=== PATIENT | male | born 1960 | race Caucasian/White ===

== ENCOUNTER 2019-05-05 14:10 | Emergency (ER) | payer MEDICAID ==
[~2019-05-05] VITALS: Ht 182.9 cm; Wt 77.3 kg
[2019-05-05] MEDS ORDERED: AMLO25TA PO (14:18)
[2019-05-05] MEDS ORDERED: ONDANSETRON 4 MG ORAL DISINTEGRATING TAB (Q0162 PER 1MG) PO ONE (15:30)
[2019-05-05 15:43] LABS: BASO % 0.3 % (0.0-1.0); EOS % 0.3 % (0.0-3.0); HEMATOCRIT 44.2 % (42.0-52.0); HEMOGLOBIN 14.8 g/dl (13.5-17.5); LYMPH # 1.8 10^3/uL (1.5-5.0); LYMPH % 25.3 % (24.0-44.0); MEAN CORPUSCULAR HEMOGLOBIN 33.3 pg (27.0-33.0); MEAN CORPUSCULAR HGB CONC 33.5 g/dl (32.0-36.5); MEAN CORPUSCULAR VOLUME 99.5 fl (80.0-96.0); MONO # 0.8 10^3/uL (0.0-0.8); MONO % 11.6 % (0.0-5.0); NEUTROPHILS # 4.5 10^3/uL (1.5-8.5); NEUTROPHILS % 62.2 % (36.0-66.0); PLATELET COUNT, AUTOMATED 264 10^3/uL (150-450); RED BLOOD COUNT 4.44 10^6/uL (4.30-6.10); WHITE BLOOD COUNT 7.2 10^3/uL (4.0-10.0)
--- NOTE | 2019-05-05 16:03 | REP ---
Clinical: Pain. Technique: AP, lateral, swimmers views of the cervical spine. Findings: Alignment is maintained. Mild/early moderate multilevel degenerative changes include early osteophytosis, minimal endplate sclerosis and subtle disc space narrowing. Findings most pronounced at C3-4 where there is suggestions for 2 mm of retrolisthesis. No acute fracture / compression injury or subluxation. Impression: Mild/moderate multilevel degenerative spondylosis. If the patient remains symptomatic consider MRI for further investigation. Electronically Signed by Kun Sawyer MD 05/05/2019 03:54 P
[2019-05-05 16:14] LABS: ALBUMIN 3.9 GM/DL (3.2-5.2); ALT/SGPT 31 U/L (12-78); BILIRUBIN,DIRECT 0.2 MG/DL (0.0-0.2); BILIRUBIN,TOTAL 0.8 MG/DL (0.2-1.0); BLOOD UREA NITROGEN 6 MG/DL (7-18); CALCIUM LEVEL 8.9 MG/DL (8.5-10.1); CARBON DIOXIDE LEVEL 30 MEQ/L (21-32); CHLORIDE LEVEL 100 MEQ/L (98-107); CREATININE FOR GFR 1.04 MG/DL (0.70-1.30); GLOMERULAR FILTRATION RATE > 60.0 (>56); GLUCOSE, FASTING 137 MG/DL (70-100); LIPASE 90 U/L (73-393); POTASSIUM SERUM 4.2 MEQ/L (3.5-5.1); SODIUM LEVEL 137 MEQ/L (136-145); TOTAL PROTEIN 7.5 GM/DL (6.4-8.2)
[2019-05-05 16:46] VITALS: BP 138/87
[2019-05-05] MEDS ORDERED: LISI10TA4 PO (17:29)
[2019-05-05] MEDS ORDERED: ONDA4TAB6 PO (17:29)
== END 2019-05-05 17:46 | disposition home or self-care (01) ==
LOC: M ED 14:10
DX: M47.812 Spondylosis without myelopathy or radiculopathy, cervical region (principal); I10 Essential (primary) hypertension; R11.2 Nausea with vomiting, unspecified; L56.3 Solar urticaria; Z76.0 Encounter for issue of repeat prescription; Z86.79 Personal history of other diseases of the circulatory system; F17.210 Nicotine dependence, cigarettes, uncomplicated
CPT/HCPCS: 36415; 72040; 80048; 80076; 83690; 85025; 99284; Q0162

== ENCOUNTER → 2019-05-29 | Outpatient (CLI) | payer MEDICAID ==
[~2019-05-29] MED LIST: AMLO25TA PO; LISI10TA4 PO; ONDA4TAB6 PO
== END ==
LOC: M RAD 13:03
PROVIDERS: ATTEND Physician Assistant
DX: M50.30 Other cervical disc degeneration, unspecified cervical region (principal); M43.12 Spondylolisthesis, cervical region

== ENCOUNTER → 2019-06-26 | Outpatient (CLI) | payer OTHER ==
--- NOTE | 2019-06-26 10:01 | REPVR ---
PROCEDURE INFORMATION: Exam: MR Cervical Spine Without Contrast Exam date and time: 06/26/2019 8:52 AM Age: 58 years old Clinical indication: Patient HX: PT states severe neck pain and stiffness TECHNIQUE: Imaging protocol: Multiplanar magnetic resonance images of the cervical spine without contrast. COMPARISON: CR SPINE, CERV-3 NO COLLAR 05/05/2019 3:38 PM FINDINGS: Vertebrae: Unremarkable. Spinal cord: Normal signal. No cord compression. C2-C3: There is grade 1 anterior spondylolisthesis at this level. There is disc desiccation. There is a moderate disc/osteophyte complex that flattens the ventral thecal sac. There is a small central disc protrusion. There is moderate bilateral uncovertebral joint arthropathy. There is moderate bilateral neural foraminal narrowing, left worse than right. C3-C4: There is disc desiccation. There is a moderate disc/osteophyte complex that flattens the ventral thecal sac. There is a small central disc protrusion. There is bilateral uncovertebral joint arthropathy, worse on the right. There is moderate right-sided neuroforaminal narrowing. There is mild spinal canal stenosis. C4-C5: No significant disc disease. No significant spinal stenosis. C5-C6: No significant disc disease. No significant spinal stenosis. C6-C7: No significant disc disease. No significant spinal stenosis. C7-T1: No significant disc disease. No significant spinal stenosis. Vertebral arteries: Expected flow voids in the vertebral arteries. Soft tissues: Unremarkable. IMPRESSION: Moderate degenerative changes at C2/3 and C3/4. Please see details above. Electronically signed by: Adan Nathan On 06/26/2019 10:01:09 AM
== END ==
LOC: M RAD 06:06
PROVIDERS: ATTEND Physician Assistant
DX: M50.31 Other cervical disc degeneration, high cervical region (principal); M50.320 Other cervical disc degeneration, mid-cervical region, unspecified level; M43.12 Spondylolisthesis, cervical region; M25.78 Osteophyte, vertebrae; M50.21 Other cervical disc displacement, high cervical region; M48.02 Spinal stenosis, cervical region

== ENCOUNTER → 2019-08-02 | Outpatient (REF) | payer MEDICAID, OTHER | LOC: M SFHCPLAZ 11:42 | PROVIDERS: ATTEND Family Medicine | DX: R21 Rash and other nonspecific skin eruption (principal) ==

== ENCOUNTER → 2019-08-24 | Outpatient (CLI) | payer OTHER ==
[2019-08-24 13:16] LABS: BASO % 0.4 % (0.0-1.0); EOS # 0.1 10^3/uL (0.0-0.5); EOS % 0.9 % (0.0-3.0); HEMOGLOBIN 14.6 g/dl (13.5-17.5); LYMPH # 1.9 10^3/uL (1.5-5.0); LYMPH % 20.4 % (24.0-44.0); MEAN CORPUSCULAR HEMOGLOBIN 33.1 pg (27.0-33.0); MEAN CORPUSCULAR HGB CONC 33.2 g/dl (32.0-36.5); MEAN CORPUSCULAR VOLUME 99.8 fl (80.0-96.0); MONO # 0.9 10^3/uL (0.0-0.8); MONO % 9.9 % (0.0-5.0); NEUTROPHILS # 6.5 10^3/uL (1.5-8.5); PLATELET COUNT, AUTOMATED 358 10^3/uL (150-450); RED BLOOD COUNT 4.41 10^6/uL (4.30-6.10); WHITE BLOOD COUNT 9.5 10^3/uL (4.0-10.0)
[2019-08-24 13:39] LABS: ALT/SGPT 14 U/L (12-78); BILIRUBIN,TOTAL 0.4 MG/DL (0.2-1.0); BLOOD UREA NITROGEN 9 MG/DL (7-18); C REACTIVE PROTEIN QUANTITATIV 0.83 MG/DL (0.00-0.30); CALCIUM LEVEL 8.8 MG/DL (8.5-10.1); CARBON DIOXIDE LEVEL 32 MEQ/L (21-32); CHLORIDE LEVEL 104 MEQ/L (98-107); CHOLESTEROL LEVEL 169 MG/DL (<200); CHOLESTEROL RISK RATIO 4.225 (<5); CREATININE FOR GFR 0.99 MG/DL (0.70-1.30); FREE T4 1.06 NG/DL (0.76-1.46); GLOMERULAR FILTRATION RATE > 60.0 (>56); GLUCOSE, FASTING 95 MG/DL (70-100); HDL CHOLESTEROL 40 MG/DL (>40); LDL CHOLESTEROL 99 MG/DL (<100); NON-HDL-C 129 MG/DL; POTASSIUM SERUM 4.2 MEQ/L (3.5-5.1); SODIUM LEVEL 137 MEQ/L (136-145); TOTAL PROTEIN 7.6 GM/DL (6.4-8.2); TRIGLYCERIDES LEVEL 149 MG/DL (<150)
[2019-08-24 13:50] LABS: HEMOGLOBIN A1c 5.4 %
[2019-08-24 14:04] LABS: ERYTHROCYTE SEDIMENTATION RATE 24 mm/hr (0-20)
[2019-08-25 12:03] LABS: HEPATITIS B SURFACE ANTIGEN NEGATIVE (NEGATIVE)
[2019-08-25 12:30] LABS: HEPATITIS B CORE ANTIBODY IGM NEGATIVE (NEGATIVE); HEPATITIS C VIRUS ABY INDEX 0.1 INDEX (<0.8)
[2019-08-25 12:31] LABS: HIV 1&2 SCREEN CENTAUR NEGATIVE (NEGATIVE)
[2019-08-25 12:32] LABS: HEPATITIS A ANTIBODY IGM NEGATIVE (NEGATIVE)
[2019-08-26 00:07] LABS: ANTINUCLEAR ANTIBODIES DIRECT Negative (Negative)
== END ==
LOC: M PLALAB 10:56
PROVIDERS: ATTEND Student in an Organized Health Care Education/Training Program
DX: R21 Rash and other nonspecific skin eruption (principal)

== ENCOUNTER 2019-10-12 11:57 | Observation (INO) | payer OTHER ==
[~2019-10-12] VITALS: Ht 182.9 cm; Wt 81.0 kg
[2019-10-12] MEDS ORDERED: GABA-843 PO (12:07)
[2019-10-12] MEDS ORDERED: TIZA4CAP PO (12:07)
[2019-10-12 12:56] LABS: BASO % 0.3 % (0.0-1.0); EOS % 0.2 % (0.0-3.0); HEMOGLOBIN 14.3 g/dl (13.5-17.5); LYMPH # 1.4 10^3/uL (1.5-5.0); LYMPH % 16.2 % (24.0-44.0); MEAN CORPUSCULAR HEMOGLOBIN 34.6 pg (27.0-33.0); MEAN CORPUSCULAR HGB CONC 35.8 g/dl (32.0-36.5); MEAN CORPUSCULAR VOLUME 96.9 fl (80.0-96.0); MONO # 1.4 10^3/uL (0.0-0.8); MONO % 15.9 % (0.0-5.0); NEUTROPHILS # 5.9 10^3/uL (1.5-8.5); NEUTROPHILS % 66.7 % (36.0-66.0); PLATELET COUNT, AUTOMATED 169 10^3/uL (150-450); RED BLOOD COUNT 4.13 10^6/uL (4.30-6.10); WHITE BLOOD COUNT 8.8 10^3/uL (4.0-10.0)
[2019-10-12 13:08] LABS: INR 1.07; PROTHROMBIN TIME 13.6 SECONDS (11.8-14.0)
[2019-10-12 13:09] LABS: PARTIAL THROMBOPLASTIN TIME 31.3 SECONDS (25.0-38.4)
[2019-10-12 13:29] LABS: ALBUMIN 3.7 GM/DL (3.2-5.2); ALT/SGPT 57 U/L (12-78); BILIRUBIN,DIRECT 0.5 MG/DL (0.0-0.2); BILIRUBIN,TOTAL 1.3 MG/DL (0.2-1.0); BLOOD UREA NITROGEN 14 MG/DL (7-18); CARBON DIOXIDE LEVEL 30 MEQ/L (21-32); CHLORIDE LEVEL 93 MEQ/L (98-107); CK-MB VALUE MASS 1.9 NG/ML (<3.6); CPK CREATINE PHOSPHOKINASE 208 U/L (39-308); CREATININE FOR GFR 1.47 MG/DL (0.70-1.30); GLOMERULAR FILTRATION RATE 52.6 (>56); GLUCOSE, FASTING 79 MG/DL (70-100); LIPASE 91 U/L (73-393); MAGNESIUM LEVEL 2.3 MG/DL (1.8-2.4); MB/CK RELATIVE INDEX 0.91 (< OR =4); SODIUM LEVEL 130 MEQ/L (136-145); TROPONIN I < 0.02 NG/ML (< 0.10)
[2019-10-12] MEDS ORDERED: NS 1,000 ML IV ONE (14:15)
[2019-10-12 14:18] LABS: ETHYL ALCOHOL (ETHANOL) < 0.003 % (0.000-0.010)
--- NOTE | 2019-10-12 14:52 | REP ---
REASON: Atraumatic dizziness. PRIORS: None. TECHNIQUE: 4.5 mm contiguous transaxial sections were obtained from the skull base to the cerebral convexities with thin cuts through the posterior fossa without the administration of intravenous contrast. FINDINGS: The ventricles and sulci are consistent with the patient's age. There are no extra-axial fluid collections. There is no mass effect. The deep cerebral white matter is consistent with the patient's age. The orbital and petrous structures , cerebellopontine angles, and posterior fossa are unremarkable. The sella turcica, cavernous, and paracavernous structures are essentially unremarkable. The visualized portions of the paranasal sinuses and mastoid air cells are clear. Images of the skull base show no gross abnormality. IMPRESSION: Essentially unremarkable CT examination of the brain. Electronically Signed by Jose Miguel Wolf DO 10/13/2019 08:33 A
--- NOTE | 2019-10-12 15:08 | REP ---
Portable chest x-ray: Single view. History: Syncope. No comparison study. Findings: The lungs are symmetrically aerated and free of infiltrate. Pleural angles are sharp. Heart size is normal. Pulmonary vasculature is not increased. No significant bony abnormality. Impression: No acute disease. Electronically Signed by Ryan Shaver MD 10/12/2019 03:00 P
[2019-10-12] MEDS ORDERED: GABA600T4 PO (15:38)
[2019-10-12] MEDS ORDERED: LISI10TA4 PO (15:38)
[2019-10-12] MEDS ORDERED: SYST1SOL OU (15:38)
[2019-10-12] MEDS ORDERED: DIPH25CA32 PO (15:38)
[2019-10-12] MEDS ORDERED: TIZA4TAB4 PO (15:38)
[2019-10-12] MEDS ORDERED: POLYVINYL ALCOHOL OPHTH SOLN 15 ML(LIQUITEARS) OU PRN (16:45)
[2019-10-12] MEDS ORDERED: diphenhydrAMINE 25MG CAP PO PRN (16:45)
--- NOTE | 2019-10-12 16:52 | HPEPDOC ---
[facility] Medical History & Physical Date of Admission Oct 12, 2019 Date of Service: Oct 12, 2019 Attending Physician: WILL BYRD MD History and Physical CHIEF COMPLAINT: Dizziness, leg weakness HISTORY OF PRESENT ILLNESS: 58-year-old male with past medical history of hypertension and alcohol abuse, presents from home with dizziness with ambulation. Patient drinks at least 12 beers per day if not more, has minimal water intake and caloric intake from other sources. Patient reports leg weakness/cramping and dizziness with ambulation causing him to bump into things and fall. She denies any loss of consciousness. Patient has no other associated symptoms, denies any shortness of breath, chest pain, nausea, vomiting, abdominal pain or diarrhea. Patient denies any history of hospitalization due to alcohol withdrawal or withdrawal seizures. 10 point review of system is negative so for above PAST MEDICAL HISTORY: 1. Hypertension. 2. Alcohol abuse. PAST SURGICAL HISTORY: 1. None. SOCIAL HISTORY: Current smoker, smokes 1-1/2 packs per day. Drinks excessive alcohol, at least 12 beers per day Occasional marijuana use FAMILY HISTORY: Positive for hypertension in both parents ALLERGIES: Please see below. HOME MEDICATIONS: Please see below. PHYSICAL EXAMINATION: VITAL SIGNS: Please see below. GENERAL: No distress HEENT: Normocephalic, atraumatic, dry mucous membranes NECK: Supple CARDIOVASCULAR EXAMINATION: S1, S2, no murmurs RESPIRATORY EXAMINATION: Poor air movement, scattered rhonchi, no wheezing ABDOMINAL EXAMINATION: Soft, nontender, nondistended, positive bowel sounds EXTREMITIES: Range of motion intact SKIN: No rash NEUROLOGICAL EXAMINATION: Alert and oriented 3, no focal deficits PSYCHIATRIC EXAMINATION: Calm and cooperative LABORATORY DATA: See below. IMAGING: Chest x-ray without acute pathology, CT head negative for acute pathology MICROBIOLOGY: Please see below. ASSESSMENT: 58-year-old male with past medical history of hypertension, alcohol abuse is admitted for dizziness and acute kidney injury. PLAN: 1. Dizziness/leg weakness/cramping. Likely due to alcohol abuse leading to dehydration causing dizziness and electrolyte abnormalities leading to muscle cramping/weakness, will check magnesium and phosphorus levels, IV hydration, telemetry monitoring. 2. Acute kidney injury. Likely due to dehydration from excessive or call intake and poor water intake, status post 1 L normal saline bolus in the ED, continue IV hydration. 3. Alcohol abuse. Denies previous history of liver disease, alcohol levels within normal limits in the ED, CIWA protocol as patient is high risk for withdrawal, spent a significant amount of time discussing risks of alcohol abuse. Patient is agreeable to quitting in the near future. 4. Hypertension. Hold lisinopril due to acute kidney injury, we'll monitor blood pressure and treat accordingly. DVT prophylaxis: Lovenox GI prophylaxis: Not needed Vital Signs Vital Signs Date Time Temp Pulse Resp B/P (MAP) Pulse Ox O2 Delivery O2 Flow Rate FiO2 10/12/19 12:59 80 104/68 (80) 111/73 (86) 95/51 (66) 10/12/19 12:09 99.0 18 98 Room Air Laboratory Data Labs 24H Laboratory Tests 2 10/12/19 12:40: Immature Granulocyte % (Auto) 0.7, Neutrophils (%) (Auto) 66.7H, Lymphocytes (%) (Auto) 16.2L, Monocytes (%) (Auto) 15.9H, Eosinophils (%) (Auto) 0.2, Basophils (%) (Auto) 0.3, Neutrophils # (Auto) 5.9, Lymphocytes # (Auto) 1.4L, Monocytes # (Auto) 1.4H, Eosinophils # (Auto) 0.0, Basophils # (Auto) 0.0, Nucleated Red Blood Cells % (auto) 0.0, Prothrombin Time 13.6, Prothromb Time International Ratio 1.07, Activated Partial Thromboplast Time 31.3, Anion Gap 7L, Glomerular Filtration Rate 52.6L, Calcium Level 9.0, Magnesium Level 2.3, Total Bilirubin 1.3H, Direct Bilirubin 0.5H, Aspartate Amino Transf (AST/SGOT) 60H, Alanine Aminotransferase (ALT/SGPT) 57, Alkaline Phosphatase 61, Total Creatine Kinase 208, Creatine Kinase MB 1.9, Creatine Kinase MB Relative Index 0.91, Troponin I < 0.02, Total Protein 7.0, Albumin 3.7, Albumin/Globulin Ratio 1.12, Lipase 91, Thyroid Stimulating Hormone (TSH) 2.200, Ethyl Alcohol Level < 0.003 CBC/BMP Laboratory Tests 10/12/19 12:40 Home Medications Scheduled Gabapentin (Gabapentin) 600 Mg Tablet, 600 MG PO TID Lisinopril (Lisinopril) 10 Mg Tablet, 10 MG PO DAILY Tizanidine HCl (Tizanidine HCl) 4 Mg Tablet, 4 MG PO TID Scheduled PRN Diphenhydramine HCl (Diphenhydramine HCl) 25 Mg Capsule, 25 MG PO Q6H PRN for RUNNY NOSE Propylene Glycol/Peg 400 (Systane 0.3-0.4% Eye Drops) 15 Ml Drops, 1 DROP OU QID PRN for DRY EYES Allergies Coded Allergies: No Known Allergies (Unverified , 05/05/19) A-FIB/CHADSVASC A-FIB History Current/History of A-Fib/PAF?: No WILL BYRD MD Oct 12, 2019 16:52
[2019-10-12] MEDS: NS 1,000 ML IV SCH (17:17)
[2019-10-12] MEDS: GABAPENTIN 300 MG CAP PO SCH (19:36)
[2019-10-12] MEDS: tiZANidine 4 MG TAB PO SCH (19:37)
[2019-10-12 20:00] VITALS: BP_SYST 108; BP_DIAS 72; BP_DIAS 73
[2019-10-12] MEDS: THIAMINE 100 MG TAB PO SCH (20:54)
[2019-10-12] MEDS: BENZONATATE 100 MG CAP PO PRN (21:58)
[2019-10-13] VITALS (7 sets, daily range): BP systolic 120–139; BP diastolic 69–100
[2019-10-13] MEDS: NS 1,000 ML IV SCH ×2 (03:00→12:04)
[2019-10-13] MEDS: CEPACOL LOZENGE PO PRN ×2 (04:13→20:37)
[2019-10-13] MEDS: ACETAMINOPHEN TAB 650MG DOSE (2X325MG) PO PRN (04:47)
[2019-10-13 06:44] LABS: HEMATOCRIT 36.9 % (42.0-52.0); HEMOGLOBIN 12.7 g/dl (13.5-17.5); MEAN CORPUSCULAR HGB CONC 34.4 g/dl (32.0-36.5); MEAN CORPUSCULAR VOLUME 98.9 fl (80.0-96.0); PLATELET COUNT, AUTOMATED 162 10^3/uL (150-450); RED BLOOD COUNT 3.73 10^6/uL (4.30-6.10)
[2019-10-13 07:23] LABS: ALBUMIN 3.2 GM/DL (3.2-5.2); ALT/SGPT 49 U/L (12-78); BILIRUBIN,TOTAL 1.1 MG/DL (0.2-1.0); BLOOD UREA NITROGEN 11 MG/DL (7-18); CALCIUM LEVEL 8.2 MG/DL (8.5-10.1); CARBON DIOXIDE LEVEL 27 MEQ/L (21-32); CHLORIDE LEVEL 103 MEQ/L (98-107); CREATININE FOR GFR 0.96 MG/DL (0.70-1.30); GLOMERULAR FILTRATION RATE > 60.0 (>56); GLUCOSE, FASTING 84 MG/DL (70-100); PHOSPHORUS LEVEL 3.8 MG/DL (2.5-4.9); POTASSIUM SERUM 4.2 MEQ/L (3.5-5.1); SODIUM LEVEL 136 MEQ/L (136-145); TOTAL PROTEIN 6.1 GM/DL (6.4-8.2)
[2019-10-13] MEDS: MULTIVITAMINS/MINERALS THERAP 1 TAB PO SCH (08:36)
[2019-10-13] MEDS: GABAPENTIN 300 MG CAP PO SCH ×3 (08:36→20:37)
[2019-10-13] MEDS: tiZANidine 4 MG TAB PO SCH ×3 (08:36→20:37)
[2019-10-13] MEDS: THIAMINE 100 MG TAB PO SCH ×2 (08:36→20:37)
[2019-10-13] MEDS: FOLIC ACID 1 MG TAB PO SCH (08:36)
[2019-10-13] MEDS: LIDOCAINE 5% (LIDODERM) PATCH TD SCH (08:37)
[2019-10-13] MEDS: LORazepam 2 MG TAB PO PRN ×2 (08:37→20:38)
[2019-10-13] MEDS: ENOXAPARIN 40 MG/0.4 ML SYRINGE (J1650) SC SCH (08:37)
--- NOTE | 2019-10-13 12:26 | ECGEPIP ---
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
--- NOTE | 2019-10-13 12:42 | IPNPDOC ---
Date Seen The patient was seen on 10/13/19. Progress Note SUBJECTIVE: 58-year-old male with past medical history of hypertension and alcohol abuse was admitted for acute kidney injury, dehydration and dizziness. Patient feels much better today after IV hydration, no acute events overnight, no other complaints at this time. He continues to have issues with balance and ambulation due to weakness in his legs. 10 point review of system is negative so for above PHYSICAL EXAMINATION: VITAL SIGNS: Please see below. GENERAL: No distress HEENT: Normocephalic, atraumatic, moist mucous membranes NECK: Supple CARDIOVASCULAR EXAMINATION: S1, S2, no murmurs RESPIRATORY EXAMINATION: Poor air movement, no wheezing ABDOMINAL EXAMINATION: Soft, nontender, nondistended, positive bowel sounds EXTREMITIES: Range of motion intact SKIN: Dry skin NEUROLOGICAL EXAMINATION: Alert and oriented 3, no focal deficits PSYCHIATRIC EXAMINATION: Calm and cooperative LABORATORY DATA: See below. MICROBIOLOGY: Please see below. ASSESSMENT: 58-year-old male with past medical history of hypertension, alcohol abuse is admitted for dizziness and acute kidney injury. PLAN: 1. Dizziness/leg weakness/cramping. Likely due to alcohol abuse, dehydration, decreased oral intake, significant improvement in clinical symptoms with hydration, continue normal saline 100 ml p er hour. 2. Acute kidney injury. Resolved with IV fluids, will monitor. 3. Alcohol abuse. Continue CIWA protocol as patient is high risk for withdrawal. 4. Hypertension. Restart home lisinopril DVT prophylaxis: Lovenox GI prophylaxis: Not needed VS, I&O, 24H, Fishbone Vital Signs/I&O Vital Signs Date Time Temp Pulse Resp B/P (MAP) Pulse Ox O2 Delivery O2 Flow Rate FiO2 10/13/19 08:43 84 138/94 10/13/19 06:00 97.9 20 97 10/12/19 20:00 Room Air I&O- Last 24 Hours up to 6 AM 10/13/19 06:00 Intake Total 3200 ml Output Total 775 ml Balance 2425 ml Laboratory Data 24H LABS Laboratory Tests 2 10/12/19 12:40: Immature Granulocyte % (Auto) 0.7, Neutrophils (%) (Auto) 66.7H, Lymphocytes (%) (Auto) 16.2L, Monocytes (%) (Auto) 15.9H, Eosinophils (%) (Auto) 0.2, Basophils (%) (Auto) 0.3, Neutrophils # (Auto) 5.9, Lymphocytes # (Auto) 1.4L, Monocytes # (Auto) 1.4H, Eosinophils # (Auto) 0.0, Basophils # (Auto) 0.0, Nucleated Red Blood Cells % (auto) 0.0, Prothrombin Time 13.6, Prothromb Time International Ratio 1.07, Activated Partial Thromboplast Time 31.3, Anion Gap 7L, Glomerular Filtration Rate 52.6L, Calcium Level 9.0, Magnesium Level 2.3, Total Bilirubin 1.3H, Direct Bilirubin 0.5H, Aspartate Amino Transf (AST/SGOT) 60H, Alanine Aminotransferase (ALT/SGPT) 57, Alkaline Phosphatase 61, Total Creatine Kinase 208, Creatine Kinase MB 1.9, Creatine Kinase MB Relative Index 0.91, Troponin I < 0.02, Total Protein 7.0, Albumin 3.7, Albumin/Globulin Ratio 1.12, Lipase 91, Thyroid Stimulating Hormone (TSH) 2.200, Ethyl Alcohol Level < 0.003 10/13/19 06:22: Nucleated Red Blood Cells % (auto) 0.0, Anion Gap 6L, Glomerular Filtration Rate > 60.0, Calcium Level 8.2L, Magnesium Level 2.0, Total Bilirubin 1.1H, Aspartate Amino Transf (AST/SGOT) 50H, Alanine Aminotransferase (ALT/SGPT) 49, Alkaline Phosphatase 60, Total Protein 6.1L, Albumin 3.2, Albumin/Globulin Ratio 1.10, Phosphorus Level 3.8 CBC/BMP Laboratory Tests 10/12/19 12:40 10/13/19 06:22 WILL BYRD MD Oct 13, 2019 12:42
[2019-10-13] MEDS ORDERED: lisinopriL 10 MG TAB PO ONE (12:45)
[2019-10-13] MEDS: BENZONATATE 100 MG CAP PO PRN (20:37)
[2019-10-13] MEDS ORDERED: **NOTE PATIENT COMMENT** MISC XX SCH (21:00)
[2019-10-14] VITALS: BP 142/95
[2019-10-14] MEDS: NS 1,000 ML IV SCH ×2 (00:57→08:45)
[2019-10-14 05:55] LABS: HEMOGLOBIN 11.9 g/dl (13.5-17.5); MEAN CORPUSCULAR HEMOGLOBIN 34.2 pg (27.0-33.0); MEAN CORPUSCULAR VOLUME 100.6 fl (80.0-96.0); PLATELET COUNT, AUTOMATED 170 10^3/uL (150-450); RED BLOOD COUNT 3.48 10^6/uL (4.30-6.10); WHITE BLOOD COUNT 6.7 10^3/uL (4.0-10.0)
[2019-10-14 06:00] VITALS: BP 148/92
[2019-10-14 06:18] LABS: BLOOD UREA NITROGEN 8 MG/DL (7-18); CALCIUM LEVEL 7.9 MG/DL (8.5-10.1); CARBON DIOXIDE LEVEL 29 MEQ/L (21-32); CHLORIDE LEVEL 107 MEQ/L (98-107); CREATININE FOR GFR 0.94 MG/DL (0.70-1.30); GLOMERULAR FILTRATION RATE > 60.0 (>56); GLUCOSE, FASTING 86 MG/DL (70-100); MAGNESIUM LEVEL 1.9 MG/DL (1.8-2.4); PHOSPHORUS LEVEL 4.2 MG/DL (2.5-4.9); POTASSIUM SERUM 3.9 MEQ/L (3.5-5.1); SODIUM LEVEL 139 MEQ/L (136-145)
[2019-10-14] MEDS: ACETAMINOPHEN TAB 650MG DOSE (2X325MG) PO PRN (06:49)
[2019-10-14] MEDS: GABAPENTIN 300 MG CAP PO SCH (08:44)
[2019-10-14 08:47] VITALS: BP 162/109
[2019-10-14] MEDS: FOLIC ACID 1 MG TAB PO SCH (08:47)
[2019-10-14] MEDS: ENOXAPARIN 40 MG/0.4 ML SYRINGE (J1650) SC SCH (08:48)
[2019-10-14] MEDS: MULTIVITAMINS/MINERALS THERAP 1 TAB PO SCH (08:48)
[2019-10-14] MEDS: tiZANidine 4 MG TAB PO SCH (08:48)
[2019-10-14] MEDS: THIAMINE 100 MG TAB PO SCH (08:48)
[2019-10-14] MEDS: LIDOCAINE 5% (LIDODERM) PATCH TD SCH (08:49)
[2019-10-14] MEDS ORDERED: FLUBLOK(EGG FREE)(QUAD)INFLUENZA VACC 0.5ML SYRINGE (90682)18YRS&OLDER IM ONE (09:00)
[2019-10-14] MEDS ORDERED: lisinopriL 10 MG TAB PO SCH (09:00)
[2019-10-14 09:12] VITALS: BP 162/109
--- NOTE | 2019-10-14 16:33 | DS.PDOC ---
Discharge Summary General Date of Admission Oct 12, 2019 at 16:37 Date of Discharge 10/14/19 Attending Physician: WILL BYRD MD Discharge Summary PROCEDURES PERFORMED DURING STAY: None. ADMITTING DIAGNOSES: 1. Acute kidney injury, dehydration, alcohol abuse. DISCHARGE DIAGNOSES: 1. Acute kidney injury, dehydration, alcohol abuse. COMPLICATIONS/CHIEF COMPLAINT: Alcohol Abuse, Htn, Syncope. HISTORY OF PRESENT ILLNESS: 58-year-old male with past medical history of hypertension, alcohol abuse, was admitted for acute kidney injury and dehydration. Patient drinks excessive amount of alcohol every day with poor intake of water and food. Subsequently, patient is chronically intravascularly volume depleted and hyponatremic. Patient was treated with IV hydration with resolution of acute kidney injury and normalization of hyponatremia. Patient was strongly advised to quit alcohol and he is agreeable. Patient is without complaints today, ambulating well and cleared by physical therapy, hemodynamically stable for discharge and outpatient follow-up at this time. HOSPITAL COURSE: As above. DISCHARGE MEDICATIONS: Please see below. ALLERGIES: Please see below. PHYSICAL EXAMINATION: VITAL SIGNS: Please see below. GENERAL: No distress HEENT: Normocephalic, atraumatic, moist mucous membranes NECK: Supple CARDIOVASCULAR EXAMINATION: S1, S2, no murmurs RESPIRATORY EXAMINATION: Clear to auscultation, no wheezing ABDOMINAL EXAMINATION: Soft, nontender, nondistended, positive bowel sounds EXTREMITIES: Range of motion intact SKIN: No rash NEUROLOGICAL EXAMINATION: Alert and oriented 3, no focal deficits PSYCHIATRIC EXAMINATION: Calm and cooperative LABORATORY DATA: Please see below. PROGNOSIS: Fair ACTIVITY: As tolerated. DIET: Cardiac DISCHARGE PLAN: Follow with PCP in 1-2 weeks DISPOSITION: 01 Home, Self-Care. DISCHARGE INSTRUCTIONS: 1. As above. DISCHARGE CONDITION: Stable. TIME SPENT ON DISCHARGE: Greater than 25 minutes. Vital Signs/I&Os Vital Signs Date Time Temp Pulse Resp B/P (MAP) Pulse Ox O2 Delivery O2 Flow Rate FiO2 10/14/19 09:12 78 162/109 10/14/19 06:00 98.8 20 98 Room Air I&O- Last 24 Hours up to 6 AM 10/14/19 06:00 Intake Total 4390 ml Balance 4390 ml Laboratory Data Labs 24H Laboratory Tests 2 10/14/19 05:45: Nucleated Red Blood Cells % (auto) 0.0, Anion Gap 3L, Glomerular Filtration Rate > 60.0, Calcium Level 7.9L, Phosphorus Level 4.2, Magnesium Level 1.9 CBC/BMP Laboratory Tests 10/14/19 05:45 Discharge Medications Scheduled Gabapentin (Gabapentin) 600 Mg Tablet, 600 MG PO TID, (Reported) Lisinopril (Lisinopril) 10 Mg Tablet, 10 MG PO DAILY, (Reported) Tizanidine HCl (Tizanidine HCl) 4 Mg Tablet, 4 MG PO TID, (Reported) Scheduled PRN Diphenhydramine HCl (Diphenhydramine HCl) 25 Mg Capsule, 25 MG PO Q6H PRN for RUNNY NOSE, (Reported) Propylene Glycol/Peg 400 (Systane 0.3-0.4% Eye Drops) 15 Ml Drops, 1 DROP OU QID PRN for DRY EYES, (Reported) Allergies Coded Allergies: No Known Allergies (Unverified , 05/05/19) WILL BYRD MD Oct 14, 2019 16:33
== END 2019-10-14 11:47 | disposition home or self-care (01) ==
LOC: M ED 11:57 → EDBD 11:57 → M ED INP 16:37 → M MSPAV 20:00
PROVIDERS: ADMIT Internal Medicine; ATTEND Internal Medicine
DX: N17.9 Acute kidney failure, unspecified (principal); E86.0 Dehydration; F10.10 Alcohol abuse, uncomplicated; E87.1 Hypo-osmolality and hyponatremia; R55 Syncope and collapse; R42 Dizziness and giddiness; R26.89 Other abnormalities of gait and mobility; R53.1 Weakness; I10 Essential (primary) hypertension; F17.210 Nicotine dependence, cigarettes, uncomplicated; Z79.899 Other long term (current) drug therapy; Z23 Encounter for immunization
CPT/HCPCS: 36415; 70450; 71045; 80048; 80053; 80076; 82550; 82553; 83690; 83735; 84100; 84443; 85025; 85027; 85610; 85730; 90471; 90682; 93005; 96360; 96361; 96372; 97116; 97161; 97530; 99285; G0480; J1650

== ENCOUNTER → 2019-11-02 | Outpatient (REF) | payer MEDICAID, OTHER ==
[~2019-11-02] MED LIST changes: +DIPH25CA32 PO; +GABA-843 PO; +GABA600T4 PO; +SYST1SOL OU; +TIZA4CAP PO; +TIZA4TAB4 PO
[2019-11-02 18:08] LABS: BASO % 0.2 % (0.0-1.0); EOS % 0.1 % (0.0-3.0); HEMATOCRIT 38.7 % (42.0-52.0); LYMPH # 1.3 10^3/uL (1.5-5.0); LYMPH % 10.9 % (24.0-44.0); MEAN CORPUSCULAR HEMOGLOBIN 33.9 pg (27.0-33.0); MEAN CORPUSCULAR HGB CONC 33.6 g/dl (32.0-36.5); MEAN CORPUSCULAR VOLUME 100.8 fl (80.0-96.0); MONO # 2.3 10^3/uL (0.0-0.8); MONO % 18.8 % (0.0-5.0); NEUTROPHILS # 8.5 10^3/uL (1.5-8.5); NEUTROPHILS % 69.4 % (36.0-66.0); PLATELET COUNT, AUTOMATED 327 10^3/uL (150-450); RED BLOOD COUNT 3.84 10^6/uL (4.30-6.10); WHITE BLOOD COUNT 12.2 10^3/uL (4.0-10.0)
[2019-11-02 18:13] LABS: ALT/SGPT 24 U/L (12-78); BILIRUBIN,TOTAL 0.8 MG/DL (0.2-1.0); BLOOD UREA NITROGEN 8 MG/DL (7-18); CALCIUM LEVEL 8.6 MG/DL (8.5-10.1); CARBON DIOXIDE LEVEL 27 MEQ/L (21-32); CHLORIDE LEVEL 97 MEQ/L (98-107); CREATININE FOR GFR 0.87 MG/DL (0.70-1.30); GLOMERULAR FILTRATION RATE > 60.0 (>56); GLUCOSE, FASTING 104 MG/DL (70-100); POTASSIUM SERUM 4.1 MEQ/L (3.5-5.1); SODIUM LEVEL 132 MEQ/L (136-145); TOTAL PROTEIN 6.9 GM/DL (6.4-8.2)
== END ==
LOC: M SFHCPLAZ 14:35
DX: R52 Pain, unspecified (principal)

== ENCOUNTER → 2019-11-02 | Outpatient (CLI) | payer MEDICAID, OTHER ==
--- NOTE | 2019-11-02 16:26 | REPPI ---
CHEST, TWO VIEWS: PA and lateral views of the chest are performed and compared to a prior single view chest 10/12/2019. There is dense infiltrate in the right middle lobe. The left lung is clear. The heart is normal in size. Mediastinal silhouette is unremarkable. IMPRESSION: Dense right middle lobe infiltrate. Recommend followup to resolution. Electronically Signed by Ankit Metzger MD 11/02/2019 07:05 P
== END ==
LOC: M PLAIMG 14:51
DX: R05 Cough (principal); R91.8 Other nonspecific abnormal finding of lung field

== ENCOUNTER 2020-01-02 13:26 | Inpatient (IN) | payer OTHER ==
[~2020-01-02] VITALS: Ht 182.9 cm; Wt 81.4 kg
[2020-01-02] MEDS ORDERED: GABA600T4 PO (13:35)
--- NOTE | 2020-01-02 14:24 | REP ---
Clinical: Cough. Technique: PA and lateral. Comparison: 11/02/2019. Findings: Right middle lobe consolidation is again identified and unchanged. Underlying pathology cannot be excluded. Remainder of lung carrera are clear. No effusion. No pneumothorax. Skeletal structures are intact. Cardiac silhouette is grossly normal. Impression: Right middle lobe consolidation unchanged. Underlying pathology cannot be excluded. Consider contrast enhanced chest CT for further investigation. Electronically Signed by Kun Sawyer MD 01/02/2020 02:16 P
[2020-01-02] MEDS ORDERED: ISOVUE-370 76% 100ML VIAL As Ordered ONE (14:30)
[2020-01-02 14:37] LABS: BASO # 0.1 10^3/uL (0.0-0.2); BASO % 0.6 % (0.0-1.0); EOS % 0.2 % (0.0-3.0); HEMOGLOBIN 12.6 g/dl (13.5-17.5); LYMPH # 1.8 10^3/uL (1.5-5.0); LYMPH % 17.3 % (24.0-44.0); MEAN CORPUSCULAR HGB CONC 32.3 g/dl (32.0-36.5); MEAN CORPUSCULAR VOLUME 102.1 fl (80.0-96.0); MONO # 1.7 10^3/uL (0.0-0.8); MONO % 15.9 % (0.0-5.0); NEUTROPHILS # 6.9 10^3/uL (1.5-8.5); NEUTROPHILS % 65.6 % (36.0-66.0); PLATELET COUNT, AUTOMATED 424 10^3/uL (150-450); RED BLOOD COUNT 3.82 10^6/uL (4.30-6.10); WHITE BLOOD COUNT 10.5 10^3/uL (4.0-10.0)
[2020-01-02 14:59] LABS: ALBUMIN 3.1 GM/DL (3.2-5.2); ALT/SGPT 22 U/L (12-78); BILIRUBIN,DIRECT 0.2 MG/DL (0.0-0.2); BILIRUBIN,TOTAL 0.8 MG/DL (0.2-1.0); ETHYL ALCOHOL (ETHANOL) < 0.003 % (0.000-0.010); TOTAL PROTEIN 7.4 GM/DL (6.4-8.2)
--- NOTE | 2020-01-02 15:02 | REP ---
Clinical: Right middle lobe mass versus consolidation. Technique: Axial contrast enhanced images from the thoracic inlet to the upper abdomen with coronal and sagittal re-formations using 75 ml Isovue 370 intravenous contrast material. Comparison: None. Findings: There appears to be a 5 cm irregular heterogeneous mass lesion in the right middle lobe with surrounding atelectasis. Clinical correlation is recommended and differential diagnosis may include abnormal appearance to pneumonia, phlegmon/forming pulmonary abscess. Mediastinal and hilar lymph nodes are of relatively normal size. Calcified mediastinal and primarily left hilar lymph nodes are also identified suggesting previous granulomatous disease. Remainder of lung carrera are well-aerated and clear. Thoracic aorta, pulmonary vasculature, and heart/pericardium appear relatively normal. Musculoskeletal structures are intact. Impression: 1. Heterogeneous mass-like area within the right middle lobe with surrounding atelectasis. Its appearance is highly suspicious for malignancy and correlation is required. 2. Minimal scattered chronic changes related to prior granulomas disease including partially calcified mediastinal / left hilar lymph nodes. Electronically Signed by Kun Sawyer MD 01/02/2020 02:54 P
[2020-01-02] MEDS: ALBUTEROL SULFATE 2.5 MG/0.5 ML INH NEB SOLN NEB SCH ×2 (16:00→23:27)
[2020-01-02] MEDS ORDERED: SILD50TA PO (16:32)
--- NOTE | 2020-01-02 18:35 | HPEPDOC ---
[facility] Medical History & Physical Date of Admission Jan 02, 2020 Date of Service: Jan 02, 2020 History and Physical CHIEF COMPLAINT: SOB and productive cough HISTORY OF PRESENT ILLNESS: Mr Luong presents to the [facility] ER complaining of exacerbation of his normal baseline SOB and productive cough. He states that he was diagnosed with pneumonia around 2019 and that he has had persistent productive cough and SOB since that time with that past few days being worse than usual. He states that he was treated with Penicillin for this pneumonia but did not experience relief after using it. He states that this cough is constant throughout the day with worsening when laying supine. He reports the cough being productive of greenish sputum and denies seeing blood in it. He reports feel nauseous, dry heaving and vomiting following some coughing spells with emphasis on the large amount of sputum he is producing. He states that cough drops help with his desire to cough and that smoking cigarettes and laying supine exacerbate his cough. He also is complaining of body aches and a recent prolonged period of daily diarrhea. He states the body aches began with the last week and that he experienced a 2-3 week period of daily diarrhea over the last month. He admits to not eating during much of this period and that he has only begun eating and drinking comfortably within the past week. He admits to some night sweating, fevers and chills. He denies rhinorrhea, sinus pressure or pain, pharyngitis, chest pains. PAST MEDICAL HISTORY: 1. Cervical spondylosis 2. Nausea and vomiting 3. Syncope 4. HTN 5. Pneumonia PAST SURGICAL HISTORY: 1. Right Knee Arthroscopic surgery 2. Right elbow fracture repair 3. Brain aneurysm with coil 2015 4. 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 1.5 ppd currently ETOH: Hx of alcohol use disorder. States his drinking can be sporadic but that he "abuses" it and can drink 15+ beers a day. Last drink was 4 days ago Illicit drug use: Occasional marijuana use IV drug use: Denies FAMILY HISTORY: Father: . Hx of HTN Mother: Currently living. Parkinsons and HTN Siblings: 2 living brothers, 1 brother - unknown cause of . 1 sister - MVA Hereditary Diseases: none admitted or known ALLERGIES: Please see below. REVIEW OF SYSTEMS: CONSTITUTIONAL: Positive for poor appetite, myalgias, fevers/chills, sweating. Negative for significant weight loss or fatigue. HEENT: Negative for pharyngitis, sinus pressure or pain, vision or hearing changes. CARDIOVASCULAR: Negative for chest pain, palpitations, skipping heart beats RESPIRATORY: Positive for SOB, productive cough. Negative for hemoptysis. GASTROINTESTINAL: Positive for mild upset stomach following recent diarrheal illness. Negative for abdominal pain, tenderness. GENITOURINARY: Negative for dysuria, polyuria, change in urine color. MUSCULOSKELETAL: Negative for recent onset or sudden onset weakness, spasticity. NEUROLOGICAL: Positive for peripheral neuropathy in legs and sometimes his hands. Positive for poor balance. Negative for sudden losses in function or sensation HOME MEDICATIONS: Please see below. PHYSICAL EXAMINATION: VITAL SIGNS: Temperature 98.2F, pulse 90, respiratory rate 20, blood pressure 125/83, pulse oximetry 99% on room air. GENERAL APPEARANCE: Mildly unkempt appearance. Laying in bed coughing in mild distress. HEENT: Eyes appear somewhat sullen and conjunctiva appear dull with slight yellowish tint. No lymphadenopathy or visible skin lesions. EOMI. CARDIOVASCULAR: RRR. +S1 and S2. No murmurs, rubs, or gallops LUNGS: Decreased breath sounds noted in R middle/lower lobe with mild rales no sancho. Remainder of lung exam in unremarkable but quiet. Frequent cough with green sputum production noted. ABDOMEN: Nontender and soft. No organomegaly noted and normal bowel sounds heard in all quadrants. MUSCULOSKELETAL: Muscle strength 5/5 in UE and LE B/L. Pt appears thin but with good tone. EXTREMITIES: No peripheral edema noted. Ichythosis of legs and feet B/L. NEUROLOGICAL: CN II-XII grossly intact. No spasticity noted. EOMI. PSYCHIATRIC: Pt appears to have appropriate affect and be in good spirits. LABORATORY DATA: See below. IMAGING: Chest CT 01/02/2020: Heterogeneous mass-like area within the right middle lobe with surrounding atelectasis. Its appearance is highly suspicious for malignancy and correlation is required. Minimal scattered chronic changes related to prior granulomas disease including partially calcified mediastinal / left hilar lymph nodes. CXR 01/02/2020: Right middle lobe consolidation unchanged. Underlying pathology cannot be excluded. MICROBIOLOGY: Please see below. ASSESSMENT and PLAN: This is a 59 year old male with a pmhx significant for alcohol use disorder, tobacco use disorder, cervical spondylysis and pneumonia who presents to the [facility] ER with a 3-4 day exacerbation of his baseline productive cough and SOB who was found to have a right middle lobe lung mass with surrounding consolidation and atelectasis. #R middle lobe lung mass with questionable post-obstructive pneumonia: -Arrange for either CT guided percutaneous bx or bronchoscopic biopsy of the mass -Start Piperacillin/tazobactam IV -Patient is saturating well on RA so general admission is appropriate at this time #Leukocytosis: -Mild, likely related to his pulmonary process -Antibiotic therapy should resolve -Blood cultures pending -Serial CBC with Diff. #Macrocytic anemia: -MCV 102.1 -possibly due to Vit B12 deficiency 2/2 chronic hx of alcohol abuse, would also potentially explain peripheral neuropathy -measure serum B12 levels and replace if needed -Serial CBC with Diff. #Alcohol use disorder: -Pt has long history of sporadic heavy drinking -Last drink was 4 days ago and blood Etoh is <0.003 -Monitor for signs of withdrawal - nothing noted at moment -Was hospitalized at [facility] in October 2019 for [place] 2/2 dehydration while binge drinking #Tobacco use disorder: -60 year smoking hx with 1.5 ppd -May need to supplement nicotine with patch when patient enters nicotine withdrawals #Cervical Spondylosis: -Continue home gabapentin 600 mg PO TID and tizanidine 4 mg PO TID #HTN: -Continue home Lisinopril 10 mg PO QD -BP appears well controlled Vital Signs Vital Signs Date Time Temp Pulse Resp B/P (MAP) Pulse Ox O2 Delivery O2 Flow Rate FiO2 01/02/20 17:26 87 18 98 Room Air 01/02/20 17:15 135/92 (106) 01/02/20 13:26 98.8 Laboratory Data Labs 24H Laboratory Tests 2 01/02/20 14:02: POC Glucose (Misc Panel) 94, POC Sodium (Misc Panel) 135L, POC Potassium (Misc Panel) 4.4, POC Chloride (Misc Panel) 98, POC Total CO2 (Misc Panel) 26.0, POC Blood Urea Nitrogen (Misc Panel 5L, POC Ionized Calcium (Misc Panel) 4.2L, POC Creatinine (Misc Panel) 0.9, POC Hematocrit (Misc Panel) 40.0 01/02/20 14:03: POC Lactate (Misc Panel) 0.60 01/02/20 14:09: Immature Granulocyte % (Auto) 0.4, Neutrophils (%) (Auto) 65.6, Lymphocytes (%) (Auto) 17.3L, Monocytes (%) (Auto) 15.9H, Eosinophils (%) (Auto) 0.2, Basophils (%) (Auto) 0.6, Neutrophils # (Auto) 6.9, Lymphocytes # (Auto) 1.8, Monocytes # (Auto) 1.7H, Eosinophils # (Auto) 0.0, Basophils # (Auto) 0.1, Nucleated Red Blood Cells % (auto) 0.0, Total Bilirubin 0.8, Direct Bilirubin 0.2, Aspartate Amino Transf (AST/SGOT) 18, Alanine Aminotransferase (ALT/SGPT) 22, Alkaline Phosphatase 75, Total Protein 7.4, Albumin 3.1L, Albumin/Globulin Ratio 0.7, Ethyl Alcohol Level < 0.003 01/02/20 14:10: POC Prothrombin Time (Misc) 11.9L, POC INR (Misc) 1.0 CBC/BMP Laboratory Tests 01/02/20 14:09 Microbiology Microbiology 01/02/20 Blood Culture, Received Pending 01/02/20 Blood Culture, Received Pending Home Medications Scheduled Gabapentin (Gabapentin) 600 Mg Tablet, 600 MG PO TID Levofloxacin (Levaquin) 750 Mg Tablet, 750 MG PO DAILY Lisinopril (Lisinopril) 10 Mg Tablet, 10 MG PO DAILY Nicotine (Nicotine Patch) 21 Mg Patch.td24, 1 PATCH TOP DAILY for smoking cessation Tizanidine HCl (Tizanidine HCl) 4 Mg Tablet, 4 MG PO TID Scheduled PRN Sildenafil Citrate (Viagra) 50 Mg Tablet, 50 MG PO ASDIRECTED PRN for ERECTILE DYSFUNCTION 1 hour before sexual activity Allergies Coded Allergies: No Known Allergies (Unverified , 05/05/19) A-FIB/CHADSVASC A-FIB History Current/History of A-Fib/PAF?: No Current PO Anticoag Therapy: No GME ATTESTATION GME ATTESTATION My faculty preceptor for this patient encounter was physically present during the encounter and was fully available. All aspects of the patient interview, examination, medical decision making process, and medical care plan development were reviewed and approved by the faculty preceptor. The faculty preceptor is aware and concurs with the plan as stated in the body of this note and will attest to such by his/her cosignature. ATTENDING NOTE I have independently interviewed and examined the patient. I have discussed and reviewed the patient with the medical student/ resident and i agree with the documentation above. The patient came with complaints of intractable cough which is hampering his sleep. He has been having a chronic cough for the past 6 months was in the hospital in october when he was treated for pneumonia but his cough did not get better. Last several days it has really worsened to the point that he cannot lay flat in bed. The cough is dry and difficult to bring up any phlegm. Also complains of wheezing and intermittent SOB on exertion. He also reported that he had watery diarrhea for 2 weeks with abdominal cramps which had resolved last week and he is having formed stools. He did not seek any medical attention then. CT chest showed a heterogenous mass in the right middle lobe with surrounding atelectasis suspicious for malignancy and scattered chronic changes related to prior granulomas disease including partially calcified mediastinal / left hilar lymph nodes. He also complains of chronic pain and numbness of his legs for years. He does abuse alcohol and his last drink was 4 days ago. Physical exam was positive for scattered ronchi bilaterally mostly heard anteriorly. Vitals were stable, no signs of alcohol withdrawal. HEENT: normocephalic nontraumatic, moist mucous membranes anicteric eyes. Neck : no lymphadenopathy, no goiter, no JVD. CVS: S1 S2 regular, no rub murmur or gallop. Abdomen: Soft , normal bowel sounds, mild tenderness in the epigastrium and right illiac fossa. Ex: No edema, warm. A/P: lung mass right middle lobe possibly malignant with possibly post obstruction atelectasis/pneumonia. Will give Zosyn. will schedule for CT guided biopsy. watch for alcohol withdrawal, thiamine and folate. Continue rest of the home meds for hypertension and neuropathy. CARMEN CHOU OMS-3 Jan 02, 2020 18:35 SHEBA VILA MD Jan 02, 2020 21:04
[2020-01-02] MEDS ORDERED: PIPERACILLIN/TAZOBACTAM SOD 3.375 GM in D5W MINI-BAG PLUS 50 ML IV ONE (19:15)
[2020-01-02 19:55] VITALS: BP 153/88
[2020-01-02] MEDS: DEXTROMETHORPHAN 60MG/10ML SUSP 90ML BTL(DELSYM) PO SCH (20:58)
[2020-01-02] MEDS: GABAPENTIN 300 MG CAP PO SCH (20:58)
[2020-01-02] MEDS: tiZANidine 4 MG TAB PO SCH (20:58)
[2020-01-02] MEDS: PANTOPRAZOLE 40MG TAB (PROTONIX) PO SCH (20:59)
[2020-01-03] MEDS: PIPERACILLIN/TAZOBACTAM SOD 3.375 GM in D5W MINI-BAG PLUS 50 ML IV SCH ×4 (01:29→20:02)
[2020-01-03 06:00] VITALS: BP 145/85
[2020-01-03 06:13] LABS: BASO % 0.4 % (0.0-1.0); EOS % 0.4 % (0.0-3.0); HEMATOCRIT 39.2 % (42.0-52.0); HEMOGLOBIN 12.5 g/dl (13.5-17.5); LYMPH # 1.7 10^3/uL (1.5-5.0); MEAN CORPUSCULAR HEMOGLOBIN 32.6 pg (27.0-33.0); MEAN CORPUSCULAR HGB CONC 31.9 g/dl (32.0-36.5); MEAN CORPUSCULAR VOLUME 102.3 fl (80.0-96.0); MONO # 1.6 10^3/uL (0.0-0.8); MONO % 15.5 % (0.0-5.0); NEUTROPHILS # 6.8 10^3/uL (1.5-8.5); NEUTROPHILS % 66.3 % (36.0-66.0); PLATELET COUNT, AUTOMATED 434 10^3/uL (150-450); RED BLOOD COUNT 3.83 10^6/uL (4.30-6.10); WHITE BLOOD COUNT 10.2 10^3/uL (4.0-10.0)
[2020-01-03 06:40] LABS: BLOOD UREA NITROGEN 6 MG/DL (7-18); CALCIUM LEVEL 8.8 MG/DL (8.5-10.1); CARBON DIOXIDE LEVEL 29 MEQ/L (21-32); CHLORIDE LEVEL 101 MEQ/L (98-107); CREATININE FOR GFR 0.92 MG/DL (0.70-1.30); GLOMERULAR FILTRATION RATE > 60.0 (>56); GLUCOSE, FASTING 104 MG/DL (70-100); POTASSIUM SERUM 4.5 MEQ/L (3.5-5.1); SODIUM LEVEL 135 MEQ/L (136-145)
[2020-01-03] MEDS: ALBUTEROL SULFATE 2.5 MG/0.5 ML INH NEB SOLN NEB SCH ×3 (07:22→23:32)
[2020-01-03] MEDS: tiZANidine 4 MG TAB PO SCH ×3 (08:27→20:00)
[2020-01-03] MEDS: FOLIC ACID 1 MG TAB PO SCH (08:27)
[2020-01-03] MEDS: THIAMINE 100 MG TAB PO SCH (08:27)
[2020-01-03] MEDS: GABAPENTIN 300 MG CAP PO SCH ×3 (08:27→20:00)
[2020-01-03] MEDS: lisinopriL 10 MG TAB PO SCH (08:29)
[2020-01-03] MEDS: DEXTROMETHORPHAN 60MG/10ML SUSP 90ML BTL(DELSYM) PO SCH ×2 (08:30→21:48)
--- NOTE | 2020-01-03 11:21 | IPN ---
DATE: 01/03/2020 Conner is a patient of the residency clinic. Sees Dr. Flores. He is admitted with suspected pneumonia and lung mass. He is awaiting his CT guided biopsy today. He feels less short of breath than yesterday. Sputum production persists. Denies hemoptysis. No fever or chills. PHYSICAL EXAMINATION: 138/80, pulse is 92, respiratory rate 16, 98% on room air. General: Mildly chronically ill appearing. HEENT: Unremarkable. Lungs: Clear. No rhonchi. Heart: Regular rate and rhythm. Abdomen: Soft, nontender. No peripheral edema. Neurologic exam: Nonfocal. LABORATORY: White 10.2, hemoglobin 12.5, platelets 434. Sodium 135, potassium 4.5, BUN 6, creatinine 0.9, glucose 104. Sputum culture is pending. CT scan showed heterogeneous mass like area, right middle lobe, surrounding atelectasis highly suspicious for malignancy. IMPRESSION: 1. Postobstructive pulmonary infection suspicious for malignancy. Plan to continue his Zosyn. He is on cough suppressant. CT guided biopsy is pending. 2. Hypertension. Continue current regimen. 3. Tobacco abuse, smoking cessation to be continued.
[2020-01-03 14:00] VITALS: BP 134/68
[2020-01-03] MEDS: PANTOPRAZOLE 40MG TAB (PROTONIX) PO SCH (20:00)
[2020-01-03 22:00] VITALS: BP 124/74
[2020-01-04] MEDS: PIPERACILLIN/TAZOBACTAM SOD 3.375 GM in D5W MINI-BAG PLUS 50 ML IV SCH ×4 (02:30→20:04)
[2020-01-04 06:00] VITALS: BP 117/73
[2020-01-04 06:10] LABS: BASO % 0.3 % (0.0-1.0); EOS % 0.4 % (0.0-3.0); HEMATOCRIT 36.5 % (42.0-52.0); HEMOGLOBIN 11.8 g/dl (13.5-17.5); LYMPH # 1.8 10^3/uL (1.5-5.0); LYMPH % 17.5 % (24.0-44.0); MEAN CORPUSCULAR HEMOGLOBIN 32.9 pg (27.0-33.0); MEAN CORPUSCULAR HGB CONC 32.3 g/dl (32.0-36.5); MEAN CORPUSCULAR VOLUME 101.7 fl (80.0-96.0); MONO # 1.7 10^3/uL (0.0-0.8); MONO % 16.4 % (0.0-5.0); NEUTROPHILS # 6.7 10^3/uL (1.5-8.5); NEUTROPHILS % 64.9 % (36.0-66.0); PLATELET COUNT, AUTOMATED 443 10^3/uL (150-450); RED BLOOD COUNT 3.59 10^6/uL (4.30-6.10); WHITE BLOOD COUNT 10.3 10^3/uL (4.0-10.0)
[2020-01-04 06:23] LABS: BLOOD UREA NITROGEN 7 MG/DL (7-18); CALCIUM LEVEL 8.1 MG/DL (8.5-10.1); CARBON DIOXIDE LEVEL 27 MEQ/L (21-32); CHLORIDE LEVEL 103 MEQ/L (98-107); GLOMERULAR FILTRATION RATE > 60.0 (>56); GLUCOSE, FASTING 102 MG/DL (70-100); SODIUM LEVEL 135 MEQ/L (136-145)
[2020-01-04] MEDS: ALBUTEROL SULFATE 2.5 MG/0.5 ML INH NEB SOLN NEB SCH ×2 (07:17→14:41)
[2020-01-04] MEDS: lisinopriL 10 MG TAB PO SCH (08:37)
[2020-01-04] MEDS: FOLIC ACID 1 MG TAB PO SCH (08:37)
[2020-01-04] MEDS: THIAMINE 100 MG TAB PO SCH (08:37)
[2020-01-04] MEDS: GABAPENTIN 300 MG CAP PO SCH ×3 (08:37→20:04)
[2020-01-04] MEDS: tiZANidine 4 MG TAB PO SCH ×3 (08:37→20:04)
[2020-01-04 09:00] VITALS: BP 122/64
[2020-01-04] MEDS: DEXTROMETHORPHAN 60MG/10ML SUSP 90ML BTL(DELSYM) PO SCH ×2 (11:52→21:36)
[2020-01-04 14:00] VITALS: BP 108/69
--- NOTE | 2020-01-04 17:35 | IPNPDOC ---
Subjective Date Seen The patient was seen on 01/04/20. Subjective Chief Complaint/HPI The patient does continue to have coughing. He did spike a fever last night, but he reports that he is feeling quite well today. He reports that he started having liquidy diarrhea last night/his morning, but he has of this has been intermittent for the past few months. Otherwise, the remainder of his review systems is negative. Objective Physical Examination General Exam: Positive: Alert, No Acute Distress Neck Exam: Positive: Supple; Negative: JVD, thyromegaly Chest Exam: Positive: Rales (very minimal throughout); Negative: Rhonchi, Wheezing Heart Exam: Positive: Rate Normal, Regular Rhythm, Normal S1, Normal S2; Negative: Murmurs, Rubs Abdomen Exam: Positive: Normal bowel sounds, Soft; Negative: Tenderness, Hepatospenomegaly Psych Exam: Positive: Mental status NL, Mood NL, Oriented x 3 Assessment /Plan Problems (1) Mass of right lung Status: Acute (2) Obstructive pneumonia Status: Acute (3) Diarrhea Status: Acute (4) HTN (hypertension) Status: Chronic Problem Text: Continues to be within acceptable limits (5) Tobacco abuse Status: Chronic Problem Text: Nicotine patch (6) Hypertension Status: Chronic (7) Alcohol abuse Problem Text: Continue with thiamine and folate supplementation Plan/VTE VTE Prophylaxis Ordered?: Yes Plan The patient was originally scheduled to have a CT biopsy of his lung mass performed yesterday, however he refused at that time hearing the complications. Yesterday evening he spoke with one of his friends who has been fighting lung cancer for some time, and they persuaded him to get the biopsy done, therefore he was amenable to having it done today. The problem is that he was not kept NPO overnight, therefore he will not be able to have performed today. Furthermore, apparently the interventional radiology CT-guided biopsy suite will be closed starting tomorrow through the January, therefore the soonest time he will be able to get his biopsy will be on Wednesday. Currently on Zosyn empirically for what is suspected to be postobstructive pneumonia. His white count continues to be minimally elevated. He did spike a fever last night. Additionally, he also had a few episodes of liquidy diarrhea last night. He states that this has been off and on for weeks, perhaps even since October. This does happen to be after the first time that he had antibiotics for his recurrent pneumonia. Given his elevated white count, fever, and liquidy stools, we'll send a sample for GI panel. VS, I&O, 24H, [place] Vital Signs/I&O Vital Signs Date Time Temp Pulse Resp B/P (MAP) Pulse Ox O2 Delivery O2 Flow Rate FiO2 01/04/20 14:00 99.1 85 20 108/69 (82) 96 Room Air I&O- Last 24 Hours up to 6 AM 01/04/20 06:00 Intake Total 2380 ml Output Total 200 ml Balance 2180 ml Laboratory Data 24H LABS Laboratory Tests 2 01/04/20 05:50: Immature Granulocyte % (Auto) 0.5, Neutrophils (%) (Auto) 64.9, Lymphocytes (%) (Auto) 17.5L, Monocytes (%) (Auto) 16.4H, Eosinophils (%) (Auto) 0.4, Basophils (%) (Auto) 0.3, Neutrophils # (Auto) 6.7, Lymphocytes # (Auto) 1.8, Monocytes # (Auto) 1.7H, Eosinophils # (Auto) 0.0, Basophils # (Auto) 0.0, Nucleated Red Blood Cells % (auto) 0.0, Anion Gap 5L, Glomerular Filtration Rate > 60.0, Calcium Level 8.1L CBC/BMP Laboratory Tests 01/04/20 05:50 Microbiology Microbiology 01/04/20 Gastrointestinal Tract Panel (PCR), Received Pending 01/03/20 Gram Stain - Final, Resulted 01/03/20 Sputum Culture, Resulted Pending 01/02/20 Blood Culture - Preliminary, Resulted No Growth after 48 hours. All Specime... 01/02/20 Blood Culture - Preliminary, Resulted No Growth after 48 hours. All Specime... DEAN WHITTAKER DO Jan 04, 2020 17:35
[2020-01-04] MEDS: PANTOPRAZOLE 40MG TAB (PROTONIX) PO SCH (20:04)
[2020-01-04 22:00] VITALS: BP 104/68
[2020-01-05] MEDS: ALBUTEROL SULFATE 2.5 MG/0.5 ML INH NEB SOLN NEB SCH ×2 (00:11→07:24)
[2020-01-05] MEDS: PIPERACILLIN/TAZOBACTAM SOD 3.375 GM in D5W MINI-BAG PLUS 50 ML IV SCH ×2 (02:21→07:47)
[2020-01-05 06:00] VITALS: BP 110/70
[2020-01-05 06:50] LABS: BASO % 0.3 % (0.0-1.0); EOS # 0.1 10^3/uL (0.0-0.5); EOS % 0.7 % (0.0-3.0); HEMATOCRIT 37.2 % (42.0-52.0); HEMOGLOBIN 11.9 g/dl (13.5-17.5); LYMPH # 1.7 10^3/uL (1.5-5.0); LYMPH % 18.2 % (24.0-44.0); MONO # 1.4 10^3/uL (0.0-0.8); MONO % 14.6 % (0.0-5.0); NEUTROPHILS # 6.2 10^3/uL (1.5-8.5); NEUTROPHILS % 65.7 % (36.0-66.0); PLATELET COUNT, AUTOMATED 499 10^3/uL (150-450); RED BLOOD COUNT 3.61 10^6/uL (4.30-6.10); WHITE BLOOD COUNT 9.4 10^3/uL (4.0-10.0)
[2020-01-05 07:02] LABS: BLOOD UREA NITROGEN 9 MG/DL (7-18); CALCIUM LEVEL 8.7 MG/DL (8.5-10.1); CARBON DIOXIDE LEVEL 28 MEQ/L (21-32); CHLORIDE LEVEL 104 MEQ/L (98-107); CREATININE FOR GFR 1.02 MG/DL (0.70-1.30); GLOMERULAR FILTRATION RATE > 60.0 (>56); GLUCOSE, FASTING 98 MG/DL (70-100); POTASSIUM SERUM 4.1 MEQ/L (3.5-5.1); SODIUM LEVEL 139 MEQ/L (136-145)
[2020-01-05] MEDS: THIAMINE 100 MG TAB PO SCH (07:48)
[2020-01-05] MEDS: GABAPENTIN 300 MG CAP PO SCH (07:48)
[2020-01-05] MEDS: FOLIC ACID 1 MG TAB PO SCH (07:49)
[2020-01-05 07:50] VITALS: BP 131/85
[2020-01-05] MEDS: tiZANidine 4 MG TAB PO SCH (07:50)
[2020-01-05] MEDS: lisinopriL 10 MG TAB PO SCH (07:50)
[2020-01-05] MEDS ORDERED: LEVA750T7 PO (10:27)
[2020-01-05] MEDS ORDERED: NICO21DI37 TOP (10:27)
--- NOTE | 2020-01-05 17:55 | DS.PDOC ---
Discharge Summary General Date of Admission Jan 02, 2020 at 17:08 Date of Discharge 01/05/2020 Discharge Summary PRIMARY CARE PHYSICIAN: Dr. Perez Flores DO ATTENDING AT TIME OF DISCHARGE: Dr. Dean Whittaker DO DISCHARGE DIAGNOS(E)S: Right middle lobe lung mass suspicious for malignancy Post-obstructive pneumonia and atelectasis Leukocytosis Macrocytic anemia Alcoholism Tobacco use disorder Cervical spondylosis Hypertension Multiple episodes of diarrhea HPI & HOSPITAL COURSE: The patient has been suffering from chronic cough since approximately June 2019. He was treated for pneumonia in October. He had another 3-4 day exacerbation of cough and shortness of breath, and decided to present to the emergency department. Chest CT 01/02/2020: Heterogeneous masslike area within the right middle lobe with surrounding atelectasis. Its appearance is highly suspicious for malignancy and correlation is required. Minimal scattered chronic changes related to prior granulomatous disease including partially calcified mediastinal/left hilar lymph nodes. He was treated empirically for postobstructive pneumonia with Zosyn. He was arranged for him to have a CT-guided biopsy of the mass, however after hearing the risks of the procedure, the patient adamantly refused. However, after discussing the matter with his friend who has been battling lung cancer for a while, he decided that he would like to have the CT-guided biopsy performed again. Regrettably he had not been nothing by mouth after midnight, therefore the procedure could not be performed on that day, and then the following day the interventional radiology suite was going to be closed for the January 05 weekend. He was kept one additional day because he developed liquidy diarrhea, and had 7 bowel movements. A GI panel was performed and found to be negative, and the following day his diarrhea was also significantly improved. Apparently he has had intermittent episodes of liquidy diarrhea over the past few months, therefore this does not seem to be a new finding for him. Nevertheless, even with the results of the CT-guided biopsy, further evaluation and treatment would be done as an outpatient regardless, therefore we will discharge him home today without having performed a biopsy, and he will require very close follow-up with his PCP to get this scheduled, and then pursue further evaluation with oncology. PHYSICAL EXAMINATION ON DISCHARGE: GENERAL: Awake, alert, he is in no acute distress. CARDIOVASCULAR EXAMINATION: Regular rate and rhythm, with no rubs, gallops, or murmur. RESPIRATORY EXAMINATION: Clear to auscultation bilaterally with no wheezes, rales, or rhonchi. ABDOMINAL EXAMINATION: Soft, nontender, nondistended. Bowel sounds present. EXTREMITIES: No clubbing or edema noted. 2+ pulses in the radial bilaterally. DISPOSITION: Home DISCHARGE INSTRUCTIONS: Follow-up with his primary care physician first thing next week. He will need to be scheduled for outpatient CT-guided biopsy. Diet as tolerated. Activity as tolerated. Strongly recommend cessation of smoking If symptoms return, or if you experience worsening of your symptoms, please call your doctor or return to the emergency department. DISCHARGE MEDICATIONS: Continue taking from home: Gabapentin 600 mg 3 times a day Lisinopril 10 mg daily Viagra 50 mg as needed Tizanidine 4 mg by mouth 3 times a day New Medications: Levaquin 750 mg by mouth daily for 5 days Nicotine patch 1 patch topically daily for 28 days ITEMS THAT NEED OUTPATIENT FOLLOWUP: Right middle lobe mass suspicious for malignancy-will require outpatient referral for CT-guided biopsy Postobstructive pneumonia Vital Signs/I&Os Vital Signs Date Time Temp Pulse Resp B/P (MAP) Pulse Ox O2 Delivery O2 Flow Rate FiO2 01/05/20 07:50 131/85 01/05/20 06:00 98.7 91 20 96 Room Air I&O- Last 24 Hours up to 6 AM 01/05/20 06:00 Intake Total 2855 ml Output Total 0 ml Balance 2855 ml Laboratory Data Labs 24H Laboratory Tests 2 01/05/20 06:23: Immature Granulocyte % (Auto) 0.5, Neutrophils (%) (Auto) 65.7, Lymphocytes (%) (Auto) 18.2L, Monocytes (%) (Auto) 14.6H, Eosinophils (%) (Auto) 0.7, Basophils (%) (Auto) 0.3, Neutrophils # (Auto) 6.2, Lymphocytes # (Auto) 1.7, Monocytes # (Auto) 1.4H, Eosinophils # (Auto) 0.1, Basophils # (Auto) 0.0, Nucleated Red Blood Cells % (auto) 0.0, Anion Gap 7L, Glomerular Filtration Rate > 60.0, Calcium Level 8.7 CBC/BMP Laboratory Tests 01/05/20 06:23 Microbiology Microbiology 01/04/20 Gastrointestinal Tract Panel (PCR) - Final, Complete 01/03/20 Gram Stain - Final, Complete 01/03/20 Sputum Culture - Final, Complete 01/02/20 Blood Culture - Preliminary, Resulted No Growth after 72 hours. All specime... 01/02/20 Blood Culture - Preliminary, Resulted No Growth after 72 hours. All specime... Discharge Medications Scheduled Gabapentin (Gabapentin) 600 Mg Tablet, 600 MG PO TID, (Reported) Levofloxacin (Levaquin) 750 Mg Tablet, 750 MG PO DAILY Lisinopril (Lisinopril) 10 Mg Tablet, 10 MG PO DAILY, (Reported) Nicotine (Nicotine Patch) 21 Mg Patch.td24, 1 PATCH TOP DAILY for smoking cessation Tizanidine HCl (Tizanidine HCl) 4 Mg Tablet, 4 MG PO TID, (Reported) Scheduled PRN Sildenafil Citrate (Viagra) 50 Mg Tablet, 50 MG PO ASDIRECTED PRN for ERECTILE DYSFUNCTION, (Reported) 1 hour before sexual activity Allergies Coded Allergies: No Known Allergies (Unverified , 05/05/19) DEAN WHITTAKER DO Jan 05, 2020 17:54
== END 2020-01-05 11:39 | disposition home or self-care (01) | DRG 144 ==
LOC: M ED 13:26 → M ED INP 17:08 → ENRESERV 18:55 → CANRESERV 18:55 → ENRESERV 18:57 → M MSPAV 19:52
PROVIDERS: ADMIT Internal Medicine Nephrology; ATTEND Neuromusculoskeletal Medicine & OMM
DX: R91.8 Other nonspecific abnormal finding of lung field (principal); J18.9 Pneumonia, unspecified organism; I10 Essential (primary) hypertension; D72.829 Elevated white blood cell count, unspecified; F17.200 Nicotine dependence, unspecified, uncomplicated; F10.20 Alcohol dependence, uncomplicated; M43.02 Spondylolysis, cervical region; D53.9 Nutritional anemia, unspecified; J98.11 Atelectasis; Z79.899 Other long term (current) drug therapy

== ENCOUNTER 2020-02-04 10:20 | Inpatient (IN) | payer OTHER ==
[~2020-02-04 10:20] MED LIST changes: +LEVA750T7 PO; +NICO21DI37 TOP; +SILD50TA PO
[2020-02-04] MEDS ORDERED: GABAPENTIN 300 MG CAP As Ordered ONE (19:59)
[2020-02-04] MEDS ORDERED: tiZANidine 4 MG TAB As Ordered ONE (19:59)
[2020-02-04] MEDS ORDERED: GABAPENTIN 300 MG CAP ONE (19:59)
[2020-02-04] MEDS ORDERED: DOCUSATE SODIUM 100 MG CAP As Ordered ONE (19:59)
[2020-02-04] MEDS ORDERED: tiZANidine 4 MG TAB ONE (19:59)
[2020-02-04] MEDS ORDERED: ZOSYN 4.5GM VIAL (J2543) ONE (19:59)
[2020-02-04] MEDS ORDERED: ZOSYN 4.5GM VIAL (J2543) As Ordered ONE (19:59)
[2020-02-04] MEDS ORDERED: NORCO, ANEXSIA 5/325MG TABLET (HYDROcodone/ACETAMINOPHEN) ONE (19:59)
[2020-02-04] MEDS ORDERED: DOCUSATE SODIUM 100 MG CAP ONE (19:59)
[2020-02-04] MEDS ORDERED: NORCO, ANEXSIA 5/325MG TABLET (HYDROcodone/ACETAMINOPHEN) As Ordered ONE (20:00)
[2020-02-05] MEDS ORDERED: NORCO, ANEXSIA 5/325MG TABLET (HYDROcodone/ACETAMINOPHEN) As Ordered ONE ×5 (01:26→20:36)
[2020-02-05] MEDS ORDERED: ZOSYN 4.5GM VIAL (J2543) As Ordered ONE ×4 (01:26→19:38)
[2020-02-05] MEDS ORDERED: ZOSYN 4.5GM VIAL (J2543) ONE ×4 (01:26→19:38)
[2020-02-05] MEDS ORDERED: IBUPROFEN 600MG TAB ONE ×4 (01:26→23:43)
[2020-02-05] MEDS ORDERED: NORCO, ANEXSIA 5/325MG TABLET (HYDROcodone/ACETAMINOPHEN) ONE ×5 (01:26→20:36)
[2020-02-05] MEDS ORDERED: IBUPROFEN 600MG TAB As Ordered ONE ×4 (01:27→23:43)
[2020-02-05] MEDS ORDERED: ENOXAPARIN 40MG/0.4ML SYRINGE (J1650 PER 10MG) ONE (08:39)
[2020-02-05] MEDS ORDERED: PANTOPRAZOLE 40MG VIAL (C9113 PER 1) ONE (08:39)
[2020-02-05] MEDS ORDERED: NICOTINE 21MG/24HR 1 EA TRANSDERMAL ONE (08:39)
[2020-02-05] MEDS ORDERED: GABAPENTIN 300 MG CAP ONE ×3 (08:39→17:35)
[2020-02-05] MEDS ORDERED: tiZANidine 4 MG TAB ONE ×3 (08:39→17:35)
[2020-02-05] MEDS ORDERED: GABAPENTIN 300 MG CAP As Ordered ONE ×3 (08:40→19:35)
[2020-02-05] MEDS ORDERED: ENOXAPARIN 40MG/0.4ML SYRINGE (J1650 PER 10MG) As Ordered ONE (08:40)
[2020-02-05] MEDS ORDERED: NICOTINE 21MG/24HR 1 EA TRANSDERMAL As Ordered ONE (08:40)
[2020-02-05] MEDS ORDERED: tiZANidine 4 MG TAB As Ordered ONE ×3 (08:41→19:36)
[2020-02-05] MEDS ORDERED: PANTOPRAZOLE 40MG VIAL (C9113 PER 1) As Ordered ONE (08:41)
[2020-02-05] MEDS ORDERED: COMBIVENT RESPIMAT 100-20MCG INHALER 4GM ONE (09:00)
[2020-02-05] MEDS ORDERED: IPRATROPIUM 0.5MG/ALBUTEROL 2.5MG INH SOL UD 3ML (DUONEB) ONE (09:00)
[2020-02-05] MEDS ORDERED: ISOVUE-370 76% 100ML VIAL As Ordered ONE (15:04)
[2020-02-05] MEDS ORDERED: DOCUSATE SODIUM 100 MG CAP ONE (17:35)
[2020-02-05] MEDS ORDERED: DOCUSATE SODIUM 100 MG CAP As Ordered ONE (19:35)
[2020-02-05] MEDS ORDERED: ACETAMINOPHEN 500 MG TAB ONE (20:36)
[2020-02-05] MEDS ORDERED: ACETAMINOPHEN 500 MG TAB As Ordered ONE (20:36)
[2020-02-06] MEDS ORDERED: NORCO, ANEXSIA 5/325MG TABLET (HYDROcodone/ACETAMINOPHEN) As Ordered ONE ×2 (00:40→09:02)
[2020-02-06] MEDS ORDERED: methylPREDNISolone 125MG 2ML VIAL As Ordered ONE (01:05)
[2020-02-06] MEDS ORDERED: methylPREDNISolone 125MG 2ML VIAL ONE (01:05)
[2020-02-06] MEDS ORDERED: ZOSYN 4.5GM VIAL (J2543) As Ordered ONE ×2 (03:01→08:15)
[2020-02-06] MEDS ORDERED: ZOSYN 4.5GM VIAL (J2543) ONE ×4 (03:01→21:14)
[2020-02-06] MEDS ORDERED: ENOXAPARIN 40MG/0.4ML SYRINGE (J1650 PER 10MG) ONE (08:15)
[2020-02-06] MEDS ORDERED: DOCUSATE SODIUM 100 MG CAP ONE (08:15)
[2020-02-06] MEDS ORDERED: DOCUSATE SODIUM 100 MG CAP As Ordered ONE (08:15)
[2020-02-06] MEDS ORDERED: tiZANidine 4 MG TAB ONE ×3 (08:15→21:08)
[2020-02-06] MEDS ORDERED: PANTOPRAZOLE 40MG VIAL (C9113 PER 1) ONE (08:15)
[2020-02-06] MEDS ORDERED: GABAPENTIN 300 MG CAP ONE ×4 (08:15→21:29)
[2020-02-06] MEDS ORDERED: IBUPROFEN 600MG TAB ONE ×3 (08:15→23:38)
[2020-02-06] MEDS ORDERED: GABAPENTIN 300 MG CAP As Ordered ONE ×2 (08:15→15:40)
[2020-02-06] MEDS ORDERED: NICOTINE 21MG/24HR 1 EA TRANSDERMAL As Ordered ONE (08:16)
[2020-02-06] MEDS ORDERED: IBUPROFEN 600MG TAB As Ordered ONE ×2 (08:16→15:41)
[2020-02-06] MEDS ORDERED: ENOXAPARIN 40MG/0.4ML SYRINGE (J1650 PER 10MG) As Ordered ONE (08:16)
[2020-02-06] MEDS ORDERED: tiZANidine 4 MG TAB As Ordered ONE ×2 (08:16→15:40)
[2020-02-06] MEDS ORDERED: PANTOPRAZOLE 40MG VIAL (C9113 PER 1) As Ordered ONE (08:17)
[2020-02-06] MEDS ORDERED: IPRATROPIUM 0.5MG/ALBUTEROL 2.5MG INH SOL UD 3ML (DUONEB) ONE (09:00)
[2020-02-06] MEDS ORDERED: NORCO, ANEXSIA 5/325MG TABLET (HYDROcodone/ACETAMINOPHEN) ONE ×4 (09:02→21:08)
[2020-02-07] MEDS ORDERED: ZOSYN 4.5GM VIAL (J2543) ONE ×4 (01:37→20:43)
[2020-02-07] MEDS ORDERED: NORCO, ANEXSIA 5/325MG TABLET (HYDROcodone/ACETAMINOPHEN) ONE ×4 (01:41→20:43)
[2020-02-07] MEDS ORDERED: DOCUSATE SODIUM 100 MG CAP ONE ×2 (08:20→20:43)
[2020-02-07] MEDS ORDERED: ENOXAPARIN 40MG/0.4ML SYRINGE (J1650 PER 10MG) As Ordered ONE (08:20)
[2020-02-07] MEDS ORDERED: DOCUSATE SODIUM 100 MG CAP As Ordered ONE ×2 (08:20→20:44)
[2020-02-07] MEDS ORDERED: ENOXAPARIN 40MG/0.4ML SYRINGE (J1650 PER 10MG) ONE (08:20)
[2020-02-07] MEDS ORDERED: ZOSYN 4.5GM VIAL (J2543) As Ordered ONE ×3 (08:26→20:43)
[2020-02-07] MEDS ORDERED: GABAPENTIN 300 MG CAP As Ordered ONE ×3 (08:26→20:44)
[2020-02-07] MEDS ORDERED: GABAPENTIN 300 MG CAP ONE ×3 (08:26→20:43)
[2020-02-07] MEDS ORDERED: NICOTINE 21MG/24HR 1 EA TRANSDERMAL ONE (08:26)
[2020-02-07] MEDS ORDERED: NICOTINE 21MG/24HR 1 EA TRANSDERMAL As Ordered ONE (08:26)
[2020-02-07] MEDS ORDERED: tiZANidine 4 MG TAB ONE ×3 (08:27→20:43)
[2020-02-07] MEDS ORDERED: IBUPROFEN 600MG TAB ONE ×2 (08:27→15:54)
[2020-02-07] MEDS ORDERED: IBUPROFEN 600MG TAB As Ordered ONE ×2 (08:27→15:55)
[2020-02-07] MEDS ORDERED: tiZANidine 4 MG TAB As Ordered ONE ×3 (08:27→20:44)
[2020-02-07] MEDS ORDERED: PANTOPRAZOLE 40MG VIAL (C9113 PER 1) As Ordered ONE (08:27)
[2020-02-07] MEDS ORDERED: PANTOPRAZOLE 40MG VIAL (C9113 PER 1) ONE (08:27)
[2020-02-07] MEDS ORDERED: NORCO, ANEXSIA 5/325MG TABLET (HYDROcodone/ACETAMINOPHEN) As Ordered ONE ×3 (08:28→20:45)
[2020-02-07] MEDS ORDERED: DICLOFENAC EPOLAMINE 1.3 % PATCH ONE ×2 (09:00→23:00)
[2020-02-07] MEDS ORDERED: IPRATROPIUM 0.5MG/ALBUTEROL 2.5MG INH SOL UD 3ML (DUONEB) ONE (09:00)
[2020-02-07] MEDS ORDERED: POTASSIUM CHLORIDE 10 MEQ SR TABLET As Ordered ONE (10:40)
[2020-02-07] MEDS ORDERED: POTASSIUM CHLORIDE 10 MEQ SR TABLET ONE (22:40)
[2020-02-08] MEDS ORDERED: IBUPROFEN 600MG TAB ONE ×3 (01:16→17:33)
[2020-02-08] MEDS ORDERED: ZOSYN 4.5GM VIAL (J2543) ONE ×3 (01:17→14:09)
[2020-02-08] MEDS ORDERED: NORCO, ANEXSIA 5/325MG TABLET (HYDROcodone/ACETAMINOPHEN) ONE ×4 (05:45→20:22)
[2020-02-08] MEDS ORDERED: GABAPENTIN 300 MG CAP ONE ×3 (08:12→20:20)
[2020-02-08] MEDS ORDERED: PANTOPRAZOLE 40MG VIAL (C9113 PER 1) ONE (08:12)
[2020-02-08] MEDS ORDERED: NICOTINE 21MG/24HR 1 EA TRANSDERMAL ONE (08:12)
[2020-02-08] MEDS ORDERED: ENOXAPARIN 40MG/0.4ML SYRINGE (J1650 PER 10MG) ONE (08:12)
[2020-02-08] MEDS ORDERED: tiZANidine 4 MG TAB ONE ×3 (08:12→20:20)
[2020-02-08] MEDS ORDERED: DOCUSATE SODIUM 100 MG CAP ONE (08:12)
[2020-02-08] MEDS ORDERED: IPRATROPIUM 0.5MG/ALBUTEROL 2.5MG INH SOL UD 3ML (DUONEB) ONE (09:00)
[2020-02-08] MEDS ORDERED: MAGNESIUM SULFATE 1GM/100ML D5W BAG (10MG/ML) ONE (11:16)
[2020-02-08] MEDS ORDERED: MORPHINE 2 MG/ML 1ML VIAL (J2270) ONE ×2 (12:37→18:20)
[2020-02-08] MEDS ORDERED: ZOSYN 4.5GM VIAL (J2543) As Ordered ONE (14:09)
[2020-02-08] MEDS ORDERED: NORCO, ANEXSIA 5/325MG TABLET (HYDROcodone/ACETAMINOPHEN) As Ordered ONE ×2 (14:10→20:23)
[2020-02-08] MEDS ORDERED: tiZANidine 4 MG TAB As Ordered ONE ×2 (17:33→20:20)
[2020-02-08] MEDS ORDERED: IBUPROFEN 600MG TAB As Ordered ONE (17:33)
[2020-02-08] MEDS ORDERED: GABAPENTIN 300 MG CAP As Ordered ONE ×2 (17:33→20:20)
[2020-02-08] MEDS ORDERED: MORPHINE 2 MG/ML 1ML VIAL (J2270) As Ordered ONE (18:20)
[2020-02-08] MEDS ORDERED: ZOSYN 2.25GM VIAL (J2543) As Ordered ONE (20:22)
[2020-02-08] MEDS ORDERED: ZOSYN 2.25GM VIAL (J2543) ONE (20:22)
[2020-02-09] MEDS ORDERED: IBUPROFEN 600MG TAB ONE ×2 (00:20→16:30)
[2020-02-09] MEDS ORDERED: IBUPROFEN 600MG TAB As Ordered ONE ×2 (00:20→16:30)
[2020-02-09] MEDS ORDERED: NORCO, ANEXSIA 5/325MG TABLET (HYDROcodone/ACETAMINOPHEN) ONE ×4 (00:29→22:17)
[2020-02-09] MEDS ORDERED: NORCO, ANEXSIA 5/325MG TABLET (HYDROcodone/ACETAMINOPHEN) As Ordered ONE ×4 (00:29→22:17)
[2020-02-09] MEDS ORDERED: ZOSYN 4.5GM VIAL (J2543) As Ordered ONE ×4 (01:57→20:39)
[2020-02-09] MEDS ORDERED: ZOSYN 4.5GM VIAL (J2543) ONE ×4 (01:57→20:38)
[2020-02-09] MEDS ORDERED: MORPHINE 2 MG/ML 1ML VIAL (J2270) As Ordered ONE (04:38)
[2020-02-09] MEDS ORDERED: MORPHINE 2 MG/ML 1ML VIAL (J2270) ONE (04:38)
[2020-02-09] MEDS ORDERED: NICOTINE 21MG/24HR 1 EA TRANSDERMAL As Ordered ONE ×2 (07:51→07:54)
[2020-02-09] MEDS ORDERED: PANTOPRAZOLE 40MG VIAL (C9113 PER 1) ONE (07:51)
[2020-02-09] MEDS ORDERED: tiZANidine 4 MG TAB As Ordered ONE ×4 (07:51→20:38)
[2020-02-09] MEDS ORDERED: NICOTINE 21MG/24HR 1 EA TRANSDERMAL ONE ×2 (07:51→07:54)
[2020-02-09] MEDS ORDERED: GABAPENTIN 300 MG CAP As Ordered ONE ×3 (07:51→20:38)
[2020-02-09] MEDS ORDERED: tiZANidine 4 MG TAB ONE ×4 (07:51→20:38)
[2020-02-09] MEDS ORDERED: GABAPENTIN 300 MG CAP ONE ×2 (07:51→20:38)
[2020-02-09] MEDS ORDERED: PANTOPRAZOLE 40MG VIAL (C9113 PER 1) As Ordered ONE (07:52)
[2020-02-09] MEDS ORDERED: DICLOFENAC EPOLAMINE 1.3 % PATCH ONE (08:00)
[2020-02-09] MEDS ORDERED: IPRATROPIUM 0.5MG/ALBUTEROL 2.5MG INH SOL UD 3ML (DUONEB) ONE (09:00)
[2020-02-09] MEDS ORDERED: LIDOCAINE 2% 100MG/5ML SDV (FOR ANES.) ONE (11:46)
[2020-02-09] MEDS ORDERED: MIDAZOLAM INJ 2MG/2ML VIAL (J2250 PER 1MG) ONE (11:46)
[2020-02-09] MEDS ORDERED: SUGAMMADEX SODIUM 500 MG/5 ML VIAL (BRIDION) ONE (11:46)
[2020-02-09] MEDS ORDERED: ONDANSETRON 4MG/2ML VIAL ONE (11:46)
[2020-02-09] MEDS ORDERED: dexameTHASONE 4 MG/ML 1ML VIAL (J1100 PER 1MG) ONE (11:46)
[2020-02-09] MEDS ORDERED: propofoL 200 MG/20 ML VIAL ONE (11:46)
[2020-02-09] MEDS ORDERED: fentaNYL 100 MCG/2 ML INJECTION (J3010) ONE (11:46)
[2020-02-09] MEDS ORDERED: ROCURONIUM BROMIDE 50 MG/5 ML VIAL ONE (11:46)
[2020-02-09] MEDS ORDERED: CETACAINE SPRAY 5GM ONE (13:01)
[2020-02-09] MEDS ORDERED: oxyCODONE 5MG TAB ONE (14:57)
[2020-02-10] MEDS ORDERED: IBUPROFEN 600MG TAB ONE ×2 (00:34→08:31)
[2020-02-10] MEDS ORDERED: IBUPROFEN 600MG TAB As Ordered ONE ×2 (00:34→08:32)
[2020-02-10] MEDS ORDERED: ZOSYN 4.5GM VIAL (J2543) As Ordered ONE ×3 (01:31→14:48)
[2020-02-10] MEDS ORDERED: ZOSYN 4.5GM VIAL (J2543) ONE ×3 (01:31→14:48)
[2020-02-10] MEDS ORDERED: PANTOPRAZOLE 40MG VIAL (C9113 PER 1) ONE (08:31)
[2020-02-10] MEDS ORDERED: ANEXSIA, NORCO 7.5MG/325MG TABLET(HYDROCODONE/APAP) ONE ×2 (08:31→13:05)
[2020-02-10] MEDS ORDERED: ENOXAPARIN 40MG/0.4ML SYRINGE (J1650 PER 10MG) As Ordered ONE (08:31)
[2020-02-10] MEDS ORDERED: ENOXAPARIN 40MG/0.4ML SYRINGE (J1650 PER 10MG) ONE (08:31)
[2020-02-10] MEDS ORDERED: GABAPENTIN 300 MG CAP As Ordered ONE ×2 (08:31→16:52)
[2020-02-10] MEDS ORDERED: GABAPENTIN 300 MG CAP ONE ×2 (08:31→16:52)
[2020-02-10] MEDS ORDERED: tiZANidine 4 MG TAB ONE ×2 (08:31→16:52)
[2020-02-10] MEDS ORDERED: tiZANidine 4 MG TAB As Ordered ONE ×2 (08:31→16:52)
[2020-02-10] MEDS ORDERED: PANTOPRAZOLE 40MG VIAL (C9113 PER 1) As Ordered ONE (08:32)
[2020-02-10] MEDS ORDERED: ANEXSIA, NORCO 7.5MG/325MG TABLET(HYDROCODONE/APAP) As Ordered ONE ×2 (08:32→13:05)
[2020-02-10] MEDS ORDERED: IPRATROPIUM 0.5MG/ALBUTEROL 2.5MG INH SOL UD 3ML (DUONEB) ONE (09:00)
[2020-02-10] MEDS ORDERED: ISOVUE-370 76% 100ML VIAL As Ordered ONE (09:21)
[2020-02-10] MEDS ORDERED: flumazeniL 0.5 MG/5 ML VIAL ONE (10:49)
[2020-02-10] MEDS ORDERED: flumazeniL 0.5 MG/5 ML VIAL As Ordered ONE (10:49)
[2020-02-10] MEDS ORDERED: MIDAZOLAM INJ 2MG/2ML VIAL (J2250 PER 1MG) ONE ×3 (10:49)
[2020-02-10] MEDS ORDERED: LIDOCAINE 1% MDV 20ML VIAL ONE (10:49)
[2020-02-10] MEDS ORDERED: LIDOCAINE 1% MDV 20ML VIAL As Ordered ONE (10:50)
[2020-02-10] MEDS ORDERED: MIDAZOLAM INJ 2MG/2ML VIAL (J2250 PER 1MG) As Ordered ONE (10:50)
[2020-02-10] MEDS ORDERED: ALTEPLASE 2MG/2ML VIAL As Ordered ONE (11:36)
[2020-02-10] MEDS ORDERED: ALTEPLASE 2MG/2ML VIAL ONE (11:36)
[2020-02-10] MEDS ORDERED: KETOROLAC 30 MG/ML 1ML VIAL ONE ×2 (13:05→17:55)
[2020-02-10] MEDS ORDERED: KETOROLAC 30 MG/ML 1ML VIAL As Ordered ONE ×2 (13:05→17:55)
[2020-02-10] MEDS ORDERED: NICOTINE 21MG/24HR 1 EA TRANSDERMAL As Ordered ONE (14:49)
[2020-02-10] MEDS ORDERED: PERCOCET 5MG/325MG TAB ONE (14:49)
[2020-02-10] MEDS ORDERED: NICOTINE 21MG/24HR 1 EA TRANSDERMAL ONE (14:49)
[2020-02-10] MEDS ORDERED: PERCOCET 5MG/325MG TAB As Ordered ONE (14:59)
[2020-02-10] MEDS ORDERED: MORPHINE 2 MG/ML 1ML VIAL (J2270) As Ordered ONE ×2 (15:47→17:21)
[2020-02-10] MEDS ORDERED: MORPHINE 2 MG/ML 1ML VIAL (J2270) ONE ×2 (15:47→17:21)
[2020-02-10] MEDS ORDERED: NORCO, ANEXSIA 5/325MG TABLET (HYDROcodone/ACETAMINOPHEN) ONE (17:22)
[2020-02-10] MEDS ORDERED: NORCO, ANEXSIA 5/325MG TABLET (HYDROcodone/ACETAMINOPHEN) As Ordered ONE (17:22)
[2020-02-11] MEDS ORDERED: NORCO, ANEXSIA 5/325MG TABLET (HYDROcodone/ACETAMINOPHEN) ONE ×4 (07:07→19:01)
[2020-02-11] MEDS ORDERED: PANTOPRAZOLE 40MG VIAL (C9113 PER 1) ONE (08:20)
[2020-02-11] MEDS ORDERED: NICOTINE 21MG/24HR 1 EA TRANSDERMAL ONE (08:20)
[2020-02-11] MEDS ORDERED: GABAPENTIN 300 MG CAP ONE ×2 (08:20→16:27)
[2020-02-11] MEDS ORDERED: ENOXAPARIN 40MG/0.4ML SYRINGE (J1650 PER 10MG) ONE (08:20)
[2020-02-11] MEDS ORDERED: tiZANidine 4 MG TAB ONE ×2 (08:20→16:27)
[2020-02-11] MEDS ORDERED: ZOSYN 4.5GM VIAL (J2543) ONE (08:20)
[2020-02-11] MEDS ORDERED: IPRATROPIUM 0.5MG/ALBUTEROL 2.5MG INH SOL UD 3ML (DUONEB) ONE (09:00)
[2020-02-11] MEDS ORDERED: PERCOCET 5MG/325MG TAB ONE ×2 (09:49→12:49)
[2020-02-11] MEDS ORDERED: ALTEPLASE 2MG/2ML VIAL ONE (10:59)
[2020-02-11] MEDS ORDERED: KETOROLAC 30 MG/ML 1ML VIAL ONE ×2 (11:29→17:25)
[2020-02-11] MEDS ORDERED: VANCOMYCIN 1000MG/20ML VIAL ONE (12:34)
[2020-02-11] MEDS ORDERED: PRIMAXIN ONE (14:00)
[2020-02-11] MEDS ORDERED: MORPHINE 2 MG/ML 1ML VIAL (J2270) ONE (15:16)
[2020-02-12] MEDS ORDERED: DOCUSATE SODIUM 100 MG CAP ONE ×2 (08:37→20:51)
[2020-02-12] MEDS ORDERED: GABAPENTIN 300 MG CAP ONE ×3 (08:37→20:51)
[2020-02-12] MEDS ORDERED: tiZANidine 4 MG TAB ONE ×3 (08:37→20:51)
[2020-02-12] MEDS ORDERED: ENOXAPARIN 40MG/0.4ML SYRINGE (J1650 PER 10MG) ONE (08:37)
[2020-02-12] MEDS ORDERED: NICOTINE 21MG/24HR 1 EA TRANSDERMAL ONE (08:37)
[2020-02-12] MEDS ORDERED: PRIMAXIN ONE ×4 (08:37→21:07)
[2020-02-12] MEDS ORDERED: NICOTINE 21MG/24HR 1 EA TRANSDERMAL As Ordered ONE (08:37)
[2020-02-12] MEDS ORDERED: ENOXAPARIN 40MG/0.4ML SYRINGE (J1650 PER 10MG) As Ordered ONE (08:38)
[2020-02-12] MEDS ORDERED: PRIMAXIN As Ordered ONE ×3 (08:38→21:07)
[2020-02-12] MEDS ORDERED: tiZANidine 4 MG TAB As Ordered ONE ×3 (08:38→20:51)
[2020-02-12] MEDS ORDERED: DOCUSATE SODIUM 100 MG CAP As Ordered ONE ×2 (08:38→20:51)
[2020-02-12] MEDS ORDERED: GABAPENTIN 300 MG CAP As Ordered ONE ×3 (08:38→20:51)
[2020-02-12] MEDS ORDERED: VIAL MATE ADAPTER XX ONE (08:42)
[2020-02-12] MEDS ORDERED: MAGIC MOUTHWASH SUSPENSION BTL ONE (09:00)
[2020-02-12] MEDS ORDERED: IPRATROPIUM 0.5MG/ALBUTEROL 2.5MG INH SOL UD 3ML (DUONEB) ONE (09:00)
[2020-02-12] MEDS ORDERED: CHLORHEXIDINE GLUCONATE 0.12 % 15ML UDC (PERIDEX ORAL RINSE) ONE (09:00)
[2020-02-12] MEDS ORDERED: NORCO, ANEXSIA 5/325MG TABLET (HYDROcodone/ACETAMINOPHEN) As Ordered ONE ×3 (10:21→20:58)
[2020-02-12] MEDS ORDERED: NORCO, ANEXSIA 5/325MG TABLET (HYDROcodone/ACETAMINOPHEN) ONE ×3 (10:21→20:58)
[2020-02-12] MEDS ORDERED: ALTEPLASE 2MG/2ML VIAL As Ordered ONE (10:28)
[2020-02-12] MEDS ORDERED: ALTEPLASE 2MG/2ML VIAL ONE (10:28)
[2020-02-12] MEDS ORDERED: KETOROLAC 30 MG/ML 1ML VIAL ONE (13:42)
[2020-02-12] MEDS ORDERED: KETOROLAC 30 MG/ML 1ML VIAL As Ordered ONE (13:42)
[2020-02-12] MEDS ORDERED: MORPHINE 2 MG/ML 1ML VIAL (J2270) ONE (13:54)
[2020-02-12] MEDS ORDERED: MORPHINE 2 MG/ML 1ML VIAL (J2270) As Ordered ONE (13:54)
[2020-02-13] MEDS ORDERED: PRIMAXIN ONE ×2 (03:05→20:35)
[2020-02-13] MEDS ORDERED: KETOROLAC 30 MG/ML 1ML VIAL ONE ×4 (06:34→17:08)
[2020-02-13] MEDS ORDERED: PERCOCET 5MG/325MG TAB As Ordered ONE (07:59)
[2020-02-13] MEDS ORDERED: PERCOCET 5MG/325MG TAB ONE (07:59)
[2020-02-13] MEDS ORDERED: CHLORHEXIDINE GLUCONATE 0.12 % 15ML UDC (PERIDEX ORAL RINSE) ONE (08:00)
[2020-02-13] MEDS ORDERED: IPRATROPIUM 0.5MG/ALBUTEROL 2.5MG INH SOL UD 3ML (DUONEB) ONE (09:00)
[2020-02-13] MEDS ORDERED: PANTOPRAZOLE 40MG TAB (PROTONIX) ONE (09:05)
[2020-02-13] MEDS ORDERED: NICOTINE 21MG/24HR 1 EA TRANSDERMAL ONE (09:05)
[2020-02-13] MEDS ORDERED: tiZANidine 4 MG TAB ONE ×3 (09:05→20:39)
[2020-02-13] MEDS ORDERED: NICOTINE 21MG/24HR 1 EA TRANSDERMAL As Ordered ONE (09:05)
[2020-02-13] MEDS ORDERED: VANCOMYCIN 1000MG/20ML VIAL ONE ×3 (09:05→17:08)
[2020-02-13] MEDS ORDERED: GABAPENTIN 300 MG CAP ONE ×3 (09:05→20:39)
[2020-02-13] MEDS ORDERED: VANCOMYCIN 1000MG/20ML VIAL As Ordered ONE ×2 (09:05→17:09)
[2020-02-13] MEDS ORDERED: PANTOPRAZOLE 40MG TAB (PROTONIX) As Ordered ONE (09:05)
[2020-02-13] MEDS ORDERED: GABAPENTIN 300 MG CAP As Ordered ONE ×3 (09:05→20:39)
[2020-02-13] MEDS ORDERED: tiZANidine 4 MG TAB As Ordered ONE ×3 (09:05→20:39)
[2020-02-13] MEDS ORDERED: KETOROLAC 30 MG/ML 1ML VIAL As Ordered ONE ×2 (11:17→17:08)
[2020-02-13] MEDS ORDERED: MORPHINE 2 MG/ML 1ML VIAL (J2270) As Ordered ONE ×2 (11:17→17:10)
[2020-02-13] MEDS ORDERED: MORPHINE 2 MG/ML 1ML VIAL (J2270) ONE ×2 (11:17→17:08)
[2020-02-13] MEDS ORDERED: NORCO, ANEXSIA 5/325MG TABLET (HYDROcodone/ACETAMINOPHEN) As Ordered ONE ×2 (14:17→20:39)
[2020-02-13] MEDS ORDERED: NORCO, ANEXSIA 5/325MG TABLET (HYDROcodone/ACETAMINOPHEN) ONE ×3 (14:17→20:39)
[2020-02-13] MEDS ORDERED: DOCUSATE SODIUM 100 MG CAP As Ordered ONE ×2 (17:23→20:39)
[2020-02-13] MEDS ORDERED: DOCUSATE SODIUM 100 MG CAP ONE ×2 (17:23→20:39)
[2020-02-13] MEDS ORDERED: PRIMAXIN As Ordered ONE (20:35)
[2020-02-14] MEDS ORDERED: KETOROLAC 30 MG/ML 1ML VIAL As Ordered ONE ×2 (00:19→04:30)
[2020-02-14] MEDS ORDERED: VANCOMYCIN 1000MG/20ML VIAL As Ordered ONE (00:19)
[2020-02-14] MEDS ORDERED: PRIMAXIN As Ordered ONE (01:54)
[2020-02-14] MEDS ORDERED: PRIMAXIN ONE (01:54)
[2020-02-14] MEDS ORDERED: NORCO, ANEXSIA 5/325MG TABLET (HYDROcodone/ACETAMINOPHEN) ONE ×6 (04:30→23:33)
[2020-02-14] MEDS ORDERED: KETOROLAC 30 MG/ML 1ML VIAL ONE ×2 (04:30→12:19)
[2020-02-14] MEDS ORDERED: NORCO, ANEXSIA 5/325MG TABLET (HYDROcodone/ACETAMINOPHEN) As Ordered ONE ×5 (04:30→23:33)
[2020-02-14] MEDS ORDERED: PANTOPRAZOLE 40MG TAB (PROTONIX) As Ordered ONE (09:00)
[2020-02-14] MEDS ORDERED: IPRATROPIUM 0.5MG/ALBUTEROL 2.5MG INH SOL UD 3ML (DUONEB) ONE (09:00)
[2020-02-14] MEDS ORDERED: PANTOPRAZOLE 40MG TAB (PROTONIX) ONE (09:00)
[2020-02-14] MEDS ORDERED: tiZANidine 4 MG TAB ONE ×3 (09:00→20:55)
[2020-02-14] MEDS ORDERED: NICOTINE 21MG/24HR 1 EA TRANSDERMAL As Ordered ONE (09:00)
[2020-02-14] MEDS ORDERED: DOCUSATE SODIUM 100 MG CAP ONE ×2 (09:00→20:55)
[2020-02-14] MEDS ORDERED: GABAPENTIN 300 MG CAP As Ordered ONE ×3 (09:00→20:55)
[2020-02-14] MEDS ORDERED: GABAPENTIN 300 MG CAP ONE ×3 (09:00→20:55)
[2020-02-14] MEDS ORDERED: tiZANidine 4 MG TAB As Ordered ONE ×3 (09:00→20:55)
[2020-02-14] MEDS ORDERED: NICOTINE 21MG/24HR 1 EA TRANSDERMAL ONE (09:00)
[2020-02-14] MEDS ORDERED: DOCUSATE SODIUM 100 MG CAP As Ordered ONE ×2 (09:03→20:55)
[2020-02-14] MEDS ORDERED: AUGMENTIN 875 MG TAB ONE (10:00)
[2020-02-14] MEDS ORDERED: NYSTATIN 100,000 UNITS/GM TOPICAL PWD 15 GM ONE (10:00)
[2020-02-14] MEDS ORDERED: VANCOMYCIN 1000MG/20ML VIAL ONE (12:19)
[2020-02-14] MEDS ORDERED: CYCLOBENZAPRINE 10MG TABLET As Ordered ONE (18:30)
[2020-02-14] MEDS ORDERED: CYCLOBENZAPRINE 10MG TABLET ONE (18:30)
[2020-02-15] MEDS ORDERED: NORCO, ANEXSIA 5/325MG TABLET (HYDROcodone/ACETAMINOPHEN) As Ordered ONE ×4 (03:34→17:11)
[2020-02-15] MEDS ORDERED: NORCO, ANEXSIA 5/325MG TABLET (HYDROcodone/ACETAMINOPHEN) ONE ×4 (03:34→17:11)
[2020-02-15] MEDS ORDERED: DOCUSATE SODIUM 100 MG CAP ONE ×2 (08:05→20:50)
[2020-02-15] MEDS ORDERED: DOCUSATE SODIUM 100 MG CAP As Ordered ONE ×2 (08:05→20:50)
[2020-02-15] MEDS ORDERED: tiZANidine 4 MG TAB ONE ×3 (08:05→20:50)
[2020-02-15] MEDS ORDERED: ENOXAPARIN 40MG/0.4ML SYRINGE (J1650 PER 10MG) ONE (08:05)
[2020-02-15] MEDS ORDERED: GABAPENTIN 300 MG CAP ONE ×3 (08:05→20:50)
[2020-02-15] MEDS ORDERED: ENOXAPARIN 40MG/0.4ML SYRINGE (J1650 PER 10MG) As Ordered ONE (08:05)
[2020-02-15] MEDS ORDERED: tiZANidine 4 MG TAB As Ordered ONE ×3 (08:05→20:51)
[2020-02-15] MEDS ORDERED: GABAPENTIN 300 MG CAP As Ordered ONE ×3 (08:05→20:51)
[2020-02-15] MEDS ORDERED: NICOTINE 21MG/24HR 1 EA TRANSDERMAL ONE (08:17)
[2020-02-15] MEDS ORDERED: NICOTINE 21MG/24HR 1 EA TRANSDERMAL As Ordered ONE (08:17)
[2020-02-15] MEDS ORDERED: IPRATROPIUM 0.5MG/ALBUTEROL 2.5MG INH SOL UD 3ML (DUONEB) ONE (09:00)
[2020-02-15] MEDS ORDERED: DICLOFENAC EPOLAMINE 1.3 % PATCH ONE ×2 (09:00)
[2020-02-15] MEDS ORDERED: PANTOPRAZOLE 40MG TAB (PROTONIX) As Ordered ONE (12:40)
[2020-02-15] MEDS ORDERED: PANTOPRAZOLE 40MG TAB (PROTONIX) ONE (12:40)
[2020-02-15] MEDS ORDERED: CHLORHEXIDINE GLUCONATE 0.12 % 15ML UDC (PERIDEX ORAL RINSE) As Ordered ONE (20:56)
[2020-02-15] MEDS ORDERED: CHLORHEXIDINE GLUCONATE 0.12 % 15ML UDC (PERIDEX ORAL RINSE) ONE ×2 (20:56)
[2020-02-16] MEDS ORDERED: NORCO, ANEXSIA 5/325MG TABLET (HYDROcodone/ACETAMINOPHEN) ONE ×3 (01:54→11:14)
[2020-02-16] MEDS ORDERED: NORCO, ANEXSIA 5/325MG TABLET (HYDROcodone/ACETAMINOPHEN) As Ordered ONE ×2 (01:54→06:39)
[2020-02-16] MEDS ORDERED: NICOTINE 21MG/24HR 1 EA TRANSDERMAL As Ordered ONE (08:14)
[2020-02-16] MEDS ORDERED: tiZANidine 4 MG TAB ONE (08:14)
[2020-02-16] MEDS ORDERED: GABAPENTIN 300 MG CAP As Ordered ONE (08:14)
[2020-02-16] MEDS ORDERED: tiZANidine 4 MG TAB As Ordered ONE (08:14)
[2020-02-16] MEDS ORDERED: ENOXAPARIN 40MG/0.4ML SYRINGE (J1650 PER 10MG) ONE (08:14)
[2020-02-16] MEDS ORDERED: PANTOPRAZOLE 20 MG TAB ONE (08:14)
[2020-02-16] MEDS ORDERED: ENOXAPARIN 40MG/0.4ML SYRINGE (J1650 PER 10MG) As Ordered ONE (08:14)
[2020-02-16] MEDS ORDERED: NICOTINE 21MG/24HR 1 EA TRANSDERMAL ONE (08:14)
[2020-02-16] MEDS ORDERED: GABAPENTIN 300 MG CAP ONE (08:14)
[2020-02-16] MEDS ORDERED: PANTOPRAZOLE 20 MG TAB As Ordered ONE (08:14)
[2020-03-04 00:48] LABS: BASO # 0.1 10^3/uL (0.0-0.2); BASO % 0.2 % (0.0-1.0); HEMATOCRIT 35.1 % (42.0-52.0); HEMOGLOBIN 11.4 g/dl (13.5-17.5); LYMPH # 1.9 10^3/uL (1.5-5.0); LYMPH % 9.2 % (24.0-44.0); MEAN CORPUSCULAR HEMOGLOBIN 31.2 pg (27.0-33.0); MEAN CORPUSCULAR HGB CONC 32.5 g/dl (32.0-36.5); MEAN CORPUSCULAR VOLUME 96.2 fl (80.0-96.0); MONO # 2.8 10^3/uL (0.0-0.8); MONO % 13.4 % (0.0-5.0); NEUTROPHILS # 15.9 10^3/uL (1.5-8.5); NEUTROPHILS % 76.6 % (36.0-66.0); PLATELET COUNT, AUTOMATED 579 10^3/uL (150-450); RED BLOOD COUNT 3.65 10^6/uL (4.30-6.10); WHITE BLOOD COUNT 20.8 10^3/uL (4.0-10.0)
[2020-03-10 19:39] LABS: CALCIUM LEVEL 8.1 MG/DL (8.5-10.1); CREATININE FOR GFR 1.46 MG/DL (0.70-1.30); GLOMERULAR FILTRATION RATE 52.8 (>56); POTASSIUM SERUM 4.4 MEQ/L (3.5-5.1)
[2020-03-10 19:47] LABS: ABG BASE EXCESS -1.4 (-2.0-2.0); ABG HCO3 21.1 MEQ/L (22.0-26.0); ABG O2 SATURATION 95.7 % (95.0-99.0); ABG PARTIAL PRESSURE CO2 28.9 mmHg (35.0-45.0); ABG STANDARD HCO3 23.3 MEQ/L (22.0-26.0); ABG pH (ARTERIAL) 7.482 UNITS (7.350-7.450)
--- NOTE | 2020-03-13 10:10 | CR ---
DATE: 02/07/2020 REASON FOR CONSULTATION: Abnormal CT scan. HISTORY OF PRESENT ILLNESS: Mr. Luong is a very pleasant 59-year-old gentleman who has had issues with cough and probable recurrent pneumonias since 06/23/2019. He said he would feel somewhat lousy, have a productive cough, and then be treated with antibiotics and feel back to his normal self. At that time, he was still smoking a significant amount. He was seen as an inpatient in late December early January and was found to have a right middle lobe mass. He was scheduled for outpatient CT-guided needle biopsy, but due to computer issues this was cancelled. He presented to the ER several days ago with increasing chest pain and an elevated white count. He was found now to have complete collapse of his middle lobe with what looks like abscess formation distally. I am asked now to comment further. He said he has cut down considerably on his tobacco use prior to his admission. Obviously, he has not smoked since he has been here and is doing reasonably well with cravings with a nicotine patch. He has a history of previous heavy alcohol use, but has been abstinent for at least several weeks he says. He has never been previously hospitalized for a respiratory complaint up until late December of this year. No overt hemoptysis. He still states somewhat discolored and somewhat greenish-brownish sputum. Still with significant pleuritic pain. He did have significant decrease in his appetite, but says this is improving. ALLERGIES: Listed as none. HOME MEDICATIONS: - tizanidine - gabapentin - lisinopril - recently finished a course of Levaquin. SOCIAL HISTORY: Lives here with his significant other. Tobacco and alcohol as outlined above. 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 FAMILY HISTORY: Non-contributory from a pulmonary standpoint. REVIEW OF SYSTEMS: As per the HPI. Otherwise, constitutional is significant for some fevers. HEENT: Unremarkable for double or blurry vision. Pulmonary: As per HPI. Cardiac: Unremarkable for angina or orthopnea. Gastrointestinal: Significant for decreased appetite. Genitourinary: Unremarkable for dysuria, frequency, or urgency. Neurological: Unremarkable for seizure or stroke. Endocrine: Unremarkable for diabetes or thyroid disease. Hematologic: Unremarkable for bruising or bleeding. Allergic: Unremarkable. Psychiatric: Unremarkable. Musculoskeletal: Unremarkable for any other new arthralgias or myalgias other than his pleuritic pain. PHYSICAL EXAMINATION: GENERAL: This is a pleasant, well-nourished, and well-developed gentleman; currently in no distress. VITAL SIGNS: He has been afebrile. Blood pressure in the 120s to 140s. Heart rate 60 to 80 with a sinus mechanism. HEENT: Otherwise normocephalic, atraumatic. Pupils react. Neck is supple. Trachea is in the midline. Mucous membranes are moist. Sclerae clear. CHEST: Shows dullness to percussion in the right mid lung zone, especially anteriorly. Left chest is clear. There is a pleural-based rub in the anterior axillary line on the right at about the 8th rib. No convincing wheezes. CARDIAC: Regular with no murmur or gallop. Peripheral pulses palpable with no edema. ABDOMEN: Soft and nontender with active bowel sounds. No convincing organomegaly or masses. EXTREMITIES: Without cyanosis or clubbing. NEUROLOGIC: He is awake, alert, and appropriate. PSYCHIATRIC: Normal mood and affect. IMAGING: His prior x-rays and CT scans are unable to be viewed, but his current CT scan shows considerable collapse of the right middle lobe with bulging of the fissure. There are some areas distally that appear like early abscess formation as there is some complex density within this. Left chest is clear. There does appear to be some adenopathy. LABORATORY DATA: Most recent laboratory sodium 138, K 3.2, chloride 106, CO2 of 28, BUN 10, creatinine 0.94. Repeat chemistries are pending. White blood cell count yesterday 23.7, hemoglobin 11.1, platelet count 541,000 and repeats are pending. IMPRESSION: Abnormal CT scan with right middle lobe atelectasis and postobstructive changes. Longstanding and continued tobacco use. Previous history of alcohol use. History of hypertension. RECOMMENDATIONS: The above was reviewed at length with the patient. At this point, I believe the most prudent approach would be fiberoptic bronchoscopy. It is my suspicion we will find endobronchial disease. This will be done either in OPP or OR under conscious sedation. Risks and benefits were discussed with the patient, he is in full agreement, and consent will be obtained. We will get coags prior. At this point, I am in agreement with his current medications here in the hospital. Pain control is marginal at this point. We will proceed as outlined above. Further recommendations will be made in the progress record as new information becomes available. MTDD
--- NOTE | 2020-03-13 11:26 | ROOR ---
Patient Name: Conner Luong Procedure Date: 02/09/2020 12:45 PM Date of : 1960 Admit Type: Outpatient Age: 59 Note Status: Wellness Consultant Override Attending MD: Camelia Manjarrez MD Procedure: Bronchoscopy Indications: Atelectasis of the right middle lobe Providers: Camelia Manjarrez MD (Doctor) Referring MD: 1. No Referring Physician 1. No Referring Physician, Admin. (Referring MD) Requesting Physician: Medicines: General Anesthesia, Cetacaine topical Complications: No immediate complications. Estimated blood loss: Minimal Procedure: Pre-Anesthesia Assessment: - Prior to the procedure, a History and Physical was performed, and patient medications and allergies were reviewed. The patient's tolerance of previous anesthesia was also reviewed. The risks and benefits of the procedure and the sedation options and risks were discussed with the patient. All questions were answered, and informed consent was obtained. Prior Anticoagulants: The patient has taken heparin, last dose was 1 day prior to procedure. ASA Grade Assessment: III - A patient with severe systemic disease. After reviewing the risks and benefits, the patient was deemed in satisfactory condition to undergo the procedure. The Bronchoscope was introduced through the mouth, via the endotracheal tube (the patient was intubated for the procedure) and advanced to the tracheobronchial tree of both lungs. The procedure was accomplished without difficulty. The patient tolerated the procedure well. Findings: The trachea is of normal caliber. The veronica is sharp. The entire tracheobronchial tree was examined to at least the first subsegmental level. Bronchial mucosa and anatomy are normal; there are no endobronchial lesions and no secretions on left bronchial tree. On the right there were thick white/yellow purulent secretions from right middle lobe with pooling into the right lower lobe segmental bronchi. The right middle lobe mucosa was edematous and friable, no endobronchial lesions seen. The right lower lobe medial basal segment showed some narrowing from extrinsic compression and edematous mucosa. The right lower lobe superior segment was also narrowed with mucosal edema and friable mucosa. An endobronchial ultrasound endoscope was utilized in order to assist with fine needle aspiration in the subcarinal area and in the right hilum. Transbronchial needle aspirations of a lymph nodes were performed in the subcarinal area and in the right hilum using an Olympus EBUS-TBNA 21 gauge needle and sent for routine cytology. The procedure was guided by ultrasound. Transbronchial needle aspiration technique was selected because the sampling site was not visible endoscopically. There was noted with ultrasound necrotic appearing lung in right middle and lower lobe. Bronchoalveolar lavage was performed in the RML lateral segment (B4) and in the RML medial segment (B5) of the lung and sent for cell count, bacterial culture, viral smears & culture, and fungal & AFB analysis and cytology. The return was cloudy and mucopurulent. Brushings of a lesion were obtained in the medial segment of the right middle lobe with a cytology brush and sent for routine cytology. Endobronchial biopsies of a mucosal abnormality were performed in the lateral segment of the right middle lobe using a forceps and sent for histopathology examination. Impression: - Atelectasis of the right middle lobe - Endobronchial ultrasound was performed. - A transbronchial needle aspiration was performed. - Bronchoalveolar lavage was performed. - Brushings were obtained. - An endobronchial biopsy was performed. Recommendation: - Await test results. Camelia Manjarrez MD 02/28/2020 10:21:24 AM Number of Addenda: 0 Note Initiated On: 02/09/2020 12:45 PM
[2020-03-27 10:53] LABS: MEAN CORPUSCULAR HGB CONC 33.3 g/dl (32.0-36.5); WHITE BLOOD COUNT 7.6 10^3/uL (4.0-10.0)
[2020-03-27 10:54] LABS: PLATELET COUNT, AUTOMATED 304 10^3/uL (150-450)
[2020-03-27 19:53] LABS: HEMATOCRIT 32.2 % (42.0-52.0); HEMOGLOBIN 10.6 g/dl (13.5-17.5); MEAN CORPUSCULAR HEMOGLOBIN 31.5 pg (27.0-33.0); MEAN CORPUSCULAR VOLUME 95.5 fl (80.0-96.0); RED BLOOD COUNT 3.37 10^6/uL (4.30-6.10); WHITE BLOOD COUNT 11.7 10^3/uL (4.0-10.0)
[2020-03-27 19:54] LABS: MEAN CORPUSCULAR HGB CONC 32.9 g/dl (32.0-36.5); PLATELET COUNT, AUTOMATED 538 10^3/uL (150-450)
[2020-03-29 11:41] LABS: INR 0.98; PROTHROMBIN TIME 13.2 SECONDS (12.5-14.3)
--- NOTE | 2020-03-29 11:43 | REP ---
CHEST X-RAY: 2-VIEWS COMPARISON: 02/10/20 FINDINGS: 2-views of the chest are performed. Right chest tube remains in place inferiorly. There is a hydropneumothorax on the right inferiorly with mild adjacent parenchymal opacity. The amount of fluid appears mildly increased. The mild parenchymal opacity in the left lung base is unchanged as is the remainder of the examination. MTDD
[2020-03-29 14:59] LABS: HEMATOCRIT 35.3 % (42.0-52.0); HEMOGLOBIN 11.5 g/dl (13.5-17.5); MEAN CORPUSCULAR HEMOGLOBIN 31.2 pg (27.0-33.0); MEAN CORPUSCULAR HGB CONC 32.6 g/dl (32.0-36.5); MEAN CORPUSCULAR VOLUME 95.7 fl (80.0-96.0); PLATELET COUNT, AUTOMATED 611 10^3/uL (150-450); RED BLOOD COUNT 3.69 10^6/uL (4.30-6.10); WHITE BLOOD COUNT 17.5 10^3/uL (4.0-10.0)
[2020-03-29 18:21] LABS: BASO % 0.2 % (0.0-1.0); EOS # 0.1 10^3/uL (0.0-0.5); EOS % 0.7 % (0.0-3.0); HEMATOCRIT 33.1 % (42.0-52.0); LYMPH # 1.2 10^3/uL (1.5-5.0); LYMPH % 7.9 % (24.0-44.0); MEAN CORPUSCULAR HEMOGLOBIN 31.7 pg (27.0-33.0); MEAN CORPUSCULAR HGB CONC 33.2 g/dl (32.0-36.5); MEAN CORPUSCULAR VOLUME 95.4 fl (80.0-96.0); MONO # 1.3 10^3/uL (0.0-0.8); MONO % 8.7 % (0.0-5.0); NEUTROPHILS # 12.2 10^3/uL (1.5-8.5); NEUTROPHILS % 81.6 % (36.0-66.0); PLATELET COUNT, AUTOMATED 519 10^3/uL (150-450); RED BLOOD COUNT 3.47 10^6/uL (4.30-6.10); WHITE BLOOD COUNT 14.9 10^3/uL (4.0-10.0)
[2020-04-03 11:24] LABS: BASO % 0.2 % (0.0-1.0); EOS # 0.2 10^3/uL (0.0-0.5); EOS % 1.4 % (0.0-3.0); HEMATOCRIT 30.5 % (42.0-52.0); HEMOGLOBIN 9.8 g/dl (13.5-17.5); LYMPH # 1.3 10^3/uL (1.5-5.0); LYMPH % 7.5 % (24.0-44.0); MEAN CORPUSCULAR HEMOGLOBIN 30.9 pg (27.0-33.0); MEAN CORPUSCULAR HGB CONC 32.1 g/dl (32.0-36.5); MEAN CORPUSCULAR VOLUME 96.2 fl (80.0-96.0); MONO # 0.8 10^3/uL (0.0-0.8); MONO % 4.3 % (0.0-5.0); NEUTROPHILS # 14.9 10^3/uL (1.5-8.5); NEUTROPHILS % 85.5 % (36.0-66.0); PLATELET COUNT, AUTOMATED 459 10^3/uL (150-450); RED BLOOD COUNT 3.17 10^6/uL (4.30-6.10); WHITE BLOOD COUNT 17.5 10^3/uL (4.0-10.0)
[2020-04-04 10:33] LABS: BASO % 0.2 % (0.0-1.0); EOS # 0.2 10^3/uL (0.0-0.5); EOS % 1.3 % (0.0-3.0); HEMATOCRIT 28.3 % (42.0-52.0); HEMOGLOBIN 9.3 g/dl (13.5-17.5); LYMPH # 1.6 10^3/uL (1.5-5.0); LYMPH % 11.8 % (24.0-44.0); MEAN CORPUSCULAR HEMOGLOBIN 31.4 pg (27.0-33.0); MEAN CORPUSCULAR HGB CONC 32.9 g/dl (32.0-36.5); MEAN CORPUSCULAR VOLUME 95.6 fl (80.0-96.0); MONO # 0.9 10^3/uL (0.0-0.8); MONO % 6.6 % (0.0-5.0); NEUTROPHILS # 10.5 10^3/uL (1.5-8.5); NEUTROPHILS % 78.5 % (36.0-66.0); PLATELET COUNT, AUTOMATED 486 10^3/uL (150-450); RED BLOOD COUNT 2.96 10^6/uL (4.30-6.10); WHITE BLOOD COUNT 13.4 10^3/uL (4.0-10.0)
[2020-04-06 08:34] LABS: HEMATOCRIT 30.7 % (42.0-52.0); HEMOGLOBIN 10.2 g/dl (13.5-17.5); MEAN CORPUSCULAR HEMOGLOBIN 32.1 pg (27.0-33.0); MEAN CORPUSCULAR HGB CONC 33.2 g/dl (32.0-36.5); MEAN CORPUSCULAR VOLUME 96.5 fl (80.0-96.0); PLATELET COUNT, AUTOMATED 550 10^3/uL (150-450); RED BLOOD COUNT 3.18 10^6/uL (4.30-6.10); WHITE BLOOD COUNT 23.8 10^3/uL (4.0-10.0)
[2020-04-06 10:19] LABS: INR 1.13; PARTIAL THROMBOPLASTIN TIME 35.8 SECONDS (24.2-38.5); PROTHROMBIN TIME 14.8 SECONDS (12.5-14.3)
[2020-04-06 11:06] LABS: HEMATOCRIT 32.9 % (42.0-52.0); HEMOGLOBIN 10.9 g/dl (13.5-17.5); MEAN CORPUSCULAR HEMOGLOBIN 31.8 pg (27.0-33.0); MEAN CORPUSCULAR HGB CONC 33.1 g/dl (32.0-36.5); MEAN CORPUSCULAR VOLUME 95.9 fl (80.0-96.0); PLATELET COUNT, AUTOMATED 497 10^3/uL (150-450); RED BLOOD COUNT 3.43 10^6/uL (4.30-6.10); WHITE BLOOD COUNT 16.4 10^3/uL (4.0-10.0)
[2020-04-07 01:01] LABS: HEMATOCRIT 27.9 % (42.0-52.0); HEMOGLOBIN 9.1 g/dl (13.5-17.5); MEAN CORPUSCULAR HEMOGLOBIN 30.7 pg (27.0-33.0); MEAN CORPUSCULAR HGB CONC 32.6 g/dl (32.0-36.5); MEAN CORPUSCULAR VOLUME 94.3 fl (80.0-96.0); PLATELET COUNT, AUTOMATED 501 10^3/uL (150-450); RED BLOOD COUNT 2.96 10^6/uL (4.30-6.10); WHITE BLOOD COUNT 11.5 10^3/uL (4.0-10.0)
[2020-04-07 16:42] LABS: HEMATOCRIT 28.1 % (42.0-52.0); HEMOGLOBIN 9.4 g/dl (13.5-17.5); MEAN CORPUSCULAR HEMOGLOBIN 31.4 pg (27.0-33.0); MEAN CORPUSCULAR HGB CONC 33.5 g/dl (32.0-36.5); PLATELET COUNT, AUTOMATED 542 10^3/uL (150-450); RED BLOOD COUNT 2.99 10^6/uL (4.30-6.10); WHITE BLOOD COUNT 12.4 10^3/uL (4.0-10.0)
--- NOTE | 2020-04-11 13:34 | RO ---
DATE OF OPERATION: 02/10/2020 PREPROCEDURE DIAGNOSIS: Pleural effusion. POSTPROCEDURE DIAGNOSIS: Pleural effusion. SURGEON: Yong Olsen MD PROCEDURE: Insertion of a right lateral chest tube. DESCRIPTION OF PROCEDURE: Under satisfactory monitored sedation achieved with 4 mg of Versed, the patient was prepped and draped in the usual sterile fashion. Incision was made over the sixth intercostal space and a tunnel was created in the chest without difficulty. A #24 chest tube was placed. Only a scant amount of fluid drained. I suspect there is a fibrinous organizing material and/or amadou pus within the pleural cavity that is not draining. Chest tube was secured successfully with #2 Tyvek suture. Patient tolerated the procedure well. A chest x-ray is pending. [facility]
--- NOTE | 2020-04-11 13:34 | RO ---
DATE OF OPERATION: 02/10/2020 PREPROCEDURE DIAGNOSIS: Loculated pleural effusion. POSTPROCEDURE DIAGNOSIS: Loculated pleural effusion. SURGEON: Yong Olsen M.D. PROCEDURE: Tissue plasminogen activator (tPA) pleurolysis. DESCRIPTION OF PROCEDURE: The previously placed chest tube was disconnected and clamped. Six mg of tPA and 60 mL of normal saline were then instilled into the right chest. An air bolus was placed to clear the chest tube, and the chest tube again was clamped. The chest tube will be unclamped in four hours. The patient tolerated the procedure well. JAYASHREE
--- NOTE | 2020-04-13 07:57 | IPN ---
DATE: 02/08/2020 SUBJECTIVE: I again attended Mr. Dawson here in the progressive care unit. Hospital computer system is still inoperative. He has had increased pleuritic pain over the night despite oral medications. He intermittently is able to find a comfortable spot. He is coughing up much more in the way of purulent material today. No hemoptysis. OBJECTIVE: VITAL SIGNS: No recorded fever overnight. Other vitals are in the bedside record and have been reviewed. HEENT: Otherwise normocephalic, atraumatic. Pupils react. Neck is supple. Trachea is in the midline. CHEST: Again shows egophony in the right mid lung zone with a pleural-based rub most notably in the mid-axillary line on the right. Left chest is clear. CARDIAC: Regular with no gallop. Peripheral pulses palpable with no edema. ABDOMEN: Soft and nontender with active bowel sounds. No convincing organomegaly or masses. EXTREMITIES: Without cyanosis or clubbing. NEUROLOGIC: He is awake, alert, and appropriate. PSYCHIATRIC: Normal mood and affect. LABORATORY DATA: Available laboratories have been reviewed. IMAGING: CT scan from several days ago was reviewed and I reviewed the entire case with Dr. Manjarrez. IMPRESSION: * Right middle lobe collapse with pulmonary abscess versus post-obstructive process. * Longstanding previous tobacco history. RECOMMENDATIONS: At this point, he is scheduled for fiberoptic bronchoscopy tomorrow with potential use of endobronchial ultrasound if needed. Informed consent was obtained today and signed by the patient. This will be performed by Dr. Manjarrez. We will augment his pain control as he clearly is quite uncomfortable today. We will repeat a chest x-ray to rule out any other new process. He is to continue on his current level of antimicrobials. At this point, we will proceed as outlined above. Further recommendations will be made in the progress record as new information becomes available. JAYASHREE
[2020-04-13 19:10] LABS: BASO % 0.2 % (0.0-1.0); EOS # 0.1 10^3/uL (0.0-0.5); EOS % 1.1 % (0.0-3.0); HEMATOCRIT 29.4 % (42.0-52.0); HEMOGLOBIN 9.4 g/dl (13.5-17.5); LYMPH # 1.8 10^3/uL (1.5-5.0); MEAN CORPUSCULAR HEMOGLOBIN 30.7 pg (27.0-33.0); MEAN CORPUSCULAR VOLUME 96.1 fl (80.0-96.0); MONO # 1.2 10^3/uL (0.0-0.8); MONO % 9.6 % (0.0-5.0); NEUTROPHILS # 8.8 10^3/uL (1.5-8.5); NEUTROPHILS % 72.3 % (36.0-66.0); PLATELET COUNT, AUTOMATED 670 10^3/uL (150-450); RED BLOOD COUNT 3.06 10^6/uL (4.30-6.10); WHITE BLOOD COUNT 12.1 10^3/uL (4.0-10.0)
[2020-04-14 14:04] LABS: HEMOGLOBIN 11.1 g/dl (13.5-17.5); MEAN CORPUSCULAR HEMOGLOBIN 31.9 pg (27.0-33.0); MEAN CORPUSCULAR HGB CONC 32.6 g/dl (32.0-36.5); MEAN CORPUSCULAR VOLUME 97.7 fl (80.0-96.0); PLATELET COUNT, AUTOMATED 541 10^3/uL (150-450); RED BLOOD COUNT 3.48 10^6/uL (4.30-6.10); WHITE BLOOD COUNT 23.8 10^3/uL (4.0-10.0)
--- NOTE | 2020-04-15 07:35 | REP ---
PORTABLE CHEST HISTORY: Chest tube placement. TECHNIQUE: Single frontal portable view of the chest was performed and compared to a prior study of 02/09/2020. FINDINGS: There is placement of a right chest tube inferiorly. There again appears to be a moderate amount of right pleural fluid with mild adjacent parenchymal opacity. There appears to be mild left basilar parenchymal opacity. The remainder of the study is unchanged. MTDD
[2020-04-29 10:22] LABS: BLOOD UREA NITROGEN 10 MG/DL (7-18); CALCIUM LEVEL 7.6 MG/DL (8.5-10.1); CARBON DIOXIDE LEVEL 30 MEQ/L (21-32); CHLORIDE LEVEL 106 MEQ/L (98-107); GLOMERULAR FILTRATION RATE > 60.0 (>56); GLUCOSE, FASTING 87 MG/DL (70-100); MAGNESIUM LEVEL 1.9 MG/DL (1.8-2.4); PHOSPHORUS LEVEL 4.1 MG/DL (2.5-4.9); POTASSIUM SERUM 3.8 MEQ/L (3.5-5.1); SODIUM LEVEL 141 MEQ/L (136-145)
--- NOTE | 2020-04-29 12:45 | REP ---
CHEST X-RAY: 2-VIEWS COMPARISON: Exam from the same day. The current study was performed at 5:34 PM. FINDINGS: 2-views of the chest are performed. A right chest tube is again noted inferiorly. There is a small right basilar pneumothorax. There appears to be a small amount of right pleural effusion. There is adjacent parenchymal opacity in the right lung base. There is mild left basilar parenchymal opacity. The remainder of the study is unchanged. MTDD
[2020-04-29 16:42] LABS: BLOOD UREA NITROGEN 7 MG/DL (7-18); CARBON DIOXIDE LEVEL 27 MEQ/L (21-32); CHLORIDE LEVEL 108 MEQ/L (98-107); CREATININE FOR GFR 0.87 MG/DL (0.70-1.30); GLOMERULAR FILTRATION RATE > 60.0 (>56); GLUCOSE, FASTING 79 MG/DL (70-100); MAGNESIUM LEVEL 1.6 MG/DL (1.8-2.4); PHOSPHORUS LEVEL 4.4 MG/DL (2.5-4.9); POTASSIUM SERUM 4.1 MEQ/L (3.5-5.1); SODIUM LEVEL 141 MEQ/L (136-145)
[2020-04-30 10:19] LABS: ALBUMIN 2.1 GM/DL (3.2-5.2); ALT/SGPT 9 U/L (12-78); BILIRUBIN,TOTAL 0.2 MG/DL (0.2-1.0); BLOOD UREA NITROGEN 15 MG/DL (7-18); CALCIUM LEVEL 7.8 MG/DL (8.5-10.1); CARBON DIOXIDE LEVEL 25 MEQ/L (21-32); CHLORIDE LEVEL 103 MEQ/L (98-107); CREATININE FOR GFR 1.28 MG/DL (0.70-1.30); GLOMERULAR FILTRATION RATE > 60.0 (>56); GLUCOSE, FASTING 98 MG/DL (70-100); POTASSIUM SERUM 3.5 MEQ/L (3.5-5.1); SODIUM LEVEL 135 MEQ/L (136-145); TOTAL PROTEIN 5.8 GM/DL (6.4-8.2)
[2020-04-30 11:48] LABS: BLOOD UREA NITROGEN 9 MG/DL (7-18); CALCIUM LEVEL 8.2 MG/DL (8.5-10.1); CARBON DIOXIDE LEVEL 26 MEQ/L (21-32); CHLORIDE LEVEL 104 MEQ/L (98-107); CREATININE FOR GFR 1.04 MG/DL (0.70-1.30); GLOMERULAR FILTRATION RATE > 60.0 (>56); GLUCOSE, FASTING 143 MG/DL (70-100); POTASSIUM SERUM 3.9 MEQ/L (3.5-5.1); SODIUM LEVEL 135 MEQ/L (136-145)
[2020-05-01 20:52] LABS: BLOOD UREA NITROGEN 10 MG/DL (7-18); CALCIUM LEVEL 8.1 MG/DL (8.5-10.1); CARBON DIOXIDE LEVEL 28 MEQ/L (21-32); CHLORIDE LEVEL 106 MEQ/L (98-107); CREATININE FOR GFR 0.94 MG/DL (0.70-1.30); GLOMERULAR FILTRATION RATE > 60.0 (>56); GLUCOSE, FASTING 112 MG/DL (70-100); MAGNESIUM LEVEL 1.8 MG/DL (1.8-2.4); PHOSPHORUS LEVEL 3.9 MG/DL (2.5-4.9); POTASSIUM SERUM 3.2 MEQ/L (3.5-5.1); SODIUM LEVEL 138 MEQ/L (136-145)
[2020-05-06 22:37] LABS: BLOOD UREA NITROGEN 10 MG/DL (7-18); CALCIUM LEVEL 8.2 MG/DL (8.5-10.1); CARBON DIOXIDE LEVEL 29 mmol/L (20-29); CHLORIDE LEVEL 105 MEQ/L (98-107); CREATININE FOR GFR 0.76 MG/DL (0.70-1.30); GLOMERULAR FILTRATION RATE > 60.0 (>56); GLUCOSE, FASTING 110 MG/DL (70-100); LDH LACTATE DEHYDROGENASE 126 U/L (87-241); SODIUM LEVEL 140 MEQ/L (136-145); TOTAL PROTEIN 6.1 GM/DL (6.4-8.2)
[2020-05-06 23:12] LABS: BLOOD UREA NITROGEN 7 MG/DL (7-18); CALCIUM LEVEL 7.7 MG/DL (8.5-10.1); CARBON DIOXIDE LEVEL 28 MEQ/L (21-32); CHLORIDE LEVEL 105 MEQ/L (98-107); CREATININE FOR GFR 0.81 MG/DL (0.70-1.30); GLOMERULAR FILTRATION RATE > 60.0 (>56); GLUCOSE, FASTING 108 MG/DL (70-100); SODIUM LEVEL 139 MEQ/L (136-145)
[2020-05-07 02:52] LABS: AMYLASE, BODY FLUID 12 U/L (NOT ESTABLISHED); CHOLESTEROL, BODY FLUID < 50 MG/DL (NOT ESTABLISHED); LDH, BODY FLUID 947 U/L (NOT ESTABLISHED); SOURCE, BODY FLUID AMYLASE PLEURAL; SOURCE, BODY FLUID CHOL PLEURAL; SOURCE, BODY FLUID GLUCOSE PLEURAL; SOURCE, BODY FLUID LDH PLEURAL; SOURCE, BODY FLUID TOT PROTEIN PLEURAL; SOURCE, BODY FLUID TRIG PLEURAL; TRIGLYCERIDE, BODY FLUID 46 MG/DL (NOT ESTABLISHED)
[2020-05-07 04:12] LABS: BLOOD UREA NITROGEN 13 MG/DL (7-18); CALCIUM LEVEL 7.8 MG/DL (8.5-10.1); CARBON DIOXIDE LEVEL 29 MEQ/L (21-32); CHLORIDE LEVEL 104 MEQ/L (98-107); CREATININE FOR GFR 0.79 MG/DL (0.70-1.30); GLOMERULAR FILTRATION RATE > 60.0 (>56); GLUCOSE, FASTING 154 MG/DL (70-100); SODIUM LEVEL 138 MEQ/L (136-145)
[2020-05-08 04:02] LABS: BLOOD UREA NITROGEN 10 MG/DL (7-18); CALCIUM LEVEL 7.8 MG/DL (8.5-10.1); CARBON DIOXIDE LEVEL 33 MEQ/L (21-32); CHLORIDE LEVEL 102 MEQ/L (98-107); CREATININE FOR GFR 0.76 MG/DL (0.70-1.30); GLOMERULAR FILTRATION RATE > 60.0 (>56); GLUCOSE, FASTING 81 MG/DL (70-100); MAGNESIUM LEVEL 1.9 MG/DL (1.8-2.4); PHOSPHORUS LEVEL 4.7 MG/DL (2.5-4.9); POTASSIUM SERUM 4.1 MEQ/L (3.5-5.1); SODIUM LEVEL 138 MEQ/L (136-145)
--- NOTE | 2020-05-08 13:40 | REP ---
PORTABLE CHEST X-RAY: COMPARISON: 02/08/20 HISTORY: Post procedure, rule out pneumothorax. FINDINGS: A single view of the chest is performed. There is no pneumothorax. Moderate to large right pleural effusion is unchanged. The visualized lungs are unchanged. The heart and mediastinum are unchanged. MTDD
[2020-05-08 15:32] LABS: BLOOD UREA NITROGEN 11 MG/DL (7-18); CHLORIDE LEVEL 104 MEQ/L (98-107); CREATININE FOR GFR 0.78 MG/DL (0.70-1.30); GLOMERULAR FILTRATION RATE > 60.0 (>56); GLUCOSE, FASTING 87 MG/DL (70-100); POTASSIUM SERUM 4.1 MEQ/L (3.5-5.1); SODIUM LEVEL 140 MEQ/L (136-145)
[2020-05-08 15:33] LABS: CALCIUM LEVEL 7.8 MG/DL (8.5-10.1); CARBON DIOXIDE LEVEL 29 mmol/L (20-29); MAGNESIUM LEVEL 1.9 MG/DL (1.8-2.4)
[2020-05-10 07:01] LABS: BLOOD UREA NITROGEN 8 MG/DL (7-18); CALCIUM LEVEL 8.2 MG/DL (8.5-10.1); CARBON DIOXIDE LEVEL 31 MEQ/L (21-32); CHLORIDE LEVEL 102 MEQ/L (98-107); CREATININE FOR GFR 0.76 MG/DL (0.70-1.30); GLOMERULAR FILTRATION RATE > 60.0 (>56); GLUCOSE, FASTING 89 MG/DL (70-100); PHOSPHORUS LEVEL 4.6 MG/DL (2.5-4.9); POTASSIUM SERUM 4.4 MEQ/L (3.5-5.1); SODIUM LEVEL 135 MEQ/L (136-145)
[2020-05-12 06:11] LABS: BLOOD UREA NITROGEN 8 MG/DL (7-18); CALCIUM LEVEL 8.1 MG/DL (8.5-10.1); CARBON DIOXIDE LEVEL 31 MEQ/L (21-32); CHLORIDE LEVEL 102 MEQ/L (98-107); CREATININE FOR GFR 0.86 MG/DL (0.70-1.30); GLOMERULAR FILTRATION RATE > 60.0 (>56); GLUCOSE, FASTING 103 MG/DL (70-100); MAGNESIUM LEVEL 2.2 MG/DL (1.8-2.4); PHOSPHORUS LEVEL 4.9 MG/DL (2.5-4.9); POTASSIUM SERUM 4.5 MEQ/L (3.5-5.1); SODIUM LEVEL 139 MEQ/L (136-145)
== END 2020-02-16 00:10 | disposition home or self-care (01) | DRG 137 ==
LOC: M ED 10:20 → M PCU 14:49
PROVIDERS: ADMIT Family Medicine; ATTEND Family Medicine
PROC: 0BBK8ZX Excision of Right Lung, Via Natural or Artificial Opening Endoscopic, Diagnostic (ICD-10-PCS; principal; 2020-02-09)
DX: J86.9 Pyothorax without fistula (principal); J18.9 Pneumonia, unspecified organism; I10 Essential (primary) hypertension; Z79.899 Other long term (current) drug therapy; F17.210 Nicotine dependence, cigarettes, uncomplicated; R19.7 Diarrhea, unspecified; J44.9 Chronic obstructive pulmonary disease, unspecified; F10.10 Alcohol abuse, uncomplicated; M47.892 Other spondylosis, cervical region

== ENCOUNTER → 2020-03-12 | Outpatient (CLI) | payer OTHER ==
--- NOTE | 2020-04-02 14:11 | REP ---
CHEST X-RAY CLINICAL: Follow-up abnormal lung field findings. COMPARISON: 02/16/2020. FINDINGS: The linear atelectasis at the left base has resolved and the left hemithorax is relatively well-aerated and clear. The right hemithorax demonstrates linear fibroatelectatic changes in the mid lung zone, as well as elevation to the right hemidiaphragm with blunting of the costophrenic angle. These may reflect chronic changes, although residual pleural fluid cannot be excluded. There is no evidence for pneumothorax. Visualized mediastinum and cardiac silhouette are normal. IMPRESSION: * Improved aeration to the left hemithorax. * Continued pleural parenchymal changes involving the right mid to lower lung zone; improved from prior examination, although findings may represent acute versus chronic findings. Correlation with physical examination and reevaluation/follow-up may be warranted. JAYASHREE
== END ==
LOC: M RAD 13:35
PROVIDERS: ATTEND Internal Medicine Pulmonary Disease
DX: R91.8 Other nonspecific abnormal finding of lung field (principal)

== ENCOUNTER → 2020-04-15 | Outpatient (CLI) | payer OTHER ==
--- NOTE | 2020-04-18 11:03 | REP ---
NONCONTRAST CHEST CT CLINICAL: Follow-up pneumonia and prior pneumothorax. COMPARISON: 02/13/2020. FINDINGS: Current examination demonstrates chronic appearing pleural parenchymal changes primarily noted along the lateral and basilar portion of the right hemithorax including linear fibroatelectatic changes extending from the hilum towards the lateral chest wall with pleural thickening and small ovoid residual pocket of pleural gas, which appears chronic (Images 51-91). These findings are considerably improved when compared to prior examination and the previously noted hydropneumothorax and acute areas of consolidation have essentially resolved. The current findings appear likely chronic sequela from prior process. Chronic small calcified mediastinal and hilar lymph nodes are also identified and remain stable, as well as very minimal biapical scarring and small apical bullous changes (right greater than left). No obvious acute area of consolidation, skin nodule, or mass lesion appreciated. No acute effusion or pneumothorax. The tracheobronchial tree is relatively patent and without bronchiectasis. Further evaluation of the mediastinum demonstrates atherosclerotic changes to the coronary arteries without evidence for cardiomegaly or pericardial effusion. The thoracic aorta is normal in caliber without aneurysm. Surrounding osseous structures are intact and without acute process. IMPRESSION: Pleural parenchymal changes involving the right mid to lower hemithorax as described above likely represents chronic sequela from prior process and has considerably improved. There is no obvious new acute pleural parenchymal process appreciated. [facility]
== END ==
LOC: M RAD 09:20
PROVIDERS: ATTEND Internal Medicine Pulmonary Disease
DX: J18.9 Pneumonia, unspecified organism (principal)

== ENCOUNTER → 2020-07-06 | Outpatient (CLI) | payer OTHER | LOC: M LABSMTC 11:20 | PROVIDERS: ATTEND Anesthesiology | DX: Z01.812 Encounter for preprocedural laboratory examination (principal); Z20.828 Contact with and (suspected) exposure to other viral communicable diseases ==

== ENCOUNTER 2020-07-10 10:37 | Day surgery (SDC) | payer OTHER ==
[~2020-07-10] VITALS: Ht 182.9 cm; Wt 85.2 kg
[~2020-07-10 10:37] MED LIST changes: +LIDOCAINE 2% 100MG/5ML SDV (FOR ANES.) As Ordered ONE; +NS 1,000 ML IV ONE; +propofoL 200 MG/20 ML VIAL As Ordered ONE
[2020-07-10] MEDS ORDERED: INCR1INH INH (11:20)
[2020-07-10] MEDS ORDERED: ALBUTEROL SULFATE 2.5 MG/0.5 ML INH NEB SOLN As Ordered ONE (11:29)
[2020-07-10] MEDS ORDERED: ALBUTEROL SULFATE 2.5 MG/0.5 ML INH NEB SOLN INH STA (11:34)
--- NOTE | 2020-07-10 12:03 | ROOR ---
Patient Name: Conner Luong Procedure Date: 07/10/2020 11:44 AM Date of : 1960 Age: 59 Room: [facility] Gender: Male Note Status: Finalized Procedure: Colonoscopy Indications: Screening for colorectal malignant neoplasm Providers: DO Monik Pfeiffer MD[facility] Requesting Provider: Medicines: Propofol per Anesthesia Complications: No immediate complications. Procedure: Pre-Anesthesia Assessment: - Prior to the procedure, a History and Physical was performed, and patient medications and allergies were reviewed. The patient is competent. The risks and benefits of the procedure and the sedation options and risks were discussed with the patient. All questions were answered and informed consent was obtained. Patient identification and proposed procedure were verified by the physician, the nurse, the front end mechanic and the land survey technician in the endoscopy suite. Mental Status Examination: alert and oriented. Airway Examination: normal oropharyngeal airway and neck mobility. Respiratory Examination: clear to auscultation. CV Examination: normal. Prophylactic Antibiotics: The patient does not require prophylactic antibiotics. Prior Anticoagulants: The patient has taken no previous anticoagulant or antiplatelet agents. ASA Grade Assessment: II - A patient with mild systemic disease. After reviewing the risks and benefits, the patient was deemed in satisfactory condition to undergo the procedure. The anesthesia plan was to use monitored anesthesia care (MAC). Immediately prior to administration of medications, the patient was re-assessed for adequacy to receive sedatives. The heart rate, respiratory rate, oxygen saturations, blood pressure, adequacy of pulmonary ventilation, and response to care were monitored throughout the procedure. The physical status of the patient was re-assessed after the procedure. The Colonoscope was introduced through the anus and advanced to the cecum, identified by appendiceal orifice and ileocecal valve. The colonoscopy was performed without difficulty. The patient tolerated the procedure well. Findings: Non-bleeding internal hemorrhoids were found during retroflexion. The hemorrhoids were Grade II (internal hemorrhoids that prolapse but reduce spontaneously). Multiple small and large-mouthed diverticula were found in the sigmoid colon. Impression: - Non-bleeding internal hemorrhoids. - Diverticulosis in the sigmoid colon. - No specimens collected. Recommendation: - Patient has a contact number available for emergencies. The signs and symptoms of potential delayed complications were discussed with the patient. Return to normal activities tomorrow. Written discharge instructions were provided to the patient. - Repeat colonoscopy in 5-10 years for screening purposes. - Return to my office PRN. Procedure Code(s): --- Professional --- G0121, Colorectal cancer screening; colonoscopy on individual not meeting criteria for high risk Diagnosis Code(s): --- Professional --- Z12.11, Encounter for screening for malignant neoplasm of colon K64.1, Second degree hemorrhoids K57.30, Diverticulosis of large intestine without perforation or abscess without bleeding CPT copyright 2019 [employer]. All rights reserved. The codes documented in this report are preliminary and upon agent broker review may be revised to meet current compliance requirements. Ankit Benz DO 07/10/2020 12:03:13 PM Electronically signed by Ankit Benz DO Number of Addenda: 0 Note Initiated On: 07/10/2020 11:44 AM Estimated Blood Loss: Estimated blood loss: none.
[2020-07-10 12:30] VITALS: BP 152/100
== END 2020-07-10 12:34 | disposition home or self-care (01) ==
LOC: M OPP 10:37
PROVIDERS: ATTEND Surgery
DX: Z12.11 Encounter for screening for malignant neoplasm of colon (principal); Z80.0 Family history of malignant neoplasm of digestive organs; K64.1 Second degree hemorrhoids; K57.30 Diverticulosis of large intestine without perforation or abscess without bleeding; J44.9 Chronic obstructive pulmonary disease, unspecified; F17.210 Nicotine dependence, cigarettes, uncomplicated; Z79.899 Other long term (current) drug therapy

== ENCOUNTER 2020-09-11 14:57 | Inpatient (IN) | payer OTHER ==
[~2020-09-11] VITALS: Ht 182.9 cm; Wt 78.0 kg
[~2020-09-11 14:57] MED LIST changes: +GABA-282 PO; -GABA-843 PO; +INCR1INH INH; -LIDOCAINE 2% 100MG/5ML SDV (FOR ANES.) As Ordered ONE; +LISI10TA22 PO; -LISI10TA4 PO; -NS 1,000 ML IV ONE; -propofoL 200 MG/20 ML VIAL As Ordered ONE
[2020-09-11] MEDS ORDERED: MULTIVITAMIN -ADULT INJECTION 10 ML, THIAMINE INJection 100 MG, FOLIC ACID 1 MG in NS 1... IV ONE (15:45)
[2020-09-11 16:22] LABS: HEMATOCRIT 45.1 % (42.0-52.0); HEMOGLOBIN 15.7 g/dl (13.5-17.5); MEAN CORPUSCULAR HEMOGLOBIN 34.4 pg (27.0-33.0); MEAN CORPUSCULAR HGB CONC 34.8 g/dl (32.0-36.5); MEAN CORPUSCULAR VOLUME 98.7 fl (80.0-96.0); PLATELET COUNT, AUTOMATED 176 10^3/uL (150-450); RED BLOOD COUNT 4.57 10^6/uL (4.30-6.10); WHITE BLOOD COUNT 4.2 10^3/uL (4.0-10.0)
[2020-09-11 16:56] LABS: RSV AMPLIFICATION NEGATIVE (NEGATIVE)
[2020-09-11 17:08] LABS: ACETAMINOPHEN LEVEL < 2.0 UG/ML (10.0-30.0); ALBUMIN 3.4 GM/DL (3.2-5.2); ALT/SGPT 89 U/L (12-78); BILIRUBIN,DIRECT < 0.1 MG/DL (0.0-0.2); BILIRUBIN,TOTAL 0.5 MG/DL (0.2-1.0); BLOOD UREA NITROGEN 5 MG/DL (7-18); CALCIUM LEVEL 7.5 MG/DL (8.5-10.1); CARBON DIOXIDE LEVEL 24 MEQ/L (21-32); CHLORIDE LEVEL 103 MEQ/L (98-107); CPK CREATINE PHOSPHOKINASE 231 U/L (39-308); CREATININE FOR GFR 0.73 MG/DL (0.70-1.30); GLOMERULAR FILTRATION RATE > 60.0 (>56); GLUCOSE, FASTING 76 MG/DL (70-100); MAGNESIUM LEVEL 1.9 MG/DL (1.8-2.4); POTASSIUM SERUM 4.3 MEQ/L (3.5-5.1); SALICYLATE LEVEL 7.7 MG/DL (5.0-30.0); SODIUM LEVEL 138 MEQ/L (136-145); TOTAL PROTEIN 6.9 GM/DL (6.4-8.2)
[2020-09-11 18:11] LABS: AMPHETAMINES LEVEL URINE NEGATIVE (NEGATIVE); BARBITURATES URINE NEGATIVE (NEGATIVE); BENZODIAZEPINES URINE NEGATIVE (NEGATIVE); CANNABINOIDS URINE POSITIVE (NEGATIVE); COCAINE METABOLITE URINE NEGATIVE (NEGATIVE); METHADONE URINE NEGATIVE (NEGATIVE); OPIATES URINE NEGATIVE (NEGATIVE); PHENCYCLIDINE URINE NEGATIVE (NEGATIVE)
[2020-09-11] MEDS ORDERED: tiZANidine 4 MG TAB PO ONE (19:45)
[2020-09-11] MEDS ORDERED: GABAPENTIN 300 MG CAP PO ONE (19:45)
[2020-09-11] MEDS: NS 1,000 ML IV SCH (19:48)
[2020-09-12] VITALS (9 sets, daily range): BP systolic 150–167; BP diastolic 80–115
[2020-09-12] MEDS ORDERED: ACETAMINOPHEN TAB 650MG DOSE (2X325MG) PO ONE (01:35)
[2020-09-12] MEDS ORDERED: OXAZEPAM 15 MG CAP PO ONE (01:50)
--- NOTE | 2020-09-12 03:29 | ECGEPIP ---
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
[2020-09-12] MEDS ORDERED: LORazepam 2 MG/ML VIAL IV STA (03:40)
[2020-09-12] MEDS: NS 1,000 ML IV SCH ×3 (04:59→19:14)
[2020-09-12] MEDS ORDERED: THIAMINE 100 MG TAB PO SCH ×2 (05:19→09:00)
--- NOTE | 2020-09-12 05:28 | HPEPDOC ---
[facility] Medical History & Physical Date of Admission Sep 12, 2020 Date of Service: Sep 12, 2020 History and Physical CHIEF COMPLAINT: Alcohol withdrawal HISTORY OF PRESENT ILLNESS: 59-year-old male who was initially brought into the emergency department due to alcohol intoxication alcohol level 0.4 he was observed in the emergency department for about 14 hours unfortunately once he started to wake up he started feeling all, withdrawal symptoms including tremors and anxiety fast heart rate, sweating. Patient was awake and was able to answer my questions appropriately he did seem anxious and did have upper extremity tremors was trying to eat breakfast. Tells me he feels symptoms of alcohol Withdrawal which she is accustomed to. Patient tells me his last drink was one day ago and he usually drinks approximately 15 beers daily. Tells me he's never been admitted to the ICU or intubated due to severe alcohol withdrawals tells me he doesn't get hallucinations. Denies shortness of breath or chest pain. In the emergency department he was given 1 mg of IV Ativan and Serax and feels his withdrawal symptoms have slightly improved. PAST MEDICAL/SURGICAL HISTORY: Hypertension reports not being on any medications Right knee surgery Right elbow surgery SOCIAL HISTORY: Endorses daily alcohol use 15 beers per day last drink was yesterday Endorses tobacco use 1-1/2 pack per day Denies illicit drug use other than occasional cannabis use Lives at home with his girlfriend FAMILY HISTORY: Reviewed and none contributory to this admission ALLERGIES: Please see below. REVIEW OF SYSTEMS: 10 point review of systems complete all negative otherwise stated in HPI HOME MEDICATIONS: Please see below. PHYSICAL EXAMINATION: Constitutional: Awake, in no apparent distress ENT: Sclera are clear. Mucosa is moist. Respiratory: Lungs CTA bilaterally. No respiratory distress. Cardiovascular: RRR S1 and S2 are normal, no murmur Gastrointestinal: Abdomen is soft, non distended, non tender, BS present. Musculoskeletal: No lower extremity edema. Neurologic: Mild tremors in both upper extremities no other obvious focal deficits Mental Status: A&O x3, anxious affect Skin: Skin is dry LABORATORY DATA: See below. IMAGING: See chart MICROBIOLOGY: Please see below. ASSESSMENT/PLAN 59-year-old male admitted for alcohol withdrawal for observation and medical management # Alcohol withdrawal - Admit to medical bed for observation - Last drink yesterday. Denies history of intubation due to alcohol withdrawal. - Folic acid 1 mg daily, Thiamine 100 mg daily, Multivitamins 1 tab daily - Ativan PO PRN for withdrawal symptoms / CIWA>8 - Librium scheduled - Fall, withdrawal, seizure precautions - PFS consult # Hypertension: Doesn't take any medications at home. Blood pressure elevated likely in the context of a college all. Monitor blood pressure and add medications as needed. # DVT prophylaxis: Lovenox A Vickse[facility] Hospitalist Vital Signs Vital Signs Date Time Temp Pulse Resp B/P (MAP) Pulse Ox O2 Delivery O2 Flow Rate FiO2 09/12/20 04:30 86 19 153/96 (115) Room Air 09/12/20 04:15 97.9 09/11/20 20:15 93 Laboratory Data Labs 24H Laboratory Tests 2 09/11/20 15:47: Coronavirus (COVID-19)(PCR) NEGATIVE, Influenza Type A (RT-PCR) NEGATIVE, Influenza Type B (RT-PCR) NEGATIVE, Respiratory Syncytial Virus (PCR) NEGATIVE 09/11/20 15:48: Nucleated Red Blood Cells % (auto) 0.0, Anion Gap 11, Glomerular Filtration Rate > 60.0, Calcium Level 7.5L, Magnesium Level 1.9, Total Bilirubin 0.5, Direct Bilirubin < 0.1, Aspartate Amino Transf (AST/SGOT) 154H, Alanine Aminotransferase (ALT/SGPT) 89H, Alkaline Phosphatase 97, Total Creatine Kinase 231, Total Protein 6.9, Albumin 3.4, Albumin/Globulin Ratio 1.0, Thyroid Stimulating Hormone (TSH) 1.370, Salicylates Level 7.7, Acetaminophen Level < 2.0L, Ethyl Alcohol Level 0.410H 09/11/20 17:41: Urine Opiates Screen NEGATIVE, Urine Methadone Screen NEGATIVE, Urine Barbiturates Screen NEGATIVE, Urine Phencyclidine Screen NEGATIVE, Urine Amphetamines Screen NEGATIVE, Urine Benzodiazepines Screen NEGATIVE, Urine Cocaine Metabolite Screen NEGATIVE, Urine Cannabinoids Screen POSITIVEH CBC/BMP Laboratory Tests 09/11/20 15:48 Home Medications Scheduled Gabapentin (Gabapentin) 600 Mg Tablet, 600 MG PO TID Tizanidine HCl (Tizanidine HCl) 4 Mg Tablet, 4 MG PO TID Umeclidinium Mathews (Incruse Ellipta) 62.5 Mcg Blst.w.dev, 1 PUFF INH DAILY Scheduled PRN Sildenafil Citrate (Viagra) 50 Mg Tablet, 50 MG PO ASDIRECTED PRN for ERECTILE DYSFUNCTION 1 hour before sexual activity Allergies Coded Allergies: No Known Allergies (Unverified , 07/01/20) A-FIB/CHADSVASC A-FIB History Current/History of A-Fib/PAF?: No LAYLA REAGAN MD Sep 12, 2020 05:28
[2020-09-12] MEDS ORDERED: SYST1SOL OU (05:30)
[2020-09-12] MEDS ORDERED: INCR1INH INH (05:30)
[2020-09-12] MEDS ORDERED: SILD100T PO (05:30)
[2020-09-12] MEDS ORDERED: PROAAER10 INH (05:30)
[2020-09-12] MEDS ORDERED: GABA600T4 PO (05:30)
[2020-09-12] MEDS: chlordiazePOXIDE 25 MG CAP PO SCH ×2 (06:08→06:36)
[2020-09-12] MEDS: LORazepam 2 MG TAB PO PRN ×5 (06:08→21:21)
[2020-09-12 06:58] LABS: HEMATOCRIT 41.3 % (42.0-52.0); HEMOGLOBIN 14.2 g/dl (13.5-17.5); MEAN CORPUSCULAR HEMOGLOBIN 34.4 pg (27.0-33.0); MEAN CORPUSCULAR HGB CONC 34.4 g/dl (32.0-36.5); PLATELET COUNT, AUTOMATED 142 10^3/uL (150-450); RED BLOOD COUNT 4.13 10^6/uL (4.30-6.10); WHITE BLOOD COUNT 3.6 10^3/uL (4.0-10.0)
[2020-09-12 07:21] LABS: ALBUMIN 3.2 GM/DL (3.2-5.2); ALT/SGPT 77 U/L (12-78); BILIRUBIN,TOTAL 0.8 MG/DL (0.2-1.0); BLOOD UREA NITROGEN 4 MG/DL (7-18); CALCIUM LEVEL 7.5 MG/DL (8.5-10.1); CARBON DIOXIDE LEVEL 28 MEQ/L (21-32); CHLORIDE LEVEL 105 MEQ/L (98-107); CREATININE FOR GFR 0.77 MG/DL (0.70-1.30); GLOMERULAR FILTRATION RATE > 60.0 (>56); GLUCOSE, FASTING 131 MG/DL (70-100); POTASSIUM SERUM 3.8 MEQ/L (3.5-5.1); SODIUM LEVEL 139 MEQ/L (136-145); TOTAL PROTEIN 6.5 GM/DL (6.4-8.2)
[2020-09-12] MEDS: MULTIVITAMINS/MINERALS THERAP 1 TAB PO SCH (09:17)
[2020-09-12] MEDS: ENOXAPARIN 40MG/0.4ML SYRINGE (J1650 PER 10MG) SC SCH (09:17)
[2020-09-12] MEDS: FOLIC ACID 1 MG TAB PO SCH (09:17)
--- NOTE | 2020-09-12 09:49 | IPNPDOC ---
Subjective Date Seen The patient was seen on 09/12/20. Subjective Chief Complaint/HPI Subjective: Patient was seen at bedside, mildly agitated, oriented to person, place. Patient states that he has had some paroxysmal sweats, mild nausea but no vomiting, moderate headache and mild tactile disturbances currently. Denies any visual artery hallucinations. He has active tremors in bilateral extremities. When he is asked to sit up. He is whole body tremors. Denies any chest pain, shortness of breath, abdominal discomfort, diarrhea, or lower extremity edema. . Currently, he is a score of 10 on the CIWA-Ar. Patient was transferred to PCU given his elevated BP and tachycardia that continued to progress. Withdrawal medications were adjusted. Objective: PHYSICAL EXAM: VS: Please see below PHYSICAL EXAMINATION: Constitutional: Awake, alert, mild agitation, oriented to person and place ENT: Sclera are clear. Oral mucosa is dry, cracked lips Respiratory: Wheezing throughout, Cardiovascular: RRR, S1 and S2 are normal, no murmur/ gallops/rubs Gastrointestinal: Abdomen is soft, non distended, non tender, BS present. Musculoskeletal: No lower extremity edema. Neurologic: body tremors when sits up and bilateral UE tremors Mental Status: A&O to person and place; anxious affect Skin: Skin is dry and flaking and scaly appearance on his back LABORATORY DATA: See below. IMAGING: See chart MICROBIOLOGY: Please see below. ASSESSMENT/PLAN 59-year-old male admitted for active alcohol withdrawal. Currently experiencing tactile sensations, moderate headaches, mild nausea and some paroxysmal sweating. Currently denies any stool or auditory hallucinations. Is admitted under the hospitalist service for medical management of alcohol withdrawal was [facility] protocol in place. # Alcohol withdrawal - Active withdrawal- tactile sensations, paroxysmal sweats, moderate body tremors when sits up, mild nausea; denies hallucinations - CIWA-Ar of 10 this morning- will change CIWA to q4h - Last drink yesterday - Folic acid 1 mg daily - Given 1 banana bag - Will c/w NS @100cc/h for L liter and transition to D51/2 NS @ 100cc/h - patient is severely dehydrated on exam - c/w Thiamine 100 mg daily - c/w Multivitamins 1 tab daily - Will DC Librium, and start Serax 30 mg every 8 hours with Ativan PRN - Fall, aspiration, seizure precautions - PFS consult #Hypertension - Current BP 157/106 - This may be likely due to active alcohol withdrawal; uncertain of baseline blood pressure -We'll continue to monitor blood pressure closely and add on antihypertensive medications if BP continues to be high DVT prophylaxis: Lovenox GI prophylaxis: None indicated Diet: Nothing by mouth except for meds Fluids: Given one banana bag; currently on normal saline at 100 mL/h for 1 L Fall precautions Aspiration precautions CODE STATUS: full Assessment /Plan Plan/VTE VTE Prophylaxis Ordered?: Yes VS, I&O, 24H, Fishbone Vital Signs/I&O Vital Signs Date Time Temp Pulse Resp B/P (MAP) Pulse Ox O2 Delivery O2 Flow Rate FiO2 09/12/20 09:00 118 151/106 09/12/20 08:49 98.8 18 96 Room Air I&O- Last 24 Hours up to 6 AM 09/12/20 06:00 Intake Total 2731.2 ml Output Total 500 ml Balance 2231.2 ml Laboratory Data 24H LABS Laboratory Tests 2 09/11/20 15:47: Coronavirus (COVID-19)(PCR) NEGATIVE, Influenza Type A (RT-PCR) NEGATIVE, Influenza Type B (RT-PCR) NEGATIVE, Respiratory Syncytial Virus (PCR) NEGATIVE 09/11/20 15:48: Nucleated Red Blood Cells % (auto) 0.0, Anion Gap 11, Glomerular Filtration Rate > 60.0, Calcium Level 7.5L, Magnesium Level 1.9, Total Bilirubin 0.5, Direct Bilirubin < 0.1, Aspartate Amino Transf (AST/SGOT) 154H, Alanine Aminotransferase (ALT/SGPT) 89H, Alkaline Phosphatase 97, Total Creatine Kinase 231, Total Protein 6.9, Albumin 3.4, Albumin/Globulin Ratio 1.0, Thyroid S timulating Hormone (TSH) 1.370, Salicylates Level 7.7, Acetaminophen Level < 2.0L, Ethyl Alcohol Level 0.410H 09/11/20 17:41: Urine Opiates Screen NEGATIVE, Urine Methadone Screen NEGATIVE, Urine Barbiturates Screen NEGATIVE, Urine Phencyclidine Screen NEGATIVE, Urine Amphetamines Screen NEGATIVE, Urine Benzodiazepines Screen NEGATIVE, Urine Cocaine Metabolite Screen NEGATIVE, Urine Cannabinoids Screen POSITIVEH 09/12/20 06:39: Nucleated Red Blood Cells % (auto) 0.0, Anion Gap 6L, Glomerular Filtration Rate > 60.0, Calcium Level 7.5L, Total Bilirubin 0.8#, Aspartate Amino Transf (AST/SGOT) 123H, Alanine Aminotransferase (ALT/SGPT) 77, Alkaline Phosphatase 92, Total Protein 6.5, Albumin 3.2, Albumin/Globulin Ratio 1.0 CBC/BMP Laboratory Tests 09/11/20 15:48 09/12/20 06:39 Linda Thomas DO Sep 12, 2020 09:13 ELOINA BURKETT MD Sep 12, 2020 11:43
[2020-09-12] MEDS: OXAZEPAM 15 MG CAP PO SCH ×2 (10:14→18:25)
[2020-09-13] VITALS (12 sets, daily range): BP systolic 137–195; BP diastolic 82–112
[2020-09-13] MEDS ORDERED: diphenhydrAMINE 50MG/ML VIAL (J1200) IM PRN
[2020-09-13] MEDS ORDERED: EPINEPHrine INJ 1 MG/ML 1ML AMP IM PRN
[2020-09-13] MEDS: ACETAMINOPHEN TAB 650MG DOSE (2X325MG) PO PRN (01:00)
[2020-09-13] MEDS: LORazepam 2 MG TAB PO PRN ×3 (01:00→16:25)
[2020-09-13] MEDS: OXAZEPAM 15 MG CAP PO SCH (01:01)
[2020-09-13] MEDS: NS 1,000 ML IV SCH (05:30)
--- NOTE | 2020-09-13 05:39 | REPVR ---
PROCEDURE INFORMATION: Exam: CT Head Without Contrast Exam date and time: 09/13/2020 4:46 AM Age: 59 years old Clinical indication: Injury or trauma; Fall; Concussion/head injury; Consciousness not specified; Additional info: Fall from bed TECHNIQUE: Imaging protocol: Computed tomography of the head without contrast. Radiation optimization: All CT scans at this facility use at least one of these dose optimization techniques: automated exposure control; mA and/or kV adjustment per patient size (includes targeted exams where dose is matched to clinical indication); or iterative reconstruction. COMPARISON: CT Head without contrast 10/12/2019 12:43 PM FINDINGS: Brain: There is mild hypoattenuation in the bilateral basal ganglia, left more than right, unchanged since the prior exam likely old ischemic changes. Cerebral ventricles: There is age-related cerebral atrophy with secondary ventricular dilatation. Bones/joints: Unremarkable. No acute fracture. Paranasal sinuses: Visualized sinuses are unremarkable. No fluid levels. Mastoid air cells: Visualized mastoid air cells are well aerated. Soft tissues: Unremarkable. IMPRESSION: No CT evidence of acute intracranial hemorrhage, mass effect or midline shift. Electronically signed by: Michael Vallecillo On 09/13/2020 05:40:04 AM
[2020-09-13 06:06] LABS: BASO % 0.7 % (0.0-1.0); EOS % 0.5 % (0.0-3.0); HEMATOCRIT 43.5 % (42.0-52.0); HEMOGLOBIN 15.2 g/dl (13.5-17.5); LYMPH % 22.5 % (24.0-44.0); MEAN CORPUSCULAR HEMOGLOBIN 34.4 pg (27.0-33.0); MEAN CORPUSCULAR HGB CONC 34.9 g/dl (32.0-36.5); MEAN CORPUSCULAR VOLUME 98.4 fl (80.0-96.0); MONO # 0.7 10^3/uL (0.0-0.8); MONO % 16.3 % (2.0-8.0); NEUTROPHILS # 2.6 10^3/uL (1.5-8.5); NEUTROPHILS % 59.8 % (36.0-66.0); PLATELET COUNT, AUTOMATED 152 10^3/uL (150-450); RED BLOOD COUNT 4.42 10^6/uL (4.30-6.10); WHITE BLOOD COUNT 4.4 10^3/uL (4.0-10.0)
[2020-09-13 06:33] LABS: ALBUMIN 3.5 GM/DL (3.2-5.2); ALT/SGPT 73 U/L (12-78); BILIRUBIN,TOTAL 1.6 MG/DL (0.2-1.0); BLOOD UREA NITROGEN 2 MG/DL (7-18); CALCIUM LEVEL 8.7 MG/DL (8.5-10.1); CARBON DIOXIDE LEVEL 25 MEQ/L (21-32); CHLORIDE LEVEL 102 MEQ/L (98-107); CREATININE FOR GFR 0.68 MG/DL (0.70-1.30); GLOMERULAR FILTRATION RATE > 60.0 (>56); GLUCOSE, FASTING 79 MG/DL (70-100); POTASSIUM SERUM 3.4 MEQ/L (3.5-5.1); SODIUM LEVEL 136 MEQ/L (136-145)
[2020-09-13] MEDS ORDERED: POTASSIUM CHLORIDE 10 MEQ SR TABLET PO ONE (08:00)
--- NOTE | 2020-09-13 09:45 | IPNPDOC ---
Subjective Date Seen The patient was seen on 09/13/20. Subjective Chief Complaint/HPI Subjective: Patient was seen at bedside. Patient states that he has had some paroxysmal sweats overnight, nausea but no vomiting, moderate headache and states that he still feels tactile disturbances (e.g. bug crawling on skin) currently. He also states that he feels tired this morning. Denies any visual artery hallucinations. He has active tremors in bilateral extremities. Body tremors are not present today on exam. Denies any chest pain, shortness of breath, abdominal discomfort, diarrhea, or lower extremity edema. Currently, he still has a CIWA score of 10. Objective: PHYSICAL EXAM: VS: Please see below PHYSICAL EXAMINATION: Constitutional: Awake, alert, mild agitation, oriented to person and place ENT: Sclera are clear. Oral mucosa is dry, cracked lips Respiratory: Wheezing throughout, Cardiovascular: RRR, S1 and S2 are normal, no murmur/ gallops/rubs Gastrointestinal: Abdomen is soft, non distended, non tender, BS present. Musculoskeletal: No lower extremity edema. Neurologic: body tremors when sits up and bilateral UE tremors Mental Status: A&Ox3; anxious affect Skin: Skin is dry and flaking and scaly appearance on his back LABORATORY DATA: See below. IMAGING: See chart MICROBIOLOGY: Please see below. ASSESSMENT/PLAN 59-year-old male admitted for active alcohol withdrawal. Currently experiencing tactile sensations, moderate headaches, mild nausea and some paroxysmal sweating. Currently denies any stool or auditory hallucinations. Is admitted under the hospitalist service for medical management of alcohol withdrawal was [facility] protocol in place. # Alcohol withdrawal - Active withdrawal- tactile sensations, paroxysmal sweats, body tremors when sits up, mild nausea; denies hallucinations - CIWA-Ar of 10 this morning- c/w CIWA q4h - Folic acid 1 mg daily - Given 1 banana bag - Will d/c fluids - c/w Thiamine 100 mg daily - c/w Multivitamins 1 tab daily - will decrease Serax to 15 mg every 8 hours with Ativan PRN - Fall, aspiration, seizure precautions - PFS consult #Hypertension - likely 2/2 to withdrawal Current BP 149/94 - This may be likely due to active alcohol withdrawal; uncertain of baseline blood pressure - We'll continue to monitor blood pressure closely and add on antihypertensive medications if BP continues to be high #Fall - Fall precautions were already in place - CT head negative - c/w PT until cleared DVT prophylaxis: Lovenox GI prophylaxis: None indicated Diet: Nothing by mouth except for meds Fluids: none Fall and aspiration precaution CODE STATUS: full Assessment /Plan Plan/VTE VTE Prophylaxis Ordered?: Yes VS, I&O, 24H, Fishbone Vital Signs/I&O Vital Signs Date Time Temp Pulse Resp B/P (MAP) Pulse Ox O2 Delivery O2 Flow Rate FiO2 09/13/20 07:21 97.6 74 18 149/94 (112) 94 Room Air I&O- Last 24 Hours up to 6 AM 09/13/20 06:00 Intake Total 530 ml Output Total 2025 ml Balance -1495 ml Laboratory Data 24H LABS Laboratory Tests 2 09/13/20 05:18: Immature Granulocyte % (Auto) 0.2, Neutrophils (%) (Auto) 59.8, Lymphocytes (%) (Auto) 22.5L, Monocytes (%) (Auto) 16.3H, Eosinophils (%) (Auto) 0.5, Basophils (%) (Auto) 0.7, Neutrophils # (Auto) 2.6, Lymphocytes # (Auto) 1.0L, Monocytes # (Auto) 0.7, Eosinophils # (Auto) 0.0, Basophils # (Auto) 0.0, Nucleated Red Blood Cells % (auto) 0.0, Anion Gap 9, Glomerular Filtration Rate > 60.0, Calcium Level 8.7#, Total Bilirubin 1.6#H, Aspartate Amino Transf (AST/SGOT) 91H, Alanine Aminotransferase (ALT/SGPT) 73, Alkaline Phosphatase 103, Total Protein 7.0, Albumin 3.5, Albumin/Globulin Ratio 1.0 CBC/BMP Laboratory Tests 09/13/20 05:18 GME ATTESTATION GME ATTESTATION My faculty preceptor for this patient encounter was physically present during the encounter and was fully available. All aspects of the patient interview, examination, medical decision making process, and medical care plan development were reviewed and approved by the faculty preceptor. The faculty preceptor is aware and concurs with the plan as stated in the body of this note and will a ttest to such by his/her cosignature. ATTENDING NOTE I, Edmond Burkett, have independently examined this patient and performed my own physical exam, as well as reviewed the documentation and edited where necessary. I have discussed in detail with the resident / student the findings and plan of treatment as documented by the resident / student and edited their note. I agree with their findings and treatment plan and have edited their documentation. I will continue to follow the patient during this hospital stay. Linda Thomas DO Sep 13, 2020 09:45 EDMOND BURKETT MD Sep 13, 2020 13:28
[2020-09-13] MEDS ORDERED: COVID-19 VAC,AD26(JANSSEN)/PF 0.5ML SYRINGE (EUA) IM ONE (11:00)
[2020-09-13] MEDS: THIAMINE 100 MG TAB PO SCH (11:35)
[2020-09-13] MEDS: MULTIVITAMINS/MINERALS THERAP 1 TAB PO SCH (11:35)
[2020-09-13] MEDS: ENOXAPARIN 40MG/0.4ML SYRINGE (J1650 PER 10MG) SC SCH (11:35)
[2020-09-13] MEDS: FOLIC ACID 1 MG TAB PO SCH (11:36)
[2020-09-13] MEDS ORDERED: OXAZEPAM 15 MG CAP PO ONE (12:00)
[2020-09-13] MEDS: tiZANidine 4 MG TAB PO SCH (20:26)
[2020-09-13] MEDS ORDERED: GABAPENTIN 100 MG CAP PO SCH (21:00)
[2020-09-13] MEDS ORDERED: OXAZEPAM 15 MG CAP PO SCH ×2 (21:00→22:00)
[2020-09-14] VITALS: BP_SYST 127; BP_SYST 149; BP_DIAS 79; BP_DIAS 92
[2020-09-14 04:00] VITALS: BP 125/79
[2020-09-14 05:41] LABS: BASO % 0.6 % (0.0-1.0); EOS % 0.9 % (0.0-3.0); HEMATOCRIT 44.4 % (42.0-52.0); HEMOGLOBIN 15.2 g/dl (13.5-17.5); LYMPH # 0.8 10^3/uL (1.5-5.0); LYMPH % 16.9 % (24.0-44.0); MEAN CORPUSCULAR HGB CONC 34.2 g/dl (32.0-36.5); MEAN CORPUSCULAR VOLUME 99.3 fl (80.0-96.0); MONO # 0.9 10^3/uL (0.0-0.8); MONO % 18.2 % (2.0-8.0); NEUTROPHILS # 2.9 10^3/uL (1.5-8.5); PLATELET COUNT, AUTOMATED 143 10^3/uL (150-450); RED BLOOD COUNT 4.47 10^6/uL (4.30-6.10); WHITE BLOOD COUNT 4.7 10^3/uL (4.0-10.0)
[2020-09-14 06:17] LABS: ALBUMIN 3.3 GM/DL (3.2-5.2); ALT/SGPT 60 U/L (12-78); BILIRUBIN,TOTAL 1.3 MG/DL (0.2-1.0); BLOOD UREA NITROGEN 3 MG/DL (7-18); CALCIUM LEVEL 8.5 MG/DL (8.5-10.1); CARBON DIOXIDE LEVEL 24 MEQ/L (21-32); CHLORIDE LEVEL 104 MEQ/L (98-107); CREATININE FOR GFR 0.74 MG/DL (0.70-1.30); GLOMERULAR FILTRATION RATE > 60.0 (>56); GLUCOSE, FASTING 105 MG/DL (70-100); POTASSIUM SERUM 3.6 MEQ/L (3.5-5.1); SODIUM LEVEL 135 MEQ/L (136-145); TOTAL PROTEIN 7.2 GM/DL (6.4-8.2)
[2020-09-14 08:00] VITALS: BP 136/99
[2020-09-14] MEDS ORDERED: NICOTINE 21MG/24HR 1 EA TRANSDERMAL TD SCH (09:00)
[2020-09-14] MEDS: chlordiazePOXIDE 25 MG CAP PO SCH ×3 (09:27→20:40)
[2020-09-14] MEDS: ENOXAPARIN 40MG/0.4ML SYRINGE (J1650 PER 10MG) SC SCH (09:27)
[2020-09-14] MEDS: tiZANidine 4 MG TAB PO SCH ×3 (09:29→20:40)
[2020-09-14] MEDS: THIAMINE 100 MG TAB PO SCH (09:29)
[2020-09-14] MEDS: MULTIVITAMINS/MINERALS THERAP 1 TAB PO SCH (09:29)
[2020-09-14] MEDS: GABAPENTIN 300 MG CAP PO SCH ×3 (09:29→20:40)
[2020-09-14] MEDS: NICOTINE 7 MG/24 HR TRANSDERMAL TD SCH ×2 (09:29→09:30)
[2020-09-14] MEDS: FOLIC ACID 1 MG TAB PO SCH (09:30)
[2020-09-14 12:00] VITALS: BP 137/97
--- NOTE | 2020-09-14 12:24 | IPNPDOC ---
Subjective Date Seen The patient was seen on 09/14/20. Subjective Chief Complaint/HPI Subjective: Patient was seen at bedside. slightly agitated and demanding his gabapentin. Still reports tactile disturbances which are the most bothersome to him, less paroxysmal night sweats. Still states he's tremulous quite a bit, however on exam, he's much improved from previous days. Denies CP, abdominal pain, n/v/d. CIWA of 8 this morning. Objective: PHYSICAL EXAM: VS: Please see below PHYSICAL EXAMINATION: Constitutional: Awake, alert, mild agitation, oriented to person and place ENT: Sclera are clear. moist mucous membrane Respiratory: Wheezing throughout, Cardiovascular: RRR, S1 and S2 are normal, no murmur/ gallops/rubs Gastrointestinal: Abdomen is soft, non distended, non tender, BS present. Musculoskeletal: No lower extremity edema. Neurologic: body tremors when sits up and bilateral UE tremors Mental Status: A&Ox3; anxious affect Skin: Skin is dry and flaking and scaly appearance on his back LABORATORY DATA: See below. IMAGING: See chart MICROBIOLOGY: Please see below. ASSESSMENT/PLAN 59-year-old male admitted for active alcohol withdrawal. Currently experiencing tactile sensations, moderate headaches, mild nausea and some paroxysmal sweating. Currently denies any stool or auditory hallucinations. Is admitted under the hospitalist service for medical management of alcohol withdrawal was CIWA protocol in place. # Alcohol withdrawal - Active withdrawal- tactile sensations, paroxysmal sweats, body tremors when sits up, mild nausea; denies hallucinations - CIWA-Ar of 8 this morning- c/w CIWA q4h - Folic acid 1 mg daily - Given 1 banana bag - Will d/c fluids - c/w Thiamine 100 mg daily - c/w Multivitamins 1 tab daily - D/cd serax. will order librium 50mg q8h with Ativan PRN - Fall, aspiration, seizure precautions - PFS consult #s/p Hypertension - likely 2/2 to withdrawal Current BP 149/94 - This may be likely due to active alcohol withdrawal; uncertain of baseline blood pressure - We'll continue to monitor blood pressure closely and add on antihypertensive medications if BP continues to be high #Fall - Fall precautions were already in place - CT head negative - Has worked with PT and cleared DVT prophylaxis: Lovenox GI prophylaxis: None indicated Diet: Nothing by mouth except for meds Fluids: none Fall and aspiration precaution CODE STATUS: full Assessment /Plan Plan/VTE VTE Prophylaxis Ordered?: Yes VS, I&O, 24H, Fishbone Vital Signs/I&O Vital Signs Date Time Temp Pulse Resp B/P (MAP) Pulse Ox O2 Delivery O2 Flow Rate FiO2 09/14/20 08:00 105 136/99 09/14/20 04:00 97.4 18 97 Room Air I&O- Last 24 Hours up to 6 AM 09/14/20 06:00 Intake Total 1800 ml Output Total 600 ml Balance 1200 ml Laboratory Data 24H LABS Laboratory Tests 2 09/14/20 05:19: Immature Granulocyte % (Auto) 0.4, Neutrophils (%) (Auto) 63.0, Lymphocytes (%) (Auto) 16.9L, Monocytes (%) (Auto) 18.2H, Eosinophils (%) (Auto) 0.9, Basophils (%) (Auto) 0.6, Neutrophils # (Auto) 2.9, Lymphocytes # (Auto) 0.8L, Monocytes # (Auto) 0.9H, Eosinophils # (Auto) 0.0, Basophils # (Auto) 0.0, Nucleated Red Blood Cells % (auto) 0.0, Anion Gap 7L, Glomerular Filtration Rate > 60.0, Calcium Level 8.5, Total Bilirubin 1.3H, Aspartate Amino Transf (AST/SGOT) 60H, Alanine Aminotransferase (ALT/SGPT) 60, Alkaline Phosphatase 106, Total Protein 7.2, Albumin 3.3, Albumin/Globulin Ratio 0.8 CBC/BMP Laboratory Tests 09/14/20 05:19 GME ATTESTATION GME ATTESTATION My faculty preceptor for this patient encounter was physically present during the encounter and was fully available. All aspects of the patient interview, examination, medical decision making process, and medical care plan development were reviewed and approved by the faculty preceptor. The faculty preceptor is aware and concurs with the plan as stated in the body of this note and will atte st to such by his/her cosignature. ATTENDING NOTE I, Edmond Burkett, have independently examined this patient and performed my own physical exam, as well as reviewed the documentation and edited where necessary. I have discussed in detail with the resident / student the findings and plan of treatment as documented by the resident / student and edited their note. I agree with their findings and treatment plan and have edited their documentation. I will continue to follow the patient during this hospital stay. Linda Thomas DO Sep 14, 2020 12:24 EDMOND BURKETT MD Sep 14, 2020 15:51
[2020-09-14] MEDS: LORazepam 2 MG TAB PO PRN (13:52)
[2020-09-14 16:00] VITALS: BP 146/99
[2020-09-14 20:00] VITALS: BP 111/68
[2020-09-15] VITALS: BP 119/83
[2020-09-15] MEDS: chlordiazePOXIDE 25 MG CAP PO SCH ×2 (01:46→08:50)
[2020-09-15] MEDS: ACETAMINOPHEN TAB 650MG DOSE (2X325MG) PO PRN (01:47)
[2020-09-15 04:00] VITALS: BP 120/70
[2020-09-15 06:10] LABS: BASO % 1.1 % (0.0-1.0); EOS # 0.1 10^3/uL (0.0-0.5); EOS % 1.9 % (0.0-3.0); HEMATOCRIT 42.7 % (42.0-52.0); HEMOGLOBIN 14.3 g/dl (13.5-17.5); LYMPH # 1.1 10^3/uL (1.5-5.0); LYMPH % 29.2 % (24.0-44.0); MEAN CORPUSCULAR HEMOGLOBIN 33.8 pg (27.0-33.0); MEAN CORPUSCULAR HGB CONC 33.5 g/dl (32.0-36.5); MEAN CORPUSCULAR VOLUME 100.9 fl (80.0-96.0); MONO % 27.6 % (2.0-8.0); NEUTROPHILS # 1.5 10^3/uL (1.5-8.5); NEUTROPHILS % 39.9 % (36.0-66.0); PLATELET COUNT, AUTOMATED 150 10^3/uL (150-450); RED BLOOD COUNT 4.23 10^6/uL (4.30-6.10); WHITE BLOOD COUNT 3.7 10^3/uL (4.0-10.0)
[2020-09-15 06:41] LABS: ALBUMIN 3.2 GM/DL (3.2-5.2); ALT/SGPT 55 U/L (12-78); BILIRUBIN,TOTAL 0.8 MG/DL (0.2-1.0); BLOOD UREA NITROGEN 7 MG/DL (7-18); CALCIUM LEVEL 8.8 MG/DL (8.5-10.1); CARBON DIOXIDE LEVEL 26 MEQ/L (21-32); CHLORIDE LEVEL 103 MEQ/L (98-107); CREATININE FOR GFR 0.83 MG/DL (0.70-1.30); GLOMERULAR FILTRATION RATE > 60.0 (>56); GLUCOSE, FASTING 91 MG/DL (70-100); SODIUM LEVEL 135 MEQ/L (136-145); TOTAL PROTEIN 6.8 GM/DL (6.4-8.2)
[2020-09-15] MEDS ORDERED: THIA100TA PO (08:41)
[2020-09-15] MEDS ORDERED: NICO7PA TD (08:41)
[2020-09-15] MEDS ORDERED: CHLO25CA PO (08:41)
[2020-09-15] MEDS ORDERED: FOLI1TAB11 PO (08:41)
[2020-09-15] MEDS: ENOXAPARIN 40MG/0.4ML SYRINGE (J1650 PER 10MG) SC SCH (08:49)
[2020-09-15] MEDS: NICOTINE 7 MG/24 HR TRANSDERMAL TD SCH (08:50)
[2020-09-15] MEDS: tiZANidine 4 MG TAB PO SCH (08:50)
[2020-09-15] MEDS: THIAMINE 100 MG TAB PO SCH (08:51)
[2020-09-15] MEDS: FOLIC ACID 1 MG TAB PO SCH (08:51)
[2020-09-15] MEDS: MULTIVITAMINS/MINERALS THERAP 1 TAB PO SCH (08:51)
[2020-09-15] MEDS: GABAPENTIN 300 MG CAP PO SCH (08:51)
[2020-09-15] MEDS ORDERED: POTASSIUM CHLORIDE 10 MEQ SR TABLET PO SCH (09:00)
--- NOTE | 2020-09-15 11:30 | DS.PDOC ---
Discharge Summary General Date of Admission Sep 13, 2020 at 10:37 Date of Discharge 09/15/2020 Discharge Summary PROCEDURES PERFORMED DURING STAY: [None]. ADMITTING DIAGNOSE / DISCHARGE DIAGNOSES: s/p Alcohol withdrawal HTN s/p Fall DVT prophylaxis COMPLICATIONS/CHIEF COMPLAINT: Alcohol Withdrawal. HISTORY OF PRESENT ILLNESS: Patient is a 59-year-old male with a PMHx of HTN (not on medications) and alcohol abuse history who presented to the emergency room intoxicated. Patient remained in the emergency room for 14 hours, however, he began to exhibit signs of alcohol withdrawal and was admitted to the hospital service for further evaluation and treatment. Patient was seen and examined at the bedside this morning. Reports that his tremors have resolved completely. Denies any nausea or vomiting. Reports that his appetite has returned. Denies any abdominal pain. Reports that his diarrhea has resolved. Denies any urinary discomfort. HOSPITAL COURSE: s/p Alcohol withdrawal - Patient reports that his symptoms of alcohol withdrawal have resolved completely. Denies any tremors. Denies any nausea. Denies hallucinations. - Hemodynamically stable and afebrile - c/w thiamine, folate and multivitamins - s/p Serax; c/w Librium - will continue on discharge is a tapering dose - Advised outpatient follow-up with primary care provider, and substance abuse clinic within the next 7 days - Patient has been advised to abstain from any alcohol use HTN - BP well controlled - Was elevated initially likely secondary to alcohol withdrawal - Currently not on medications s/p Fall - Imaging reviewed and negative - Cleared PT for DC home - c/w Home PT on discharge DVT prophylaxis - c/w Lovenox DISCHARGE MEDICATIONS: Please see below. ALLERGIES: Please see below. PHYSICAL EXAMINATION ON DISCHARGE: Vitals (See below) General: Sitting up in bed, appears comfortable, no acute distress, AAOx3 HEENT: NC, AT CVS: +S1S2 Lungs: Fair air entry b/l, -w/r/r Abdomen: Soft, ND, NT Extremities: - Edema, - Calf tenderness LABORATORY DATA: Please see below. IMAGING: CT head 09/13: No CT evidence of acute intracranial hemorrhage, mass effect or midline shift. ACTIVITY: [As tolerated]. DISCHARGE PLAN: Follow-up with primary care provider, and substance abuse clinic within the next 7 days Remain compliant with treatment plan and medications Return to the ER if you experience any problems DISPOSITION: Home, Self-Care. DISCHARGE CONDITION: [Stable]. TIME SPENT ON DISCHARGE: 35 minutes. Vital Signs/I&Os Vital Signs Date Time Temp Pulse Resp B/P (MAP) Pulse Ox O2 Delivery O2 Flow Rate FiO2 09/15/20 04:00 96.9 76 17 120/70 (87) 97 Room Air I&O- Last 24 Hours up to 6 AM 09/15/20 06:00 Intake Total 990 ml Output Total 1125 ml Balance -135 ml Laboratory Data Labs 24H Laboratory Tests 2 09/15/20 05:26: Immature Granulocyte % (Auto) 0.3, Neutrophils (%) (Auto) 39.9, Lymphocytes (%) (Auto) 29.2, Monocytes (%) (Auto) 27.6H, Eosinophils (%) (Auto) 1.9, Basophils (%) (Auto) 1.1H, Neutrophils # (Auto) 1.5, Lymphocytes # (Auto) 1.1L, Monocytes # (Auto) 1.0H, Eosinophils # (Auto) 0.1, Basophils # (Auto) 0.0, Nucleated Red Blood Cells % (auto) 0.0, Anion Gap 6L, Glomerular Filtration Rate > 60.0, Calcium Level 8.8, Total Bilirubin 0.8, Aspartate Amino Transf (AST/SGOT) 54H, Alanine Aminotransferase (ALT/SGPT) 55, Alkaline Phosphatase 96, Total Protein 6.8, Albumin 3.2, Albumin/Globulin Ratio 0.9 CBC/BMP Laboratory Tests 09/15/20 05:26 Discharge Medications Scheduled Folic Acid (Folic Acid) 1 Mg Tablet, 1 MG PO DAILY Gabapentin (Gabapentin) 600 Mg Tablet, 600 MG PO TID, (Reported) Nicotine (Nicotine Patch) 7 Mg Patch.td24, 1 PATCH TD DAILY Thiamine Hcl (Vitamin B-1) 100 Mg Tablet, 100 MG PO DAILY Tizanidine HCl (Tizanidine HCl) 4 Mg Tablet, 4 MG PO TID, (Reported) Umeclidinium [place] (Incruse Ellipta) 62.5 Mcg Blst.w.dev, 1 PUFF INH DAILY, (Reported) Scheduled PRN Albuterol Sulfate (Proair Hfa) 8.5 Gm Hfa.aer.ad, 2 PUFF INH Q6H PRN for SHORTNESS OF BREATH, (Reported) Chlordiazepoxide (Chlordiazepoxide HCl) 25 Mg Capsule, 2 CAP PO ASDIRECTED PRN for anxiety 2 tab Q8H x 1 day, 1 tab Q8H x 1 day, 1 tab Q12H x 1 day, 1 tab QHS x 1 day, then stop Propylene Glycol/Peg 400 (Systane 0.3-0.4% Eye Drops) 15 Ml Drops, 1 DROP OU QID PRN for DRY EYES, (Reported) Sildenafil Citrate (Sildenafil Citrate) 100 Mg Tablet, 100 MG PO DAILY PRN for ERECTILE DYSFUNCTION, (Reported) Allergies Coded Allergies: No Known Allergies (Unverified , 07/01/20) ELOINA BURKETT MD Sep 15, 2020 11:30
[2020-09-16] MEDS ORDERED: LOSA50TA88 PO (18:21)
== END 2020-09-15 11:19 | disposition home health service (06) | DRG 775 ==
LOC: EDBD 14:57 → M ED 14:57 → M ED INP 14:58 → ENRESERV 09-12 07:20 → M PCU 09-12 09:08 → OBSVTOIN 09-13 10:37
PROVIDERS: ADMIT Family Medicine; ATTEND Internal Medicine
DX: F10.239 Alcohol dependence with withdrawal, unspecified (principal); I10 Essential (primary) hypertension; F17.200 Nicotine dependence, unspecified, uncomplicated; Z79.899 Other long term (current) drug therapy; R00.0 Tachycardia, unspecified; R25.1 Tremor, unspecified

== ENCOUNTER 2020-09-16 16:02 | Emergency (ER) | payer OTHER ==
[~2020-09-16] VITALS: Ht 182.9 cm; Wt 75.5 kg
[~2020-09-16 16:02] MED LIST changes: +CHLO25CA PO; +FOLI1TAB11 PO; +NICO7PA TD; +PROAAER10 INH; +SILD100T PO; +THIA100TA PO
[2020-09-16 16:54] LABS: BASO % 0.8 % (0.0-1.0); EOS # 0.1 10^3/uL (0.0-0.5); EOS % 2.4 % (0.0-3.0); HEMATOCRIT 43.4 % (42.0-52.0); HEMOGLOBIN 14.7 g/dl (13.5-17.5); LYMPH # 1.7 10^3/uL (1.5-5.0); LYMPH % 34.7 % (24.0-44.0); MEAN CORPUSCULAR HGB CONC 33.9 g/dl (32.0-36.5); MEAN CORPUSCULAR VOLUME 103.3 fl (80.0-96.0); MONO # 1.1 10^3/uL (0.0-0.8); MONO % 22.2 % (2.0-8.0); NEUTROPHILS % 39.5 % (36.0-66.0); PLATELET COUNT, AUTOMATED 144 10^3/uL (150-450)
--- NOTE | 2020-09-16 17:04 | REP ---
INDICATION: SOB. COMPARISON: PA and lateral chest dated 03/12/[address] dated 04/15/2020. TECHNIQUE: Portable AP chest with patient sitting. FINDINGS: The lung carrera are clear. The previous infiltrates have resolved. There are no pleural effusions. Cardiac size is normal. The mavis, mediastinum, and skeletal structures are unremarkable. IMPRESSION: Essentially negative portable chest. <Electronically signed by Ankit Gong > 09/16/20 [id number]
[2020-09-16 17:35] LABS: BLOOD UREA NITROGEN 6 MG/DL (7-18); CARBON DIOXIDE LEVEL 26 MEQ/L (21-32); CHLORIDE LEVEL 104 MEQ/L (98-107); CREATININE FOR GFR 0.72 MG/DL (0.70-1.30); ETHYL ALCOHOL (ETHANOL) < 0.003 % (0.000-0.010); GLOMERULAR FILTRATION RATE > 60.0 (>56); GLUCOSE, FASTING 84 MG/DL (70-100); POTASSIUM SERUM 4.5 MEQ/L (3.5-5.1); SODIUM LEVEL 136 MEQ/L (136-145)
[2020-09-16] MEDS ORDERED: hydrALAZINE 20MG/ML 1ML VIAL (J0360 PER 20MG) IV ONE (18:00)
[2020-09-16] MEDS ORDERED: LOSA50TA88 PO (18:21)
[2020-09-16 19:53] VITALS: BP 142/88
== END 2020-09-16 20:17 | disposition home or self-care (01) ==
LOC: M ED 16:02 → EDBD 16:02 → M ED 20:17
DX: R26.9 Unspecified abnormalities of gait and mobility (principal); T50.905A Adverse effect of unspecified drugs, medicaments and biological substances, initial encounter; S09.90XA Unspecified injury of head, initial encounter; W19.XXXA Unspecified fall, initial encounter; Y92.9 Unspecified place or not applicable; Y93.9 Activity, unspecified; Y99.9 Unspecified external cause status; I10 Essential (primary) hypertension; F10.20 Alcohol dependence, uncomplicated; F12.10 Cannabis abuse, uncomplicated; F17.200 Nicotine dependence, unspecified, uncomplicated; Z79.899 Other long term (current) drug therapy

== ENCOUNTER 2020-09-20 12:32 | Emergency (ER) | payer OTHER ==
[~2020-09-20] VITALS: Ht 182.9 cm; Wt 75.5 kg
[~2020-09-20 12:32] MED LIST changes: +LOSA50TA88 PO
[2020-09-20 14:13] LABS: BASO % 0.9 % (0.0-1.0); EOS # 0.1 10^3/uL (0.0-0.5); EOS % 2.6 % (0.0-3.0); HEMATOCRIT 41.5 % (42.0-52.0); HEMOGLOBIN 13.7 g/dl (13.5-17.5); LYMPH # 1.5 10^3/uL (1.5-5.0); LYMPH % 35.8 % (24.0-44.0); MEAN CORPUSCULAR HEMOGLOBIN 34.4 pg (27.0-33.0); MEAN CORPUSCULAR VOLUME 104.3 fl (80.0-96.0); MONO # 0.9 10^3/uL (0.0-0.8); MONO % 20.3 % (2.0-8.0); NEUTROPHILS # 1.7 10^3/uL (1.5-8.5); NEUTROPHILS % 40.2 % (36.0-66.0); PLATELET COUNT, AUTOMATED 260 10^3/uL (150-450); RED BLOOD COUNT 3.98 10^6/uL (4.30-6.10); WHITE BLOOD COUNT 4.2 10^3/uL (4.0-10.0)
--- NOTE | 2020-09-20 14:19 | REP ---
INDICATION: CHEST PAIN. COMPARISON: Comparison chest x-ray September 16, 2020. TECHNIQUE: Portable upright AP chest radiograph. FINDINGS: There is discoid atelectasis in the right base and to a lesser extent in the left perihilar and left base region. Pleural angles are sharp. Heart is mildly enlarged unchanged. Monitoring electrodes are seen. Pulmonary vasculature is not increased. No acute bony abnormality is seen. No infiltrate seen. IMPRESSION: Bibasilar platelike atelectasis. Mild cardiomegaly. Otherwise no acute disease.. <Electronically signed by Mathew Shaver > 09/20/20 [id number]
[2020-09-20] MEDS ORDERED: LABETALOL 100MG/20ML VIAL IV STA (14:43)
[2020-09-20] MEDS ORDERED: NS 1,000 ML IV SCH (14:45)
[2020-09-20] MEDS ORDERED: OXAZEPAM 10 MG CAP PO ONE (14:45)
[2020-09-20 15:21] LABS: ALBUMIN 2.5 GM/DL (3.2-5.2); ALT/SGPT 32 U/L (12-78); BILIRUBIN,DIRECT < 0.1 MG/DL (0.0-0.2); BILIRUBIN,TOTAL 0.1 MG/DL (0.2-1.0); BLOOD UREA NITROGEN 5 MG/DL (7-18); CALCIUM LEVEL 6.4 MG/DL (8.5-10.1); CARBON DIOXIDE LEVEL 26 MEQ/L (21-32); CHLORIDE LEVEL 117 MEQ/L (98-107); CK-MB VALUE MASS 1.1 NG/ML (<3.6); CPK CREATINE PHOSPHOKINASE 50 U/L (39-308); CREATININE FOR GFR 0.53 MG/DL (0.70-1.30); ETHYL ALCOHOL (ETHANOL) < 0.003 % (0.000-0.010); FREE T4 0.66 NG/DL (0.76-1.46); GLOMERULAR FILTRATION RATE > 60.0 (>56); GLUCOSE, FASTING 63 MG/DL (70-100); LIPASE 118 U/L (73-393); SODIUM LEVEL 147 MEQ/L (136-145); THYROID STIMULATING HORMONE 0.981 uIU/ML (0.358-3.740); TOTAL PROTEIN 4.8 GM/DL (6.4-8.2); TROPONIN I < 0.02 NG/ML (< 0.10)
[2020-09-20] MEDS ORDERED: POTASSIUM CHLORIDE 10 MEQ SR TABLET PO ONE (15:25)
[2020-09-20] MEDS: LABETALOL 100MG/20ML VIAL IV STA ×2 (16:56→16:58)
[2020-09-20 16:58] VITALS: BP 143/99
[2020-09-20] MEDS ORDERED: LISI20TA33 PO (17:27)
[2020-09-20 17:42] VITALS: BP 175/109
--- NOTE | 2020-09-22 08:04 | ECGEPIP ---
[facility] - ED Test Date: 2020-09-20 Pat Name: SARTHAK MIGUEL Department: Room: - Gender: Male [employer] Work[employer]: BETHANY : 1960 Requested By: NADER Meyer Order Number: [id number] Reading MD: Lindsay Jones Measurements Intervals [place] Rate: 72 P: 75 [place]: 178 QRS: 15 QRSD: 84 T: 18 QT: 404 QTc: 442 Interpretive Statements Normal sinus rhythm decreased rate 09/11/20 Electronically Signed on 09-22-2020 8:03:52 EDT by Lindsay Jones
== END 2020-09-20 17:54 | disposition home or self-care (01) ==
LOC: M ED 12:32
DX: I10 Essential (primary) hypertension (principal); F10.239 Alcohol dependence with withdrawal, unspecified; F12.10 Cannabis abuse, uncomplicated; I51.7 Cardiomegaly; J98.11 Atelectasis; Z79.899 Other long term (current) drug therapy

== ENCOUNTER → 2020-09-30 | Outpatient (REF) | payer OTHER ==
[~2020-09-30] MED LIST changes: +LISI20TA33 PO
[2020-09-30 12:46] LABS: BLOOD UREA NITROGEN 7 MG/DL (7-18); CARBON DIOXIDE LEVEL 29 MEQ/L (21-32); CHLORIDE LEVEL 104 MEQ/L (98-107); CREATININE FOR GFR 0.89 MG/DL (0.70-1.30); GLOMERULAR FILTRATION RATE > 60.0 (>56); GLUCOSE, FASTING 67 MG/DL (70-100); POTASSIUM SERUM 4.5 MEQ/L (3.5-5.1); SODIUM LEVEL 138 MEQ/L (136-145)
== END ==
LOC: M SFHCPLAZ 10:10
PROVIDERS: ATTEND Family Medicine
DX: I10 Essential (primary) hypertension (principal)

== ENCOUNTER 2020-10-01 16:35 | Outpatient (RCR) | payer MEDICAID | END 2020-10-02 | LOC: M OUTALCOH 16:35 | PROVIDERS: ATTEND Psychiatry & Neurology Psychiatry | DX: F10.20 Alcohol dependence, uncomplicated (principal); F12.10 Cannabis abuse, uncomplicated; F17.200 Nicotine dependence, unspecified, uncomplicated ==

== ENCOUNTER → 2020-10-01 | Outpatient (CLI) | payer MEDICAID | LOC: M OUTALCOH 07:51 | PROVIDERS: ATTEND Psychiatry & Neurology Psychiatry | DX: F10.20 Alcohol dependence, uncomplicated (principal) ==

== ENCOUNTER 2020-10-31 09:00 | Outpatient (RCR) | payer MEDICAID | END 2020-11-01 | LOC: M OUTALCOH 09:00 | PROVIDERS: ATTEND Psychiatry & Neurology Psychiatry | DX: F10.20 Alcohol dependence, uncomplicated (principal); F12.10 Cannabis abuse, uncomplicated; F17.200 Nicotine dependence, unspecified, uncomplicated ==

== ENCOUNTER 2020-11-28 09:00 | Outpatient (RCR) | payer MEDICAID | END 2020-12-02 | LOC: M OUTALCOH 09:00 | PROVIDERS: ATTEND Psychiatry & Neurology Psychiatry | DX: F10.20 Alcohol dependence, uncomplicated (principal); F12.10 Cannabis abuse, uncomplicated; F17.200 Nicotine dependence, unspecified, uncomplicated ==

== ENCOUNTER 2021-03-03 13:33 | Inpatient (IN) | payer OTHER ==
[~2021-03-03] VITALS: Ht 182.9 cm; Wt 78.7 kg
[2021-03-03] MEDS ORDERED: MULTIVITAMIN -ADULT INJECTION 10 ML, THIAMINE INJection 100 MG, FOLIC ACID 1 MG in NS 1... IV ONE (14:20)
[2021-03-03 14:50] LABS: HEMATOCRIT 40.6 % (42.0-52.0); HEMOGLOBIN 14.5 g/dl (13.5-17.5); MEAN CORPUSCULAR HEMOGLOBIN 34.2 pg (27.0-33.0); MEAN CORPUSCULAR HGB CONC 35.7 g/dl (32.0-36.5); MEAN CORPUSCULAR VOLUME 95.8 fl (80.0-96.0); PLATELET COUNT, AUTOMATED 142 10^3/uL (150-450); RED BLOOD COUNT 4.24 10^6/uL (4.30-6.10); WHITE BLOOD COUNT 3.9 10^3/uL (4.0-10.0)
[2021-03-03 15:29] LABS: AMPHETAMINES LEVEL URINE NEGATIVE (NEGATIVE); BARBITURATES URINE NEGATIVE (NEGATIVE); BENZODIAZEPINES URINE NEGATIVE (NEGATIVE); CANNABINOIDS URINE NEGATIVE (NEGATIVE); COCAINE METABOLITE URINE NEGATIVE (NEGATIVE); METHADONE URINE NEGATIVE (NEGATIVE); OPIATES URINE NEGATIVE (NEGATIVE); PHENCYCLIDINE URINE NEGATIVE (NEGATIVE)
[2021-03-03 15:35] LABS: ACETAMINOPHEN LEVEL < 2.0 UG/ML (10.0-30.0); ALBUMIN 3.3 GM/DL (3.2-5.2); ALT/SGPT 94 U/L (12-78); BILIRUBIN,DIRECT < 0.1 MG/DL (0.0-0.2); BILIRUBIN,TOTAL 0.5 MG/DL (0.2-1.0); BLOOD UREA NITROGEN 3 MG/DL (7-18); CARBON DIOXIDE LEVEL 25 MEQ/L (21-32); CHLORIDE LEVEL 95 MEQ/L (98-107); CREATININE FOR GFR 0.59 MG/DL (0.70-1.30); ETHYL ALCOHOL (ETHANOL) 0.417 % (0.000-0.010); GLOMERULAR FILTRATION RATE > 60.0 (>56); GLUCOSE, FASTING 81 MG/DL (70-100); POTASSIUM SERUM 4.9 MEQ/L (3.5-5.1); SALICYLATE LEVEL 6.8 MG/DL (5.0-30.0); SODIUM LEVEL 129 MEQ/L (136-145); TOTAL PROTEIN 7.3 GM/DL (6.4-8.2)
[2021-03-03] MEDS ORDERED: LORazepam 2 MG TAB PO PRN (16:00)
[2021-03-04] VITALS (15 sets, daily range): BP systolic 109–183; BP diastolic 76–115
[2021-03-04] MEDS ORDERED: LORazepam 2 MG/ML VIAL IV STA (03:28)
[2021-03-04] MEDS ORDERED: LORazepam 2 MG TAB PO PRN (04:10)
[2021-03-04] MEDS ORDERED: MOM 30ML SUSPENSION UDC PO PRN (04:10)
--- NOTE | 2021-03-04 04:23 | HPEPDOC ---
[facility] Medical History & Physical Date of Admission Mar 04, 2021 Date of Service: Mar 04, 2021 History and Physical CHIEF COMPLAINT: Alcohol withdrawal HISTORY OF PRESENT ILLNESS: 59-year-old male who was initially brought into the emergency department due to alcohol intoxication alcohol level 0.42 he was observed in the emergency department and ED attempted to get him a detox bed unfortunately once he started to wake he started having withdrawal symptoms including tremors and anxiety fast heart rate, sweating. She was awake and appropriately answered all my questions. Tells me his last drink was yesterday usually drinks about 15 beers a day. He tells me was sober for about 3 months and was doing very well but in November of this year his mother and he started drinking again and he's been drinking since. He tells me he wants to try to quit drinking again. Tells me he's never been admitted to the ICU or intubated due to severe alcohol withdrawals denies hallucinations. Denies shortness of breath or chest pain. In the emergency department he was given IV Ativan and feels his withdrawal symptoms have slightly improved. Patient will be admitted to the hospitalist service for management of alcohol withdrawal. PAST MEDICAL/SURGICAL HISTORY: Hypertension ETOH abuse Right knee surgery Right elbow surgery SOCIAL HISTORY: Endorses daily alcohol use 15 beers per day last drink was yesterday Endorses tobacco use 1-1/2 pack per day Denies illicit drug use other than occasional cannabis use Lives at home with his girlfriend FAMILY HISTORY: Reviewed and none contributory to this admission ALLERGIES: Please see below. REVIEW OF SYSTEMS: 10 point review of systems complete all negative otherwise stated in HPI HOME MEDICATIONS: Please see below. PHYSICAL EXAMINATION: Constitutional: Awake, appears mildly anxious ENT: Sclera are clear. Mucosa is moist. Respiratory: Lungs CTA bilaterally. No respiratory distress. Cardiovascular: RRR S1 and S2 are normal, no murmur Gastrointestinal: Abdomen is soft, non distended, non tender, BS present. Musculoskeletal: No lower extremity edema. Neurologic: Mild tremors in both upper extremities no other obvious focal deficits Mental Status: A&O x3, anxious affect Skin: Skin is dry LABORATORY DATA: See below. IMAGING: See chart MICROBIOLOGY: Please see below. ASSESSMENT/PLAN 59-year-old male admitted for alcohol withdrawal for observation and medical management # Alcohol withdrawal - Admit to PCU on tele - Last drink yesterday. Denies history of intubation due to alcohol withdrawal. - Folic acid 1 mg daily, Thiamine 100 mg daily, Multivitamins 1 tab daily - Ativan PO PRN for withdrawal per [facility] protocol - Oxazepam scheduled long acting benzo which will need to up/down titrated based on patient response - Fall, withdrawal, seizure precautions - PFS consult # Hypertension: Blood pressure elevated likely in the context of ETOH withdrawal. Monitor blood pressure and add medications as needed. # Resume chronic medications as appropriate once reconciled by pharmacy # DVT prophylaxis: [facility] Hickmanf Hospitalist Vital Signs Vital Signs Date Time Temp Pulse Resp B/P (MAP) Pulse Ox O2 Delivery O2 Flow Rate FiO2 03/04/21 01:05 104 189/100 03/04/21 00:59 97.1 18 97 Nasal Cannula 1.0 Laboratory Data Labs 24H Laboratory Tests 2 03/03/21 13:54: Nucleated Red Blood Cells % (auto) 0.0, Anion Gap 9, Glomerular Filtration Rate > 60.0, Calcium Level 8.0L, Total Bilirubin 0.5, Direct Bilirubin < 0.1, Aspa rtate Amino Transf (AST/SGOT) 152H, Alanine Aminotransferase (ALT/SGPT) 94H, Alkaline Phosphatase 128H, Total Protein 7.3, Albumin 3.3, Albumin/Globulin Ratio 0.8, Thyroid Stimulating Hormone (TSH) 1.280, Salicylates Level 6.8, Acetaminophen Level < 2.0L, Ethyl Alcohol Level 0.417H 03/03/21 14:18: Urine Opiates Screen NEGATIVE, Urine Methadone Screen NEGATIVE, Urine Barbiturat es Screen NEGATIVE, Urine Phencyclidine Screen NEGATIVE, Urine Amphetamines Screen NEGATIVE, Urine Benzodiazepines Screen NEGATIVE, Urine Cocaine Metabolite Screen NEGATIVE, Urine Cannabinoids Screen NEGATIVE CBC/BMP Laboratory Tests 03/03/21 13:54 Home Medications Scheduled Folic Acid (Folic Acid) 1 Mg Tablet, 1 MG PO DAILY Gabapentin (Gabapentin) 600 Mg Tablet, 600 MG PO TID Lisinopril (Lisinopril) 20 Mg Tablet, 1 TAB PO DAILY Losartan Potassium (Losartan Potassium) 50 Mg Tablet, 1 TAB PO DAILY Nicotine (Nicotine Patch) 7 Mg Patch.td24, 1 PATCH TD DAILY Thiamine Hcl (Vitamin B-1) 100 Mg Tablet, 100 MG PO DAILY Tizanidine HCl (Tizanidine HCl) 4 Mg Tablet, 4 MG PO TID Umeclidinium [place] (Incruse Ellipta) 62.5 Mcg Blst.w.dev, 1 PUFF INH DAILY Scheduled PRN Albuterol Sulfate (Proair Hfa) 8.5 Gm Hfa.aer.ad, 2 PUFF INH Q6H PRN for SHORTNESS OF BREATH Chlordiazepoxide (Chlordiazepoxide HCl) 25 Mg Capsule, 2 CAP PO ASDIRECTED PRN for anxiety 2 tab Q8H x 1 day, 1 tab Q8H x 1 day, 1 tab Q12H x 1 day, 1 tab QHS x 1 day, then stop Propylene Glycol/Peg 400 (Systane 0.3-0.4% Eye Drops) 15 Ml Drops, 1 DROP OU QID PRN for DRY EYES Sildenafil Citrate (Sildenafil Citrate) 100 Mg Tablet, 100 MG PO DAILY PRN for ERECTILE DYSFUNCTION Allergies Coded Allergies: No Known Allergies (Unverified , 07/01/20) LAYLA REAGAN MD Mar 04, 2021 04:23
[2021-03-04 05:22] LABS: RSV AMPLIFICATION NEGATIVE (NEGATIVE)
[2021-03-04] MEDS ORDERED: LISI10TA22 PO (05:34)
[2021-03-04] MEDS ORDERED: AIRD1INH3 INH (05:34)
[2021-03-04] MEDS ORDERED: HOME MED LIST COMPLETE! XX SCH (05:35)
[2021-03-04] MEDS ORDERED: amLODIPine 5 MG TAB PO STA (06:24)
[2021-03-04] MEDS: OXAZEPAM 15 MG CAP PO SCH ×3 (06:35→22:07)
[2021-03-04 07:07] LABS: HEMOGLOBIN 14.4 g/dl (13.5-17.5); MEAN CORPUSCULAR HEMOGLOBIN 34.4 pg (27.0-33.0); MEAN CORPUSCULAR HGB CONC 35.1 g/dl (32.0-36.5); MEAN CORPUSCULAR VOLUME 97.9 fl (80.0-96.0); PLATELET COUNT, AUTOMATED 156 10^3/uL (150-450); RED BLOOD COUNT 4.19 10^6/uL (4.30-6.10); WHITE BLOOD COUNT 6.7 10^3/uL (4.0-10.0)
[2021-03-04 07:50] LABS: ALBUMIN 3.3 GM/DL (3.2-5.2); ALT/SGPT 86 U/L (12-78); BILIRUBIN,TOTAL 0.9 MG/DL (0.2-1.0); BLOOD UREA NITROGEN 5 MG/DL (7-18); CALCIUM LEVEL 8.2 MG/DL (8.5-10.1); CARBON DIOXIDE LEVEL 24 MEQ/L (21-32); CHLORIDE LEVEL 100 MEQ/L (98-107); CREATININE FOR GFR 0.64 MG/DL (0.70-1.30); GLOMERULAR FILTRATION RATE > 60.0 (>56); GLUCOSE, FASTING 67 MG/DL (70-100); MAGNESIUM LEVEL 2.3 MG/DL (1.8-2.4); POTASSIUM SERUM 4.3 MEQ/L (3.5-5.1); SODIUM LEVEL 135 MEQ/L (136-145)
[2021-03-04] MEDS ORDERED: ALBUTEROL 90 MCG/ACT 8GM HFA INHALER INH PRN (08:40)
[2021-03-04] MEDS ORDERED: POLYVINYL ALCOHOL OPHTH SOLN 15 ML(LIQUITEARS) OU PRN (08:40)
[2021-03-04] MEDS: ENOXAPARIN 40MG/0.4ML SYRINGE (J1650 PER 10MG) SC SCH (08:59)
[2021-03-04] MEDS: THIAMINE 100 MG TAB PO SCH ×2 (09:00→20:09)
[2021-03-04] MEDS: DOCUSATE SODIUM 100MG CAPSULE PO SCH ×2 (09:00→20:09)
[2021-03-04] MEDS: MULTIVITAMINS/MINERALS THERAP 1 TAB PO SCH (09:00)
[2021-03-04] MEDS ORDERED: diazePAM 10MG/2ML SYRINGE (J3360 PER 5MG) IV ONE (09:00)
[2021-03-04] MEDS: FOLIC ACID 1 MG TAB PO SCH (09:00)
[2021-03-04] MEDS: GABAPENTIN 300 MG CAP PO SCH ×3 (09:01→20:09)
--- NOTE | 2021-03-04 10:35 | IPNPDOC ---
Date Seen The patient was seen on 03/04/21. Progress Note SUBJECTIVE: Patient was seen and examined at bedside this morning. He is somnolent lying in bed but appears comfortable. He is noted to have a pulse of 121 and regular rhythm along with a respiratory rate of 24. He is also hypertensive this morning with systolic pressure 183/115. He appears to be quite tremulous but is alert and oriented. He denies having visual or auditory hallucinations. Apparently he has a low-grade temperature of 99.7 this morning. OBJECTIVE PHYSICAL EXAMINATION: VITAL SIGNS: please see below General: Tremulous and anxious, somnolent. HEENT: PERRLA, EOMI, sclerae clear Neck: supple, normal ROM, no JVD Respiratory: lungs CTAB, no wheeze, no rales, no crackles CVS: RRR, normal S1, S2, no murmurs Abdo: soft, no masses, no hepatosplenomegaly, BS+, no rebound tenderness Extremities: no edema, pulses 2+ MSK: no joint deformities, normal ROM Neuro: no focal neuro deficits, moving all 4 extremities, CN2-12 intact. Strength 5/5 in all 4 extremities. No nystagmus. Tremulous. Psych: calm, cooperative, AAO x 3 LABORATORY DATA, IMAGING STUDIES, MICROBIOLOGY: Please see below. DVT prophylaxis ordered?: Lovenox SC. Assessment: 59-year-old male admitted for alcohol withdrawal for observation and medical management. # Alcohol withdrawal - Admit to PCU on tele - Last drink day prior to admission.. Denies history of intubation due to alcohol withdrawal, but reports prior seizures. Denies visual or auditory hallucination. - Folic acid 1 mg daily, Thiamine 100 mg daily, Multivitamins 1 tab daily - adjusted ativan 2mg to IV PRN q4h for withdrawal per CIWA protocol - c/w Serax 15 mg PO q8h. - given 5 mg IV valium for acute withdrawal, as determined by sinus tachycardia, HTN and tremulousness - Fall, withdrawal, seizure precautions - PFS consult #Sinus tachycardia: likely 2/2 acute etoh withdrawal. Gave 5 mg IV valium. # Hypertension: Blood pressure elevated likely in the context of ETOH withdrawal. # Resume chronic medications as appropriate once reconciled by pharmacy # DVT prophylaxis: Lovenox VS, I&O, 24H, Fishbone Vital Signs/I&O Vital Signs Date Time Temp Pulse Resp B/P (MAP) Pulse Ox O2 Delivery O2 Flow Rate FiO2 03/04/21 09:00 150/101 03/04/21 08:29 112 21 95 Room Air 03/04/21 07:06 99.7 03/04/21 05:36 1.0 I&O- Last 24 Hours up to 6 AM 03/04/21 05:59 Intake Total 1011.2 ml Balance 1011.2 ml Laboratory Data 24H LABS Laboratory Tests 2 03/03/21 13:54: Nucleated Red Blood Cells % (auto) 0.0, Anion Gap 9, Glomerular Filtration Rate > 60.0, Calcium Level 8.0L, Total Bilirubin 0.5, Direct Bilirubin < 0.1, Aspartate Amino Transf (AST/SGOT) 152H, Alanine Aminotransferase (ALT/SGPT) 94H, Alkaline Phosphatase 128H, Total Protein 7.3, Albumin 3.3, Albumin/Globulin Ratio 0.8, Thyroid Stimulating Hormone (TSH) 1.280, Salicylates Level 6.8, Acetaminophen Level < 2.0L, Ethyl Alcohol Level 0.417H 03/03/21 14:18: Urine Opiates Screen NEGATIVE, Urine Methadone Screen NEGATIVE, Urine Barbiturates Screen NEGATIVE, Urine Phencyclidine Screen NEGATIVE, Urine Amphetamines Screen NEGATIVE, Urine Benzodiazepines Screen NEGATIVE, Urine C ocaine Metabolite Screen NEGATIVE, Urine Cannabinoids Screen NEGATIVE 03/04/21 04:39: Coronavirus (COVID-19)(PCR) NEGATIVE, Influenza Type A (RT-PCR) NEGATIVE, Influenza Type B (RT-PCR) NEGATIVE, Respiratory Syncytial Virus (PCR) NEGATIVE 03/04/21 06:52: Nucleated Red Blood Cells % (auto) 0.0, Anion Gap 11, Glomerular Filtration Rate > 60.0, Calcium Level 8.2L, Total Bilirubin 0.9#, Aspartate Amino Transf (AST/SGOT) 128H, Alanine Aminotransferase (ALT/SGPT) 86H, Alkaline Phosphatase 134H, Total Protein 7.0, Albumin 3.3, Albumin/Globulin Ratio 0.9, Magnesium Level 2.3 CBC/BMP Laboratory Tests 03/03/21 13:54 03/04/21 06:52 FRACISCO TURNER MD Mar 04, 2021 10:35
[2021-03-04] MEDS ORDERED: SLF 3 ML SYR IV PRN (10:40)
[2021-03-04] MEDS: TIOTROPIUM INHALER/CAPSULE (SPIRIVA) INH SCH (10:54)
[2021-03-04] MEDS: ADVAIR HFA 230/21MCG INHALER INH SCH ×2 (10:55→19:58)
[2021-03-04] MEDS ORDERED: ISOVUE-370 76% 100ML VIAL As Ordered ONE (12:14)
[2021-03-04] MEDS ORDERED: LORazepam 2 MG/ML VIAL As Ordered ONE (12:21)
[2021-03-04] MEDS: LORazepam 2 MG/ML VIAL IV PRN (12:29)
--- NOTE | 2021-03-04 14:24 | REP ---
INDICATION: transaminitis. COMPARISON: CT today. TECHNIQUE: Real-time sonographic evaluation of right upper quadrant performed. FINDINGS: The gallbladder demonstrates no evidence of intraluminal sludge or calculi, wall thickening or pericholecystic fluid. There is no intrahepatic or extrahepatic biliary dilatation, common bile duct measures 5 mm in maximum diameter. Liver demonstrates diffuse increased echotexture compatible with diffuse fatty infiltration. No gross mass is seen. The visualized pancreas is grossly unremarkable, not well seen due to overlying bowel gas. The right kidney demonstrates no hydronephrosis, with a normal size of 11.5 cm in length. No free fluid is seen. IMPRESSION: Diffuse fatty infiltration of the liver. <Electronically signed by Ankit Metzger > 03/04/21 [id number]
[2021-03-04] MEDS: SLF 3 ML SYR IV SCH ×2 (14:32→22:08)
[2021-03-05] VITALS: BP 124/82
[2021-03-05 04:13] VITALS: BP 123/89
[2021-03-05] MEDS: ACETAMINOPHEN TAB 650MG DOSE (2X325MG) PO PRN ×2 (05:07→22:02)
[2021-03-05] MEDS: OXAZEPAM 15 MG CAP PO SCH (05:07)
[2021-03-05] MEDS: SLF 3 ML SYR IV SCH ×3 (05:08→20:19)
[2021-03-05 05:34] LABS: BASO % 0.6 % (0.0-1.0); EOS % 0.6 % (0.0-3.0); HEMATOCRIT 42.6 % (42.0-52.0); HEMOGLOBIN 14.7 g/dl (13.5-17.5); LYMPH # 1.2 10^3/uL (1.5-5.0); LYMPH % 23.8 % (24.0-44.0); MEAN CORPUSCULAR HEMOGLOBIN 34.2 pg (27.0-33.0); MEAN CORPUSCULAR HGB CONC 34.5 g/dl (32.0-36.5); MEAN CORPUSCULAR VOLUME 99.1 fl (80.0-96.0); MONO # 0.7 10^3/uL (0.0-0.8); MONO % 13.4 % (2.0-8.0); NEUTROPHILS # 3.1 10^3/uL (1.5-8.5); NEUTROPHILS % 61.2 % (36.0-66.0); PLATELET COUNT, AUTOMATED 166 10^3/uL (150-450)
--- NOTE | 2021-03-05 06:08 | REP ---
INDICATION: hypoxia. COMPARISON: Comparison CT study April 15, 2020. TECHNIQUE: Contrast dose: 75 ML of Isovue [address] technique: Helical scanning is acquired and overlapping 1.5 mm and contiguous 3 mm axial images are reformatted. In addition, maximum intensity projection and multiplanar re-formation images are generated in sagittal and coronal imaging projections. FINDINGS: There is good opacification in the pulmonary arterial tree. There is no evidence of vessel cut off or filling defect to suggest pulmonary embolus. Homogeneous opacity is seen in the thoracic aorta. There is no evidence of aneurysm or dissection. There are some inspissated endobronchial secretions and in the central bronchi of the left lower lobe and right lower lobe mild in degree. No pleural or pericardial effusion is seen. There is a zone of linear fibrosis in the right middle lobe which is less prominent than on the April 15, 2020 study. Mild linear fibrosis in the right lower lobe as well. This is unchanged. No acute infiltrate is appreciated. Lung window settings demonstrate no mass or significant pulmonary nodule. In the upper abdomen, there is moderate to severe diffuse fatty infiltration of the liver. There are scattered granulomatous calcifications in the liver and spleen. Neither liver or spleen appear enlarged. Normal adrenal glands are observed bilaterally. IMPRESSION: No CT evidence of pulmonary embolus. There are some retained endobronchial secretions in central lower lobe bronchi question bronchitis. There is linear fibrosis right middle lobe and right lower lobe. There is moderate to marked diffuse fatty infiltration of the liver. Granulomatous calcifications are seen. No acute infiltrate. <Electronically signed by Mathew Shaver > 03/04/21 [id number]
[2021-03-05 06:17] LABS: ALBUMIN 3.2 GM/DL (3.2-5.2); ALT/SGPT 69 U/L (12-78); BILIRUBIN,TOTAL 1.3 MG/DL (0.2-1.0); BLOOD UREA NITROGEN 8 MG/DL (7-18); CALCIUM LEVEL 8.9 MG/DL (8.5-10.1); CARBON DIOXIDE LEVEL 29 MEQ/L (21-32); CHLORIDE LEVEL 101 MEQ/L (98-107); CREATININE FOR GFR 0.96 MG/DL (0.70-1.30); GLOMERULAR FILTRATION RATE > 60.0 (>56); GLUCOSE, FASTING 137 MG/DL (70-100); MAGNESIUM LEVEL 2.4 MG/DL (1.8-2.4); POTASSIUM SERUM 3.6 MEQ/L (3.5-5.1); SODIUM LEVEL 136 MEQ/L (136-145); TOTAL PROTEIN 7.2 GM/DL (6.4-8.2)
[2021-03-05 08:00] VITALS: BP 135/91
[2021-03-05] MEDS: ADVAIR HFA 230/21MCG INHALER INH SCH ×2 (08:23→19:53)
[2021-03-05] MEDS: TIOTROPIUM INHALER/CAPSULE (SPIRIVA) INH SCH (08:23)
[2021-03-05] MEDS: ENOXAPARIN 40MG/0.4ML SYRINGE (J1650 PER 10MG) SC SCH (10:16)
[2021-03-05] MEDS: MULTIVITAMINS/MINERALS THERAP 1 TAB PO SCH (10:16)
[2021-03-05] MEDS: FOLIC ACID 1 MG TAB PO SCH (10:17)
[2021-03-05] MEDS: GABAPENTIN 300 MG CAP PO SCH ×3 (10:17→20:19)
[2021-03-05] MEDS: THIAMINE 100 MG TAB PO SCH ×2 (10:17→20:19)
[2021-03-05] MEDS: DOCUSATE SODIUM 100MG CAPSULE PO SCH ×2 (10:17→20:19)
[2021-03-05] MEDS: OXAZEPAM 10 MG CAP PO SCH ×3 (12:34→23:29)
[2021-03-05 12:45] VITALS: BP 142/91
--- NOTE | 2021-03-05 13:23 | IPNPDOC ---
Date Seen The patient was seen on 03/05/21. Progress Note SUBJECTIVE: Patient was seen and examined at bedside this morning. He is somnolent lying in bed but appears comfortable. He is noted to have a pulse of 121 and regular rhythm along with a respiratory rate of 24. He is also hypertensive this morning with systolic pressure 183/115. He appears to be quite tremulous but is alert and oriented. He denies having visual or auditory hallucinations. Apparently he has a low-grade temperature of 99.7 this morning. OBJECTIVE PHYSICAL EXAMINATION: VITAL SIGNS: please see below General: Tremulous and anxious, somnolent. HEENT: PERRLA, EOMI, sclerae clear Neck: supple, normal ROM, no JVD Respiratory: lungs CTAB, no wheeze, no rales, no crackles CVS: RRR, normal S1, S2, no murmurs Abdo: soft, no masses, no hepatosplenomegaly, BS+, no rebound tenderness Extremities: no edema, pulses 2+ MSK: no joint deformities, normal ROM Neuro: no focal neuro deficits, moving all 4 extremities, CN2-12 intact. Strength 5/5 in all 4 extremities. No nystagmus. Tremulous. Psych: calm, cooperative, AAO x 3 LABORATORY DATA, IMAGING STUDIES, MICROBIOLOGY: Please see below. DVT prophylaxis ordered?: Lovenox SC. Assessment: 59-year-old male admitted for alcohol withdrawal for observation and medical management. # Alcohol withdrawal - Admit to PCU on tele - Last drink day prior to admission.. Denies history of intubation due to alcohol withdrawal, but reports prior seizures. Denies visual or auditory hallucination. - Folic acid 1 mg daily, Thiamine 100 mg daily, Multivitamins 1 tab daily - adjusted ativan 2mg to IV PRN q4h for withdrawal per CIWA protocol - increase serax to 20 mg q8h. - given 5 mg IV valium for acute withdrawal, as determined by sinus tachycardia, HTN and tremulousness - Fall, withdrawal, seizure precautions - PFS consult #Sinus tachycardia: likely 2/2 acute etoh withdrawal. Gave 5 mg IV valium. # Hypertension: Blood pressure elevated likely in the context of ETOH withdrawal. # Resume chronic medications as appropriate once reconciled by pharmacy # DVT prophylaxis: Lovenox VS, I&O, 24H, Fishbone Vital Signs/I&O Vital Signs Date Time Temp Pulse Resp B/P (MAP) Pulse Ox O2 Delivery O2 Flow Rate FiO2 03/05/21 12:45 98.1 99 18 142/91 (108) 94 Room Air 03/04/21 16:00 I&O- Last 24 Hours up to 6 AM 03/05/21 06:00 Intake Total 600 ml Output Total 650 ml Balance -50 ml Laboratory Data 24H LABS Laboratory Tests 2 03/05/21 05:02: Immature Granulocyte % (Auto) 0.4, Neutrophils (%) (Auto) 61.2, Lymphocytes (%) (Auto) 23.8L, Monocytes (%) (Auto) 13.4H, Eosinophils (%) (Auto) 0.6, Basophils (%) (Auto) 0.6, Neutrophils # (Auto) 3.1, Lymphocytes # (Auto) 1.2L, Monocytes # (Auto) 0.7, Eosinophils # (Auto) 0.0, Basophils # (Auto) 0.0, Nucleated Red Blood Cells % (auto) 0.0, Anion Gap 6L, Glomerular Filtration Rate > 60.0, Calcium Level 8.9, Magnesium Level 2.4, Total Bilirubin 1.3H, Aspartate Amino Transf (AST/SGOT) 66H, Alanine Aminotransferase (ALT/SGPT) 69, Alkaline Phosphatase 135H, Total Protein 7.2, Albumin 3.2, Albumin/Globulin Ratio 0.8 CBC/BMP Laboratory Tests 03/05/21 05:02 FRACISCO TURNER MD Mar 05, 2021 13:23
[2021-03-05 16:00] VITALS: BP 123/84
[2021-03-05 20:00] VITALS: BP 112/79
[2021-03-06] VITALS (7 sets, daily range): BP systolic 109–139; BP diastolic 59–94
[2021-03-06 05:31] LABS: BASO % 0.5 % (0.0-1.0); EOS # 0.1 10^3/uL (0.0-0.5); EOS % 2.1 % (0.0-3.0); HEMOGLOBIN 13.9 g/dl (13.5-17.5); LYMPH # 1.4 10^3/uL (1.5-5.0); LYMPH % 35.9 % (24.0-44.0); MEAN CORPUSCULAR HEMOGLOBIN 34.1 pg (27.0-33.0); MEAN CORPUSCULAR HGB CONC 34.8 g/dl (32.0-36.5); MONO # 0.6 10^3/uL (0.0-0.8); MONO % 15.9 % (2.0-8.0); NEUTROPHILS # 1.7 10^3/uL (1.5-8.5); NEUTROPHILS % 45.3 % (36.0-66.0); PLATELET COUNT, AUTOMATED 160 10^3/uL (150-450); RED BLOOD COUNT 4.08 10^6/uL (4.30-6.10); WHITE BLOOD COUNT 3.8 10^3/uL (4.0-10.0)
[2021-03-06] MEDS: SLF 3 ML SYR IV SCH ×3 (05:38→21:19)
[2021-03-06] MEDS: ACETAMINOPHEN TAB 650MG DOSE (2X325MG) PO PRN ×3 (05:38→21:18)
[2021-03-06] MEDS: OXAZEPAM 10 MG CAP PO SCH ×4 (05:38→23:48)
[2021-03-06 06:00] LABS: ALT/SGPT 54 U/L (12-78); BILIRUBIN,TOTAL 1.1 MG/DL (0.2-1.0); BLOOD UREA NITROGEN 6 MG/DL (7-18); CALCIUM LEVEL 8.7 MG/DL (8.5-10.1); CARBON DIOXIDE LEVEL 28 MEQ/L (21-32); CHLORIDE LEVEL 101 MEQ/L (98-107); CREATININE FOR GFR 0.78 MG/DL (0.70-1.30); GLOMERULAR FILTRATION RATE > 60.0 (>56); GLUCOSE, FASTING 105 MG/DL (70-100); POTASSIUM SERUM 3.6 MEQ/L (3.5-5.1); SODIUM LEVEL 136 MEQ/L (136-145); TOTAL PROTEIN 6.7 GM/DL (6.4-8.2)
[2021-03-06] MEDS: TIOTROPIUM INHALER/CAPSULE (SPIRIVA) INH SCH (07:39)
[2021-03-06] MEDS: ADVAIR HFA 230/21MCG INHALER INH SCH ×2 (07:39→20:14)
[2021-03-06] MEDS: FOLIC ACID 1 MG TAB PO SCH (08:44)
[2021-03-06] MEDS: DOCUSATE SODIUM 100MG CAPSULE PO SCH ×2 (08:44→21:18)
[2021-03-06] MEDS: GABAPENTIN 300 MG CAP PO SCH ×3 (08:44→21:18)
[2021-03-06] MEDS: MULTIVITAMINS/MINERALS THERAP 1 TAB PO SCH (08:44)
[2021-03-06] MEDS: THIAMINE 100 MG TAB PO SCH ×2 (08:44→21:18)
[2021-03-06] MEDS: ENOXAPARIN 40MG/0.4ML SYRINGE (J1650 PER 10MG) SC SCH (08:46)
--- NOTE | 2021-03-06 15:14 | IPNPDOC ---
Date Seen The patient was seen on 03/06/21. Progress Note SUBJECTIVE: Patient seen at bedside. Doing well no acute events overnight. States he has unsteady gait and concern for falling. Has been evaluated physical therapy x2 and has been found to have no issues. Patient is slightly anxious but tremulousness has improved. Denies any chest pain palpitations cough fever chills headache nausea vomiting diarrhea. OBJECTIVE PHYSICAL EXAMINATION: VITAL SIGNS: please see below General: Tremulous and anxious, somnolent. HEENT: PERRLA, EOMI, sclerae clear Neck: supple, normal ROM, no JVD Respiratory: lungs CTAB, no wheeze, no rales, no crackles CVS: RRR, normal S1, S2, no murmurs Abdo: soft, no masses, no hepatosplenomegaly, BS+, no rebound tenderness Extremities: no edema, pulses 2+ MSK: no joint deformities, normal ROM Neuro: no focal neuro deficits, moving all 4 extremities, CN2-12 intact. Strength 5/5 in all 4 extremities. No nystagmus. Tremulous. Psych: calm, cooperative, AAO x 3 LABORATORY DATA, IMAGING STUDIES, MICROBIOLOGY: Please see below. DVT prophylaxis ordered?: Lovenox SC. Assessment: 59-year-old male admitted for alcohol withdrawal for observation and medical management. # Alcohol withdrawal - Admit to PCU on tele - Last drink day prior to admission.. Denies history of intubation due to alcohol withdrawal, but reports prior seizures. Denies visual or auditory hallucination. - Folic acid 1 mg daily, Thiamine 100 mg daily, Multivitamins 1 tab daily - adjusted ativan 2mg to IV PRN q4h for withdrawal per CIWA protocol - increase serax to 20 mg q8h. - given 5 mg IV valium for acute withdrawal, as determined by sinus tachycardia, HTN and tremulousness - Fall, withdrawal, seizure precautions - PFS consult -Patient evaluated by physical therapy x2 as patient was complaining of unsteady gait and consider following. He is cleared to return home. #Sinus tachycardia: Resolved. Likely 2/2 acute etoh withdrawal. Gave 5 mg IV valium. # Hypertension: Blood pressure elevated likely in the context of ETOH withdrawa l. # Resume chronic medications as appropriate once reconciled by pharmacy # DVT prophylaxis: Lovenox VS, I&O, 24H, Fishbone Vital Signs/I&O Vital Signs Date Time Temp Pulse Resp B/P (MAP) Pulse Ox O2 Delivery O2 Flow Rate FiO2 03/06/21 12:00 98.0 78 17 119/79 (92) 98 Room Air 03/04/21 16:00 I&O- Last 24 Hours up to 6 AM 03/06/21 06:00 Intake Total 1440 ml Output Total 1075 ml Balance 365 ml Laboratory Data 24H LABS Laboratory Tests 2 03/06/21 05:12: Immature Granulocyte % (Auto) 0.3, Neutrophils (%) (Auto) 45.3, Lymphocytes (%) (Auto) 35.9, Monocytes (%) (Auto) 15.9H, Eosinophils (%) (Auto) 2.1, Basophils (%) (Auto) 0.5, Neutrophils # (Auto) 1.7, Lymphocytes # (Auto) 1.4L, Monocytes # (Auto) 0.6, Eosinophils # (Auto) 0.1, Basophils # (Auto) 0.0, Nucleated Red Blood Cells % (auto) 0.0, Anion Gap 7L, Glomerular Filtration Rate > 60.0, Calcium Level 8.7, Magnesium Level 2.0, Total Bilirubin 1.1H, Aspartate Amino Transf (AST/SGOT) 41H, Alanine Aminotransferase (ALT/SGPT) 54, Alkaline Phosphatase 110, Total Protein 6.7, Albumin 3.0L, Albumin/Globulin Ratio 0.8 CBC/BMP Laboratory Tests 03/06/21 05:12 FRACISCO TURNER MD Mar 06, 2021 15:14
[2021-03-07] VITALS: BP 145/94
[2021-03-07 04:00] VITALS: BP 138/94
[2021-03-07 04:46] LABS: BASO % 0.8 % (0.0-1.0); EOS # 0.1 10^3/uL (0.0-0.5); HEMOGLOBIN 13.3 g/dl (13.5-17.5); LYMPH # 1.3 10^3/uL (1.5-5.0); LYMPH % 31.8 % (24.0-44.0); MEAN CORPUSCULAR HEMOGLOBIN 34.3 pg (27.0-33.0); MEAN CORPUSCULAR HGB CONC 34.1 g/dl (32.0-36.5); MEAN CORPUSCULAR VOLUME 100.5 fl (80.0-96.0); MONO # 0.8 10^3/uL (0.0-0.8); MONO % 18.8 % (2.0-8.0); NEUTROPHILS # 1.8 10^3/uL (1.5-8.5); NEUTROPHILS % 45.8 % (36.0-66.0); PLATELET COUNT, AUTOMATED 175 10^3/uL (150-450); RED BLOOD COUNT 3.88 10^6/uL (4.30-6.10)
[2021-03-07] MEDS: OXAZEPAM 10 MG CAP PO SCH (05:09)
[2021-03-07] MEDS: SLF 3 ML SYR IV SCH ×2 (05:09→14:00)
[2021-03-07 05:10] LABS: ALBUMIN 2.9 GM/DL (3.2-5.2); ALT/SGPT 48 U/L (12-78); BILIRUBIN,TOTAL 0.6 MG/DL (0.2-1.0); BLOOD UREA NITROGEN 6 MG/DL (7-18); CALCIUM LEVEL 8.8 MG/DL (8.5-10.1); CARBON DIOXIDE LEVEL 29 MEQ/L (21-32); CHLORIDE LEVEL 104 MEQ/L (98-107); CREATININE FOR GFR 0.82 MG/DL (0.70-1.30); GLOMERULAR FILTRATION RATE > 60.0 (>56); GLUCOSE, FASTING 86 MG/DL (70-100); MAGNESIUM LEVEL 2.1 MG/DL (1.8-2.4); POTASSIUM SERUM 3.5 MEQ/L (3.5-5.1); SODIUM LEVEL 137 MEQ/L (136-145); TOTAL PROTEIN 6.9 GM/DL (6.4-8.2)
[2021-03-07] MEDS: TIOTROPIUM INHALER/CAPSULE (SPIRIVA) INH SCH (07:07)
[2021-03-07] MEDS: ADVAIR HFA 230/21MCG INHALER INH SCH (07:07)
--- NOTE | 2021-03-07 07:39 | DS.PDOC ---
Discharge Summary General Date of Admission Mar 03, 2021 at 13:34 Date of Discharge 03/07/21 Discharge Summary PROCEDURES PERFORMED DURING STAY: [None]. ADMITTING DIAGNOSES: 1. . DISCHARGE DIAGNOSES: 1. . COMPLICATIONS/CHIEF COMPLAINT: Alcohol Withdraw. HISTORY OF PRESENT ILLNESS: . HOSPITAL COURSE: . DISCHARGE MEDICATIONS: Please see below. ALLERGIES: Please see below. PHYSICAL EXAMINATION ON DISCHARGE: VITAL SIGNS: Please see below. GENERAL: HEENT: NECK: CARDIOVASCULAR EXAMINATION: RESPIRATORY EXAMINATION: ABDOMINAL EXAMINATION: EXTREMITIES: SKIN: NEUROLOGICAL EXAMINATION: PSYCHIATRIC EXAMINATION: LABORATORY DATA: Please see below. IMAGING: PROGNOSIS: ACTIVITY: [As tolerated]. DIET: DISCHARGE PLAN: DISPOSITION: . DISCHARGE INSTRUCTIONS: 1. . ITEMS TO FOLLOWUP ON ON OUTPATIENT: 1. . DISCHARGE CONDITION: [Stable]. TIME SPENT ON DISCHARGE: minutes. Vital Signs/I&Os Vital Signs Date Time Temp Pulse Resp B/P (MAP) Pulse Ox O2 Delivery O2 Flow Rate FiO2 03/07/21 04:00 97.1 73 20 138/94 (109) 96 Room Air 03/04/21 16:00 I&O- Last 24 Hours up to 6 AM 03/07/21 06:00 Intake Total 2520 ml Output Total 1200 ml Balance 1320 ml Laboratory Data Labs 24H Laboratory Tests 2 03/07/21 04:18: Immature Granulocyte % (Auto) 0.8, Neutrophils (%) (Auto) 45.8, Lymphocytes (%) (Auto) 31.8, Monocytes (%) (Auto) 18.8H, Eosinophils (%) (Auto) 2.0, Basophils (%) (Auto) 0.8, Neutrophils # (Auto) 1.8, Lymphocytes # (Auto) 1.3L, Monocytes # (Auto) 0.8, Eosinophils # (Auto) 0.1, Basophils # (Auto) 0.0, Nucleated Red Blood Cells % (auto) 0.0, Anion Gap 4L, Glomerular Filtration Rate > 60.0, Calcium Level 8.8, Magnesium Level 2.1, Total Bilirubin 0.6, Aspartate Amino Transf (AST/SGOT) 42H, Alanine Aminotransferase (ALT/SGPT) 48, Alkaline Phosphatase 98, Total Protein 6.9, Albumin 2.9L, Albumin/Globulin Ratio 0.7 CBC/BMP Laboratory Tests 03/07/21 04:18 Discharge Medications Scheduled Fluticasone Propion/Salmeterol (Airduo Respiclick 232-14 Mcg) 1 Each Aer.pow.ba, 1 PUFF INH BID, (Reported) Gabapentin (Gabapentin) 600 Mg Tablet, 600 MG PO TID, (Reported) Lisinopril (Lisinopril) 10 Mg Tablet, 10 MG PO QHS, (Reported) Tizanidine HCl (Tizanidine HCl) 4 Mg Tablet, 4 MG PO TID, (Reported) Umeclidinium [place] (Incruse Ellipta) 62.5 Mcg Blst.w.dev, 1 PUFF INH DAILY, (Reported) Scheduled PRN Albuterol Sulfate (Proair Hfa) 8.5 Gm Hfa.aer.ad, 2 PUFF INH Q6H PRN for SHORTNESS OF BREATH, (Reported) Propylene Glycol/Peg 400 (Systane 0.3-0.4% Eye Drops) 15 Ml Drops, 1 DROP OU QID PRN for DRY EYES, (Reported) Sildenafil Citrate (Sildenafil Citrate) 100 Mg Tablet, 100 MG PO DAILY PRN for ERECTILE DYSFUNCTION, (Reported) Allergies Coded Allergies: No Known Allergies (Unverified , 07/01/20) FRACISCO TURNER MD Mar 07, 2021 07:39
[2021-03-07 08:04] VITALS: BP 153/92
[2021-03-07] MEDS: DOCUSATE SODIUM 100MG CAPSULE PO SCH (08:44)
[2021-03-07] MEDS: FOLIC ACID 1 MG TAB PO SCH (08:44)
[2021-03-07] MEDS: MULTIVITAMINS/MINERALS THERAP 1 TAB PO SCH (08:44)
[2021-03-07] MEDS: GABAPENTIN 300 MG CAP PO SCH (08:44)
[2021-03-07] MEDS: ENOXAPARIN 40MG/0.4ML SYRINGE (J1650 PER 10MG) SC SCH (08:45)
[2021-03-07] MEDS: ACETAMINOPHEN TAB 650MG DOSE (2X325MG) PO PRN (08:46)
[2021-03-07] MEDS ORDERED: AIRD1INH3 INH (09:25)
[2021-03-07] MEDS ORDERED: INCR1INH INH (09:25)
[2021-03-07] MEDS ORDERED: ACET1TAB55 PO (09:25)
[2021-03-07] MEDS ORDERED: VITMTA PO (09:25)
[2021-03-07] MEDS ORDERED: OXAZ10CA3 PO (09:25)
[2021-03-07] MEDS ORDERED: FOLI1TAB11 PO (09:25)
[2021-03-07] MEDS ORDERED: GABA-282 PO (09:25)
[2021-03-07] MEDS: LORazepam 2 MG/ML VIAL IV PRN (11:33)
--- NOTE | 2021-03-07 13:38 | REP ---
INDICATION: Vomiting. COMPARISON: None. TECHNIQUE: Two AP views abdomen and pelvis. FINDINGS: There are no significantly dilated bowel loops. There is no evidence of bowel obstruction radiographically. No abnormal calcifications are seen. There are degenerative changes of the spine. IMPRESSION: No evidence of bowel obstruction. <Electronically signed by Ankit Metzger > 03/07/21 2485
[2021-03-07] MEDS ORDERED: OXAZEPAM 10 MG CAP PO SCH (14:00)
== END 2021-03-07 15:00 | disposition home health service (06) | DRG 775 ==
LOC: EDBD 13:33 → M ED 13:33 → M ED INP 13:34 → M PCU 03-04 06:00
PROVIDERS: ADMIT Family Medicine; ATTEND Family Medicine
DX: F10.239 Alcohol dependence with withdrawal, unspecified (principal); R74.01 Elevation of levels of liver transaminase levels; I10 Essential (primary) hypertension; Z79.899 Other long term (current) drug therapy; F17.200 Nicotine dependence, unspecified, uncomplicated

== ENCOUNTER 2021-03-11 10:28 | Emergency (ER) | payer OTHER ==
[~2021-03-11] VITALS: Ht 182.9 cm; Wt 185.0 kg
[~2021-03-11 10:28] MED LIST changes: +ACET1TAB55 PO; +AIRD1INH3 INH; +OXAZ10CA3 PO; +VITMTA PO
[2021-03-11] MEDS ORDERED: LIDOCAINE 5% (LIDODERM) PATCH TD ONE (11:20)
[2021-03-11] MEDS ORDERED: KETOROLAC 30 MG/ML 1ML VIAL IM ONE (11:20)
[2021-03-11] MEDS ORDERED: NORCO, ANEXSIA 5/325MG TABLET (HYDROcodone/ACETAMINOPHEN) PO ONE (12:40)
[2021-03-11] MEDS ORDERED: NAPR-837 PO (13:02)
[2021-03-11 13:34] VITALS: BP 121/79
[2021-03-11] MEDS ORDERED: **NOTE PATIENT COMMENT** MISC XX SCH (21:00)
== END 2021-03-11 13:45 | disposition home or self-care (01) ==
LOC: EDBD 10:28 → M ED 10:28
DX: M54.32 Sciatica, left side (principal); F17.200 Nicotine dependence, unspecified, uncomplicated; F12.10 Cannabis abuse, uncomplicated
CPT/HCPCS: 96372; 99284; J1885

== ENCOUNTER → 2021-03-19 | Outpatient (CLI) | payer MEDICAID, OTHER ==
[~2021-03-19] MED LIST changes: +NAPR-837 PO
== END ==
LOC: M LABSMTC 09:20
PROVIDERS: ATTEND Anesthesiology
DX: Z20.828 Contact with and (suspected) exposure to other viral communicable diseases (principal); Z11.59 Encounter for screening for other viral diseases

== ENCOUNTER → 2021-03-19 | Outpatient (REF) | payer MEDICAID, OTHER ==
[2021-03-19 18:29] LABS: APPEARANCE, URINE CLEAR (CLEAR); BACTERIA, URINE AUTO NEGATIVE (NEGATIVE); BILIRUBIN, URINE AUTO NEGATIVE (NEGATIVE); BLOOD, URINE BLOOD NEGATIVE (NEGATIVE); COLOR, URINE YELLOW (YELLOW); GLUCOSE, URINE (UA) AUTO NEGATIVE (NEGATIVE); KETONE, URINE AUTO NEGATIVE (NEGATIVE); LEUKOCYTE ESTERASE, URINE AUTO NEGATIVE (NEGATIVE); MUCUS, URINE SMALL (NEGATIVE); NITRITE, URINE AUTO NEGATIVE (NEGATIVE); PROTEIN, URINE AUTO NEGATIVE (NEGATIVE); RBC, URINE AUTO 0 /HPF (0-3); SQUAMOUS EPITHELIAL CELL UR AU 0 /HPF (0-6); UROBILINOGEN, URINE AUTO 0.2 mg/dL (0.0-2.0); WBC, URINE AUTO 2 /HPF (0-3)
== END ==
LOC: M SFHCPLAZ 17:54
PROVIDERS: ATTEND Student in an Organized Health Care Education/Training Program
DX: M54.5 Low back pain (principal)

== ENCOUNTER → 2021-03-27 | Outpatient (CLI) | payer OTHER ==
--- NOTE | 2021-03-27 08:40 | REP ---
INDICATION: LBP. COMPARISON: CT 03/04/2021. TECHNIQUE: Real-time sonographic evaluation of the kidneys is performed. FINDINGS: Renal cortical echogenicity pattern is normal bilaterally and contours are smooth. There is no evidence of hydronephrosis, cyst, mass, or calculus in either kidney. The right kidney measures 11.7 x 5.2 x 4.8 cm. Left renal dimensions are 11.5 x 5.7 x 5.9 cm. The urinary bladder is unremarkable. Ureteral jets could not visualized in the urinary bladder with Doppler color evaluation. A splenule is seen above the left kidney 1.7 cm in diameter. IMPRESSION: Negative renal ultrasound. <Electronically signed by Ankit Metzger > 03/27/21 0869
== END ==
LOC: M RAD 07:50
PROVIDERS: ATTEND Student in an Organized Health Care Education/Training Program
DX: M54.5 Low back pain (principal)

== ENCOUNTER → 2021-04-11 | Outpatient (CLI) | payer OTHER ==
[2021-04-11 13:50] LABS: BASO % 0.4 % (0.0-1.0); EOS # 0.2 10^3/uL (0.0-0.5); EOS % 2.3 % (0.0-3.0); HEMOGLOBIN 14.9 g/dl (13.5-17.5); LYMPH # 2.4 10^3/uL (1.5-5.0); LYMPH % 31.2 % (24.0-44.0); MEAN CORPUSCULAR HEMOGLOBIN 33.5 pg (27.0-33.0); MEAN CORPUSCULAR HGB CONC 33.1 g/dl (32.0-36.5); MEAN CORPUSCULAR VOLUME 101.1 fl (80.0-96.0); MONO # 1.1 10^3/uL (0.0-0.8); MONO % 13.8 % (2.0-8.0); NEUTROPHILS % 51.7 % (36.0-66.0); PLATELET COUNT, AUTOMATED 394 10^3/uL (150-450); RED BLOOD COUNT 4.45 10^6/uL (4.30-6.10); WHITE BLOOD COUNT 7.8 10^3/uL (4.0-10.0)
[2021-04-11 15:50] LABS: ALBUMIN 3.7 GM/DL (3.2-5.2); ALT/SGPT 19 U/L (12-78); BILIRUBIN,TOTAL 0.3 MG/DL (0.2-1.0); BLOOD UREA NITROGEN 6 MG/DL (7-18); CALCIUM LEVEL 9.5 MG/DL (8.5-10.1); CARBON DIOXIDE LEVEL 31 MEQ/L (21-32); CHLORIDE LEVEL 100 MEQ/L (98-107); CHOLESTEROL LEVEL 199 MG/DL (<200); CHOLESTEROL RISK RATIO 5.685 (<5); CREATININE FOR GFR 0.96 MG/DL (0.70-1.30); GLOMERULAR FILTRATION RATE > 60.0 (>56); GLUCOSE, FASTING 84 MG/DL (70-100); HDL CHOLESTEROL 35 MG/DL (>40); LDL CHOLESTEROL 120 MG/DL (<100); NON-HDL-C 164 MG/DL; NT-PRO BNP 66 PG/ML (<125); POTASSIUM SERUM 4.4 MEQ/L (3.5-5.1); SODIUM LEVEL 135 MEQ/L (136-145); TOTAL PROTEIN 7.5 GM/DL (6.4-8.2); TRIGLYCERIDES LEVEL 221 MG/DL (<150); VITAMIN B12 LEVEL 209 PG/ML
[2021-04-11 15:51] LABS: FOLATE > 24.0 NG/ML
== END ==
LOC: M PLALAB 10:42
PROVIDERS: ATTEND Student in an Organized Health Care Education/Training Program
DX: Z23 Encounter for immunization (principal)

== ENCOUNTER 2021-05-06 14:08 | Emergency (ER) | payer OTHER ==
[~2021-05-06] VITALS: Ht 182.9 cm; Wt 89.4 kg
[2021-05-06 14:09] VITALS: BP 121/86
--- OUTSIDE RECORDS SUMMARY | 2021-05-06 14:16 | CCD ---
Author Author [facility] Organization [facility] Address Unknown Phone Unavailable Care Team Providers Care Food Counter Attendant Name Role Phone Leena Zamzam Unavailable PROBLEMS Type Condition ICD9-CM Code LRG94-OH Code Onset Dates Condition S tatus W/U Status Risk SNOMED Code Notes Problem Depression, unspecified depression type F32.9 Active confirmed 50122929 Problem Cervical spondylosis M47.812 Active confirmed 528761082 Problem Erectile dysfunction, unspecified erectile dysfunction typ e N52.9 Active confirmed 319920576 Problem Sciatica of left side M54.32 Active confirmed 43321736 Problem Hypertension, unspecified type I10 Active confir med 27304845 Problem Other chronic pain G89.29 Active confirmed 8 9225940 Problem Nicotine dependence with current use F17.200 Act karlo confirmed 611677712 Problem 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 Active confi rmed 611948304 Problem Depression with anxiety F41.8 Active confirmed 359138614 Problem Insomnia, unspecified type G47.00 Active confirmed 519192124 Problem Alcohol abuse F10.10 Active confirmed 342200 05 ALLERGIES No Known Allergies ENCOUNTERS from 1960 to 2021-04-29 Encounter Location Date Provider Diagnosis [facility] Resident [address] [phone] [place] [address] Jan, Zamzam Stern Alcohol cessation co unseling Z71.41 IMMUNIZATIONS Vaccine Route Administration Date Status Influenza 18 yrs & older Flublok IM Intramuscular Apr 08, 2021 Administered Influenza 18 yrs & older Flublok IM Intramuscular Apr 02, 2020 Administered SOCIAL HISTORY Tobacco Use: Social History Observation Description Date Details (start date - stop date) Current Smoker Sex Assigned At : Social History Observation Description Sex Assigned At Unknown Education: Question Answer Notes Level of Education: Finished High School Audit Question Answer Notes Total Score: 28 Interpretation: Referral to Specialist for Diagnostic Ev aluation and Treatment Language: Question Answer Notes Languages spoken: Danish Spiritism: Question Answer Notes Spiritism 06 Mormonism Domestic Violence: Question Answer Notes Status: Single Sexual Hx: Question Answer Notes Had sex in the last 12 months (vaginal, oral, or anal)? Yes Have you ever had an STD? No with Women only Use protection? Yes How often? Most of the time Drug and Alcohol Question Answer Notes Total Score: 0 Interpretation: No problems reported Alcohol Screening: Question Answer Notes Did you have a drink containing alcohol in the past year? Ye s Points 11 Interpretation Positive How often did you have six or more drinks on one occas ion in the past year? Daily or almost daily (4 points) How many drinks did you have on a typica l day when you were drinking in the past year? 7 to 9 (3 points) How often did you have a drink containing alcohol in t he past year? Four or more times a week (4 points) Tobacco Use: Question Answer Notes Are you a: current smoker Smoking Cessation Information Given 05/31/2019 How many cigarettes a day do you smoke? 21-30 Are you interested in quitting? Not ready to quit REASON FOR REFERRAL from 1960 to 2021-04-29 Reason Chronic alcohol use, relapse d. Please eval and treat Diagnosis 1 Alcohol cessation counseling (Z71.41) Referral Organization [facility] GME Resident Referring Provider First Name Zamzam Referring Provider Last Name Leena Referring Provider Specialty Family Medicine Referred Provider [facility] Referred Provider Specialty Psychiatry Referral Priority Routine General Notes Theresa Freire 01/30/2021 11 :38:36 AM > faxed VITAL SIGNS Weight 184.6 lbs Jan, Height 72 in Jan, BMI 25.03 kg/m2 Jan, Heart Rate 123 /min Jan, Respiratory Rate 18 /min Jan, Temperature 98.1 degrees Fahrenheit Jan, Oximetry 96 Jan, Blood pressure systolic 112 mm Hg Jan, Blood pressure diastolic 76 mm Hg Jan, MEDICATIONS Medication SIG (Take, Route, Frequency, Duration) Notes Start Da te End Date Status chlordiazePOXIDE HCl 25 MG 1 capsule Orally Day 1: 50m g Q6H, Day 2: 25mg Q6H, Day 3: 25mg BID, Day 4-12: 25mg QHS for 12 days Jan, Not-Taking Gabapentin 600 MG 1 capsule Orally three times daily for 30 days Active Nicoderm CQ 7 MG/24HR 1 patch to skin Transdermal Once a day for 30 day(s) Oct, Not-Taking Gabapentin 800 MG 1 tablet Orally Three times a day for 30 day(s ) Apr, Active Folic Acid 1 MG 1 tablet Orally Once a day for 30 days Active Albuterol Sulfate 108 (90 Base) MCG/ACT 1 puff as need ed Inhalation every 4 hrs for 30 days Active Vitamin B1 100 MG 1 tablet Orally Once a day for 30 days Active Incruse Ellipta 62.5 MCG/INH 1 puff Inhalation Once a day Active Viagra 100 MG TAKE ONE TABLET BY MOUTH FAUSTO DAY NEEDED Orally Once a day for 30 days Active Gabapentin 100 MG 2 capsules Orally Three times a day for 7 day( s) Apr, Active Lasix 20 MG 1 tablet Orally Once a day for 30 day(s) 2020 Active tiZANidine HCl 4 MG 1 tablet as needed Orally Three times a day for 15 days Active Ibuprofen 200 MG 1 tablet with food or milk as needed Ora lly Three times a day Active Acamprosate Calcium 333 MG 2 tablets Orally Three times a day fo r 30 day(s) Apr, Active Lisinopril 10 MG TAKE ONE TABLET BY MOUTH ONCE DAILY Oral for 30 Active diazePAM 5 MG 1 tablet Orally Day 1: 2 tab s every 8hrs; Day 2-5: 1 tab every 8hrs for 5 days Feb, Active PROCEDURES No Information RESULTS No Results REASON FOR VISIT Requests Librium MEDICAL (GENERAL) HISTORY Type Description Date Medical History History of chronic epistaxis, s/p coil Medical History Varicose vein in R leg Medical History Spondylosis of Cervical spine Medical History Umbillcial Hernia s/p repair Surgical History Right knee arthroscopic surgery Surgical History right elbow fracture Surgical History brain aneurysm with coil 2015 Surgical History umbilical hernia repair 2014 Surgical History colonoscopy 07/2020 Goals Section No Information Health Concerns No Information MEDICAL EQUIPMENT No Information MENTAL STATUS No Information FUNCTIONAL STATUS No Information ASSESSMENTS Encounter Date Diagnosis Assessment Notes Treatment Notes Treatm ent Clinical Notes Jan, Alcohol cessation counseling (ICD-10 - Z71.41) Patient reported that he had quit alcohol successfully with Chlordiazepoxide previously prescribed by Dr. Flores. He reported that he had relapsed in November 2020. He would like to quit alcohol again and requested Librium to prevent withdrawal symptoms. Advised the patient to be at least 24 hours clear of alcohol to start Librium. Advised the patient is he still has withdrawal symptoms despite being on Librium, he should go to the ER. Recommended the patient that if he has drowsiness/altered mental status due to con-current use with alcohol; he should go to the ER; patient agrees. Patient agrees to be referred to [facility] due to his alcohol use. Jan, Other Patient request ed Lisinopril refill, reported doing well on the medication without side effects; refill sent. All of the above findings, assessments, and plans were discussed with precepting attending on 01/23/2021 morning PLAN OF TREATMENT Medication Medication Name Sig Start Date Stop Date Vitamin B1 100 MG 1 tablet Orally Once a day for 30 days Acamprosate Calcium 333 MG 2 tablets Orally Three times a da y for 30 day(s) Apr, Gabapentin 800 MG 1 tablet Orally Three times a day for 30 day(s ) Apr, Folic Acid 1 MG 1 tablet Orally Once a day for 30 days Gabapentin 100 MG 2 capsules Orally Three times a day for 7 day( s) Apr, Treatment Notes Assessment Notes Clinical Notes Alcohol cessation counseling Patient rep orted that he had quit alcohol successfully with Chlordiazepoxide previously prescribed by Dr. Flores. He reported that he had relapsed in November 2020. He would like to quit alcohol again and requested Librium to prevent withdrawal symptoms. Advised the patient to be at least 24 hours clear of alcohol to start Librium. Advised the patient is he still has withdrawal symptoms despite being on Librium, he should go to the ER. Recommended the patient that if he has drowsiness/altered mental status due to con-current use with alcohol; he should go to the ER; patient agrees. Patient agrees to be referred to [facility] due to his alcohol use. Referrals Referral Date Details Chronic alcohol use, relapse d. Please evmary and brad, [facility] Next Appt Details Exisiting appointment on 02/03/[address] Keith Reason:Alcohol cessation Provider Name:Erich Keith, 2021-05-14 10: 00:00 AM, [address], , [place], [address], Follow Up:Exisiting appointment on 02/03/[address] KetihAlcohol cessation Insurance Providers Payer Name Payer Address Payer Phone Insured Name Patient Relati onship to Insured Coverage Start Date Coverage End Date [facility] [employer] [facility] [address] [facility] [address] SARTHAK MIGUEL self
--- OUTSIDE RECORDS SUMMARY | 2021-05-06 14:16 | CCD ---
Author Author [facility] Organization [facility] Address Unknown Phone Unavailable Care Team Providers Care Shear Grinder Operator Helper Name Role Phone Erich Keith Unavailable PROBLEMS Type Condition ICD9-CM Code UHR39-SR Code Onset Dates Condition S tatus W/U Status Risk SNOMED Code Notes Problem Depression, unspecified depression type F32.9 Active confirmed 22094129 Problem Cervical spondylosis M47.812 Active confirmed 402555241 Problem Erectile dysfunction, unspecified erectile dysfunction typ e N52.9 Active confirmed 334618896 Problem Sciatica of left side M54.32 Active confirmed 94018328 Problem Hypertension, unspecified type I10 Active confir med 81911244 Problem Other chronic pain G89.29 Active confirmed 8 3233847 Problem Nicotine dependence with current use F17.200 Act karlo confirmed 186247969 Problem 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 Active confi rmed 669270512 Problem Depression with anxiety F41.8 Active confirmed 037930728 Problem Insomnia, unspecified type G47.00 Active confirmed 156034085 Problem Alcohol abuse F10.10 Active confirmed 042846 05 ALLERGIES No Known Allergies ENCOUNTERS from 1960 to 2021-04-29 Encounter Location Date Provider Diagnosis [address] [phone] [place] [address] Apr, Erich Keith IMMUNIZATIONS Vaccine Route Administration Date Status Influenza [...] Treatment Language: Question Answer Notes Languages spoken: Malawian Methodist: Question Answer Notes Methodist 06 Hinduism Domestic Violence: Question Answer Notes Status: Single [...] Not ready to quit REASON FOR REFERRAL No Information VITAL SIGNS No information MEDICATIONS Medication SIG (Take, Route, Frequency, Duration) [...] MG TAKE ONE TABLET BY MOUTH FAUSTO RY DAY NEEDED Orally Once a day for [...] Information RESULTS No Results REASON FOR VISIT MEDICATION MEDICAL (GENERAL) HISTORY Type Description Date Medical [...] No Information FUNCTIONAL STATUS No Information ASSESSMENTS No Information PLAN OF TREATMENT Medication Medication Name Sig [...] a day for 7 day( s) Apr, Next Appt Details Provider Name:Erich Keith, 2021-05-14 10: 00:00 AM, [address] , , [place], [address], Insurance Providers Payer Name Payer Address Payer Phone Insured Name Patient Relati onship to Insured Coverage Start Date Coverage End Date [facility] [address] [place] [phone] SARTHAK MIGUEL self
--- OUTSIDE RECORDS SUMMARY | 2021-05-06 14:16 | CCD | Continuity of Care Document ---
Author Author Conner HENLEY M.D. Organization Unknown Address [address] [place] [address] Phone [phone] Care Team Providers Care Commercial Photographer Name Role Phone AUTM Unavailable Erich Keith DO AUTM [phone] Problems Description No Information Available Social History Type Date Description Comments Sex Unknown ETOH Use Currently consumes alcohol 12 pa ck a day Tobacco Use Reviewed: 04/23/21 Patient is a current smoker, smokes every day 2ppd hx for over 40 years, currently 1 ppd Recreational Drug Use Current Drug User marijuan a occasionally Smoking Status Reviewed: 04/23/21 Patient is a current smoker, smokes every day 2ppd hx for over 40 years, currently 1 ppd Allergies and adverse reactions Description No Known Drug Allergies Medications Active Medications SIG Qnty Indications Ordering Provide r Date Fluticasone Propionate/Salmeterol 232-14mcg/Act Aerosol inhale one puff by mouth twice a day 3units Camelia Marin M.D. 06/14/2020 Incruse Ellipta 62.5mcg/Inh Aeroso l inhale one puff by mouth every day 30units Camelia Jara M.D. 03/20/2020 Albuterol Sulfate HFA 108(90Base) mcg/Act Aerosol Inhale One To Two Puffs By Mouth Every 6 Hours as Needed 8.5unCamelia Cleaning M.D. 03/19/2020 Tizanidine HCL 4mg Tablets Take One Tablet By Mouth Three Times A Day Unknown Gabapentin 800mg Tablets Take One Tablet By Mouth Three Times A Day Unknown Lisinopril 10mg Tablets 1 tab by mouth every day Unknown Sheila Allergy 60mg Tablets 1 by mouth every day Unknown Immunizations Description No Information Available Vital Signs Date Vital Result Comment 04/23/2021 1:42pm BP Systolic 112 mmHg BP Diastolic 74 mmHg Heart Rate 108 /min O2 % BldC Oximetry 96 % Height 72 inches 6'0" Weight 196.00 lb BMI (Body Mass Index) 26.6 kg/m2 [place] Body Weight 178 lb Weight 88.906 kg BSA (Body Surface Area) 2.11 m2 02/06/2021 10:52am BP Systolic 122 mmHg BP Diastolic 70 mmHg Body Temperature 98.5 F Height 72 inches 6'0" Weight 182.00 lb BMI (Body Mass Index) 24.7 kg/m2 [place] Body Weight 178 lb Weight 82.555 kg BSA (Body Surface Area) 2.05 m2 Results Test Acquired Date Facility Test Result H/L Range Note FVL/[place] 04/23/2021 [facility] SEE IMAGE FVC-Pred 5.06 L FVC-Pre 3.22 L FVC-%Pred-Pre 63 L FVC-LLN 4.08 L Fev1-Pred 3.84 L Fev1-Pre 1.87 L Fev1-%Pred-Pre 48 L Fev1-LLN 3.01 L Fev6-Pred 4.84 L Fev6-Pre 3.22 L Fev6-%Pred-Pre 66 L Fev6-LLN 3.89 L Knj9zxj-Gxxp 76 % Mhp6xrr-Bbn 58 % Fcm9yos-%Pred-Pre 76 % Hjd4nsb-DLH 66 % Vlz6nin-Qeqr 96 % Awg0too-Pby 100 % Doh8lzv-%Pred-Pre 104 % FEFMax-Pred 9.64 L/E/sec FEFMax-Pre 3.66 L/E/sec FEFMax-%Pred-Pre 37 L/E/sec FEFMax-LLN 7.21 L/E/sec Hfd9170-Dstp 3.17 L/E/sec Jan8824-Qhu 1.03 L/E/sec Eno8528-%Pred-Pre 32 L/E/sec Qok9118-DWN 1.49 L/E/sec ExpTime-Pre 5.53 sec Hyg8vvb8-[place] 79 % Mdm5bmn0-Hts 58 % Acj7jwj0-%Pred-Pre 73 % Gva7uwn8-UFK 70 % Procedures Date Code Description Status 04/23/2021 98665 Smoking & Tobacco Cessation Coun seling Intensive >10 Minutes Completed 04/23/2021 53565 Tobacco Cessation Counseling Com pleted 02/06/2021 66718 Office/Outpatient Established Mo d MDM 30-39 Min Completed Medical Devices Description No Information Available Encounters Type Date Location Provider Dx Diagnosis Office Visit 04/23/2021 2:00p [facility] Pulmonary/Thoracic K Camelia jean M.D. J44.9 Chronic obstructive pulmonar y disease, unspecified F17.218 Nicotine dependence, cigaret sandra, w oth disorders R91.8 Other nonspecific abnormal f inding of lung field Office Visit 02/06/2021 10:45a [facility] Ankit Benz DO K42.0 Umbilical hernia with obstruction, witho ut gangrene Assessments Date Code Description Provider 04/23/2021 J44.9 Chronic obstructive pulmonary di sease, unspecified Camelia Henley M.D. 04/23/2021 F17.218 Nicotine dependence, cigarettes, with other nicotine-induced disorders Camelia Henley M.D. 04/23/2021 R91.8 Other nonspecific abnormal findi ng of lung field Camelia Henley M.D. 02/06/2021 K42.0 Umbilical hernia with obstructio n, without gangrene Ankit Benz DO 10/28/2020 J44.9 Chronic obstructive pulmonary di sease, unspecified Camelia Henley M.D. 10/28/2020 R91.8 Other nonspecific abnormal findi ng of lung field Camelia Henley M.D. Plan of Treatment Future Appointment(s):* 2021 2:30 pm - Camelia Henley M.D. at [facility] Pulmonary/Thoracic 04/23/2021 - Camelia Henley M.D.* J44.9 Chronic obstructive pulmonary disease, unspecified * F17.218 Nicotine dependence, cigarettes, with other nicotine-induced disorders * R91.8 Other nonspecific abnormal finding of lung field * * New Labs:* Flow Volume Loop/Spirometry, Ordered: 04/23/21 * Follow up:* Follow-up in 5-6 mo with spirometry Functional Status Description No Information Available Mental Status Description No Information Available Referrals Refer to Dr Reason for Referral Status Appt Date Camelia Henley M.D. COPD/ABN FINDING CT Scheduled 11/26 [facility], Pulmonary [address] [place], [place] [id number] [phone]
--- OUTSIDE RECORDS SUMMARY | 2021-05-06 14:16 | CCD | Continuity of Care Document ---
Author Author Conner HENLEY M.D. Organization Unknown Address [address] [place] [address] Phone [phone] Care Team Providers Care Office Analyst Name Role Phone AUTM Unavailable Erich Keith DO AUTM [phone] Problems Description No Information Available Social History [...] lb BMI (Body Mass Index) 26.6 kg/m2 [place] Body Weight 178 lb Weight 88.906 kg BSA (Body Surface Area) 2.11 m2 02/06/2021 10:52am BP Systolic 122 mmHg BP Diastolic 70 mmHg Body Temperature 98.5 F Height 72 inches 6'0" Weight 182.00 lb BMI (Body Mass Index) 24.7 kg/m2 Urich Body Weight 178 lb Weight 82.555 kg BSA (Body Surface Area) 2.05 m2 Results Test Acquired Date Facility Test Result H/L Range Note FVL/[place] 04/23/2021 [facility] PDFReport SEE IMAGE FVC-Pred 5.06 L FVC-Pre 3.22 L FVC-%Pred-Pre 63 L FVC-LLN 4.08 L Fev1-Pred 3.84 L Fev1-Pre 1.87 L Fev1-%Pred-Pre 48 L Fev1-LLN 3.01 L Fev6-Pred 4.84 L Fev6-Pre 3.22 L Fev6-%Pred-Pre 66 L Fev6-LLN 3.89 L Dwa0ixg-Yjth 76 % Rsp6tta-Mgw 58 % Tzm5gjy-%Pred-Pre 76 % Mwx1oaw-YVK 66 % Qka7pbq-Crcn 96 % Wqg0azf-Vdd 100 % Poy8ayb-%Pred-Pre 104 % FEFMax-Pred 9.64 L/E/sec FEFMax-Pre 3.66 L/E/sec FEFMax-%Pred-Pre 37 L/E/sec FEFMax-LLN 7.21 L/E/sec Xrq2966-Ctyh 3.17 L/E/sec Rys4165-Wmf 1.03 L/E/sec Qmu1614-%Pred-Pre 32 L/E/sec Ixp9573-PJY 1.49 L/E/sec ExpTime-Pre 5.53 sec Alm3llo6-Yfqm 79 % Mmd8yhh4-Bkh 58 % Dca9jkz8-%Pred-Pre 73 % Qad9lfw6-MNS 70 % Procedures Date Code Description Status 04/23/2021 71266 Tobacco Cessation Counseling Com pleted 04/23/2021 01174 Office/Outpatient Established Mo d MDM 30-39 Min Completed 04/23/2021 59068 Spirometry Completed 02/06/2021 52971 Office/Outpatient Established Mo d MDM 30-39 Min Completed Medical Devices Description No Information Available Encounters Type Date Location Provider Dx Diagnosis Office Visit 04/23/2021 2:00p [facility] Pulmonary/Thoracic K Camelia jean M.D. J44.9 Chronic obstructive pulmonar y disease, unspecified F17.218 Nicotine dependence, cigaret sandra, w oth disorders R91.8 Other nonspecific abnormal f inding of lung field Office Visit 02/06/2021 10:45a [facility] Ankit Benz DO K42.0 Umbilical [...] obstructio n, without gangrene Ankit Benz DO Plan of Treatment Future Appointment(s):* 2021 2:30 pm - Camelia Henley M.D. at [facility] Pulmonary/Thoracic 04/23/2021 - Camelia Henley M.D.* J44.9 Chronic obstructive pulmonary disease, unspecified * F17.218 Nicotine dependence, cigarettes, with other nicotine-induced disorders * R91.8 Other nonspecific abnormal finding of lung field * * New Labs:* Flow Volume Loop/Spirometry, Ordered: 04/23/21 * Follow up:* Follow up in 5-6 months with spirometry. Functional Status Description No Information Available Mental Status Description No Information Available Referrals Refer to Reason for Referral Status Appt Date Loki, Camelia, M.D. COPD/ABN FINDING CT Closed 11/26 [facility], Pulmonary [address] [place], [place] [address] [phone]
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
--- OUTSIDE RECORDS SUMMARY | 2021-05-06 14:17 | CCD | Continuity of Care Document ---
Author Author Connre HENLEY M.D. Organization Unknown Address [address] [place] [address] Phone [phone] Care Team Providers Care District Fire Chief Name Role Phone AUTM Unavailable Erich Keith DO AUTM [phone] Problems Description No Information Available Social History [...] lb BMI (Body Mass Index) 26.6 kg/m2 [place] Body Weight 178 lb Weight 88.906 kg BSA (Body Surface Area) 2.11 m2 02/06/2021 10:52am BP Systolic 122 mmHg BP Diastolic 70 mmHg Body Temperature 98.5 F Height 72 inches 6'0" Weight 182.00 lb BMI (Body Mass Index) 24.7 kg/m2 [place] Body Weight 178 lb Weight 82.555 kg BSA (Body Surface Area) 2.05 m2 Results Test Acquired Date Facility Test Result H/L Range Note FVL/[place] 04/23/2021 [employer]graphics PDFReport SEE IMAGE FVC-Pred 5.06 L FVC-Pre 3.22 L FVC-%Pred-Pre 63 L FVC-LLN 4.08 L Fev1-Pred 3.84 L Fev1-Pre 1.87 L Fev1-%Pred-Pre 48 L Fev1-LLN 3.01 L Fev6-Pred 4.84 L Fev6-Pre 3.22 L Fev6-%Pred-Pre 66 L Fev6-LLN 3.89 L Fzt2asp-Svvt 76 % Hgi5pdo-Vdg 58 % Jts8ola-%Pred-Pre 76 % Woc8mvl-CRQ 66 % Iyj3chv-Hhuh 96 % Gao8oxt-Kbm 100 % Ecf6jzt-%Pred-Pre 104 % FEFMax-Pred 9.64 L/E/sec FEFMax-Pre 3.66 L/E/sec FEFMax-%Pred-Pre 37 L/E/sec FEFMax-LLN 7.21 L/E/sec Zah1683-Gdgg 3.17 L/E/sec Csu8894-Vur 1.03 L/E/sec Byb7684-%Pred-Pre 32 L/E/sec Hmy6111-ITT 1.49 L/E/sec ExpTime-Pre 5.53 sec Bat4fcq3-Lxly 79 % Uvm3nmo6-Kok 58 % Afo6adh4-%Pred-Pre 73 % Kci1jhp5-IYZ 70 % Procedures Date Code Description Status 04/23/2021 18708 Smoking & Tobacco Cessation Coun seling Intensive >10 Minutes Completed 04/23/2021 19156 Tobacco Cessation Counseling Com pleted 02/06/2021 67004 Office/Outpatient Established Mo d MDM 30-39 Min Completed Medical Devices Description No Information Available Encounters Type Date Location Provider Dx Diagnosis Office Visit 04/23/2021 2:00p [facility] Pulmonary/Thoracic K Camelia jean M.D. J44.9 Chronic obstructive pulmonar y disease, unspecified F17.218 Nicotine dependence, cigaret sandra, w oth disorders R91.8 Other nonspecific abnormal f inding of lung field Office Visit 02/06/2021 10:45a [facility] Ankit Benz DO K42.0 [...] 2:30 pm - Camelia Henley M.D. at [facility] Pulmonary/Thoracic 04/23/2021 - Camelia Henley M.D.* [...] Henley M.D. COPD/ABN FINDING CT Scheduled 11/26 [facility], Pulmonary [address] [place], [place] [address] [phone]
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
--- OUTSIDE RECORDS SUMMARY | 2021-05-06 14:18 | CCD ---
Continuity of Care Document (CCD) Created on: 02/06/2021 Conner Luong External Reference #: [id number] : [id number] Sex: Male Author Author Conner HUSAIN DO Organization Unknown Address [address], [address] [place] [address] Phone [phone] Care Team Providers Care Information Technology Consultant Name Role Phone AUTM Unavailable Erich Keith DO AUTM [phone] Problems Description No Information Available Social History Type Date Description Comments Sex Unknown ETOH Use Currently consumes alcohol 12 pa ck a day Tobacco Use Reviewed: 09/16/20 Patient is a current smoker, smokes every day 2ppd hx for over 40 years, currently less than 1 ppd Recreational Drug Use Current Drug User marijuan a occasionally Smoking Status Reviewed: 09/16/20 Patient is a current smoker, smokes every day 2ppd hx for over 40 years, currently less than 1 ppd Allergies, Adverse Reactions, Alerts Description No Known Drug Allergies Medications Active Medications SIG Qnty Indications Ordering Provide r Date Fluticasone Propionate/Salmeterol 232-14mcg/Act Aerosol Inhale One puff By Mouth Twice A Day 3units Camelia Marin M.D. 06/14/2020 Incruse Ellipta 62.5mcg/Inh Aeroso l inhale one puff by mouth every day 30units Camelia Jara M.D. 03/20/2020 Albuterol Sulfate HFA 108(90Base) mcg/Act Aerosol Inhale One To Two Puffs By Mouth Every 6 Hours as Needed 8.5unit Camelia Laird M.D. 03/19/2020 Tizanidine HCL 4mg Tablets Take One Tablet By Mouth Three Times A Day Unknown Hydrocodone-Acetaminophen 5-325mg Tablets Take One Tablet By Mouth Every Day as Needed Maximum Daily Dose 1 Unknown Gabapentin 600mg Tablets Take One Tablet By Mouth Three Times A Day Unknown Lisinopril 10mg Tablets 1 tab by mouth every day Unknown Immunizations Description No Information Available Vital Signs Date Vital Result Comment 02/06/2021 10:52am BP Systolic 122 mmHg BP Diastolic 70 mmHg Body Temperature 98.5 F Height 72 inches 6'0" Weight 182.00 lb BMI (Body Mass Index) 24.7 kg/m2 [place] Body Weight 178 lb Weight 82.555 kg BSA (Body Surface Area) 2.05 m2 09/16/2020 2:50pm BP Systolic 164 mmHg BP Diastolic 88 mmHg Heart Rate 89 /min O2 % BldC Oximetry 98 % Height 72 inches 6'0" Weight 166.00 lb BMI (Body Mass Index) 22.5 kg/m2 [place] Body Weight 178 lb Weight 75.298 kg BSA (Body Surface Area) 1.97 m2 Results Description No Information Available Procedures Date Code Description Status 09/16/2020 26372 Tobacco Cessation Counseling Com pleted 09/16/2020 93258 Office/Outpatient Established Mo d MDM 30-39 Min Completed Medical Devices Description No Information Available Encounters Type Date Location Provider Dx Diagnosis Office Visit 09/16/2020 3:00p [facility] Camelia jean M.D. J44.9 Chronic obstructive pulmonar y disease, unspecified F17.218 Nicotine dependence, cigaret sandra, w oth disorders R91.8 Other nonspecific abnormal f inding of lung field Assessments Date Code Description Provider 10/28/2020 J44.9 Chronic obstructive pulmonary di sease, unspecified Camelia Manjarrez M.D. 10/28/2020 R91.8 Other nonspecific abnormal findi ng of lung field Camelia Manjarrez M.D. 09/16/2020 J44.9 Chronic obstructive pulmonary di sease, unspecified Camelia Manjarrez M.D. 09/16/2020 F17.218 Nicotine dependence, cigarettes, with other nicotine-induced disorders Camelia Manjarrez M.D. 09/16/2020 R91.8 Other nonspecific abnormal findi ng of lung field Camelia Manjarrez M.D. Plan of Treatment Future Appointment(s):* 03/04/2021 11:30 am - Camelia Manjarrez M.D. at [facility] 09/16/2020 - Camelia Manjarrez M.D.* J44.9 Chronic obstructive pulmonary disease, unspecified * F17.218 Nicotine dependence, cigarettes, with other nicotine-induced disorders * R91.8 Other nonspecific abnormal finding of lung field * * Follow up:* Follow-up in 1 mo with spirometry Functional Status Description No Information Available Mental Status Description No Information Available Referrals Refer to Dr Reason for Referral Status Appt Date Camelia Manjarrez M.D. COPD/ABN FINDING CT Scheduled 11/26 [facility] [address] [place] [id number] [phone]
--- OUTSIDE RECORDS SUMMARY | 2021-05-06 14:18 | CCD ---
Author Author [facility] Organization [facility] Address Unknown Phone Unavailable Care Team Providers Care New Grad Rn Name Role Phone Ortiz Mary PEDIATRICIAN/MEDICAL DOCTOR Unavailable Unavailable Ortiz, Mary PEDIATRICIAN/MEDICAL DOCTOR Unavailable Unavailable Ortiz, Mary PEDIATRICIAN/MEDICAL DOCTOR Unavailable Unavailable Ortiz, Mary PEDIATRICIAN/MEDICAL DOCTOR Unavailable Unavailable Ortiz, Mary PEDIATRICIAN/MEDICAL DOCTOR Unavailable Unavailable Ortiz, Mary PEDIATRICIAN/MEDICAL DOCTOR Unavailable Unavailable Ortiz, Mary PEDIATRICIAN/MEDICAL DOCTOR Unavailable Unavailable Ortiz, Mary PEDIATRICIAN/MEDICAL DOCTOR Unavailable Unavailable Ortiz, Mray PEDIATRICIAN/MEDICAL DOCTOR Unavailable Unavailable Ortiz, Mary PEDIATRICIAN/MEDICAL DOCTOR Unavailable Unavailable Ortiz, Mary PEDIATRICIAN/MEDICAL DOCTOR Unavailable Unavailable Ortiz, Mary PEDIATRICIAN/MEDICAL DOCTOR Unavailable Unavailable Rotiz, Mary PEDIATRICIAN/MEDICAL DOCTOR Unavailable Unavailable Camelia Manjarrez MD Unavailable Unavailable LokiCamelia MD Unavailable Unavailable LokiCamelia MD Unavailable Unavailable LokiCamelia MD Unavailable Unavailable LokiCamelia MD Unavailable Unavailable LokiCamelia MD Unavailable Unavailable LokiCamelia MD Unavailable Unavailable LokiCamelia MD Unavailable Unavailable LokiCamelia MD Unavailable Unavailable LokiCamelia MD Unavailable Unavailable LokiCamelia MD Unavailable Unavailable Loki, Camelia BRAND Unavailable Unavailable LokiCamelia MD Unavailable Unavailable LokiCamelia MD Unavailable Unavailable Loki, Camelia Unavailable Unavailable LokiCamelia MD Unavailable Unavailable Loki, Camelia Unavailable Unavailable Loki, Camelia Unavailable Unavailable Loki, Camelia BRAND Unavailable Unavailable Loki, Camelia BRAND Unavailable Unavailable LokiCamelia MD Unavailable Unavailable Loki, Camelia BRAND Unavailable Unavailable Loki, Camelia BRAND Unavailable Unavailable Loki, Camelia BRAND Unavailable Unavailable Loki, Camelia BRAND Unavailable Unavailable LokiCamelia MD Unavailable Unavailable LokiCamelia MD Unavailable Unavailable LokiCamelia MD Unavailable Unavailable LokiCamelia MD Unavailable Unavailable LokiCamelia MD Unavailable Unavailable BRYDEN, A DEAN DO Unavailable Unavailable BRYDEN, A DEAN DO Unavailable Unavailable BRYDEN, A DEAN DO Unavailable Unavailable BRYDEN, A DEAN DO Unavailable Unavailable BRYDEN, A DEAN DO Unavailable Unavailable BRYDEN, A DEAN DO Unavailable Unavailable BRYDEN, A DEAN DO Unavailable Unavailable BRYDEN, A DEAN DO Unavailable Unavailable BRYDEN, A DEAN DO Unavailable Unavailable BRYDEN, A DEAN DO Unavailable Unavailable BRYDEN, A DEAN DO Unavailable Unavailable BRYDEN, A DEAN DO Unavailable Unavailable BRYDEN, A DEAN DO Unavailable Unavailable BRYDEN, A DEAN DO Unavailable Unavailable BRYDEN, A DEAN DO Unavailable Unavailable BRYDEN, A DEAN DO Unavailable Unavailable BRYDEN, A DEAN DO Unavailable Unavailable BRYDEN, A DEAN DO Unavailable Unavailable BRYDEN, A DEAN DO Unavailable Unavailable BRYDEN, A DEAN DO Unavailable Unavailable BRYDEN, A DEAN DO Unavailable Unavailable BRYDEN, A DEAN DO Unavailable Unavailable BRYDEN, A DEAN DO Unavailable Unavailable BRYDEN, A DEAN DO Unavailable Unavailable BRYDEN, A DEAN DO Unavailable Unavailable BRYDEN, A DEAN DO Unavailable Unavailable BRYDEN, A DEAN DO Unavailable Unavailable BRYDEN, A DEAN DO Unavailable Unavailable BRYDEN, A DEAN DO Unavailable Unavailable Re-disclosure Warning The records that you are about to access may contain information from federally-assisted alcohol or drug abuse programs. If such information is present, then the following federally mandated warning applies: This information has been disclosed to you from records protected by federal confidentiality rules (42 CFR part 2). The federal rules prohibit you from making any further disclosure of this information unless further disclosure is expressly permitted by the written consent of the person to whom it pertains or as otherwise permitted by 42 CFR part 2. A general authorization for the release of medical or other information is NOT sufficient for this purpose. The Federal rules restrict any use of the information to criminally investigate or prosecute any alcohol or drug abuse patient.The records that you are about to access may contain highly sensitive health information, the redisclosure of which is protected by Article 27-F of the [facility] Public Health law. If you continue you may have access to information: Regarding HIV / AIDS; Provided by facilities licensed or operated by the [facility] Office of Mental Health; or Provided by the [facility] Office for People With Developmental Disabilities. If such information is present, then the following [facility] mandated warning applies: This information has been disclosed to you from confidential records which are protected by state law. State law prohibits you from making any further disclosure of this information without the specific written consent of the person to whom it pertains, or as otherwise permitted by law. Any unauthorized further disclosure in violation of state law may result in a fine or group home sentence or both. A general authorization for the release of medical or other information is NOT sufficient authorization for further disc losure. Encounters Encounter Providers Location Date Indications Data Source(s ) Unknown [address] [facility] [address] 04/28/2021 12:00:00 AM EDT eCW1 ([facility]) Unknown [address] [facility] [address] 04/25/2021 12:00:00 AM EDT eCW1 ([facility]) Outpatient Attender: Camelia Shah/Eder/Randal/Eddie bee 04/23/2021 02:00:00 PM EDT [facility] ([facility]) [place] [address] [facility] [address] 04/17/2021 12:00:00 AM EDT eCW1 ([facility]) Unknown [address] [facility] [address] 04/15/2021 12:00:00 AM EDT eCW1 ([facility]) Unknown [address] [facility] [address] 04/15/2021 12:00:00 AM EDT eCW1 ([facility]) Unknown [address] [facility] [address] 04/09/2021 12:00:00 AM EDT eCW1 ([facility]) Unknown [address] [facility] [address] 04/09/2021 12:00:00 AM EDT eCW1 ([facility]) Unknown [address] [facility] [address] 04/08/2021 12:00:00 AM EDT eCW1 ([facility]) Unknown [address] [facility] [address] 04/08/2021 12:00:00 AM EDT eCW1 ([facility]) Unknown [address] [facility] [address] 03/24/2021 12:00:00 AM EDT eCW1 ([facility]) Unknown [address] [facility] [address] 03/20/2021 12:00:00 AM EDT eCW1 ([facility]) Outpatient [address] [facility] [address] 03/19/2021 12:00:00 AM EDT eCW1 ([facility]) Unknown [address] [facility] [address] 03/05/2021 12:00:00 AM EDT eCW1 ([facility]) Unknown [address] [facility] [address] 02/11/2021 12:00:00 AM EDT eCW1 ([facility]) Outpatient Attender: DEAN Stock/Eder/Randal/Eddie bee 02/06/2021 10:45:00 AM EDT [facility] ([facility]) Unknown [address] [facility] [address] 02/03/2021 12:00:00 AM EDT eCW1 ([facility]) Outpatient [address] [facility] [address] 01/23/2021 12:00:00 AM EDT eCW1 ([facility]) Unknown [address] [facility] [address] 01/23/2021 12:00:00 AM EDT eCW1 ([facility]) Unknown [address] [facility] [address] 01/21/2021 12:00:00 AM EDT eCW1 ([facility]) Unknown [address] [facility] [address] 01/17/2021 12:00:00 AM EDT eCW1 ([facility]) Unknown [address] [facility] [address] 12/30/2020 12:00:00 AM EDT eCW1 ([facility]) Unknown [address] [facility] [place] [address] 12/24/2020 12:00:00 AM EDT eCW1 ([facility]) Outpatient [address] [facility] [address] 12/18/2020 12:00:00 AM EDT eCW1 ([facility]) Unknown [address] [facility] [address] 12/16/2020 12:00:00 AM EDT eCW1 ([facility]) Outpatient [address] [facility] [address] 11/26/2020 12:00:00 AM EDT eCW1 ([facility]) Unknown [address] [facility] [address] 10/22/2020 12:00:00 AM EDT eCW1 ([facility]) Outpatient [address] [facility] [address] 10/15/2020 12:00:00 AM EDT [facility] Unknown [address] [facility] [address] 10/14/2020 12:00:00 AM EDT [facility] Unknown [address] [facility] [address] 10/04/2020 12:00:00 AM EDT eCW1 ([facility]) Unknown [address] [facility] [address] 10/04/2020 12:00:00 AM EDT [facility]CW1 [facility]) Outpatient [address] [facility] [address] 09/30/2020 12:00:00 AM EDT [facility]CW1 [facility]) Unknown [address] [facility] [address] 09/27/2020 12:00:00 AM EDT eCW1 ([facility]) Unknown [address] [facility] [address] 09/26/2020 12:00:00 AM EDT eCW1 ([facility]) Unknown [address] [facility] [address] 09/23/2020 12:00:00 AM EDT eCW1 [facility] Unknown [address] [facility] [place] [address] 09/19/2020 12:00:00 AM EDT eCW1 ([facility]) Outpatient Attender: Camelia Shah/Eder/Randal/Eddie bee 09/16/2020 03:00:00 PM EDT [facility] ([facility]) Unknown [address] [facility] [address] 08/30/2020 12:00:00 AM EST eCW1 ([facility]) Unknown [address] [facility] [address] 08/08/2020 12:00:00 AM EST eCW1 ([facility]) Outpatient [address] [facility] Y [address] 07/22/2020 12:00:00 AM EST eCW1 ([facility]) Unknown [address] [facility] Y [address] 07/18/2020 12:00:00 AM EST eCW1 ([facility]) Unknown [address] [facility] Y [address] 07/11/2020 12:00:00 AM EST eCW1 ([facility]) Unknown [address] [facility] Y [address] 06/13/2020 12:00:00 AM EST eCW1 ([facility]) Unknown [address] [facility] Y [address] 06/10/2020 12:00:00 AM EST eCW1 [facility]) Outpatient Attender: Mary bella 06/03/2020 01:35:00 PM EST [facility] ([facility]) Unknown [address] [facility] Y [address] 05/24/2020 12:00:00 AM EST eCW1 ([facility]) Unknown [address] [facility] Y [address] 05/13/2020 12:00:00 AM EST eCW1 ([facility]) Unknown [address] [facility] Y [address] 05/07/2020 12:00:00 AM EST eCW1 ([facility]) Unknown [address] [facility] Y [address] 04/25/2020 12:00:00 AM EDT eCW1 ([facility]) Unknown [address] [facility] [address] 04/03/2020 12:00:00 AM EDT eCW1 ([facility]) Immunizations Vaccine Date Status Description Data Source(s) influenza, recombinant, quadrIvalent,injectable, prese rvative free 04/08/2021 05:47:00 PM EDT completed [facility] influenza, recombinant, quadrIvalent,injectable, prese rvative free 04/08/2021 05:47:00 PM EDT completed eCW1 ([facility]) influenza, recombinant, quadrIvalent,injectable, prese rvative free 04/08/2021 05:47:00 PM EDT completed eCW1 ([facility]) influenza, recombinant, quadrIvalent,injectable, prese rvative free 04/08/2021 05:47:00 PM EDT completed eCW1 ([facility]) influenza, recombinant, quadrIvalent,injectable, prese rvative free 04/08/2021 05:47:00 PM EDT completed eCW1 ([facility]) influenza, recombinant, quadrIvalent,injectable, prese rvative free 04/08/2021 05:47:00 PM EDT completed eCW1 ([facility]) influenza, recombinant, quadrIvalent,injectable, prese rvative free 04/08/2021 05:47:00 PM EDT completed eCW1 ([facility]) influenza, recombinant, quadrIvalent,injectable, prese rvative free 04/08/2021 05:47:00 PM EDT completed eCW1 ([facility]) influenza, recombinant, quadrIvalent,injectable, prese rvative free 04/08/2021 05:47:00 PM EDT completed eCW1 ([facility]) influenza, recombinant, quadrIvalent,injectable, prese rvative free 04/08/2021 05:47:00 PM EDT completed eCW1 ([facility]) COVID-19 VACCINE Oscar 09/13/2020 12:00:00 AM EST completed [employer] Vaccine Series Complete: YESThis Data wa s Submitted to [facility] Via [employer]. influenza, recombinant, quadrIvalent,injectable, prese rvative free 04/02/2020 01:28:00 PM EDT completed eCW1 ([facility]) influenza, recombinant, quadrIvalent,injectable, prese rvative free 04/02/2020 01:28:00 PM EDT completed eCW1 ([facility]) influenza, recombinant, quadrIvalent,injectable, prese rvative free 04/02/2020 01:28:00 PM EDT completed eCW1 ([facility]) influenza, recombinant, quadrIvalent,injectable, prese rvative free 04/02/2020 01:28:00 PM EDT completed eCW1 ([facility]) influenza, recombinant, quadrIvalent,injectable, prese rvative free 04/02/2020 01:28:00 PM EDT completed eCW1 ([facility]) influenza, recombinant, quadrIvalent,injectable, prese rvative free 04/02/2020 01:28:00 PM EDT completed eCW1 ([facility]) influenza, recombinant, quadrIvalent,injectable, prese rvative free 04/02/2020 01:28:00 PM EDT completed eCW1 ([facility]) influenza, recombinant, quadrIvalent,injectable, prese rvative free 04/02/2020 01:28:00 PM EDT completed eCW1 ([facility]) influenza, recombinant, quadrIvalent,injectable, prese rvative free 04/02/2020 01:28:00 PM EDT completed eCW1 ([facility]) influenza, recombinant, quadrIvalent,injectable, prese rvative free 04/02/2020 01:28:00 PM EDT completed eCW1 ([facility]) influenza, recombinant, quadrIvalent,injectable, prese rvative free 04/02/2020 01:28:00 PM EDT completed eCW1 ([facility]) influenza, recombinant, quadrIvalent,injectable, prese rvative free 04/02/2020 01:28:00 PM EDT completed eCW1 ([facility]) influenza, recombinant, quadrIvalent,injectable, prese rvative free 04/02/2020 01:28:00 PM EDT completed eCW1 ([facility]) influenza, recombinant, quadrIvalent,injectable, prese rvative free 04/02/2020 01:28:00 PM EDT completed eCW1 ([facility]) influenza, recombinant, quadrIvalent,injectable, prese rvative free 04/02/2020 01:28:00 PM EDT completed eCW1 ([facility]) influenza, recombinant, quadrIvalent,injectable, prese rvative free 04/02/2020 01:28:00 PM EDT completed eCW1 ([facility]) influenza, recombinant, quadrIvalent,injectable, prese rvative free 04/02/2020 01:28:00 PM EDT completed eCW1 ([facility]) influenza, recombinant, quadrIvalent,injectable, prese rvative free 04/02/2020 01:28:00 PM EDT completed eCW1 ([facility]) influenza, recombinant, quadrIvalent,injectable, prese rvative free 04/02/2020 01:28:00 PM EDT completed eCW1 ([facility]) influenza, recombinant, quadrIvalent,injectable, prese rvative free 04/02/2020 01:28:00 PM EDT completed eCW1 ([facility]) influenza, recombinant, quadrIvalent,injectable, prese rvative free 04/02/2020 01:28:00 PM EDT completed eCW1 ([facility]) influenza, recombinant, quadrIvalent,injectable, prese rvative free 04/02/2020 01:28:00 PM EDT completed eCW1 ([facility]) influenza, recombinant, quadrIvalent,injectable, prese rvative free 04/02/2020 01:28:00 PM EDT completed eCW1 ([facility]) influenza, recombinant, quadrIvalent,injectable, prese rvative free 04/02/2020 01:28:00 PM EDT completed eCW1 ([facility]) influenza, recombinant, quadrIvalent,injectable, prese rvative free 04/02/2020 01:28:00 PM EDT completed eCW1 ([facility]) influenza, recombinant, quadrIvalent,injectable, prese rvative free 04/02/2020 01:28:00 PM EDT completed eCW1 ([facility]) influenza, recombinant, quadrIvalent,injectable, prese rvative free 04/02/2020 01:28:00 PM EDT completed eCW1 ([facility]) influenza, recombinant, quadrIvalent,injectable, prese rvative free 04/02/2020 01:28:00 PM EDT completed eCW1 ([facility]) influenza, recombinant, quadrIvalent,injectable, prese rvative free 04/02/2020 01:28:00 PM EDT completed eCW1 ([facility]) influenza, recombinant, quadrIvalent,injectable, prese rvative free 04/02/2020 01:28:00 PM EDT completed eCW1 ([facility]) influenza, recombinant, quadrIvalent,injectable, prese rvative free 04/02/2020 01:28:00 PM EDT completed eCW1 ([facility]) influenza, recombinant, quadrIvalent,injectable, prese rvative free 04/02/2020 01:28:00 PM EDT completed eCW1 ([facility]) influenza, recombinant, quadrIvalent,injectable, prese rvative free 04/02/2020 01:28:00 PM EDT completed eCW1 ([facility]) influenza, recombinant, quadrIvalent,injectable, prese rvative free 04/02/2020 01:28:00 PM EDT completed eCW1 ([facility]) influenza, recombinant, quadrIvalent,injectable, prese rvative free 04/02/2020 01:28:00 PM EDT completed eCW1 ([facility]) influenza, recombinant, quadrIvalent,injectable, prese rvative free 04/02/2020 01:28:00 PM EDT completed eCW1 ([facility]) Medications Medication Brand Name Start Date Product Form Dose Route Admi nistrative Instructions Pharmacy Instructions Status Indications Reaction Description Data Source(s) 333 mg 04/29/2021 12:00:00 AM EDT tablet,delayed release (DR/EC) 180 TAKE TWO TABLETS BY MOUTH THREE TIMES A DAY TAKE TWO TABLETS BY MOUTH THREE TIMES A DAY SOLD: 04/30/2021 [facility] gabapentin 800 MG Oral Tablet Gabapentin 800 MG Gabapentin 8 00 MG 04/28/2021 12:00:00 AM EDT 1.0 {tablet} active Ga bapentin 800 MG eCW1 ([facility]) gabapentin 800 MG Oral Tablet Gabapentin 800 MG Gabapentin 8 00 MG 04/28/2021 12:00:00 AM EDT 1.0 {tablet} active Ga bapentin 800 MG eCW1 ([facility]) gabapentin 800 MG Oral Tablet Gabapentin 800 MG Gabapentin 8 00 MG 04/28/2021 12:00:00 AM EDT 1.0 {tablet} active Ga bapentin 800 MG eCW1 ([facility]) Acamprosate calcium 333 MG Delayed Relea se Oral Tablet Acamprosate Calcium 333 MG Acamprosate Calcium 333 MG 04/28/2021 12:00:00 AM EDT 2.0 {table ts} active Acamprosate Calcium 333 MG eCW1 ([facility]) Acamprosate calcium 333 MG Delayed Relea se Oral Tablet Acamprosate Calcium 333 MG Acamprosate Calcium 333 MG 04/28/2021 12:00:00 AM EDT 2.0 {table ts} active Acamprosate Calcium 333 MG eCW1 ([facility]) Acamprosate calcium 333 MG Delayed Relea se Oral Tablet Acamprosate Calcium 333 MG Acamprosate Calcium 333 MG 04/28/2021 12:00:00 AM EDT 2.0 {table ts} active Acamprosate Calcium 333 MG eCW1 ([facility]) gabapentin 800 MG Oral Tablet GABAPENTIN 04/28/2021 12:00:00 AM EDT ta blet 90 TAKE ONE TABLET BY MOUTH THREE TIMES A DAY TAKE ONE TABLET BY MOUTH THREE TIMES A DAY SOLD: 04/28/2021 [facility] 62.5 mcg/actuation 04/24/2021 12:00:00 AM EDT blister with d evice 30 INHALE ONE PUFF BY MOUTH EVERY DAY INHALE ONE PUFF BY MOUTH EVERY DAY SOLD: 04/24/2021 [facility] 60 ACTUAT Fluticasone propionate 0.232 M G/ACTUAT / Salmeterol xinafoate 0.014 MG/ACTUAT Dry Powder Inhaler 232-14 mcg/actuation FLUTICASONE PROPION/SALMETEROL 04/24/2021 12:00:00 AM EDT aerosol powdr breath activated 3 INHALE ONE PUFF BY MOUTH TWICE A DAY INHALE ONE PUFF BY MOUTH TWICE A DAY SOLD: 04/24/2021 [facility] 100 mg 04/20/2021 12:00:00 AM EDT capsule 42 TAKE TWO CAPSULES BY MOUTH THREE TIMES A DAY FOR 7 DAYS TAKE TWO CAPSULES BY MOUTH THREE TIMES A DAY FOR 7 DAYS SOLD: 04/20/2021 [facility] gabapentin 100 MG Oral Capsule Gabapentin 100 MG Gabapentin 100 MG 04/19/2021 12:00:00 AM EDT 2.0 {capsules} active Gabapentin 100 MG eCW1 ([facility]) gabapentin 100 MG Oral Capsule Gabapentin 100 MG Gabapentin 100 MG 04/19/2021 12:00:00 AM EDT 2.0 {capsules} active Gabapentin 100 MG eCW1 ([facility]) gabapentin 100 MG Oral Capsule Gabapentin 100 MG Gabapentin 100 MG 04/19/2021 12:00:00 AM EDT 2.0 {capsules} active Gabapentin 100 MG eCW1 ([facility]) gabapentin 100 MG Oral Capsule Gabapentin 100 MG Gabapentin 100 MG 04/19/2021 12:00:00 AM EDT 2.0 {capsules} active Gabapentin 100 MG eCW1 ([facility]) gabapentin 100 MG Oral Capsule Gabapentin 100 MG Gabapentin 100 MG 04/19/2021 12:00:00 AM EDT 2.0 {capsules} active Gabapentin 100 MG eCW1 ([facility]) 1 mg 04/15/2021 12:00:00 AM EDT tablet 30 TAKE ONE TABLET BY MOUTH EVERY DAY TAKE ONE TABLET BY MOUTH EVERY DAY SOLD: 04/16/2021 [facility] 100 mg 04/15/2021 12:00:00 AM EDT tablet 30 TAKE ONE TABLET BY MOUTH EVERY DAY TAKE ONE TABLET BY MOUTH EVERY DAY SOLD: 04/16/2021 [facility] meloxicam 15 MG Oral Tablet Meloxicam 15 MG Meloxicam 15 MG 04/08/2021 12:00:00 AM EDT 1.0 {tablet_in_the_morning_with_food} active Meloxicam 15 MG eCW1 ([facility]) meloxicam 15 MG Oral Tablet Meloxicam 15 MG Meloxicam 15 MG 04/08/2021 12:00:00 AM EDT 1.0 {tablet_in_the_morning_with_food} active Meloxicam 15 MG eCW1 ([facility]) meloxicam 15 MG Oral Tablet Meloxicam 15 MG Meloxicam 15 MG 04/08/2021 12:00:00 AM EDT 1.0 {tablet_in_the_morning_with_food} active Meloxicam 15 MG eCW1 ([facility]) meloxicam 15 MG Oral Tablet Meloxicam 15 MG Meloxicam 15 MG 04/08/2021 12:00:00 AM EDT 1.0 {tablet_in_the_morning_with_food} active Meloxicam 15 MG eCW1 ([facility]) meloxicam 15 MG Oral Tablet Meloxicam 15 MG Meloxicam 15 MG 04/08/2021 12:00:00 AM EDT 1.0 {tablet_in_the_morning_with_food} active Meloxicam 15 MG eCW1 ([facility]) meloxicam 15 MG Oral Tablet Meloxicam 15 MG Meloxicam 15 MG 04/08/2021 12:00:00 AM EDT 1.0 {tablet_in_the_morning_with_food} active Meloxicam 15 MG eCW1 ([facility]) meloxicam 15 MG Oral Tablet Meloxicam 15 MG Meloxicam 15 MG 04/08/2021 12:00:00 AM EDT 1.0 {tablet_in_the_morning_with_food} active Meloxicam 15 MG eCW1 ([facility]) Furosemide 20 MG Oral Tablet [Lasix] Lasix 20 MG Lasix 20 MG 03/19/2021 12:00:00 AM EDT 1.0 {tablet} active Lasix 20 M G eCW1 ([facility]) Furosemide 20 MG Oral Tablet [Lasix] Lasix 20 MG Lasix 20 MG 03/19/2021 12:00:00 AM EDT 1.0 {tablet} active Lasix 20 M G eCW1 ([facility]) Furosemide 20 MG Oral Tablet [Lasix] Lasix 20 MG Lasix 20 MG 03/19/2021 12:00:00 AM EDT 1.0 {tablet} active Lasix 20 M G eCW1 ([facility]) Furosemide 20 MG Oral Tablet [Lasix] Lasix 20 MG Lasix 20 MG 03/19/2021 12:00:00 AM EDT 1.0 {tablet} active Lasix 20 M G eCW1 ([facility]) Furosemide 20 MG Oral Tablet [Lasix] Lasix 20 MG Lasix 20 MG 03/19/2021 12:00:00 AM EDT 1.0 {tablet} active Lasix 20 M G eCW1 ([facility]) Furosemide 20 MG Oral Tablet [Lasix] Lasix 20 MG Lasix 20 MG 03/19/2021 12:00:00 AM EDT 1.0 {tablet} active Lasix 20 M G eCW1 ([facility]) Furosemide 20 MG Oral Tablet [Lasix] Lasix 20 MG Lasix 20 MG 03/19/2021 12:00:00 AM EDT 1.0 {tablet} active Lasix 20 M G eCW1 ([facility]) Furosemide 20 MG Oral Tablet [Lasix] Lasix 20 MG Lasix 20 MG 03/19/2021 12:00:00 AM EDT 1.0 {tablet} active Lasix 20 M G eCW1 ([facility]) Furosemide 20 MG Oral Tablet [Lasix] Lasix 20 MG Lasix 20 MG 03/19/2021 12:00:00 AM EDT 1.0 {tablet} active Lasix 20 M G eCW1 ([facility]) 20 mg 03/19/2021 12:00:00 AM EDT tablet 30 TAKE ONE TABLET BY MOUTH EVERY DAY TAKE ONE TABLET BY MOUTH EVERY DAY SOLD: 03/19/2021 [facility] Furosemide 20 MG Oral Tablet [Lasix] Lasix 20 MG Lasix 20 MG 03/19/2021 12:00:00 AM EDT 1.0 {tablet} active Lasix 20 M G eCW1 ([facility]) Furosemide 20 MG Oral Tablet [Lasix] Lasix 20 MG Lasix 20 MG 03/19/2021 12:00:00 AM EDT 1.0 {tablet} active Lasix 20 M G eCW1 ([facility]) Furosemide 20 MG Oral Tablet [Lasix] Lasix 20 MG Lasix 20 MG 03/19/2021 12:00:00 AM EDT 1.0 {tablet} active Lasix 20 M G eCW1 ([facility]) Furosemide 20 MG Oral Tablet [Lasix] Lasix 20 MG Lasix 20 MG 03/19/2021 12:00:00 AM EDT 1.0 {tablet} active Lasix 20 M G eCW1 ([facility]) 500 mg 03/11/2021 12:00:00 AM EDT tablet 20 TAKE ONE TABLET BY MOUTH TWICE A DAY TAKE WITH FOOD TAKE ONE TABLET BY MOUTH TWICE A DAY TAKE WITH FOOD SO LD: 03/11/2021 [facility] tizanidine 4 MG Oral Tablet TIZANIDINE HCL 03/10/2021 12:00:00 AM EDT tablet 90 TAKE 1 TABLET BY MOUTH THREE TIMES A DAY TAKE 1 TABLET BY MOUTH THREE TIMES A DAY SOLD: 04/06/2021 [facility] tizanidine 4 MG Oral Tablet TIZANIDINE HCL 03/10/2021 12:00:00 AM EDT tablet 90 TAKE 1 TABLET BY MOUTH THREE TIMES A DAY TAKE 1 TABLET BY MOUTH THREE TIMES A DAY SOLD: 03/11/2021 [facility] 10 mg 03/08/2021 12:00:00 AM EDT capsule 30 TAKE TWO CAPSULES BY MOUTH EVERY 8 HOURS FOR 2 DAYS , THEN TAKE ONE CAPSULE BY MOUTH EVERY 8 HOURS FOR 3 DAYS , THEN TAKE ONE CAPSULE BY MOUTH EVERY 12 HOURS FOR 3 DAYS , THEN TAKE ONE CAPSULE BY MOUTH EVERY DAY FOR 3 DAYS, THEN STOP MAXIMUM DAILY DOSE = 6 TAKE TWO CAPSULES BY MOUTH EVERY 8 HOURS FOR 2 DAYS , THEN TAKE ONE CAPSULE BY MOUTH EVERY 8 HOURS FOR 3 DAYS , THEN TAKE ONE CAPSULE BY MOUTH EVERY 12 HOURS FOR 3 DAYS , THEN TAKE ONE CAPSULE BY MOUTH EVERY DAY FOR 3 DAYS, THEN STOP MAXIMUM DAILY DOSE = 6 SOLD: 03/08/[address] [facility] 1 mg 03/07/2021 12:00:00 AM EDT tablet 30 TAKE ONE TABLET BY MOUTH EVERY DAY TAKE ONE TABLET BY MOUTH EVERY DAY SOLD: 03/07/2021 [facility] 300 mg 03/07/2021 12:00:00 AM EDT capsule 30 TAKE ONE CAPSULE BY MOUTH THREE TIMES A DAY TAKE ONE CAPSULE BY MOUTH THREE TIMES A DAY SOLD: 03/07/2021 [facility] 400 mcg 03/07/2021 12:00:00 AM EDT tablet 30 TAKE ONE TABLET BY MOUTH EVERY DAY TAKE ONE TABLET BY MOUTH EVERY DAY SOLD: 03/07/2021 [facility] 62.5 mcg/actuation 03/07/2021 12:00:00 AM EDT blister with d evice 30 INHALE ONE PUFF BY MOUTH EVERY DAY INHALE ONE PUFF BY MOUTH EVERY DAY SOLD: 03/07/2021 [facility] 325 mg 03/07/2021 12:00:00 AM EDT tablet 60 TAKE TWO TABLETS BY MOUTH EVERY 4 HOURS NEEDED FOR MILD PAIN OR TEMP > 101 TAKE TWO TABLETS BY MOUTH EVERY 4 HOURS NEEDED FOR MILD PAIN OR TEMP > 101 SOLD: 03/07/2021 [facility] 600 mg 02/18/2021 12:00:00 AM EDT tablet 90 TAKE ONE TABLET BY MOUTH THREE TIMES A DAY TAKE ONE TABLET BY MOUTH THREE TIMES A DAY SOLD: 02/19/2021 [facility] 600 mg 02/18/2021 12:00:00 AM EDT tablet 90 TAKE ONE TABLET BY MOUTH THREE TIMES A DAY TAKE ONE TABLET BY MOUTH THREE TIMES A DAY SOLD: 04/06/2021 [facility] Diazepam 5 MG Oral Tablet diazePAM 5 MG diazePAM 5 MG 02/04/2021 12:00:00 AM EDT 1.0 {tablet} active diazePAM 5 MG eCW1 ([facility]) Diazepam 5 MG Oral Tablet diazePAM 5 MG diazePAM 5 MG 02/04/2021 12:00:00 AM EDT 1.0 {tablet} active diazePAM 5 MG eCW1 ([facility]) Diazepam 5 MG Oral Tablet diazePAM 5 MG diazePAM 5 MG 02/04/2021 12:00:00 AM EDT 1.0 {tablet} active diazePAM 5 MG eCW1 ([facility]) Diazepam 5 MG Oral Tablet diazePAM 5 MG diazePAM 5 MG 02/04/2021 12:00:00 AM EDT 1.0 {tablet} active diazePAM 5 MG eCW1 ([facility]) Diazepam 5 MG Oral Tablet diazePAM 5 MG diazePAM 5 MG 02/04/2021 12:00:00 AM EDT 1.0 {tablet} active diazePAM 5 MG eCW1 ([facility]) Diazepam 5 MG Oral Tablet diazePAM 5 MG diazePAM 5 MG 02/04/2021 12:00:00 AM EDT 1.0 {tablet} active diazePAM 5 MG eCW1 ([facility]) Diazepam 5 MG Oral Tablet diazePAM 5 MG diazePAM 5 MG 02/04/2021 12:00:00 AM EDT 1.0 {tablet} active diazePAM 5 MG eCW1 ([facility]) 5 mg 02/04/2021 12:00:00 AM EDT tablet 18 TAKE 2 TABLETS BY MOUTH EVERY 8 HOURS AY 1 THEN DAYS 2-5 TAKE 1 EVERY 8 HOURS MAXIMUM DAILY DOSE = 6 TAKE 2 TABLETS BY MOUTH EVERY 8 HOURS AY 1 THEN DAYS 2-5 TAKE 1 EVERY 8 HOURS MAXIMUM DAILY DOSE = 6 SOLD: 02/04/2021 [facility] Diazepam 5 MG Oral Tablet diazePAM 5 MG diazePAM 5 MG 02/04/2021 12:00:00 AM EDT 1.0 {tablet} active diazePAM 5 MG eCW1 ([facility]) Diazepam 5 MG Oral Tablet diazePAM 5 MG diazePAM 5 MG 02/04/2021 12:00:00 AM EDT 1.0 {tablet} active diazePAM 5 MG eCW1 ([facility]) Diazepam 5 MG Oral Tablet diazePAM 5 MG diazePAM 5 MG 02/04/2021 12:00:00 AM EDT 1.0 {tablet} active diazePAM 5 MG eCW1 ([facility]) Diazepam 5 MG Oral Tablet diazePAM 5 MG diazePAM 5 MG 02/04/2021 12:00:00 AM EDT 1.0 {tablet} active diazePAM 5 MG eCW1 ([facility]) Diazepam 5 MG Oral Tablet diazePAM 5 MG diazePAM 5 MG 02/04/2021 12:00:00 AM EDT 1.0 {tablet} active diazePAM 5 MG eCW1 ([facility]) Diazepam 5 MG Oral Tablet diazePAM 5 MG diazePAM 5 MG 02/04/2021 12:00:00 AM EDT 1.0 {tablet} active diazePAM 5 MG eCW1 ([facility]) Diazepam 5 MG Oral Tablet diazePAM 5 MG diazePAM 5 MG 02/04/2021 12:00:00 AM EDT 1.0 {tablet} active diazePAM 5 MG eCW1 ([facility]) Diazepam 5 MG Oral Tablet diazePAM 5 MG diazePAM 5 MG 02/04/2021 12:00:00 AM EDT 1.0 {tablet} active diazePAM 5 MG eCW1 ([facility]) Diazepam 5 MG Oral Tablet diazePAM 5 MG diazePAM 5 MG 02/04/2021 12:00:00 AM EDT 1.0 {tablet} active diazePAM 5 MG eCW1 ([facility]) 10 mg 02/02/2021 12:00:00 AM EDT tablet 30 TAKE ONE TABLET BY MOUTH EVERY DAY TAKE ONE TABLET BY MOUTH EVERY DAY SOLD: 02/03/2021 [facility] 10 mg 02/02/2021 12:00:00 AM EDT tablet 30 TAKE ONE TABLET BY MOUTH EVERY DAY TAKE ONE TABLET BY MOUTH EVERY DAY SOLD: 03/14/2021 [facility] 10 mg 02/02/2021 12:00:00 AM EDT tablet 30 TAKE ONE TABLET BY MOUTH EVERY DAY TAKE ONE TABLET BY MOUTH EVERY DAY SOLD: 04/12/2021 [facility] Chlordiazepoxide Hydrochloride 25 MG Oral Capsule chlo rdiazePOXIDE HCl 25 MG chlordiazePOXIDE HCl 25 MG 01/23/2021 12:00:00 AM EDT 1.0 {capsule} suspended chlordiazePOXIDE HCl 25 MG eCW1 ([facility]) Chlordiazepoxide Hydrochloride 25 MG Oral Capsule chlo rdiazePOXIDE HCl 25 MG chlordiazePOXIDE HCl 25 MG 01/23/2021 12:00:00 AM EDT 1.0 {capsule} active chlordiazePOXIDE HCl 25 MG eCW1 ([facility]) Chlordiazepoxide Hydrochloride 25 MG Oral Capsule chlo rdiazePOXIDE HCl 25 MG chlordiazePOXIDE HCl 25 MG 01/23/2021 12:00:00 AM EDT 1.0 {capsule} suspended chlordiazePOXIDE HCl 25 MG eCW1 ([facility]) Chlordiazepoxide Hydrochloride 25 MG Oral Capsule chlo rdiazePOXIDE HCl 25 MG chlordiazePOXIDE HCl 25 MG 01/23/2021 12:00:00 AM EDT 1.0 {capsule} suspended chlordiazePOXIDE HCl 25 MG eCW1 ([facility]) Chlordiazepoxide Hydrochloride 25 MG Oral Capsule chlo rdiazePOXIDE HCl 25 MG chlordiazePOXIDE HCl 25 MG 01/23/2021 12:00:00 AM EDT 1.0 {capsule} suspended chlordiazePOXIDE HCl 25 MG eCW1 ([facility]) Chlordiazepoxide Hydrochloride 25 MG Oral Capsule chlo rdiazePOXIDE HCl 25 MG chlordiazePOXIDE HCl 25 MG 01/23/2021 12:00:00 AM EDT 1.0 {capsule} suspended chlordiazePOXIDE HCl 25 MG eCW1 ([facility]) Chlordiazepoxide Hydrochloride 25 MG Oral Capsule chlo rdiazePOXIDE HCl 25 MG chlordiazePOXIDE HCl 25 MG 01/23/2021 12:00:00 AM EDT 1.0 {capsule} active chlordiazePOXIDE HCl 25 MG eCW1 ([facility]) Chlordiazepoxide Hydrochloride 25 MG Oral Capsule chlo rdiazePOXIDE HCl 25 MG chlordiazePOXIDE HCl 25 MG 01/23/2021 12:00:00 AM EDT 1.0 {capsule} suspended chlordiazePOXIDE HCl 25 MG eCW1 ([facility]) Chlordiazepoxide Hydrochloride 25 MG Oral Capsule chlo rdiazePOXIDE HCl 25 MG chlordiazePOXIDE HCl 25 MG 01/23/2021 12:00:00 AM EDT 1.0 {capsule} active chlordiazePOXIDE HCl 25 MG eCW1 ([facility]) Chlordiazepoxide Hydrochloride 25 MG Oral Capsule chlo rdiazePOXIDE HCl 25 MG chlordiazePOXIDE HCl 25 MG 01/23/2021 12:00:00 AM EDT 1.0 {capsule} suspended chlordiazePOXIDE HCl 25 MG eCW1 ([facility]) Chlordiazepoxide Hydrochloride 25 MG Oral Capsule chlo rdiazePOXIDE HCl 25 MG chlordiazePOXIDE HCl 25 MG 01/23/2021 12:00:00 AM EDT 1.0 {capsule} suspended chlordiazePOXIDE HCl 25 MG eCW1 ([facility]) Chlordiazepoxide Hydrochloride 25 MG Oral Capsule chlo rdiazePOXIDE HCl 25 MG chlordiazePOXIDE HCl 25 MG 01/23/2021 12:00:00 AM EDT 1.0 {capsule} suspended chlordiazePOXIDE HCl 25 MG eCW1 ([facility]) Chlordiazepoxide Hydrochloride 25 MG Oral Capsule chlo rdiazePOXIDE HCl 25 MG chlordiazePOXIDE HCl 25 MG 01/23/2021 12:00:00 AM EDT 1.0 {capsule} suspended chlordiazePOXIDE HCl 25 MG eCW1 ([facility]) Chlordiazepoxide Hydrochloride 25 MG Oral Capsule chlo rdiazePOXIDE HCl 25 MG chlordiazePOXIDE HCl 25 MG 01/23/2021 12:00:00 AM EDT 1.0 {capsule} active chlordiazePOXIDE HCl 25 MG eCW1 ([facility]) Chlordiazepoxide Hydrochloride 25 MG Oral Capsule chlo rdiazePOXIDE HCl 25 MG chlordiazePOXIDE HCl 25 MG 01/23/2021 12:00:00 AM EDT 1.0 {capsule} suspended chlordiazePOXIDE HCl 25 MG eCW1 ([facility]) Chlordiazepoxide Hydrochloride 25 MG Oral Capsule chlo rdiazePOXIDE HCl 25 MG chlordiazePOXIDE HCl 25 MG 01/23/2021 12:00:00 AM EDT 1.0 {capsule} active chlordiazePOXIDE HCl 25 MG eCW1 ([facility]) Chlordiazepoxide Hydrochloride 25 MG Oral Capsule chlo rdiazePOXIDE HCl 25 MG chlordiazePOXIDE HCl 25 MG 01/23/2021 12:00:00 AM EDT 1.0 {capsule} suspended chlordiazePOXIDE HCl 25 MG eCW1 ([facility]) Chlordiazepoxide Hydrochloride 25 MG Oral Capsule chlo rdiazePOXIDE HCl 25 MG chlordiazePOXIDE HCl 25 MG 01/23/2021 12:00:00 AM EDT 1.0 {capsule} suspended chlordiazePOXIDE HCl 25 MG eCW1 ([facility]) 90 mcg/actuation 01/22/2021 12:00:00 AM EDT HFA aerosol inha ler 8 INHALE ONE TO TWO PUFFS BY MOUTH EVERY 6 HOURS NEEDED INHALE ONE TO TWO PUFFS BY MOUTH EVERY 6 HOURS NEEDED SOLD: 04/12/2021 [facility] 90 mcg/actuation 01/22/2021 12:00:00 AM EDT HFA aerosol inha ler 8 INHALE ONE TO TWO PUFFS BY MOUTH EVERY 6 HOURS NEEDED INHALE ONE TO TWO PUFFS BY MOUTH EVERY 6 HOURS NEEDED SOLD: 01/22/2021 [facility] 90 mcg/actuation 01/22/2021 12:00:00 AM EDT HFA aerosol inha ler 8 INHALE ONE TO TWO PUFFS BY MOUTH EVERY 6 HOURS NEEDED INHALE ONE TO TWO PUFFS BY MOUTH EVERY 6 HOURS NEEDED SOLD: 03/07/2021 [facility] tizanidine 4 MG Oral Tablet TIZANIDINE HCL 12/24/2020 12:00:00 AM EDT tablet 90 TAKE ONE TABLET BY MOUTH THREE TIMES A DAY TAKE ONE TA BLET BY MOUTH THREE TIMES A DAY SOLD: 01/21/2021 [facility] tizanidine 4 MG Oral Tablet TIZANIDINE HCL 12/24/2020 12:00:00 AM EDT tablet 90 TAKE ONE TABLET BY MOUTH THREE TIMES A DAY TAKE ONE TA BLET BY MOUTH THREE TIMES A DAY SOLD: 12/24/2020 [facility] tizanidine 4 MG Oral Tablet TIZANIDINE HCL 12/06/2020 12:00:00 AM EDT tablet 45 TAKE ONE TABLET BY MOUTH THREE TIMES A DAY NEEDED T ERAN ONE TABLET BY MOUTH THREE TIMES A DAY NEEDED SOLD: 12/06/2020 [facility] 10 mg 11/11/2020 12:00:00 AM EDT tablet 30 TAKE ONE TABLET BY MOUTH ONCE DAILY TAKE ONE TABLET BY MOUTH ONCE DAILY SOLD: 01/07/2021 [facility] 10 mg 11/11/2020 12:00:00 AM EDT tablet 30 TAKE ONE TABLET BY MOUTH ONCE DAILY TAKE ONE TABLET BY MOUTH ONCE DAILY SOLD: 12/12/2020 [facility] 10 mg 11/11/2020 12:00:00 AM EDT tablet 30 TAKE ONE TABLET BY MOUTH ONCE DAILY TAKE ONE TABLET BY MOUTH ONCE DAILY SOLD: 11/11/2020 [facility] tizanidine 4 MG Oral Tablet TIZANIDINE HCL 11/10/2020 12:00:00 AM EDT tablet 45 TAKE ONE TABLET BY MOUTH THREE TIMES A DAY NEEDED T ERAN ONE TABLET BY MOUTH THREE TIMES A DAY NEEDED SOLD: 11/11/2020 [facility] 60 ACTUAT Fluticasone propionate 0.232 M G/ACTUAT / Salmeterol xinafoate 0.014 MG/ACTUAT Dry Powder Inhaler 232-14 mcg/actuation FLUTICASONE PROPION/SALMETEROL 10/22/2020 12:00:00 AM EDT aerosol powdr breath activated 3 INHALE ONE PUFF BY MOUTH TWICE A DAY INHALE ONE PUFF BY MOUTH TWICE A DAY SOLD: 10/22/2020 [facility] 62.5 mcg/actuation 10/22/2020 12:00:00 AM EDT blister with d evice 30 INHALE ONE PUFF BY MOUTH EVERY DAY INHALE ONE PUFF BY MOUTH EVERY DAY SOLD: 12/12/2020 [facility] 60 ACTUAT Fluticasone propionate 0.232 M G/ACTUAT / Salmeterol xinafoate 0.014 MG/ACTUAT Dry Powder Inhaler 232-14 mcg/actuation FLUTICASONE PROPION/SALMETEROL 10/22/2020 12:00:00 AM EDT aerosol powdr breath activated 3 INHALE ONE PUFF BY MOUTH TWICE A DAY INHALE ONE PUFF BY MOUTH TWICE A DAY SOLD: 01/07/2021 [facility] 62.5 mcg/actuation 10/22/2020 12:00:00 AM EDT blister with d evice 30 INHALE ONE PUFF BY MOUTH EVERY DAY INHALE ONE PUFF BY MOUTH EVERY DAY SOLD: 10/22/2020 [facility] 24 HR Nicotine 0.292 MG/HR Transdermal P atch [Nicoderm C-Q] Nicoderm CQ 7 MG/24HR Nicoderm CQ 7 MG/24HR 10/14/2020 12:00:00 AM EDT 1.0 { patch_to_skin} suspended Nicoderm CQ 7 MG/24H R eCW1 ([facility]) 24 HR Nicotine 0.292 MG/HR Transdermal P atch [Nicoderm C-Q] Nicoderm CQ 7 MG/24HR Nicoderm CQ 7 MG/24HR 10/14/2020 12:00:00 AM EDT 1.0 { patch_to_skin} suspended Nicoderm CQ 7 MG/24H R eCW1 ([facility]) 24 HR Nicotine 0.292 MG/HR Transdermal P atch [Nicoderm C-Q] Nicoderm CQ 7 MG/24HR Nicoderm CQ 7 MG/24HR 10/14/2020 12:00:00 AM EDT 1.0 { patch_to_skin} suspended Nicoderm CQ 7 MG/24H R eCW1 ([facility]) 24 HR Nicotine 0.292 MG/HR Transdermal P atch [Nicoderm C-Q] Nicoderm CQ 7 MG/24HR Nicoderm CQ 7 MG/24HR 10/14/2020 12:00:00 AM EDT 1.0 { patch_to_skin} suspended Nicoderm CQ 7 MG/24H R eCW1 ([facility]) 7 mg/24 hr 10/14/2020 12:00:00 AM EDT patch 24 hour 7 APPLY ONE PATCH TO THE SKIN EVERY DAY APPLY ONE PATCH TO THE SKIN EVERY DAY SOLD: 11/08/2020 [facility] 24 HR Nicotine 0.292 MG/HR Transdermal P atch [Nicoderm C-Q] Nicoderm CQ 7 MG/24HR Nicoderm CQ 7 MG/24HR 10/14/2020 12:00:00 AM EDT 1.0 { patch_to_skin} suspended Nicoderm CQ 7 MG/24H R eCW1 ([facility]) 24 HR Nicotine 0.292 MG/HR Transdermal P atch [Nicoderm C-Q] Nicoderm CQ 7 MG/24HR Nicoderm CQ 7 MG/24HR 10/14/2020 12:00:00 AM EDT 1.0 { patch_to_skin} suspended Nicoderm CQ 7 MG/24H R eCW1 ([facility]) 24 HR Nicotine 0.292 MG/HR Transdermal P atch [Nicoderm C-Q] Nicoderm CQ 7 MG/24HR Nicoderm CQ 7 MG/24HR 10/14/2020 12:00:00 AM EDT 1.0 { patch_to_skin} suspended Nicoderm CQ 7 MG/24H R eCW1 ([facility]) 24 HR Nicotine 0.292 MG/HR Transdermal P atch [Nicoderm C-Q] Nicoderm CQ 7 MG/24HR Nicoderm CQ 7 MG/24HR 10/14/2020 12:00:00 AM EDT 1.0 { patch_to_skin} suspended Nicoderm CQ 7 MG/24H R eCW1 ([facility]) 24 HR Nicotine 0.292 MG/HR Transdermal P atch [Nicoderm C-Q] Nicoderm CQ 7 MG/24HR Nicoderm CQ 7 MG/24HR 10/14/2020 12:00:00 AM EDT 1.0 { patch_to_skin} suspended Nicoderm CQ 7 MG/24H R eCW1 ([facility]) 24 HR Nicotine 0.292 MG/HR Transdermal P atch [Nicoderm C-Q] Nicoderm CQ 7 MG/24HR Nicoderm CQ 7 MG/24HR 10/14/2020 12:00:00 AM EDT 1.0 { patch_to_skin} suspended Nicoderm CQ 7 MG/24H R eCW1 ([facility]) 24 HR Nicotine 0.292 MG/HR Transdermal P atch [Nicoderm C-Q] Nicoderm CQ 7 MG/24HR Nicoderm CQ 7 MG/24HR 10/14/2020 12:00:00 AM EDT 1.0 { patch_to_skin} suspended Nicoderm CQ 7 MG/24H R eCW1 ([facility]) 24 HR Nicotine 0.292 MG/HR Transdermal P atch [Nicoderm C-Q] Nicoderm CQ 7 MG/24HR Nicoderm CQ 7 MG/24HR 10/14/2020 12:00:00 AM EDT 1.0 { patch_to_skin} suspended Nicoderm CQ 7 MG/24H R eCW1 ([facility]) 24 HR Nicotine 0.292 MG/HR Transdermal P atch [Nicoderm C-Q] Nicoderm CQ 7 MG/24HR Nicoderm CQ 7 MG/24HR 10/14/2020 12:00:00 AM EDT 1.0 { patch_to_skin} active Nicoderm CQ 7 MG/24H R eCW1 ([facility]) 24 HR Nicotine 0.292 MG/HR Transdermal P atch [Nicoderm C-Q] Nicoderm CQ 7 MG/24HR Nicoderm CQ 7 MG/24HR 10/14/2020 12:00:00 AM EDT 1.0 { patch_to_skin} suspended Nicoderm CQ 7 MG/24H R eCW1 ([facility]) 24 HR Nicotine 0.292 MG/HR Transdermal P atch [Nicoderm C-Q] Nicoderm CQ 7 MG/24HR Nicoderm CQ 7 MG/24HR 10/14/2020 12:00:00 AM EDT 1.0 { patch_to_skin} suspended Nicoderm CQ 7 MG/24H R eCW1 ([facility]) 24 HR Nicotine 0.292 MG/HR Transdermal P atch [Nicoderm C-Q] Nicoderm CQ 7 MG/24HR Nicoderm CQ 7 MG/24HR 10/14/2020 12:00:00 AM EDT 1.0 { patch_to_skin} suspended Nicoderm CQ 7 MG/24H R eCW1 ([facility]) 24 HR Nicotine 0.292 MG/HR Transdermal P atch [Nicoderm C-Q] Nicoderm CQ 7 MG/24HR Nicoderm CQ 7 MG/24HR 10/14/2020 12:00:00 AM EDT 1.0 { patch_to_skin} suspended Nicoderm CQ 7 MG/24H R eCW1 ([facility]) 24 HR Nicotine 0.292 MG/HR Transdermal P atch [Nicoderm C-Q] Nicoderm CQ 7 MG/24HR Nicoderm CQ 7 MG/24HR 10/14/2020 12:00:00 AM EDT 1.0 { patch_to_skin} active Nicoderm CQ 7 MG/24H R eCW1 ([facility]) 24 HR Nicotine 0.292 MG/HR Transdermal P atch [Nicoderm C-Q] Nicoderm CQ 7 MG/24HR Nicoderm CQ 7 MG/24HR 10/14/2020 12:00:00 AM EDT 1.0 { patch_to_skin} active Nicoderm CQ 7 MG/24H R eCW1 ([facility]) 24 HR Nicotine 0.292 MG/HR Transdermal P atch [Nicoderm C-Q] Nicoderm CQ 7 MG/24HR Nicoderm CQ 7 MG/24HR 10/14/2020 12:00:00 AM EDT 1.0 { patch_to_skin} active Nicoderm CQ 7 MG/24H R eCW1 ([facility]) 24 HR Nicotine 0.292 MG/HR Transdermal P atch [Nicoderm C-Q] Nicoderm CQ 7 MG/24HR Nicoderm CQ 7 MG/24HR 10/14/2020 12:00:00 AM EDT 1.0 { patch_to_skin} suspended Nicoderm CQ 7 MG/24H R eCW1 ([facility]) 24 HR Nicotine 0.292 MG/HR Transdermal P atch [Nicoderm C-Q] Nicoderm CQ 7 MG/24HR Nicoderm CQ 7 MG/24HR 10/14/2020 12:00:00 AM EDT 1.0 { patch_to_skin} active Nicoderm CQ 7 MG/24H R eCW1 ([facility]) 24 HR Nicotine 0.292 MG/HR Transdermal P atch [Nicoderm C-Q] Nicoderm CQ 7 MG/24HR Nicoderm CQ 7 MG/24HR 10/14/2020 12:00:00 AM EDT 1.0 { patch_to_skin} active Nicoderm CQ 7 MG/24H R eCW1 ([facility]) 24 HR Nicotine 0.292 MG/HR Transdermal P atch [Nicoderm C-Q] Nicoderm CQ 7 MG/24HR Nicoderm CQ 7 MG/24HR 10/14/2020 12:00:00 AM EDT 1.0 { patch_to_skin} suspended Nicoderm CQ 7 MG/24H R eCW1 ([facility]) 7 mg/24 hr 10/14/2020 12:00:00 AM EDT patch 24 hour 7 APPLY ONE PATCH TO THE SKIN EVERY DAY APPLY ONE PATCH TO THE SKIN EVERY DAY SOLD: 10/14/2020 [facility] 24 HR Nicotine 0.292 MG/HR Transdermal P atch [Nicoderm C-Q] Nicoderm CQ 7 MG/24HR Nicoderm CQ 7 MG/24HR 10/14/2020 12:00:00 AM EDT 1.0 { patch_to_skin} suspended Nicoderm CQ 7 MG/24H R eCW1 ([facility]) 24 HR Nicotine 0.292 MG/HR Transdermal P atch [Nicoderm C-Q] Nicoderm CQ 7 MG/24HR Nicoderm CQ 7 MG/24HR 10/14/2020 12:00:00 AM EDT 1.0 { patch_to_skin} suspended Nicoderm CQ 7 MG/24H R eCW1 ([facility]) 24 HR Nicotine 0.292 MG/HR Transdermal P atch [Nicoderm C-Q] Nicoderm CQ 7 MG/24HR Nicoderm CQ 7 MG/24HR 10/14/2020 12:00:00 AM EDT 1.0 { patch_to_skin} suspended Nicoderm CQ 7 MG/24H R eCW1 ([facility]) 24 HR Nicotine 0.292 MG/HR Transdermal P atch [Nicoderm C-Q] Nicoderm CQ 7 MG/24HR Nicoderm CQ 7 MG/24HR 10/14/2020 12:00:00 AM EDT 1.0 { patch_to_skin} suspended Nicoderm CQ 7 MG/24H R eCW1 ([facility]) 1 mg 10/11/2020 12:00:00 AM EDT tablet 30 TAKE ONE TABLET BY MOUTH EVERY DAY TAKE ONE TABLET BY MOUTH EVERY DAY SOLD: 10/11/2020 [facility] 1 mg 10/11/2020 12:00:00 AM EDT tablet 30 TAKE ONE TABLET BY MOUTH EVERY DAY TAKE ONE TABLET BY MOUTH EVERY DAY SOLD: 12/06/2020 [facility] 100 mg 10/11/2020 12:00:00 AM EDT tablet 30 TAKE ONE TABLET BY MOUTH EVERY DAY TAKE ONE TABLET BY MOUTH EVERY DAY SOLD: 10/11/2020 [facility] 1 mg 10/11/2020 12:00:00 AM EDT tablet 30 TAKE ONE TABLET BY MOUTH EVERY DAY TAKE ONE TABLET BY MOUTH EVERY DAY SOLD: 11/08/2020 [facility] 100 mg 10/11/2020 12:00:00 AM EDT tablet 30 TAKE ONE TABLET BY MOUTH EVERY DAY TAKE ONE TABLET BY MOUTH EVERY DAY SOLD: 12/06/2020 [facility] 100 mg 10/11/2020 12:00:00 AM EDT tablet 30 TAKE ONE TABLET BY MOUTH EVERY DAY TAKE ONE TABLET BY MOUTH EVERY DAY SOLD: 11/08/2020 [facility] 21 mg/24 hr 10/08/2020 12:00:00 AM EDT patch 24 hour 21 APPLY ONE PATCH TO THE SKIN EVERY DAY APPLY ONE PATCH TO THE SKIN EVERY DAY SOLD: 10/11/2020 [facility] 24 HR Nicotine 0.875 MG/HR Transdermal P atch [Nicoderm C-Q] Nicoderm CQ 21 MG/24HR Nicoderm CQ 21 MG/24HR 10/07/2020 12:00:00 AM EDT 1.0 {patch_to_skin} active Nicoderm CQ 21 MG/24 HR eCW1 ([facility]) 24 HR Nicotine 0.875 MG/HR Transdermal P atch [Nicoderm C-Q] Nicoderm CQ 21 MG/24HR Nicoderm CQ 21 MG/24HR 10/07/2020 12:00:00 AM EDT 1.0 {patch_to_skin} active Nicoderm CQ 21 MG/24 HR eCW1 ([facility]) 24 HR Nicotine 0.875 MG/HR Transdermal P atch [Nicoderm C-Q] Nicoderm CQ 21 MG/24HR Nicoderm CQ 21 MG/24HR 10/07/2020 12:00:00 AM EDT 1.0 {patch_to_skin} active Nicoderm CQ 21 MG/24 HR eCW1 ([facility]) 24 HR Nicotine 0.875 MG/HR Transdermal P atch [Nicoderm C-Q] Nicoderm CQ 21 MG/24HR Nicoderm CQ 21 MG/24HR 10/07/2020 12:00:00 AM EDT 1.0 {patch_to_skin} active Nicoderm CQ 21 MG/24 HR eCW1 ([facility]) 100 mg 09/30/2020 12:00:00 AM EDT tablet 30 TAKE ONE TABLET BY MOUTH EVERY DAY NEEDED TAKE ONE TABLET BY MOUTH EVERY DAY NEEDED SOLD: 10/04/2020 [facility] 600 mg 09/26/2020 12:00:00 AM EDT tablet 90 TAKE ONE TABLET BY MOUTH THREE TIMES A DAY TAKE ONE TABLET BY MOUTH THREE TIMES A DAY SOLD: 11/08/2020 [facility] 600 mg 09/26/2020 12:00:00 AM EDT tablet 90 TAKE ONE TABLET BY MOUTH THREE TIMES A DAY TAKE ONE TABLET BY MOUTH THREE TIMES A DAY SOLD: 12/12/2020 [facility] 600 mg 09/26/2020 12:00:00 AM EDT tablet 90 TAKE ONE TABLET BY MOUTH THREE TIMES A DAY TAKE ONE TABLET BY MOUTH THREE TIMES A DAY SOLD: 09/26/2020 [facility] tizanidine 4 MG Oral Tablet TIZANIDINE HCL 09/26/2020 12:00:00 AM EDT tablet 45 TAKE ONE TABLET BY MOUTH THREE TIMES A DAY NEEDED T ERAN ONE TABLET BY MOUTH THREE TIMES A DAY NEEDED SOLD: 09/26/2020 [facility] 20 mg 09/21/2020 12:00:00 AM EDT tablet 30 TAKE ONE TABLET BY MOUTH EVERY DAY TAKE ONE TABLET BY MOUTH EVERY DAY SOLD: 09/23/2020 [facility] 25 mg 09/19/2020 12:00:00 AM EDT capsule 23 DAY 1 TAKE TWO CAPSULES BY MOUTH EVERY 6 HOURS, DAY 2 TAKE ONE CAPSULE BY MOUTH EVERY 6 HOURS, DAY 3 TAKE ONE CAPSULE BY MOUTH TWICE A DAY , DAYS 4-12 TAKE ONE CAPSULE BY MOUTH AT BEDTIME DAY 1 TAKE TWO CAPSULES BY MOUTH EVERY 6 HOURS, DAY 2 TAKE ONE CAPSULE BY MOUTH EVERY 6 HOURS, DAY 3 TAKE ONE CAPSULE BY MOUTH TWICE A DAY , DAYS 4-12 TAKE ONE CAPSULE BY MOUTH AT BEDTIME SOLD: 09/19/2020 [facility] Chlordiazepoxide Hydrochloride 25 MG Oral Capsule Chlo rdiazepoxide HCl 25 MG Chlordiazepoxide HCl 25 MG 09/18/2020 12:00:00 AM EDT 1.0 {capsule} active Chlordiazepoxide HCl 25 MG eCW1 ([facility]) Chlordiazepoxide Hydrochloride 25 MG Oral Capsule Chlo rdiazepoxide HCl 25 MG Chlordiazepoxide HCl 25 MG 09/18/2020 12:00:00 AM EDT 1.0 {capsule} active Chlordiazepoxide HCl 25 MG eCW1 ([facility]) Chlordiazepoxide Hydrochloride 25 MG Oral Capsule Chlo rdiazepoxide HCl 25 MG Chlordiazepoxide HCl 25 MG 09/18/2020 12:00:00 AM EDT 1.0 {capsule} active Chlordiazepoxide HCl 25 MG eCW1 ([facility]) Chlordiazepoxide Hydrochloride 25 MG Oral Capsule Chlo rdiazepoxide HCl 25 MG Chlordiazepoxide HCl 25 MG 09/18/2020 12:00:00 AM EDT 1.0 {capsule} active Chlordiazepoxide HCl 25 MG eCW1 ([facility]) Chlordiazepoxide Hydrochloride 25 MG Oral Capsule Chlo rdiazepoxide HCl 25 MG Chlordiazepoxide HCl 25 MG 09/18/2020 12:00:00 AM EDT 1.0 {capsule} active Chlordiazepoxide HCl 25 MG eCW1 ([facility]) Chlordiazepoxide Hydrochloride 25 MG Oral Capsule Chlo rdiazepoxide HCl 25 MG Chlordiazepoxide HCl 25 MG 09/18/2020 12:00:00 AM EDT 1.0 {capsule} active Chlordiazepoxide HCl 25 MG eCW1 ([facility]) Chlordiazepoxide Hydrochloride 25 MG Oral Capsule Chlo rdiazepoxide HCl 25 MG Chlordiazepoxide HCl 25 MG 09/18/2020 12:00:00 AM EDT 1.0 {capsule} active Chlordiazepoxide HCl 25 MG eCW1 ([facility]) Chlordiazepoxide Hydrochloride 25 MG Oral Capsule Chlo rdiazepoxide HCl 25 MG Chlordiazepoxide HCl 25 MG 09/18/2020 12:00:00 AM EDT 1.0 {capsule} active Chlordiazepoxide HCl 25 MG eCW1 ([facility]) Chlordiazepoxide Hydrochloride 25 MG Oral Capsule Chlo rdiazepoxide HCl 25 MG Chlordiazepoxide HCl 25 MG 09/18/2020 12:00:00 AM EDT 1.0 {capsule} active Chlordiazepoxide HCl 25 MG eCW1 ([facility] [facility]) Chlordiazepoxide Hydrochloride 25 MG Oral Capsule Chlo rdiazepoxide HCl 25 MG Chlordiazepoxide HCl 25 MG 09/18/2020 12:00:00 AM EDT 1.0 {capsule} active Chlordiazepoxide HCl 25 MG eCW1 ([facility]) Chlordiazepoxide Hydrochloride 25 MG Oral Capsule Chlo rdiazepoxide HCl 25 MG Chlordiazepoxide HCl 25 MG 09/18/2020 12:00:00 AM EDT 1.0 {capsule} active Chlordiazepoxide HCl 25 MG eCW1 ([facility]) 50 mg 09/17/2020 12:00:00 AM EDT tablet 30 TAKE ONE TABLET BY MOUTH EVERY DAY TAKE ONE TABLET BY MOUTH EVERY DAY SOLD: 09/19/2020 [facility] 1 mg 09/15/2020 12:00:00 AM EST tablet 30 TAKE ONE TABLET BY MOUTH EVERY DAY TAKE ONE TABLET BY MOUTH EVERY DAY SOLD: 09/15/2020 [facility] 100 mg 09/15/2020 12:00:00 AM EST tablet 30 TAKE ONE TABLET BY MOUTH EVERY DAY TAKE ONE TABLET BY MOUTH EVERY DAY SOLD: 09/15/2020 [facility] 25 mg 09/15/2020 12:00:00 AM EST capsule 12 TAKE TWO CAPSULES BY MOUTH EVERY 8 HOURS FOR 1 DAY THEN 1 EVERY 8 HOURS FOR 1 DAY THEN 1 EVERY 12 HOURS FOR 1 DAYS THEN 1 AT BEDTIME FOR 1 DAYS THEN STOP TAKE TWO CAPSULES BY MOUTH EVERY 8 HOURS FOR 1 DAY THEN 1 EVERY 8 HOURS FOR 1 DAY THEN 1 EVERY 12 HOURS FOR 1 DAYS THEN 1 AT BEDTIME FOR 1 DAYS THEN STOP SOLD: 09/15/2020 [facility] 7 mg/24 hr 09/15/2020 12:00:00 AM EST patch 24 hour 7 APPLY ONE PATCH TO THE SKIN EVERY DAY APPLY ONE PATCH TO THE SKIN EVERY DAY SOLD: 09/15/2020 [facility] Polyethylene Glycol 400 4 MG/ML / Propyl emely glycol 3 MG/ML Ophthalmic Solution [Systane] 0.4-0.3 % PROPYLENE GLYCOL/PEG 400 08/30/2020 12:00:00 AM EST drops 15 INSTILL 1 DROP IN EACH EYE 6 -10 TIMES DAILY FOR BURNING AND GRITTY EYES DIRECTED INSTILL 1 DROP IN EACH EYE 6-10 TIMES DA ZACHARY FOR BURNING AND GRITTY EYES DIRECTED SOLD: 11/08/2020 [facility] 0.4-0.3 % 08/30/2020 12:00:00 AM EST drops 15 INSTILL 1 DROP IN EACH EYE 6- 10 TIMES DAILY FOR BURNING AND GRITTY EYES DIRECTED INSTILL 1 DROP IN EACH EYE 6-10 TIMES DAILY FOR BURNING AND GRITTY EYES DIRECTED SOLD: 08/30/2020 [facility] 90 mcg/actuation 08/09/2020 12:00:00 AM EST HFA aerosol inha ler 8 INHALE ONE TO TWO PUFFS BY MOUTH EVERY 6 HOURS NEEDED INHALE ONE TO TWO PUFFS BY MOUTH EVERY 6 HOURS NEEDED SOLD: 10/11/2020 [facility] tizanidine 4 MG Oral Tablet TIZANIDINE HCL 08/09/2020 12:00:00 AM EST tablet 90 TAKE ONE TABLET BY MOUTH THREE TIMES A DAY TAKE ONE TA BLET BY MOUTH THREE TIMES A DAY SOLD: 10/15/2020 [facility] 90 mcg/actuation 08/09/2020 12:00:00 AM EST HFA aerosol inha ler 8 INHALE ONE TO TWO PUFFS BY MOUTH EVERY 6 HOURS NEEDED INHALE ONE TO TWO PUFFS BY MOUTH EVERY 6 HOURS NEEDED SOLD: 10/22/2020 [facility] 90 mcg/actuation 08/09/2020 12:00:00 AM EST HFA aerosol inha ler 8 INHALE ONE TO TWO PUFFS BY MOUTH EVERY 6 HOURS NEEDED INHALE ONE TO TWO PUFFS BY MOUTH EVERY 6 HOURS NEEDED SOLD: 08/09/2020 [facility] tizanidine 4 MG Oral Tablet TIZANIDINE HCL 08/09/2020 12:00:00 AM EST tablet 90 TAKE ONE TABLET BY MOUTH THREE TIMES A DAY TAKE ONE TA BLET BY MOUTH THREE TIMES A DAY SOLD: 08/09/2020 [facility] 90 mcg/actuation 08/09/2020 12:00:00 AM EST HFA aerosol inha ler 8 INHALE ONE TO TWO PUFFS BY MOUTH EVERY 6 HOURS NEEDED INHALE ONE TO TWO PUFFS BY MOUTH EVERY 6 HOURS NEEDED SOLD: 12/12/2020 [facility] 100 mg 07/19/2020 12:00:00 AM EST tablet 30 TAKE ONE TABLET BY MOUTH EVERY DAY NEEDED TAKE ONE TABLET BY MOUTH EVERY DAY NEEDED SOLD: 07/21/2020 [facility] 600 mg 06/19/2020 12:00:00 AM EST tablet 90 TAKE ONE TABLET BY MOUTH THREE TIMES A DAY TAKE ONE TABLET BY MOUTH THREE TIMES A DAY SOLD: 08/14/2020 [facility] 600 mg 06/19/2020 12:00:00 AM EST tablet 90 TAKE ONE TABLET BY MOUTH THREE TIMES A DAY TAKE ONE TABLET BY MOUTH THREE TIMES A DAY SOLD: 07/21/2020 [facility] 600 mg 06/19/2020 12:00:00 AM EST tablet 90 TAKE ONE TABLET BY MOUTH THREE TIMES A DAY TAKE ONE TABLET BY MOUTH THREE TIMES A DAY SOLD: 06/21/2020 [facility] 62.5 mcg/actuation 06/14/2020 12:00:00 AM EST blister with d evice 30 INHALE ONE PUFF BY MOUTH EVERY DAY INHALE ONE PUFF BY MOUTH EVERY DAY SOLD: 06/14/2020 [facility] Fluticasone Propionate/Salmeterol Fluticasone Propionate/Herman meterol 06/14/2020 12:00:00 AM EST ORAL active M EDENT ([facility], ) 62.5 mcg/actuation 06/14/2020 12:00:00 AM EST blister with d evice 30 INHALE ONE PUFF BY MOUTH EVERY DAY INHALE ONE PUFF BY MOUTH EVERY DAY SOLD: 08/09/2020 [facility] tizanidine 4 MG Oral Tablet TIZANIDINE HCL 06/12/2020 12:00:00 AM EST tablet 90 TAKE ONE TABLET BY MOUTH THREE TIMES A DAY TAKE ONE TA BLET BY MOUTH THREE TIMES A DAY SOLD: 07/08/2020 [facility] tizanidine 4 MG Oral Tablet TIZANIDINE HCL 06/12/2020 12:00:00 AM EST tablet 90 TAKE ONE TABLET BY MOUTH THREE TIMES A DAY TAKE ONE TA BLET BY MOUTH THREE TIMES A DAY SOLD: 06/14/2020 [facility] 600 mg 05/25/2020 12:00:00 AM EST tablet 90 TAKE ONE TABLET BY MOUTH THREE TIMES A DAY TAKE ONE TABLET BY MOUTH THREE TIMES A DAY SOLD: 01/16/2021 [facility] 600 mg 05/25/2020 12:00:00 AM EST tablet 90 TAKE ONE TABLET BY MOUTH THREE TIMES A DAY TAKE ONE TABLET BY MOUTH THREE TIMES A DAY SOLD: 05/26/2020 [facility] 4 mg 04/15/2020 12:00:00 AM EDT tablet 90 TAKE ONE TABLET BY MOUTH THREE TIMES A DAY TAKE ONE TABLET BY MOUTH THREE TIMES A DAY SOLD: 04/16/2020 [facility] 4 mg 04/15/2020 12:00:00 AM EDT tablet 90 TAKE ONE TABLET BY MOUTH THREE TIMES A DAY TAKE ONE TABLET BY MOUTH THREE TIMES A DAY SOLD: 05/13/2020 [facility] 875-125 mg 03/24/2020 12:00:00 AM EDT tablet 42 TAKE ONE TABLET BY MOUTH TWICE A DAY TAKE ONE TABLET BY MOUTH TWICE A DAY SOLD: 03/27/2020 [facility] 62.5 mcg/actuation 03/21/2020 12:00:00 AM EDT blister with d evice 30 INHALE ONE PUFF BY MOUTH EVERY DAY INHALE ONE PUFF BY MOUTH EVERY DAY SOLD: 05/06/2020 [facility] 62.5 mcg/actuation 03/21/2020 12:00:00 AM EDT blister with d evice 30 INHALE ONE PUFF BY MOUTH EVERY DAY INHALE ONE PUFF BY MOUTH EVERY DAY SOLD: 03/27/2020 [facility] 600 mg 03/20/2020 12:00:00 AM EDT tablet 90 TAKE ONE TABLET BY MOUTH THREE TIMES A DAY TAKE ONE TABLET BY MOUTH THREE TIMES A DAY SOLD: 03/21/2020 [facility] 7 ACTUAT umeclidinium 0.0625 MG/ACTUAT Dry Powder Inha ler [Incruse] Incruse Ellipta 03/20/2020 12:00:00 AM EDT ORAL active MEDENT ([facility], ) 600 mg 03/20/2020 12:00:00 AM EDT tablet 90 TAKE ONE TABLET BY MOUTH THREE TIMES A DAY TAKE ONE TABLET BY MOUTH THREE TIMES A DAY SOLD: 04/16/2020 [facility] 90 mcg/actuation 03/19/2020 12:00:00 AM EDT HFA aerosol inha ler 8 INHALE 1-2 PUFFS BY MOUTH EVERY 6 HOURS NEEDED INHALE 1-2 PUFFS BY MOUTH EVERY 6 HOURS NEEDED SOLD: 04/03/2020 [facility] 90 mcg/actuation 03/19/2020 12:00:00 AM EDT HFA aerosol inha ler 8 INHALE 1-2 PUFFS BY MOUTH EVERY 6 HOURS NEEDED INHALE 1-2 PUFFS BY MOUTH EVERY 6 HOURS NEEDED SOLD: 03/21/2020 [facility] 90 mcg/actuation 03/19/2020 12:00:00 AM EDT HFA aerosol inha ler 8 INHALE 1-2 PUFFS BY MOUTH EVERY 6 HOURS NEEDED INHALE 1-2 PUFFS BY MOUTH EVERY 6 HOURS NEEDED SOLD: 05/06/2020 [facility] 90 mcg/actuation 03/19/2020 12:00:00 AM EDT HFA aerosol inha ler 8 INHALE 1-2 PUFFS BY MOUTH EVERY 6 HOURS NEEDED INHALE 1-2 PUFFS BY MOUTH EVERY 6 HOURS NEEDED SOLD: 06/12/2020 [facility] 60 ACTUAT Albuterol 0.09 MG/ACTUAT Metered Dose Inhaler Albu terol Sulfate HFA 03/19/2020 12:00:00 AM EDT active MEDENT ([facility], ) 232-14 mcg/actuation 03/13/2020 12:00:00 AM EDT aerosol powdr breath activated 3 INHALE ONE PUFF BY MOUTH TWICE A DAY INHA LE ONE PUFF BY MOUTH TWICE A DAY SOLD: 03/15/2020 [facility] 232-14 mcg/actuation 03/13/2020 12:00:00 AM EDT aerosol powdr breath activated 3 INHALE ONE PUFF BY MOUTH TWICE A DAY INHA LE ONE PUFF BY MOUTH TWICE A DAY SOLD: 06/01/2020 [facility] 5-325 mg 03/07/2020 12:00:00 AM EDT tablet 28 TAKE ONE TABLET BY MOUTH EVERY DAY NEEDED MAXIMUM DAILY DOSE = 1 TAKE ONE TABLET BY MOUTH EVERY DAY NEEDED MAXIMUM DAILY DOSE = 1 SOLD: 03/11/2020 [facility] 875-125 mg 03/06/2020 12:00:00 AM EDT tablet 42 TAKE ONE TABLET BY MOUTH TWICE A DAY TAKE ONE TABLET BY MOUTH TWICE A DAY SOLD: 03/06/2020 [facility] 100 mg 02/26/2020 12:00:00 AM EDT tablet 30 TAKE ONE TABLET BY MOUTH EVERY DAY NEEDED TAKE ONE TABLET BY MOUTH EVERY DAY NEEDED SOLD: 03/06/2020 [facility] 4 mg 01/30/2020 12:00:00 AM EDT tablet 90 TAKE ONE TABLET BY MOUTH THREE TIMES A DAY TAKE ONE TABLET BY MOUTH THREE TIMES A DAY SOLD: 03/11/2020 [facility] 0.4-0.3 % 08/07/2019 12:00:00 AM EST drops 15 INSTILL 1 DROP IN EACH EYE 6- 10 TIMES PER DAY OR FOR BURNING / GRITTY EYES DIRECTED INSTILL 1 DROP IN EACH EYE 6-10 TIMES PER DAY OR FOR BURNING / GRITTY EYES DIRECTED SOLD: 03/06/2020 [facility] Insurance Providers Payer name Policy type / Coverage type Policy ID Covered green party ID Covered green party's relationship to tolliver Policy [place] Plan Information [employer] MCDO [id number] SP [id number] [employer]AN MCDO [id number] SP [id number] [facility] [id number] SP [id number] [facility](MCAID) O [id number] S [id number] [place] [id number] SP [id number] MEDICAID [id number] SP [id number] [employer] COMMUNITY PLAN XIX -RECURRING [id number] 18 [id number] [employer] COMM[employer]ITY PLAN XIX -RECURRING [id number] 18 [id number] [employer] COMMUNITY PLAN XIX -RECURRING [id number] [employer] CP DUAL COMP - RECURRING [id number] 18 [id number] MEDICAID -RECURRING [id number] [employer] CP DUAL COMP - RECURRING [id number] 18 [id number] [employer] COMMUNITY PLAN XIX [id number] 18 [id number] MEDICAID [id number] SP [id number] SELF PAY SP Problems, Conditions, and Diagnoses Code Display Name Description Problem Type Effective Dates Data Source(s) G89.29 [id number] Other chronic pain Problem 03/19/2021 12:00: 00 AM EDT eCW1 ([facility]) M54.32 [id number] Sciatica of left side Problem 10/15/2020 12: 00:00 AM EDT eCW1 ([facility]) F10.10 [id number] Alcohol abuse Problem 07/22/2020 12:00:00 AM EST eCW1 ([facility]) G47.00 [id number] Insomnia, unspecified type Problem 12:00:00 AM EST eCW1 ([facility]) Surgeries/Procedures Procedure Description Date Indications Data Source(s) Spirometry 04/23/2021 12:00:00 AM EDT Ngozi DUBON ([facility], ) OFFICE OUTPATIENT VISIT 25 MINUTES 04/23/2021 12:00:00 AM EDT ANGIE ([facility], ) TOBACCO USE CESSATION INTERMEDIATE 3-10 MINUTES 2020 12:00:00 AM EDT MEDENT ([facility]) TOBACCO USE CESSATION INTENSIVE >10 MINUTES 04/23/2021 12:00:00 AM EDT MEDENT ([facility]) OFFICE OUTPATIENT VISIT 25 MINUTES 02/06/2021 12:00:00 AM EDT MEDENT ([facility]) OFFICE OUTPATIENT VISIT 25 MINUTES 09/16/2020 12:00:00 AM EDT MEDENT ([facility]) TOBACCO USE CESSATION INTERMEDIATE 3-10 MINUTES 2020 12:00:00 AM EDT MEDENT ([facility]) Results ID Date Data Source [id number] 04/23/2021 01:27:00 PM EDT MEDENT ([facility]) Name Value Range Interpretation Code Description Data Maddie rce(s) Supporting Document(s) FVC-Pred 5.06 L MEDENT ([facility]) PDFReport Laboratory test result MEDENT ([facility]) FVC-LLN 4.08 L [facility] ([facility]) FVC-%Pred-Pre 63 L MEDENT ([facility]) FVC-Pre 3.22 L [facility] ([facility]) Fev1-Pre 1.87 L [facility] ([facility]) Fev1-%Pred-Pre 48 L MEDENT ([facility]) Fev1-Pred 3.84 L [facility] ([facility]) Fev1-LLN 3.01 L [facility] ([facility]) Fev6-Pred 4.84 L [facility] ([facility]) Fev6-LLN 3.89 L [facility] ([facility]) Fev6-Pre 3.22 L [facility] ([facility]) Fev6-%Pred-Pre 66 L [facility] ([facility]) Sxz4eys-Ysfw 76 % MEDENT ([facility]) Egw1mtr-Fkv 58 % [facility] ([facility]) Spz1uas-%Pred-Pre 76 % MEDENT ([facility]) Tha2yzc-YNG 66 % [facility] ([facility]) Kqj2pqb-Zsok 96 % [facility] ([facility]) Pvc4ctx-Agx 100 % [facility] ([facility]) Bva5cae-%Pred-Pre 104 % [facility]ENT ([facility]) FEFMax-Pred 9.64 L/E/sec MEDENT ([facility]) FEFMax-Pre 3.66 L/E/sec MEDENT ([facility]) FEFMax-LLN 7.21 L/E/sec MEDENT ([facility]) FEFMax-%Pred-Pre 37 L/E/sec MEDENT ([facility]) Wsy0015-Erox 3.17 L/E/sec MEDENT ([facility]) Afc5436-%Pred-Pre 32 L/E/sec MEDENT ([facility]) Aon8263-Fcp 1.03 L/E/sec [facility] ([facility]) ExpTime-Pre 5.53 sec MEDENT ([facility]) Avj2519-LSV 1.49 L/E/sec [facility] ([facility]) Qvj0tmi5-Uvx 58 % [facility] ([facility]) Bpm5poc0-Gfae 79 % [facility] ([facility]) Dyc6yot0-%Pred-Pre 73 % [facility] ([facility]) Nsq3kyn4-XFZ 70 % [facility] ([facility]) ID Date Data Source [id number] 03/04/2021 04:39:00 AM EDT [facility] Name Value Range Interpretation Code Description Data Amddie rce(s) Supporting Document(s) SARS coronavirus 2 RNA [Presence] in Res piratory specimen by LAVINIA with probe detection NEGATIVE [facility] This lab was ordered by [facility] a nd reported by [facility]. ID Date Data Source [id number] 09/11/2020 03:47:00 PM EST [facility] Name Value Range Interpretation Code Description Data Maddie rce(s) Supporting Document(s) SARS coronavirus 2 RNA [Presence] in Res piratory specimen by LAVINIA with probe detection NEGATIVE [facility] This lab was ordered by [facility] a nd reported by [facility]. ID Date Data Source [id number] 07/06/2020 09:00:00 AM EST [facility] Name Value Range Interpretation Code Description Data Maddie rce(s) Supporting Document(s) SARS coronavirus 2 RNA [facility] This lab was ordered by [facility] and reported by [facility]. ID Date Data Source [id number] 06/03/2020 12:00:00 AM EST [facility] Name Value Range Interpretation Code Description Data Maddie rce(s) Supporting Document(s) SARS coronavirus 2 Ag [facility] This lab was ordered by [facility] and reported by [facility]. Procedure Social History Code Duration Value Status Description Data Source(s ) 04/23/2021 12:00:00 AM EDT Patient is a current smoker, smokes every day completed Patient is a current smoker, smokes every day MEDENT ( [facility], ) Smoking 04/08/2021 12:00:00 AM EDT Current Smoker completed Curre nt Smoker eCW1 ([facility]) Smoking 04/08/2021 12:00:00 AM EDT Current Smoker completed Curre nt Smoker eCW1 ([facility]) Smoking 04/08/2021 12:00:00 AM EDT Current Smoker completed Curre nt Smoker eCW1 ([facility]) Smoking 04/08/2021 12:00:00 AM EDT Current Smoker completed Curre nt Smoker eCW1 ([facility]) Smoking 04/08/2021 12:00:00 AM EDT Current Smoker completed Curre nt Smoker eCW1 ([facility]) Smoking 04/08/2021 12:00:00 AM EDT Current Smoker completed Curre nt Smoker eCW1 ([facility]) Smoking 04/08/2021 12:00:00 AM EDT Current Smoker completed Curre nt Smoker eCW1 ([facility]) Smoking 04/08/2021 12:00:00 AM EDT Current Smoker completed Curre nt Smoker eCW1 ([facility]) Smoking 04/08/2021 12:00:00 AM EDT Current Smoker completed Curre nt Smoker eCW1 ([facility]) Smoking 04/08/2021 12:00:00 AM EDT Current Smoker completed Curre nt Smoker eCW1 ([facility]) Smoking 03/19/2021 12:00:00 AM EDT Current Smoker completed Curre nt Smoker eCW1 ([facility]) Smoking 03/19/2021 12:00:00 AM EDT Current Smoker completed Curre nt Smoker eCW1 ([facility]) Smoking 03/19/2021 12:00:00 AM EDT Current Smoker completed Curre nt Smoker eCW1 ([facility]) Smoking 02/03/2021 12:00:00 AM EDT Current Smoker completed Curre nt Smoker eCW1 ([facility]) Smoking 02/03/2021 12:00:00 AM EDT Current Smoker completed Curre nt Smoker eCW1 ([facility]) Smoking 02/03/2021 12:00:00 AM EDT Current Smoker completed Curre nt Smoker eCW1 ([facility]) Smoking 01/23/2021 12:00:00 AM EDT Current Smoker completed Curre nt Smoker eCW1 ([facility]) Smoking 01/23/2021 12:00:00 AM EDT Current Smoker completed Curre nt Smoker eCW1 ([facility]) Smoking 01/16/2021 12:00:00 AM EDT Current Smoker completed Curre nt Smoker eCW1 ([facility]) Smoking 12/18/2020 12:00:00 AM EDT Current Smoker completed Curre nt Smoker eCW1 ([facility]) Smoking 12/18/2020 12:00:00 AM EDT Current Smoker completed Curre nt Smoker eCW1 ([facility]) Smoking 12/18/2020 12:00:00 AM EDT Current Smoker completed Curre nt Smoker eCW1 ([facility]) Smoking 11/25/2020 12:00:00 AM EDT Current Smoker completed Curre nt Smoker eCW1 ([facility]) Smoking 11/25/2020 12:00:00 AM EDT Current Smoker completed Curre nt Smoker eCW1 ([facility]) Smoking 10/14/2020 12:00:00 AM EDT Current Smoker completed Curre nt Smoker eCW1 ([facility]) Smoking 10/14/2020 12:00:00 AM EDT Current Smoker completed Curre nt Smoker eCW1 ([facility]) Smoking 10/14/2020 12:00:00 AM EDT Current Smoker completed Curre nt Smoker eCW1 ([facility]) Smoking 10/14/2020 12:00:00 AM EDT Current Smoker completed Curre nt Smoker eCW1 ([facility]) Smoking 09/30/2020 12:00:00 AM EDT Current Smoker completed Curre nt Smoker eCW1 ([facility]) Smoking 09/30/2020 12:00:00 AM EDT Current Smoker completed Curre nt Smoker eCW1 ([facility]) Smoking 07/22/2020 12:00:00 AM EST Current Smoker completed Curre nt Smoker eCW1 ([facility]) Smoking 07/22/2020 12:00:00 AM EST Current Smoker completed Curre nt Smoker eCW1 ([facility]) Smoking 07/22/2020 12:00:00 AM EST Current Smoker completed Curre nt Smoker eCW1 ([facility]) Smoking 07/22/2020 12:00:00 AM EST Current Smoker completed Curre nt Smoker eCW1 ([facility]) Smoking 07/22/2020 12:00:00 AM EST Current Smoker completed Curre nt Smoker eCW1 ([facility]) Smoking 07/22/2020 12:00:00 AM EST Current Smoker completed Curre nt Smoker eCW1 ([facility]) Smoking 07/22/2020 12:00:00 AM EST Current Smoker completed Curre nt Smoker eCW1 ([facility]) Smoking 07/22/2020 12:00:00 AM EST Current Smoker completed Curre nt Smoker eCW1 ([facility]) Smoking 07/08/2020 12:00:00 AM EST Current Smoker completed Curre nt Smoker eCW1 ([facility]) Smoking 07/08/2020 12:00:00 AM EST Current Smoker completed Curre nt Smoker eCW1 ([facility]) Vital Signs ID Date Data Source UNK Name Value Range Interpretation Code Description Data Source(s) Body weight 88.906 kg 88.906 kg [facility] ([facility]) Body surface area Derived from formula 2.11 m2 2.11 m2 [facility] ([facility]) Systolic blood pressure 112 mm[Hg] 112 mm[Hg] [facility] Diastolic blood pressure 74 mm[Hg] 74 mm[Hg] [facility] ([facility]) Heart rate 108 /min 108 /min [facility] ([facility]) Oxygen saturation in Arterial blood by Pulse oximetry 96 % 96 % [facility] ([facility]) Body height 72 [in_i] 72 [in_i] [facility] ([facility]) 6'0" Body weight 196.00 [lb_av] 196.00 [lb_av] [facility] Body mass index (BMI) [Ratio] 26.6 kg/m2 26.6 k g/m2 [facility] ([facility]) [place] body weight 178 [lb_av] 178 [lb_av] [facility] ([facility]) Body weight 188.6 [lb_av] 188.6 [lb_av] eCW1 ([facility]) Body weight 85.55 kg 85.55 kg W1 ([facility]) Body height 72 [in_i] 72 [in_i] W1 ([facility]) Body mass index (BMI) [Ratio] 25.58 kg/m2 25.58 kg/m2 W1 ([facility]) Heart rate 111 /min 111 /min eCW1 ([facility]) Respiratory rate 18 /min 18 /min eCW1 ([facility]) Body temperature 98.3 [degF] 98.3 [degF] eCW1 ( [facility]) Systolic blood pressure 118 mm[Hg] 118 mm[Hg] e CW1 ([facility]) Diastolic blood pressure 86 mm[Hg] 86 mm[Hg] eCW1 ([facility]) Body surface area Derived from formula 2.05 m2 2.05 m2 [facility] ([facility]) Body temperature 98.5 [degF] 98.5 [degF] [facility] ([facility]) Body height 72 [in_i] 72 [in_i] MEDENT ([facility]) 6'0" Body weight 182.00 [lb_av] 182.00 [lb_av] [facility] T ([facility]) Body mass index (BMI) [Ratio] 24.7 kg/m2 24.7 k g/m2 [facility] ([facility]) [place] body weight 178 [lb_av] 178 [lb_av] [facility] T ([facility]) Body weight 82.555 kg 82.555 kg [facility] ([facility]) Systolic blood pressure 122 mm[Hg] 122 mm[Hg] M EDENT ([facility]) Diastolic blood pressure 70 mm[Hg] 70 mm[Hg] [facility] ([facility]) Body weight 184.6 [lb_av] 184.6 [lb_av] eCW1 ([facility]) Body height 72 [in_i] 72 [in_i] eCW1 ([facility]) Body mass index (BMI) [Ratio] 25.03 kg/m2 25.03 kg/m2 eCW1 ([facility]) Heart rate 123 /min 123 /min eCW1 ([facility]) Respiratory rate 18 /min 18 /min eCW1 ([facility]) Body temperature 98.1 [degF] 98.1 [degF] eCW1 ( [facility]) Systolic blood pressure 112 mm[Hg] 112 mm[Hg] e CW1 ([facility]) Diastolic blood pressure 76 mm[Hg] 76 mm[Hg] eCW1 ([facility]) Body weight 193 [lb_av] 193 [lb_av] eCW1 ([facility]) Body height 72 [in_i] 72 [in_i] eCW1 ([facility]) Body mass index (BMI) [Ratio] 26.17 kg/m2 26.17 kg/m2 eCW1 ([facility]) Heart rate /min eCW1 ([facility]) Respiratory rate 18 /min 18 /min eCW1 ([facility]) Body temperature 97.7 [degF] 97.7 [degF] eCW1 ( [facility]) Systolic blood pressure 118 mm[Hg] 118 mm[Hg] e CW1 ([facility]) Diastolic blood pressure 72 mm[Hg] 72 mm[Hg] eCW1 ([facility]) Body weight 195.0 [lb_av] 195.0 [lb_av] eCW1 ([facility]) Body height 72 [in_i] 72 [in_i] eCW1 ([facility]) Body mass index (BMI) [Ratio] 26.44 kg/m2 26.44 kg/m2 W1 ([facility]) Heart rate 105 /min 105 /min eCW1 ([facility]) Respiratory rate 18 /min 18 /min eCW1 ([facility]) Body temperature 98.1 [degF] 98.1 [degF] eCW1 ( [facility]) Systolic blood pressure 155 mm[Hg] 155 mm[Hg] e CW1 ([facility]) Diastolic blood pressure 95 mm[Hg] 95 mm[Hg] eCW1 ([facility]) Systolic blood pressure 124 mm[Hg] 124 mm[Hg] e CW1 ([facility]) Diastolic blood pressure 88 mm[Hg] 88 mm[Hg] eCW1 ([facility]) Body weight 193 [lb_av] 193 [lb_av] eCW1 ([facility]) Body height 72 [in_i] 72 [in_i] eCW1 ([facility]) Body mass index (BMI) [Ratio] 26.17 kg/m2 26.17 kg/m2 eCW1 ([facility]) Heart rate 109 /min 109 /min eCW1 ([facility]) Respiratory rate 18 /min 18 /min eCW1 ([facility]) Body temperature 97.5 [degF] 97.5 [degF] eCW1 ( [facility]) Body weight 188.2 [lb_av] 188.2 [lb_av] eCW1 ([facility]) Heart rate /min eCW1 ([facility]) Respiratory rate 19 /min 19 /min eCW1 ([facility]) Body temperature 97.6 [degF] 97.6 [degF] eCW1 ( [facility]) Body height 72 [in_i] 72 [in_i] eCW1 ([facility]) Systolic blood pressure 130 mm[Hg] 130 mm[Hg] e CW1 ([facility]) Body mass index (BMI) [Ratio] 25.52 kg/m2 25.52 kg/m2 eCW1 ([facility]) Diastolic blood pressure 90 mm[Hg] 90 mm[Hg] eCW1 ([facility]) Systolic blood pressure 164 mm[Hg] 164 mm[Hg] M EDENT ([facility], ) Diastolic blood pressure 88 mm[Hg] 88 mm[Hg] MEDENT ([facility] ) Heart rate 89 /min 89 /min MEDENT ([facility], ) Oxygen saturation in Arterial blood by Pulse oximetry 98 % 98 % [facility] Body height 72 [in_i] 72 [in_i] MEDENT ([facility], ) 6'0" Body weight 166.00 [lb_av] 166.00 [lb_av] MEDEN T ([facility], ) Body mass index (BMI) [Ratio] 22.5 kg/m2 22.5 k g/m2 [facility] ([facility]) [place] body weight 178 [lb_av] 178 [lb_av] MEDEN T ([facility]) Body weight 75.298 kg 75.298 kg [facility] ([facility]) Body surface area Derived from formula 1.97 m2 1.97 m2 MEDENT ([facility]) Body weight 185 [lb_av] 185 [lb_av] eCW1 ([facility]) Body height 72 [in_i] 72 [in_i] eCW1 ([facility]) Body mass index (BMI) [Ratio] 25.09 kg/m2 25.09 kg/m2 eCW1 ([facility]) Heart rate 106 /min 106 /min eCW1 ([facility]) Respiratory rate 18 /min 18 /min eCW1 ([facility]) Body temperature 97.4 [degF] 97.4 [degF] eCW1 ( [facility]) Systolic blood pressure 128 mm[Hg] 128 mm[Hg] e CW1 ([facility]) Diastolic blood pressure 82 mm[Hg] 82 mm[Hg] eCW1 ([facility]) Body height 72 [in_i] 72 [in_i] eCW1 ([facility]) Body mass index (BMI) [Ratio] 25.09 kg/m2 25.09 kg/m2 eCW1 ([facility]) Heart rate 106 /min 106 /min eCW1 ([facility]) Respiratory rate 18 /min 18 /min eCW1 ([facility]) Body temperature 97.4 [degF] 97.4 [degF] eCW1 ( [facility]) Systolic blood pressure 128 mm[Hg] 128 mm[Hg] e CW1 ([facility]) Diastolic blood pressure 82 mm[Hg] 82 mm[Hg] eCW1 ([facility]) Body weight 185 [lb_av] 185 [lb_av] eCW1 ([facility]) Systolic blood pressure 170 mm[Hg] 170 mm[Hg] Ngozi DUBON ([facility], [facility]) Diastolic blood pressure 118 mm[Hg] 118 mm[Hg] [facility] ([facility], [facility]) Heart rate 106 /min 106 /min [facility] ([facility], [facility]) Respiratory rate 18 /min 18 /min [facility] ( [facility]) Oxygen saturation in Arterial blood by Pulse oximetry 96 % 96 % [facility] ([facility]) Body temperature 97.7 [degF] 97.7 [degF] [facility] ([facility]) Body weight 180.00 [lb_av] 180.00 [lb_av] MEDEN T ([facility]) Body height 72 [in_i] 72 [in_i] [facility] ([facility]) 6'0" Body mass index (BMI) [Ratio] 24.4 kg/m2 24.4 k g/m2 [facility] ([facility]) Patient Treatment Plan of Care Planned Activity Planned Date Details Description Data Source (s) Acamprosate calcium 333 MG Delayed Release Oral Tablet 04/28/2021 12:00:00 AM EDT eCW1 ([facility] gabapentin 800 MG Oral Tablet 04/28/2021 12:00:00 AM EDT eCW1 ([facility]) Acamprosate calcium 333 MG Delayed Release Oral Tablet 04/28/2021 12:00:00 AM EDT eCW1 ([facility]) gabapentin 800 MG Oral Tablet 04/28/2021 12:00:00 AM EDT eCW1 ([facility]) Acamprosate calcium 333 MG Delayed Release Oral Tablet 04/28/2021 12:00:00 AM EDT eCW1 ([facility]) gabapentin 800 MG Oral Tablet 04/28/2021 12:00:00 AM EDT eCW1 ([facility]) gabapentin 100 MG Oral Capsule 04/19/2021 12:00:00 AM EDT eCW1 ([facility]) gabapentin 100 MG Oral Capsule 04/19/2021 12:00:00 AM EDT eCW1 ([facility]) gabapentin 100 MG Oral Capsule 04/19/2021 12:00:00 AM EDT eCW1 ([facility]) gabapentin 100 MG Oral Capsule 04/19/2021 12:00:00 AM EDT eCW1 ([facility]) gabapentin 100 MG Oral Capsule 04/19/2021 12:00:00 AM EDT eCW1 ([facility]) meloxicam 15 MG Oral Tablet 04/08/2021 12:00:00 AM EDT eCW1 ([facility]) meloxicam 15 MG Oral Tablet 04/08/2021 12:00:00 AM EDT eCW1 ([facility]) meloxicam 15 MG Oral Tablet 04/08/2021 12:00:00 AM EDT eCW1 ([facility]) meloxicam 15 MG Oral Tablet 04/08/2021 12:00:00 AM EDT eCW1 ([facility]) meloxicam 15 MG Oral Tablet 04/08/2021 12:00:00 AM EDT eCW1 ([facility]) meloxicam 15 MG Oral Tablet 04/08/2021 12:00:00 AM EDT eCW1 ([facility]) meloxicam 15 MG Oral Tablet 04/08/2021 12:00:00 AM EDT eCW1 ([facility]) Furosemide 20 MG Oral Tablet [Lasix] 03/19/2021 12:00:00 AM EDT eCW1 ([facility]) Furosemide 20 MG Oral Tablet [Lasix] 03/19/2021 12:00:00 AM EDT eCW1 ([facility]) Furosemide 20 MG Oral Tablet [Lasix] 03/19/2021 12:00:00 AM EDT eCW1 ([facility]) Diazepam 5 MG Oral Tablet 02/04/2021 12:00:00 AM EDT eCW1 ([facility]) Diazepam 5 MG Oral Tablet 02/04/2021 12:00:00 AM EDT eCW1 ([facility]) Diazepam 5 MG Oral Tablet 02/04/2021 12:00:00 AM EDT eCW1 ([facility]) Chlordiazepoxide Hydrochloride 25 MG Oral Capsule 01/23/2021 12: 00:00 AM EDT eCW1 ([facility]) Chlordiazepoxide Hydrochloride 25 MG Oral Capsule 01/23/2021 12: 00:00 AM EDT eCW1 ([facility]) 24 HR Nicotine 0.292 MG/HR Transdermal Patch [Nicoderm C-Q] 10/14/2020 12:00:00 AM EDT eCW1 ([facility] hospital) 24 HR Nicotine 0.292 MG/HR Transdermal Patch [Nicoderm C-Q] 10/14/2020 12:00:00 AM EDT eCW1 ([facility]) 24 HR Nicotine 0.875 MG/HR Transdermal Patch [Nicoderm C-Q] 10/07/2020 12:00:00 AM EDT eCW1 ([facility]) 24 HR Nicotine 0.875 MG/HR Transdermal Patch [Nicoderm C-Q] 10/07/2020 12:00:00 AM EDT eCW1 ([facility] hospital) Chlordiazepoxide Hydrochloride 25 MG Oral Capsule 09/18/2020 12: 00:00 AM EDT eCW1 ([facility]) Chlordiazepoxide Hydrochloride 25 MG Oral Capsule 09/18/2020 12: 00:00 AM EDT eCW1 ([facility]) Chlordiazepoxide Hydrochloride 25 MG Oral Capsule 09/18/2020 12: 00:00 AM EDT eCW1 ([facility])
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
--- OUTSIDE RECORDS SUMMARY | 2021-05-06 14:18 | CCD | Continuity of Care Document ---
Author Author Conner BENZ DO Organization Unknown Address [address] [facility], [address] [place] [address] Phone [phone] Care Team Providers Care Oil Burner Technician Name Role Phone AUTM Unavailable Erich Keith DO AUTM [phone] Problems Description No Information Available Social History [...] lb BMI (Body Mass Index) 24.7 kg/m2 [place] Body Weight 178 lb Weight 82.555 kg BSA (Body Surface Area) 2.05 m2 09/16/2020 2:50pm BP Systolic 164 mmHg BP Diastolic 88 mmHg Heart Rate 89 /min O2 % BldC Oximetry 98 % Height 72 inches 6'0" Weight 166.00 lb BMI (Body Mass Index) 22.5 kg/m2 [place] Body Weight 178 lb Weight 75.298 kg BSA (Body Surface Area) 1.97 m2 Results Description No Information Available Procedures Date Code Description Status 02/06/2021 90977 Office/Outpatient Established Mo d MDM 30-39 Min Completed 09/16/2020 73611 Tobacco Cessation Counseling Com pleted 09/16/2020 39886 Office/Outpatient Established Mo d MDM 30-39 Min Completed Medical Devices Description No Information Available Encounters Type Date Location Provider Dx Diagnosis Office Visit 02/06/2021 10:45a [facility] Ankit Benz DO K42.0 Umbilical hernia with obstruction, witho ut gangrene Office Visit 09/16/2020 3:00p [facility] Pulmonary/Thoracic K Camelia jean M.D. J44.9 Chronic obstructive pulmonar y disease, unspecified F17.218 Nicotine dependence, cigaret sandra, w oth disorders R91.8 Other nonspecific abnormal f inding of lung field Assessments Date Code Description Provider 02/06/2021 K42.0 Umbilical hernia with obstructio n, [...] Manjarrez M.D. Plan of Treatment Future Appointment(s):* 04/07/2021 11:00 am - PAGE Hui at [facility] * 03/24/2021 9:00 am - Ankit Benz DO at [facility] * 03/04/2021 11:30 am - Camelia Manjarrez M.D. at [facility] Pulmonary/Thoracic 02/06/2021 - Ankit Benz DO* K42.0 Umbilical hernia with obstruction, without gangrene* Comments:* 60 y/o male presents with an incarcerated recurrent umbilical hernia. Recommendation at this time is to proceed with robotic assisted repair possible open. The risks and benefits of the procedure were discussed in detail. The risks include, but are not limited to bleeding, infection, need for open surgery, and possibility of recurrence. He understands the risks and elects to proceed with surgery. Functional Status Description No Information Available Mental Status Description No Information Available Referrals Refer to Reason for Referral Status Appt Date Camelia Manjarrez M.D. COPD/ABN FINDING CT Scheduled 11/26 [facility], Pulmonary [address] [place], [place] [address] [phone]
--- OUTSIDE RECORDS SUMMARY | 2021-05-06 16:34 | CCD ---
Author Author [facility] Organization [facility] Address Unknown Phone Unavailable Care Team Providers Care Aba Therapist Name Role Phone Ortiz Mary RUBBER DOWN Unavailable Unavailable Ortiz, Mary RUBBER DOWN Unavailable Unavailable Ortiz, Mary RUBBER DOWN Unavailable Unavailable Ortiz, Mary RUBBER DOWN Unavailable Unavailable Ortiz, Mary RUBBER DOWN Unavailable Unavailable Ortiz, Mary RUBBER DOWN Unavailable Unavailable Ortiz, Mary RUBBER DOWN Unavailable Unavailable Ortiz, Mary RUBBER DOWN Unavailable Unavailable Ortiz, Mary RUBBER DOWN Unavailable Unavailable Ortiz, Mary RUBBER DOWN Unavailable Unavailable Ortiz, Mary RUBBER DOWN Unavailable Unavailable Ortiz, Mary RUBBER DOWN Unavailable Unavailable Ortiz, Mary RUBBER DOWN Unavailable Unavailable Camelia Manjarrez MD Unavailable Unavailable [...] is protected by Article 27-F of the [facility] Public Health law. If you continue you may have access to information: Regarding HIV / AIDS; Provided by facilities licensed or operated by the [facility] Office of Mental Health; or Provided by the [facility] Office for People With Developmental Disabilities. If such information is present, then the following [facility] mandated warning applies: This information has been [...] law may result in a fine or usp sentence or both. A general authorization for the release of medical or other information is NOT sufficient authorization for further disc losure. Encounters Encounter Providers Location Date Indications Data Source(s ) [place] [address] [facility] [address] 04/28/2021 12:00:00 AM EDT eCW1 ([facility]) [place] [address] [facility] [address] 04/25/2021 12:00:00 AM EDT eCW1 ([facility]) Outpatient Attender: Camelia Shah/Eder/Randal/Eddie bee 04/23/2021 02:00:00 PM EDT MEDENT ([facility]) [place] [address] [facility] [address] 04/17/2021 12:00:00 AM EDT eCW1 ([facility]) [place] [address] [facility] [address] 04/15/2021 12:00:00 AM EDT eCW1 ([facility]) [place] [address] [facility] [address] 04/15/2021 12:00:00 AM EDT eCW1 ([facility]) [place] [address] [facility] [address] 04/09/2021 12:00:00 AM EDT eCW1 ([facility]) [place] [address] [facility] [address] 04/09/2021 12:00:00 AM EDT eCW1 ([facility]) [place] [address] [facility] [address] 04/08/2021 12:00:00 AM EDT eCW1 ([facility]) [place] [address] [facility] [address] 04/08/2021 12:00:00 AM EDT eCW1 ([facility]) [place] [address] [facility] [address] 03/24/2021 12:00:00 AM EDT eCW1 ([facility]) [place] [address] [facility] [address] 03/20/2021 12:00:00 AM EDT eCW1 ([facility]) Outpatient [address] [facility] [address] 03/19/2021 12:00:00 AM EDT eCW1 ([facility]) Unknown [address] [facility] [address] 03/05/2021 12:00:00 AM EDT eCW1 ([facility]) [place] [address] [facility] [address] 02/11/2021 12:00:00 AM EDT eCW1 ([facility]) Outpatient Attender: DEAN Stock/Eder/Randal/Eddie bee 02/06/2021 10:45:00 AM EDT MEDENT ([facility]) [place] [address] [facility] [address] 02/03/2021 12:00:00 AM EDT eCW1 ([facility]) Outpatient [address] [facility] [address] 01/23/2021 12:00:00 AM EDT eCW1 ([facility]) Unknown [address] [facility] [address] 01/23/2021 12:00:00 AM EDT eCW1 ([facility]) Unknown [address] [facility] [address] 01/21/2021 12:00:00 AM EDT eCW1 ([facility]) [place] [address] [facility] [address] 01/17/2021 12:00:00 AM EDT eCW1 ([facility]) [place] [address] [facility] [address] 12/30/2020 12:00:00 AM EDT eCW1 ([facility]) Unknown [address] [facility] [place] [address] 12/24/2020 12:00:00 AM EDT eCW1 ([facility]) Outpatient [address] [facility] [address] 12/18/2020 12:00:00 AM EDT eCW1 ([facility]) Unknown [address] [facility] [address] 12/16/2020 12:00:00 AM EDT eCW1 ([facility]) Outpatient [address] [facility] [address] 11/26/2020 12:00:00 AM EDT eCW1 ([facility]) Unknown [address] [facility] [address] 10/22/2020 12:00:00 AM EDT eCW1 ([facility]) Outpatient [address] [facility] [address] 10/15/2020 12:00:00 AM EDT [facility]CW1 ([facility]) [place] [address] [facility] [address] 10/14/2020 12:00:00 AM EDT eCW1 ([facility]) Unknown [address] [facility] [address] 10/04/2020 12:00:00 AM EDT eCW1 ([facility]) Unknown [address] [facility] [address] 10/04/2020 12:00:00 AM EDT eCW1 ([facility]) Outpatient [address] [facility] [address] 09/30/2020 12:00:00 AM EDT eCW1 ([facility]) Unknown [address] [facility] [address] 09/27/2020 12:00:00 AM EDT eCW1 ([facility]) Unknown [address] [facility] [address] 09/26/2020 12:00:00 AM EDT eCW1 ([facility]) Unknown [address] [facility] [address] 09/23/2020 12:00:00 AM EDT eCW1 ([facility]) [place] [address] [facility] [place] [address] 09/19/2020 12:00:00 AM EDT eCW1 ([facility]) Outpatient Attender: Camelia Shah/Eder/Randal/Eddie bee 09/16/2020 03:00:00 PM EDT MEDENT ([facility]) [place] [address] [facility] [address] 08/30/2020 12:00:00 AM EST eCW1 ([facility]) Unknown [address] [facility] [address] 08/08/2020 12:00:00 AM EST eCW1 ([facility]) Outpatient [address] [facility] [place] [address] 07/22/2020 12:00:00 AM EST eCW1 ([facility]) Unknown [address] [facility] [place] [address] 07/18/2020 12:00:00 AM EST eCW1 ([facility]) Unknown [address] [facility] [place] [address] 07/11/2020 12:00:00 AM EST eCW1 ([facility]) Unknown [address] [facility] [place] [address] 06/13/2020 12:00:00 AM EST eCW1 ([facility]) Unknown [address] [facility] [place] [address] 06/10/2020 12:00:00 AM EST eCW1 ([facility]) Outpatient Attender: Mary bella 06/03/2020 01:35:00 PM EST MEDENT ([facility]) Unknown [address] [facility] [place] [address] 05/24/2020 12:00:00 AM EST eCW1 ([facility]) Unknown [address] [facility] [place] [address] 05/13/2020 12:00:00 AM EST eCW1 ([facility]) Unknown [address] [facility] [place] [address] 05/07/2020 12:00:00 AM EST eCW1 ([facility]) Unknown [address] [facility] [place] [address] 04/25/2020 12:00:00 AM EDT eCW1 ([facility]) Unknown [address] [facility] [address] 04/03/2020 12:00:00 AM EDT eCW1 ([facility]) Immunizations Vaccine Date Status Description Data Source(s) influenza, recombinant, quadrIvalent,injectable, prese rvative free 04/08/2021 05:47:00 PM EDT completed eCW1 ([facility]) influenza, recombinant, quadrIvalent,injectable, prese rvative free 04/08/2021 05:47:00 PM EDT completed eCW1 ([facility]) influenza, recombinant, quadrIvalent,injectable, prese rvative free 04/08/2021 05:47:00 PM EDT completed eCW1 ([facility]) influenza, recombinant, quadrIvalent,injectable, prese rvative free 04/08/2021 05:47:00 PM EDT completed eCW1 ([facility]) influenza, recombinant, quadrIvalent,injectable, prese rvative free 04/08/2021 05:47:00 PM EDT completed eCW1 ([facility]) influenza, recombinant, quadrIvalent,injectable, prese rvative free 04/08/2021 05:47:00 PM EDT completed eCW1 ([facility]) influenza, recombinant, quadrIvalent,injectable, prese rvative free 04/08/2021 05:47:00 PM EDT completed eCW1 ([facility]) influenza, recombinant, quadrIvalent,injectable, prese rvative free 04/08/2021 05:47:00 PM EDT completed eCW1 ([facility]) influenza, recombinant, quadrIvalent,injectable, prese rvative free 04/08/2021 05:47:00 PM EDT completed eCW1 ([facility]) influenza, recombinant, quadrIvalent,injectable, prese rvative free 04/08/2021 05:47:00 PM EDT completed eCW1 ([facility]) COVID-19 VACCINE Oscar 09/13/2020 12:00:00 AM EST completed [employer] Vaccine Series Complete: YESThis Data wa s Submitted to [facility] Via [employer]. influenza, recombinant, quadrIvalent,injectable, prese rvative free 04/02/2020 01:28:00 PM EDT completed eCW1 ([facility]) influenza, recombinant, quadrIvalent,injectable, prese rvative free 04/02/2020 01:28:00 PM EDT completed eCW1 ([facility]) influenza, recombinant, quadrIvalent,injectable, prese rvative free 04/02/2020 01:28:00 PM EDT completed eCW1 ([facility]) influenza, recombinant, quadrIvalent,injectable, prese rvative free 04/02/2020 01:28:00 PM EDT completed eCW1 ([facility]) influenza, recombinant, quadrIvalent,injectable, prese rvative free 04/02/2020 01:28:00 PM EDT completed eCW1 ([facility]) influenza, recombinant, quadrIvalent,injectable, prese rvative free 04/02/2020 01:28:00 PM EDT completed eCW1 ([facility]) influenza, recombinant, quadrIvalent,injectable, prese rvative free 04/02/2020 01:28:00 PM EDT completed eCW1 ([facility]) influenza, recombinant, quadrIvalent,injectable, prese rvative free 04/02/2020 01:28:00 PM EDT completed eCW1 ([facility]) influenza, recombinant, quadrIvalent,injectable, prese rvative free 04/02/2020 01:28:00 PM EDT completed eCW1 ([facility]) influenza, recombinant, quadrIvalent,injectable, prese rvative free 04/02/2020 01:28:00 PM EDT completed eCW1 ([facility]) influenza, recombinant, quadrIvalent,injectable, prese rvative free 04/02/2020 01:28:00 PM EDT completed eCW1 ([facility]) influenza, recombinant, quadrIvalent,injectable, prese rvative free 04/02/2020 01:28:00 PM EDT completed eCW1 ([facility]) influenza, recombinant, quadrIvalent,injectable, prese rvative free 04/02/2020 01:28:00 PM EDT completed eCW1 ([facility]) influenza, recombinant, quadrIvalent,injectable, prese rvative free 04/02/2020 01:28:00 PM EDT completed eCW1 ([facility]) influenza, recombinant, quadrIvalent,injectable, prese rvative free 04/02/2020 01:28:00 PM EDT completed eCW1 ([facility]) influenza, recombinant, quadrIvalent,injectable, prese rvative free 04/02/2020 01:28:00 PM EDT completed eCW1 ([facility]) influenza, recombinant, quadrIvalent,injectable, prese rvative free 04/02/2020 01:28:00 PM EDT completed eCW1 ([facility]) influenza, recombinant, quadrIvalent,injectable, prese rvative free 04/02/2020 01:28:00 PM EDT completed eCW1 ([facility]) influenza, recombinant, quadrIvalent,injectable, prese rvative free 04/02/2020 01:28:00 PM EDT completed eCW1 ([facility]) influenza, recombinant, quadrIvalent,injectable, prese rvative free 04/02/2020 01:28:00 PM EDT completed eCW1 ([facility]) influenza, recombinant, quadrIvalent,injectable, prese rvative free 04/02/2020 01:28:00 PM EDT completed eCW1 ([facility]) influenza, recombinant, quadrIvalent,injectable, prese rvative free 04/02/2020 01:28:00 PM EDT completed eCW1 ([facility]) influenza, recombinant, quadrIvalent,injectable, prese rvative free 04/02/2020 01:28:00 PM EDT completed eCW1 ([facility]) influenza, recombinant, quadrIvalent,injectable, prese rvative free 04/02/2020 01:28:00 PM EDT completed eCW1 ([facility]) influenza, recombinant, quadrIvalent,injectable, prese rvative free 04/02/2020 01:28:00 PM EDT completed eCW1 ([facility]) influenza, recombinant, quadrIvalent,injectable, prese rvative free 04/02/2020 01:28:00 PM EDT completed eCW1 ([facility]) influenza, recombinant, quadrIvalent,injectable, prese rvative free 04/02/2020 01:28:00 PM EDT completed eCW1 ([facility]) influenza, recombinant, quadrIvalent,injectable, prese rvative free 04/02/2020 01:28:00 PM EDT completed eCW1 ([facility]) influenza, recombinant, quadrIvalent,injectable, prese rvative free 04/02/2020 01:28:00 PM EDT completed eCW1 ([facility]) influenza, recombinant, quadrIvalent,injectable, prese rvative free 04/02/2020 01:28:00 PM EDT completed eCW1 ([facility]) influenza, recombinant, quadrIvalent,injectable, prese rvative free 04/02/2020 01:28:00 PM EDT completed eCW1 ([facility]) influenza, recombinant, quadrIvalent,injectable, prese rvative free 04/02/2020 01:28:00 PM EDT completed eCW1 ([facility]) influenza, recombinant, quadrIvalent,injectable, prese rvative free 04/02/2020 01:28:00 PM EDT completed eCW1 ([facility]) influenza, recombinant, quadrIvalent,injectable, prese rvative free 04/02/2020 01:28:00 PM EDT completed eCW1 ([facility]) influenza, recombinant, quadrIvalent,injectable, prese rvative free 04/02/2020 01:28:00 PM EDT completed eCW1 ([facility]) influenza, recombinant, quadrIvalent,injectable, prese rvative free 04/02/2020 01:28:00 PM EDT completed eCW1 ([facility]) Medications Medication Brand Name Start Date Product [...] {tablet} active Ga bapentin 800 MG eCW1 [facility]) gabapentin 800 MG Oral Tablet Gabapentin 800 MG Gabapentin 8 00 MG 04/28/2021 12:00:00 AM EDT 1.0 {tablet} active Ga bapentin 800 MG eCW1 ([facility]) gabapentin 800 MG Oral Tablet Gabapentin 800 MG Gabapentin 8 00 MG 04/28/2021 12:00:00 AM EDT 1.0 {tablet} active Ga bapentin 800 MG eCW1 ([facility]) Acamprosate calcium 333 MG Delayed Relea se Oral Tablet Acamprosate Calcium 333 MG Acamprosate Calcium 333 MG 04/28/2021 12:00:00 AM EDT 2.0 {table ts} active Acamprosate Calcium 333 MG eCW1 ([facility]) Acamprosate calcium 333 MG Delayed Relea se Oral Tablet Acamprosate Calcium 333 MG Acamprosate Calcium 333 MG 04/28/2021 12:00:00 AM EDT 2.0 {table ts} active Acamprosate Calcium 333 MG eCW1 ([facility]) Acamprosate calcium 333 MG Delayed Relea se Oral Tablet Acamprosate Calcium 333 MG Acamprosate Calcium 333 MG 04/28/2021 12:00:00 AM EDT 2.0 {table ts} active Acamprosate Calcium 333 MG eCW1 ([facility]) gabapentin 800 MG Oral Tablet GABAPENTIN 04/28/2021 [...] 2.0 {capsules} active Gabapentin 100 MG eCW1 ([facility]) gabapentin 100 MG Oral Capsule Gabapentin 100 MG Gabapentin 100 MG 04/19/2021 12:00:00 AM EDT 2.0 {capsules} active Gabapentin 100 MG eCW1 ([facility]) gabapentin 100 MG Oral Capsule Gabapentin 100 MG Gabapentin 100 MG 04/19/2021 12:00:00 AM EDT 2.0 {capsules} active Gabapentin 100 MG eCW1 ([facility]) gabapentin 100 MG Oral Capsule Gabapentin 100 MG Gabapentin 100 MG 04/19/2021 12:00:00 AM EDT 2.0 {capsules} active Gabapentin 100 MG eCW1 ([facility]) gabapentin 100 MG Oral Capsule Gabapentin 100 MG Gabapentin 100 MG 04/19/2021 12:00:00 AM EDT 2.0 {capsules} active Gabapentin 100 MG eCW1 ([facility]) 1 mg 04/15/2021 12:00:00 AM EDT tablet [...] 1.0 {tablet_in_the_morning_with_food} active Meloxicam 15 MG eCW1 ([facility]) meloxicam 15 MG Oral Tablet Meloxicam 15 MG Meloxicam 15 MG 04/08/2021 12:00:00 AM EDT 1.0 {tablet_in_the_morning_with_food} active Meloxicam 15 MG eCW1 ([facility]) meloxicam 15 MG Oral Tablet Meloxicam 15 MG Meloxicam 15 MG 04/08/2021 12:00:00 AM EDT 1.0 {tablet_in_the_morning_with_food} active Meloxicam 15 MG eCW1 ([facility]) meloxicam 15 MG Oral Tablet Meloxicam 15 MG Meloxicam 15 MG 04/08/2021 12:00:00 AM EDT 1.0 {tablet_in_the_morning_with_food} active Meloxicam 15 MG eCW1 ([facility]) meloxicam 15 MG Oral Tablet Meloxicam 15 MG Meloxicam 15 MG 04/08/2021 12:00:00 AM EDT 1.0 {tablet_in_the_morning_with_food} active Meloxicam 15 MG eCW1 ([facility]) meloxicam 15 MG Oral Tablet Meloxicam 15 MG Meloxicam 15 MG 04/08/2021 12:00:00 AM EDT 1.0 {tablet_in_the_morning_with_food} active Meloxicam 15 MG eCW1 ([facility]) meloxicam 15 MG Oral Tablet Meloxicam 15 MG Meloxicam 15 MG 04/08/2021 12:00:00 AM EDT 1.0 {tablet_in_the_morning_with_food} active Meloxicam 15 MG eCW1 ([facility]) Furosemide 20 MG Oral Tablet [Lasix] Lasix 20 MG Lasix 20 MG 03/19/2021 12:00:00 AM EDT 1.0 {tablet} active Lasix 20 M G eCW1 ([facility]) Furosemide 20 MG Oral Tablet [Lasix] Lasix 20 MG Lasix 20 MG 03/19/2021 12:00:00 AM EDT 1.0 {tablet} active Lasix 20 M G eCW1 ([facility]) Furosemide 20 MG Oral Tablet [Lasix] Lasix 20 MG Lasix 20 MG 03/19/2021 12:00:00 AM EDT 1.0 {tablet} active Lasix 20 M G eCW1 ([facility]) Furosemide 20 MG Oral Tablet [Lasix] Lasix 20 MG Lasix 20 MG 03/19/2021 12:00:00 AM EDT 1.0 {tablet} active Lasix 20 M G eCW1 ([facility]) Furosemide 20 MG Oral Tablet [Lasix] Lasix 20 MG Lasix 20 MG 03/19/2021 12:00:00 AM EDT 1.0 {tablet} active Lasix 20 M G eCW1 ([facility]) Furosemide 20 MG Oral Tablet [Lasix] Lasix 20 MG Lasix 20 MG 03/19/2021 12:00:00 AM EDT 1.0 {tablet} active Lasix 20 M G eCW1 ([facility]) Furosemide 20 MG Oral Tablet [Lasix] Lasix 20 MG Lasix 20 MG 03/19/2021 12:00:00 AM EDT 1.0 {tablet} active Lasix 20 M G eCW1 ([facility]) Furosemide 20 MG Oral Tablet [Lasix] Lasix 20 MG Lasix 20 MG 03/19/2021 12:00:00 AM EDT 1.0 {tablet} active Lasix 20 M G eCW1 ([facility]) Furosemide 20 MG Oral Tablet [Lasix] Lasix 20 MG Lasix 20 MG 03/19/2021 12:00:00 AM EDT 1.0 {tablet} active Lasix 20 M G eCW1 ([facility]) 20 mg 03/19/2021 12:00:00 AM EDT tablet 30 TAKE ONE TABLET BY MOUTH EVERY DAY TAKE ONE TABLET BY MOUTH EVERY DAY SOLD: 03/19/2021 [facility] Furosemide 20 MG Oral Tablet [Lasix] Lasix 20 MG Lasix 20 MG 03/19/2021 12:00:00 AM EDT 1.0 {tablet} active Lasix 20 M G eCW1 ([facility]) Furosemide 20 MG Oral Tablet [Lasix] Lasix 20 MG Lasix 20 MG 03/19/2021 12:00:00 AM EDT 1.0 {tablet} active Lasix 20 M G eCW1 ([facility]) Furosemide 20 MG Oral Tablet [Lasix] Lasix 20 MG Lasix 20 MG 03/19/2021 12:00:00 AM EDT 1.0 {tablet} active Lasix 20 M G eCW1 ([facility]) Furosemide 20 MG Oral Tablet [Lasix] Lasix 20 MG Lasix 20 MG 03/19/2021 12:00:00 AM EDT 1.0 {tablet} active Lasix 20 M G eCW1 ([facility]) 500 mg 03/11/2021 12:00:00 AM EDT tablet [...] 1.0 {tablet} active diazePAM 5 MG eCW1 ([facility]) Diazepam 5 MG Oral Tablet diazePAM 5 MG diazePAM 5 MG 02/04/2021 12:00:00 AM EDT 1.0 {tablet} active diazePAM 5 MG eCW1 ([facility]) Diazepam 5 MG Oral Tablet diazePAM 5 MG diazePAM 5 MG 02/04/2021 12:00:00 AM EDT 1.0 {tablet} active diazePAM 5 MG eCW1 ([facility]) Diazepam 5 MG Oral Tablet diazePAM 5 MG diazePAM 5 MG 02/04/2021 12:00:00 AM EDT 1.0 {tablet} active diazePAM 5 MG eCW1 ([facility]) Diazepam 5 MG Oral Tablet diazePAM 5 MG diazePAM 5 MG 02/04/2021 12:00:00 AM EDT 1.0 {tablet} active diazePAM 5 MG eCW1 ([facility]) Diazepam 5 MG Oral Tablet diazePAM 5 MG diazePAM 5 MG 02/04/2021 12:00:00 AM EDT 1.0 {tablet} active diazePAM 5 MG eCW1 ([facility]) Diazepam 5 MG Oral Tablet diazePAM 5 MG diazePAM 5 MG 02/04/2021 12:00:00 AM EDT 1.0 {tablet} active diazePAM 5 MG eCW1 ([facility]) 5 mg 02/04/2021 12:00:00 AM EDT tablet [...] 1.0 {tablet} active diazePAM 5 MG eCW1 ([facility]) Diazepam 5 MG Oral Tablet diazePAM 5 MG diazePAM 5 MG 02/04/2021 12:00:00 AM EDT 1.0 {tablet} active diazePAM 5 MG eCW1 ([facility]) Diazepam 5 MG Oral Tablet diazePAM 5 MG diazePAM 5 MG 02/04/2021 12:00:00 AM EDT 1.0 {tablet} active diazePAM 5 MG eCW1 ([facility]) Diazepam 5 MG Oral Tablet diazePAM 5 MG diazePAM 5 MG 02/04/2021 12:00:00 AM EDT 1.0 {tablet} active diazePAM 5 MG eCW1 ([facility]) Diazepam 5 MG Oral Tablet diazePAM 5 MG diazePAM 5 MG 02/04/2021 12:00:00 AM EDT 1.0 {tablet} active diazePAM 5 MG eCW1 ([facility]) Diazepam 5 MG Oral Tablet diazePAM 5 MG diazePAM 5 MG 02/04/2021 12:00:00 AM EDT 1.0 {tablet} active diazePAM 5 MG eCW1 ([facility]) Diazepam 5 MG Oral Tablet diazePAM 5 MG diazePAM 5 MG 02/04/2021 12:00:00 AM EDT 1.0 {tablet} active diazePAM 5 MG eCW1 ([facility]) Diazepam 5 MG Oral Tablet diazePAM 5 MG diazePAM 5 MG 02/04/2021 12:00:00 AM EDT 1.0 {tablet} active diazePAM 5 MG eCW1 ([facility]) Diazepam 5 MG Oral Tablet diazePAM 5 MG diazePAM 5 MG 02/04/2021 12:00:00 AM EDT 1.0 {tablet} active diazePAM 5 MG eCW1 ([facility]) 10 mg 02/02/2021 12:00:00 AM EDT tablet [...] TABLET BY MOUTH EVERY DAY SOLD: 04/12/2021 [facility] Chlordiazepoxide Hydrochloride 25 MG Oral Capsule chlo rdiazePOXIDE HCl 25 MG chlordiazePOXIDE HCl 25 MG 01/23/2021 12:00:00 AM EDT 1.0 {capsule} suspended chlordiazePOXIDE HCl 25 MG eCW1 ([facility]) Chlordiazepoxide Hydrochloride 25 MG Oral Capsule chlo rdiazePOXIDE HCl 25 MG chlordiazePOXIDE HCl 25 MG 01/23/2021 12:00:00 AM EDT 1.0 {capsule} active chlordiazePOXIDE HCl 25 MG eCW1 ([facility]) Chlordiazepoxide Hydrochloride 25 MG Oral Capsule chlo rdiazePOXIDE HCl 25 MG chlordiazePOXIDE HCl 25 MG 01/23/2021 12:00:00 AM EDT 1.0 {capsule} suspended chlordiazePOXIDE HCl 25 MG eCW1 ([facility]) Chlordiazepoxide Hydrochloride 25 MG Oral Capsule chlo rdiazePOXIDE HCl 25 MG chlordiazePOXIDE HCl 25 MG 01/23/2021 12:00:00 AM EDT 1.0 {capsule} suspended chlordiazePOXIDE HCl 25 MG eCW1 ([facility]) Chlordiazepoxide Hydrochloride 25 MG Oral Capsule chlo rdiazePOXIDE HCl 25 MG chlordiazePOXIDE HCl 25 MG 01/23/2021 12:00:00 AM EDT 1.0 {capsule} suspended chlordiazePOXIDE HCl 25 MG eCW1 ([facility]) Chlordiazepoxide Hydrochloride 25 MG Oral Capsule chlo rdiazePOXIDE HCl 25 MG chlordiazePOXIDE HCl 25 MG 01/23/2021 12:00:00 AM EDT 1.0 {capsule} suspended chlordiazePOXIDE HCl 25 MG eCW1 ([facility]) Chlordiazepoxide Hydrochloride 25 MG Oral Capsule chlo rdiazePOXIDE HCl 25 MG chlordiazePOXIDE HCl 25 MG 01/23/2021 12:00:00 AM EDT 1.0 {capsule} active chlordiazePOXIDE HCl 25 MG eCW1 ([facility]) Chlordiazepoxide Hydrochloride 25 MG Oral Capsule chlo rdiazePOXIDE HCl 25 MG chlordiazePOXIDE HCl 25 MG 01/23/2021 12:00:00 AM EDT 1.0 {capsule} suspended chlordiazePOXIDE HCl 25 MG [facility] Chlordiazepoxide Hydrochloride 25 MG Oral Capsule chlo rdiazePOXIDE HCl 25 MG chlordiazePOXIDE HCl 25 MG 01/23/2021 12:00:00 AM EDT 1.0 {capsule} active chlordiazePOXIDE HCl 25 MG [facility] Chlordiazepoxide Hydrochloride 25 MG Oral Capsule chlo rdiazePOXIDE HCl 25 MG chlordiazePOXIDE HCl 25 MG 01/23/2021 12:00:00 AM EDT 1.0 {capsule} suspended chlordiazePOXIDE HCl 25 MG [facility]1 [facility] Chlordiazepoxide Hydrochloride 25 MG Oral Capsule chlo rdiazePOXIDE HCl 25 MG chlordiazePOXIDE HCl 25 MG 01/23/2021 12:00:00 AM EDT 1.0 {capsule} suspended chlordiazePOXIDE HCl 25 MG [facility]CW1 [facility] Chlordiazepoxide Hydrochloride 25 MG Oral Capsule chlo rdiazePOXIDE HCl 25 MG chlordiazePOXIDE HCl 25 MG 01/23/2021 12:00:00 AM EDT 1.0 {capsule} suspended chlordiazePOXIDE HCl 25 MG [facility]CW1 [facility] Chlordiazepoxide Hydrochloride 25 MG Oral Capsule chlo rdiazePOXIDE HCl 25 MG chlordiazePOXIDE HCl 25 MG 01/23/2021 12:00:00 AM EDT 1.0 {capsule} suspended chlordiazePOXIDE HCl 25 MG [facility]CW1 [facility] Chlordiazepoxide Hydrochloride 25 MG Oral Capsule chlo rdiazePOXIDE HCl 25 MG chlordiazePOXIDE HCl 25 MG 01/23/2021 12:00:00 AM EDT 1.0 {capsule} active chlordiazePOXIDE HCl 25 MG [facility]CW1 [facility]) Chlordiazepoxide Hydrochloride 25 MG Oral Capsule chlo rdiazePOXIDE HCl 25 MG chlordiazePOXIDE HCl 25 MG 01/23/2021 12:00:00 AM EDT 1.0 {capsule} suspended chlordiazePOXIDE HCl 25 MG [facility]CW1 [facility]) Chlordiazepoxide Hydrochloride 25 MG Oral Capsule chlo rdiazePOXIDE HCl 25 MG chlordiazePOXIDE HCl 25 MG 01/23/2021 12:00:00 AM EDT 1.0 {capsule} active chlordiazePOXIDE HCl 25 MG [facility]CW1 [facility]) Chlordiazepoxide Hydrochloride 25 MG Oral Capsule chlo rdiazePOXIDE HCl 25 MG chlordiazePOXIDE HCl 25 MG 01/23/2021 12:00:00 AM EDT 1.0 {capsule} suspended chlordiazePOXIDE HCl 25 MG [facility]CW1 [facility]) Chlordiazepoxide Hydrochloride 25 MG Oral Capsule chlo rdiazePOXIDE HCl 25 MG chlordiazePOXIDE HCl 25 MG 01/23/2021 12:00:00 AM EDT 1.0 {capsule} suspended chlordiazePOXIDE HCl 25 MG [facility]CW1 [facility]) 90 mcg/actuation 01/22/2021 12:00:00 AM EDT HFA [...] suspended Nicoderm CQ 7 MG/24H R [facility]CW1 ([facility]) 24 HR Nicotine 0.292 MG/HR Transdermal P atch [Nicoderm C-Q] Nicoderm CQ 7 MG/24HR Nicoderm CQ 7 MG/24HR 10/14/2020 12:00:00 AM EDT 1.0 { patch_to_skin} suspended Nicoderm CQ 7 MG/24H R [facility]1 [facility]) 24 HR Nicotine 0.292 MG/HR Transdermal P atch [Nicoderm C-Q] Nicoderm CQ 7 MG/24HR Nicoderm CQ 7 MG/24HR 10/14/2020 12:00:00 AM EDT 1.0 { patch_to_skin} suspended Nicoderm CQ 7 MG/24H R [facility]1 [facility]) 24 HR Nicotine 0.292 MG/HR Transdermal P atch [Nicoderm C-Q] Nicoderm CQ 7 MG/24HR Nicoderm CQ 7 MG/24HR 10/14/2020 12:00:00 AM EDT 1.0 { patch_to_skin} suspended Nicoderm CQ 7 MG/24H R [facility]) 7 mg/24 hr 10/14/2020 12:00:00 AM EDT patch 24 hour 7 APPLY ONE PATCH TO THE SKIN EVERY DAY APPLY ONE PATCH TO THE SKIN EVERY DAY SOLD: 11/08/2020 [facility] 24 HR Nicotine 0.292 MG/HR Transdermal P atch [Nicoderm C-Q] Nicoderm CQ 7 MG/24HR Nicoderm CQ 7 MG/24HR 10/14/2020 12:00:00 AM EDT 1.0 { patch_to_skin} suspended Nicoderm CQ 7 MG/24H R [facility]) 24 HR Nicotine 0.292 MG/HR Transdermal P atch [Nicoderm C-Q] Nicoderm CQ 7 MG/24HR Nicoderm CQ 7 MG/24HR 10/14/2020 12:00:00 AM EDT 1.0 { patch_to_skin} suspended Nicoderm CQ 7 MG/24H R [facility]) 24 HR Nicotine 0.292 MG/HR Transdermal P atch [Nicoderm C-Q] Nicoderm CQ 7 MG/24HR Nicoderm CQ 7 MG/24HR 10/14/2020 12:00:00 AM EDT 1.0 { patch_to_skin} suspended Nicoderm CQ 7 MG/24H R [facility]CW1 [facility]) 24 HR Nicotine 0.292 MG/HR Transdermal P atch [Nicoderm C-Q] Nicoderm CQ 7 MG/24HR Nicoderm CQ 7 MG/24HR 10/14/2020 12:00:00 AM EDT 1.0 { patch_to_skin} suspended Nicoderm CQ 7 MG/24H R [facility]CW1 [facility]) 24 HR Nicotine 0.292 MG/HR Transdermal P atch [Nicoderm C-Q] Nicoderm CQ 7 MG/24HR Nicoderm CQ 7 MG/24HR 10/14/2020 12:00:00 AM EDT 1.0 { patch_to_skin} suspended Nicoderm CQ 7 MG/24H R [facility]CW1 [facility]) 24 HR Nicotine 0.292 MG/HR Transdermal P atch [Nicoderm C-Q] Nicoderm CQ 7 MG/24HR Nicoderm CQ 7 MG/24HR 10/14/2020 12:00:00 AM EDT 1.0 { patch_to_skin} suspended Nicoderm CQ 7 MG/24H R [facility]CW1 [facility]) 24 HR Nicotine 0.292 MG/HR Transdermal P atch [Nicoderm C-Q] Nicoderm CQ 7 MG/24HR Nicoderm CQ 7 MG/24HR 10/14/2020 12:00:00 AM EDT 1.0 { patch_to_skin} suspended Nicoderm CQ 7 MG/24H R [facility]CW1 [facility]) 24 HR Nicotine 0.292 MG/HR Transdermal P atch [Nicoderm C-Q] Nicoderm CQ 7 MG/24HR Nicoderm CQ 7 MG/24HR 10/14/2020 12:00:00 AM EDT 1.0 { patch_to_skin} suspended Nicoderm CQ 7 MG/24H R [facility]CW1 [facility]) 24 HR Nicotine 0.292 MG/HR Transdermal P atch [Nicoderm C-Q] Nicoderm CQ 7 MG/24HR Nicoderm CQ 7 MG/24HR 10/14/2020 12:00:00 AM EDT 1.0 { patch_to_skin} active Nicoderm CQ 7 MG/24H R [facility]CW1 [facility]) 24 HR Nicotine 0.292 MG/HR Transdermal P atch [Nicoderm C-Q] Nicoderm CQ 7 MG/24HR Nicoderm CQ 7 MG/24HR 10/14/2020 12:00:00 AM EDT 1.0 { patch_to_skin} suspended Nicoderm CQ 7 MG/24H R [facility]CW1 [facility]) 24 HR Nicotine 0.292 MG/HR Transdermal P atch [Nicoderm C-Q] Nicoderm CQ 7 MG/24HR Nicoderm CQ 7 MG/24HR 10/14/2020 12:00:00 AM EDT 1.0 { patch_to_skin} suspended Nicoderm CQ 7 MG/24H R [facility]CW1 [facility]) 24 HR Nicotine 0.292 MG/HR Transdermal P atch [Nicoderm C-Q] Nicoderm CQ 7 MG/24HR Nicoderm CQ 7 MG/24HR 10/14/2020 12:00:00 AM EDT 1.0 { patch_to_skin} suspended Nicoderm CQ 7 MG/24H R [facility]CW1 [facility]) 24 HR Nicotine 0.292 MG/HR Transdermal P atch [Nicoderm C-Q] Nicoderm CQ 7 MG/24HR Nicoderm CQ 7 MG/24HR 10/14/2020 12:00:00 AM EDT 1.0 { patch_to_skin} suspended Nicoderm CQ 7 MG/24H R [facility]CW1 [facility]) 24 HR Nicotine 0.292 MG/HR Transdermal P atch [Nicoderm C-Q] Nicoderm CQ 7 MG/24HR Nicoderm CQ 7 MG/24HR 10/14/2020 12:00:00 AM EDT 1.0 { patch_to_skin} active Nicoderm CQ 7 MG/24H R [facility]CW1 [facility]) 24 HR Nicotine 0.292 MG/HR Transdermal P atch [Nicoderm C-Q] Nicoderm CQ 7 MG/24HR Nicoderm CQ 7 MG/24HR 10/14/2020 12:00:00 AM EDT 1.0 { patch_to_skin} active Nicoderm CQ 7 MG/24H R [facility]CW1 [facility]) 24 HR Nicotine 0.292 MG/HR Transdermal P atch [Nicoderm C-Q] Nicoderm CQ 7 MG/24HR Nicoderm CQ 7 MG/24HR 10/14/2020 12:00:00 AM EDT 1.0 { patch_to_skin} active Nicoderm CQ 7 MG/24H R [facility]CW1 [facility]) 24 HR Nicotine 0.292 MG/HR Transdermal P atch [Nicoderm C-Q] Nicoderm CQ 7 MG/24HR Nicoderm CQ 7 MG/24HR 10/14/2020 12:00:00 AM EDT 1.0 { patch_to_skin} suspended Nicoderm CQ 7 MG/24H R [facility]CW1 [facility]) 24 HR Nicotine 0.292 MG/HR Transdermal P atch [Nicoderm C-Q] Nicoderm CQ 7 MG/24HR Nicoderm CQ 7 MG/24HR 10/14/2020 12:00:00 AM EDT 1.0 { patch_to_skin} active Nicoderm CQ 7 MG/24H R [facility]CW1 [facility]) 24 HR Nicotine 0.292 MG/HR Transdermal P atch [Nicoderm C-Q] Nicoderm CQ 7 MG/24HR Nicoderm CQ 7 MG/24HR 10/14/2020 12:00:00 AM EDT 1.0 { patch_to_skin} active Nicoderm CQ 7 MG/24H R [facility]CW1 [facility]) 24 HR Nicotine 0.292 MG/HR Transdermal P atch [Nicoderm C-Q] Nicoderm CQ 7 MG/24HR Nicoderm CQ 7 MG/24HR 10/14/2020 12:00:00 AM EDT 1.0 { patch_to_skin} suspended Nicoderm CQ 7 MG/24H R [facility]CW[facility]) 7 mg/24 hr 10/14/2020 12:00:00 AM EDT patch 24 hour 7 APPLY ONE PATCH TO THE SKIN EVERY DAY APPLY ONE PATCH TO THE SKIN EVERY DAY SOLD: 10/14/2020 [facility] 24 HR Nicotine 0.292 MG/HR Transdermal P atch [Nicoderm C-Q] Nicoderm CQ 7 MG/24HR Nicoderm CQ 7 MG/24HR 10/14/2020 12:00:00 AM EDT 1.0 { patch_to_skin} suspended Nicoderm CQ 7 MG/24H R [facility]CW1 [facility] 24 HR Nicotine 0.292 MG/HR Transdermal P atch [Nicoderm C-Q] Nicoderm CQ 7 MG/24HR Nicoderm CQ 7 MG/24HR 10/14/2020 12:00:00 AM EDT 1.0 { patch_to_skin} suspended Nicoderm CQ 7 MG/24H R [facility]CW1 [facility] 24 HR Nicotine 0.292 MG/HR Transdermal P atch [Nicoderm C-Q] Nicoderm CQ 7 MG/24HR Nicoderm CQ 7 MG/24HR 10/14/2020 12:00:00 AM EDT 1.0 { patch_to_skin} suspended Nicoderm CQ 7 MG/24H R [facility]CW1 [facility]) 24 HR Nicotine 0.292 MG/HR Transdermal P atch [Nicoderm C-Q] Nicoderm CQ 7 MG/24HR Nicoderm CQ 7 MG/24HR 10/14/2020 12:00:00 AM EDT 1.0 { patch_to_skin} suspended Nicoderm CQ 7 MG/24H R [facility]CW1 [facility]) 1 mg 10/11/2020 12:00:00 AM EDT tablet [...] active Nicoderm CQ 21 MG/24 HR [facility]CW1 [facility] 24 HR Nicotine 0.875 MG/HR Transdermal P atch [Nicoderm C-Q] Nicoderm CQ 21 MG/24HR Nicoderm CQ 21 MG/24HR 10/07/2020 12:00:00 AM EDT 1.0 {patch_to_skin} active Nicoderm CQ 21 MG/24 HR [facility]CW1 [facility] 24 HR Nicotine 0.875 MG/HR Transdermal P atch [Nicoderm C-Q] Nicoderm CQ 21 MG/24HR Nicoderm CQ 21 MG/24HR 10/07/2020 12:00:00 AM EDT 1.0 {patch_to_skin} active Nicoderm CQ 21 MG/24 HR [facility]CW1 [facility] 24 HR Nicotine 0.875 MG/HR Transdermal P atch [Nicoderm C-Q] Nicoderm CQ 21 MG/24HR Nicoderm CQ 21 MG/24HR 10/07/2020 12:00:00 AM EDT 1.0 {patch_to_skin} active Nicoderm CQ 21 MG/24 HR [facility]CW1 [facility] 100 mg 09/30/2020 12:00:00 AM EDT tablet [...] {capsule} active Chlordiazepoxide HCl 25 MG eCW1 [facility] Chlordiazepoxide Hydrochloride 25 MG Oral Capsule Chlo rdiazepoxide HCl 25 MG Chlordiazepoxide HCl 25 MG 09/18/2020 12:00:00 AM EDT 1.0 {capsule} active Chlordiazepoxide HCl 25 MG eCW1 [facility]) Chlordiazepoxide Hydrochloride 25 MG Oral Capsule Chlo rdiazepoxide HCl 25 MG Chlordiazepoxide HCl 25 MG 09/18/2020 12:00:00 AM EDT 1.0 {capsule} active Chlordiazepoxide HCl 25 MG eCW1 [facility]) Chlordiazepoxide Hydrochloride 25 MG Oral Capsule Chlo rdiazepoxide HCl 25 MG Chlordiazepoxide HCl 25 MG 09/18/2020 12:00:00 AM EDT 1.0 {capsule} active Chlordiazepoxide HCl 25 MG eCW1 [facility]) Chlordiazepoxide Hydrochloride 25 MG Oral Capsule Chlo rdiazepoxide HCl 25 MG Chlordiazepoxide HCl 25 MG 09/18/2020 12:00:00 AM EDT 1.0 {capsule} active Chlordiazepoxide HCl 25 MG eCW1 [facility]) Chlordiazepoxide Hydrochloride 25 MG Oral Capsule Chlo rdiazepoxide HCl 25 MG Chlordiazepoxide HCl 25 MG 09/18/2020 12:00:00 AM EDT 1.0 {capsule} active Chlordiazepoxide HCl 25 MG eCW1 [facility]) Chlordiazepoxide Hydrochloride 25 MG Oral Capsule Chlo rdiazepoxide HCl 25 MG Chlordiazepoxide HCl 25 MG 09/18/2020 12:00:00 AM EDT 1.0 {capsule} active Chlordiazepoxide HCl 25 MG eCW1 [facility]) Chlordiazepoxide Hydrochloride 25 MG Oral Capsule Chlo rdiazepoxide HCl 25 MG Chlordiazepoxide HCl 25 MG 09/18/2020 12:00:00 AM EDT 1.0 {capsule} active Chlordiazepoxide HCl 25 MG eCW1 [facility]) Chlordiazepoxide Hydrochloride 25 MG Oral Capsule Chlo rdiazepoxide HCl 25 MG Chlordiazepoxide HCl 25 MG 09/18/2020 12:00:00 AM EDT 1.0 {capsule} active Chlordiazepoxide HCl 25 MG eCW1 [facility]) Chlordiazepoxide Hydrochloride 25 MG Oral Capsule Chlo rdiazepoxide HCl 25 MG Chlordiazepoxide HCl 25 MG 09/18/2020 12:00:00 AM EDT 1.0 {capsule} active Chlordiazepoxide HCl 25 MG eCW1 [facility]) Chlordiazepoxide Hydrochloride 25 MG Oral Capsule Chlo rdiazepoxide HCl 25 MG Chlordiazepoxide HCl 25 MG 09/18/2020 12:00:00 AM EDT 1.0 {capsule} active Chlordiazepoxide HCl 25 MG eCW1 [facility] 50 mg 09/17/2020 12:00:00 AM EDT tablet [...] 12:00:00 AM EST ORAL active M EDENT ([facility], ) 62.5 mcg/actuation 06/14/2020 12:00:00 AM EST [...] 03/20/2020 12:00:00 AM EDT ORAL active MEDENT ([facility], ) 600 mg 03/20/2020 12:00:00 AM EDT [...] MOUTH EVERY 6 HOURS NEEDED SOLD: 05/06/2020 [facility] 90 mcg/actuation 03/19/2020 12:00:00 AM EDT HFA aerosol inha ler 8 INHALE 1-2 PUFFS BY MOUTH EVERY 6 HOURS NEEDED INHALE 1-2 PUFFS BY MOUTH EVERY 6 HOURS NEEDED SOLD: 06/12/2020 [facility] 60 ACTUAT Albuterol 0.09 MG/ACTUAT Metered Dose Inhaler Albu terol Sulfate HFA 03/19/2020 12:00:00 AM EDT active MEDENT ([facility], ) 232-14 mcg/actuation 03/13/2020 12:00:00 AM EDT [...] type / Coverage type Policy ID Covered republican ID Covered republican's relationship to tolliver Policy [place] Plan Information [employer] MCDO [id number] SP [id number] [employer] COMM[employer]ITY [employer]AN MCDO [id number] SP [id number] [facility] [id number] SP [id number] [facility](MCAID) O [id number] S [id number] [place]ED[place] [id number] SP [id number] MEDICAID [id number] SP [id number] [employer] COMMUNITY PLAN XIX -RECURRING [id number] 18 [id number] [employer] COMMUNITY PLAN XIX -RECURRING [id number] 18 [id number] [employer]HC COMMUNITY PLAN XIX -RECURRING [id number] 18 [id number] UNHC CP DUAL COMP - RECURRING [id number] 18 [id number] MEDICAID -RECURRING [id number] UNHC CP DUAL COMP - RECURRING [id number] 18 [id number] [employer] COMMUNITY PLAN XIX [id number] 18 [id number] MEDICAID [id number] SP [id number] SELF PAY SP Problems, Conditions, and Diagnoses Code Display Name Description Problem Type Effective Dates Data Source(s) G89.29 [id number] Other chronic pain Problem 03/19/2021 12:00: 00 AM EDT [facility] M54.32 [id number] Sciatica of left side Problem 10/15/2020 12: 00:00 AM EDT eCW1 [facility]) F10.10 [id number] Alcohol abuse Problem 07/22/2020 12:00:00 AM EST eCW1 ([facility]) G47.00 [id number] Insomnia, unspecified type Problem 12:00:00 AM EST eCW1 ([facility]) Surgeries/Procedures Procedure Description Date Indications Data Source(s) Spirometry 04/23/2021 12:00:00 AM EDT Ngozi DUBON ([facility], ) OFFICE OUTPATIENT VISIT 25 MINUTES 04/23/2021 12:00:00 AM EDT ANGIE ([facility], ) TOBACCO USE CESSATION INTERMEDIATE 3-10 MINUTES 2020 12:00:00 AM EDT MEDENT ([facility]) TOBACCO USE CESSATION INTENSIVE >10 MINUTES 04/23/2021 12:00:00 AM EDT MEDENT ([facility]) OFFICE OUTPATIENT VISIT 25 MINUTES 02/06/2021 12:00:00 AM EDT MEDENT ([facility]) OFFICE OUTPATIENT VISIT 25 MINUTES 09/16/2020 12:00:00 AM EDT MEDENT ([facility]) TOBACCO USE CESSATION INTERMEDIATE 3-10 MINUTES 2020 12:00:00 AM EDT MEDENT ([facility]) Results ID Date Data Source [id number] 04/23/2021 01:27:00 PM EDT MEDENT ([facility]) Name Value Range Interpretation Code Description Data Maddie rce(s) Supporting Document(s) FVC-Pred 5.06 L MEDENT ([facility]) PDFReport Laboratory test result MEDENT ([facility]) FVC-LLN 4.08 L MEDENT ([facility]) FVC-%Pred-Pre 63 L MEDENT ([facility]) FVC-Pre 3.22 L MEDENT ([facility]) Fev1-Pre 1.87 L MEDENT ([facility]) Fev1-%Pred-Pre 48 L MEDENT ([facility]) Fev1-Pred 3.84 L MEDENT ([facility]) Fev1-LLN 3.01 L MEDENT ([facility]) Fev6-Pred 4.84 L MEDENT ([facility]) Fev6-LLN 3.89 L MEDENT ([facility]) Fev6-Pre 3.22 L MEDENT ([facility]) Fev6-%Pred-Pre 66 L MEDENT ([facility]) [id number]-Oewc 76 % MEDENT ([facility]) Jts3ron-Yll 58 % MEDENT ([facility]) Xtj8twp-%Pred-Pre 76 % MEDENT ([facility]) [id number]-OOT 66 % MEDENT ([facility]) Wbf8vsn-Wuow 96 % MEDENT ([facility]) Dfr1gnp-Ooi 100 % MEDENT ([facility]) Fuz4zbk-%Pred-Pre 104 % MEDENT ([facility]) FEFMax-Pred 9.64 L/E/sec MEDENT ([facility]) FEFMax-Pre 3.66 L/E/sec MEDENT ([facility]) FEFMax-LLN 7.21 L/E/sec MEDENT ([facility]) FEFMax-%Pred-Pre 37 L/E/sec MEDENT ([facility]) [id number] 3.17 L/E/sec MEDENT ([facility]) [id number]-%Pred-Pre 32 L/E/sec MEDENT ([facility]) [id number]-Rnj 1.03 L/E/sec MEDENT ([facility]) ExpTime-Pre 5.53 sec MEDENT ([facility]) [id number]-XMU 1.49 L/E/sec MEDENT ([facility]) [id number]-Udp 58 % MEDENT ([facility]) Amt2zmx4-Wrge 79 % MEDENT ([facility]) [id number]-%Pred-Pre 73 % MEDENT ([facility]) [id number]-CMN 70 % MEDENT ([facility]) ID Date Data Source [id number] 03/04/2021 04:39:00 AM EDT [facility] Name Value Range Interpretation Code Description Data Maddie rce(s) Supporting Document(s) SARS coronavirus 2 RNA [Presence] in Res piratory specimen by LAVINIA with probe detection [facility]GAT[facility] ordered by [facility] a nd reported by [facility]. ID Date Data Source [id number] 09/11/2020 03:47:00 PM EST [facility] Name Value Range Interpretation Code Description Data Maddie rce(s) Supporting Document(s) SARS coronavirus 2 RNA [Presence] in Res piratory specimen by LAVINIA with probe detection NEGATIVE [facility] This lab was ordered by [facility] a nd reported by [facility]. ID Date Data Source [id number] 07/06/2020 09:00:00 AM EST [facility] Name Value Range Interpretation Code Description Data Maddie rce(s) Supporting Document(s) SARS coronavirus 2 RNA [facility] This lab was ordered by [facility] and reported by [facility]. ID Date Data Source [id number] 06/03/2020 12:00:00 AM EST [facility] Name Value Range Interpretation Code Description Data Maddie rce(s) Supporting Document(s) SARS coronavirus 2 Ag [facility] This lab was ordered by [facility] and reported by [facility]. Procedure Social History Code Duration Value Status Description Data Source(s ) 04/23/2021 12:00:00 AM EDT Patient is a current smoker, smokes every day completed Patient is a current smoker, smokes every day MEDENT ( [facility], ) Smoking 04/08/2021 12:00:00 AM EDT Current Smoker completed Curre nt Smoker [facility] Smoking 04/08/2021 12:00:00 AM EDT Current Smoker completed Curre nt Smoker eCW1 ([facility]) Smoking 04/08/2021 12:00:00 AM EDT Current Smoker completed Curre nt Smoker eCW1 ([facility]) Smoking 04/08/2021 12:00:00 AM EDT Current Smoker completed Curre nt Smoker eCW1 ([facility]) Smoking 04/08/2021 12:00:00 AM EDT Current Smoker completed Curre nt Smoker eCW1 ([facility]) Smoking 04/08/2021 12:00:00 AM EDT Current Smoker completed Curre nt Smoker eCW1 ([facility]) Smoking 04/08/2021 12:00:00 AM EDT Current Smoker completed Curre nt Smoker eCW1 ([facility]) Smoking 04/08/2021 12:00:00 AM EDT Current Smoker completed Curre nt Smoker eCW1 ([facility]) Smoking 04/08/2021 12:00:00 AM EDT Current Smoker completed Curre nt Smoker eCW1 ([facility]) Smoking 04/08/2021 12:00:00 AM EDT Current Smoker completed Curre nt Smoker eCW1 ([facility]) Smoking 03/19/2021 12:00:00 AM EDT Current Smoker completed Curre nt Smoker eCW1 ([facility]) Smoking 03/19/2021 12:00:00 AM EDT Current Smoker completed Curre nt Smoker eCW1 ([facility]) Smoking 03/19/2021 12:00:00 AM EDT Current Smoker completed Curre nt Smoker eCW1 ([facility]) Smoking 02/03/2021 12:00:00 AM EDT Current Smoker completed Curre nt Smoker eCW1 ([facility]) Smoking 02/03/2021 12:00:00 AM EDT Current Smoker completed Curre nt Smoker eCW1 ([facility]) Smoking 02/03/2021 12:00:00 AM EDT Current Smoker completed Curre nt Smoker eCW1 ([facility]) Smoking 01/23/2021 12:00:00 AM EDT Current Smoker completed Curre nt Smoker eCW1 ([facility]) Smoking 01/23/2021 12:00:00 AM EDT Current Smoker completed Curre nt Smoker eCW1 ([facility]) Smoking 01/16/2021 12:00:00 AM EDT Current Smoker completed Curre nt Smoker eCW1 ([facility]) Smoking 12/18/2020 12:00:00 AM EDT Current Smoker completed Curre nt Smoker eCW1 ([facility]) Smoking 12/18/2020 12:00:00 AM EDT Current Smoker completed Curre nt Smoker eCW1 ([facility]) Smoking 12/18/2020 12:00:00 AM EDT Current Smoker completed Curre nt Smoker eCW1 ([facility]) Smoking 11/25/2020 12:00:00 AM EDT Current Smoker completed Curre nt Smoker eCW1 ([facility]) Smoking 11/25/2020 12:00:00 AM EDT Current Smoker completed Curre nt Smoker eCW1 ([facility]) Smoking 10/14/2020 12:00:00 AM EDT Current Smoker completed Curre nt Smoker eCW1 ([facility]) Smoking 10/14/2020 12:00:00 AM EDT Current Smoker completed Curre nt Smoker eCW1 ([facility]) Smoking 10/14/2020 12:00:00 AM EDT Current Smoker completed Curre nt Smoker eCW1 ([facility]) Smoking 10/14/2020 12:00:00 AM EDT Current Smoker completed Curre nt Smoker eCW1 ([facility]) Smoking 09/30/2020 12:00:00 AM EDT Current Smoker completed Curre nt Smoker eCW1 ([facility]) Smoking 09/30/2020 12:00:00 AM EDT Current Smoker completed Curre nt Smoker eCW1 ([facility]) Smoking 07/22/2020 12:00:00 AM EST Current Smoker completed Curre nt Smoker eCW1 ([facility]) Smoking 07/22/2020 12:00:00 AM EST Current Smoker completed Curre nt Smoker eCW1 ([facility]) Smoking 07/22/2020 12:00:00 AM EST Current Smoker completed Curre nt Smoker eCW1 ([facility]) Smoking 07/22/2020 12:00:00 AM EST Current Smoker completed Curre nt Smoker eCW1 ([facility]) Smoking 07/22/2020 12:00:00 AM EST Current Smoker completed Curre nt Smoker eCW1 ([facility]) Smoking 07/22/2020 12:00:00 AM EST Current Smoker completed Curre nt Smoker eCW1 ([facility]) Smoking 07/22/2020 12:00:00 AM EST Current Smoker completed Curre nt Smoker eCW1 ([facility]) Smoking 07/22/2020 12:00:00 AM EST Current Smoker completed Curre nt Smoker eCW1 ([facility]) Smoking 07/08/2020 12:00:00 AM EST Current Smoker completed Curre nt Smoker eCW1 ([facility]) Smoking 07/08/2020 12:00:00 AM EST Current Smoker completed Curre nt Smoker eCW1 ([facility]) Vital Signs ID Date Data Source UNK Name Value Range Interpretation Code Description Data Source(s) Body weight 88.906 kg 88.906 kg [facility] ([facility]) Body surface area Derived from formula 2.11 m2 2.11 m2 [facility] ([facility]) Systolic blood pressure 112 mm[Hg] 112 mm[Hg] [facility] Diastolic blood pressure 74 mm[Hg] 74 mm[Hg] [facility] ([facility]) Heart rate 108 /min 108 /min [facility] ([facility]) Oxygen saturation in Arterial blood by Pulse oximetry 96 % 96 % [facility] ([facility]) Body height 72 [in_i] 72 [in_i] [facility] ([facility]) 6'0" Body weight 196.00 [lb_av] 196.00 [lb_av] [facility] Body mass index (BMI) [Ratio] 26.6 kg/m2 26.6 k g/m2 [facility] ([facility]) Baker body weight 178 [lb_av] 178 [lb_av] [facility] ([facility]) Body weight 188.6 [lb_av] 188.6 [lb_av] eCW1 ([facility]) Body weight 85.55 kg 85.55 kg W1 ([facility]) Body height 72 [in_i] 72 [in_i] W1 ([facility]) Body mass index (BMI) [Ratio] 25.58 kg/m2 25.58 kg/m2 W1 ([facility] Heart rate 111 /min 111 /min eCW1 ([facility]) Respiratory rate 18 /min 18 /min eCW1 ([facility]) Body temperature 98.3 [degF] 98.3 [degF] eCW1 [facility] Systolic blood pressure 118 mm[Hg] 118 mm[Hg] e CW1 ([facility]) Diastolic blood pressure 86 mm[Hg] 86 mm[Hg] eCW1 ([facility]) Body surface area Derived from formula 2.05 m2 2.05 m2 [facility] ([facility]) Body temperature 98.5 [degF] 98.5 [degF] [facility] [facility] Systolic blood pressure 122 mm[Hg] 122 mm[Hg] M EDENT ([facility]) Body height 72 [in_i] 72 [in_i] [facility] ([facility]) 6'0" Body weight 182.00 [lb_av] 182.00 [lb_av] MEDEN T ([facility]) Body weight 82.555 kg 82.555 kg [facility] ([facility]) Body mass index (BMI) [Ratio] 24.7 kg/m2 24.7 k g/m2 [facility] ([facility]) Baker body weight 178 [lb_av] 178 [lb_av] MEDEN T ([facility]) Diastolic blood pressure 70 mm[Hg] 70 mm[Hg] [facility] ([facility]) Body weight 184.6 [lb_av] 184.6 [lb_av] eCW1 ([facility]) Body height 72 [in_i] 72 [in_i] eCW1 ([facility]) Body mass index (BMI) [Ratio] 25.03 kg/m2 25.03 kg/m2 eCW1 ([facility]) Heart rate 123 /min 123 /min eCW1 ([facility]) Respiratory rate 18 /min 18 /min eCW1 ([facility]) Body temperature 98.1 [degF] 98.1 [degF] eCW1 ( [facility]) Systolic blood pressure 112 mm[Hg] 112 mm[Hg] e CW1 ([facility]) Diastolic blood pressure 76 mm[Hg] 76 mm[Hg] eCW1 ([facility]) Body weight 193 [lb_av] 193 [lb_av] eCW1 ([facility]) Body height 72 [in_i] 72 [in_i] eCW1 ([facility]) Body mass index (BMI) [Ratio] 26.17 kg/m2 26.17 kg/m2 eCW1 ([facility]) Heart rate /min eCW1 ([facility]) Respiratory rate 18 /min 18 /min eCW1 ([facility]) Body temperature 97.7 [degF] 97.7 [degF] eCW1 ( [facility]) Systolic blood pressure 118 mm[Hg] 118 mm[Hg] e CW1 ([facility]) Diastolic blood pressure 72 mm[Hg] 72 mm[Hg] eCW1 ([facility]) Body weight 195.0 [lb_av] 195.0 [lb_av] eCW1 ([facility]) Body height 72 [in_i] 72 [in_i] eCW1 ([facility]) Body mass index (BMI) [Ratio] 26.44 kg/m2 26.44 kg/m2 eCW1 ([facility]) Heart rate 105 /min 105 /min eCW1 ([facility]) Respiratory rate 18 /min 18 /min eCW1 ([facility]) Body temperature 98.1 [degF] 98.1 [degF] eCW1 ( [facility]) Systolic blood pressure 155 mm[Hg] 155 mm[Hg] e CW1 ([facility]) Diastolic blood pressure 95 mm[Hg] 95 mm[Hg] eCW1 ([facility]) Body weight 193 [lb_av] 193 [lb_av] eCW1 ([facility]) Body height 72 [in_i] 72 [in_i] eCW1 ([facility]) Systolic blood pressure 124 mm[Hg] 124 mm[Hg] e CW1 ([facility]) Body mass index (BMI) [Ratio] 26.17 kg/m2 26.17 kg/m2 eCW1 ([facility]) Heart rate 109 /min 109 /min eCW1 ([facility]) Respiratory rate 18 /min 18 /min eCW1 ([facility]) Body temperature 97.5 [degF] 97.5 [degF] eCW1 ( [facility]) Diastolic blood pressure 88 mm[Hg] 88 mm[Hg] eCW1 ([facility]) Heart rate /min eCW1 ([facility]) Respiratory rate 19 /min 19 /min eCW1 ([facility]) Diastolic blood pressure 90 mm[Hg] 90 mm[Hg] eCW1 ([facility]) Systolic blood pressure 130 mm[Hg] 130 mm[Hg] e CW1 ([facility]) Body temperature 97.6 [degF] 97.6 [degF] eCW1 ( [facility]) Body weight 188.2 [lb_av] 188.2 [lb_av] eCW1 ([facility]) Body height 72 [in_i] 72 [in_i] eCW1 ([facility]) Body mass index (BMI) [Ratio] 25.52 kg/m2 25.52 kg/m2 eCW1 ([facility]) Systolic blood pressure 164 mm[Hg] 164 mm[Hg] M EDENT ([facility], ) Diastolic blood pressure 88 mm[Hg] 88 mm[Hg] MEDENT ([facility], ) Heart rate 89 /min 89 /min MEDENT ([facility], ) Oxygen saturation in Arterial blood by Pulse oximetry 98 % 98 % MEDENT ([facility], ) Body height 72 [in_i] 72 [in_i] MEDENT ([facility], ) 6'0" Body weight 166.00 [lb_av] 166.00 [lb_av] MEDEN T ([facility], ) Body mass index (BMI) [Ratio] 22.5 kg/m2 22.5 k g/m2 MEDENT ([facility]) Baker body weight 178 [lb_av] 178 [lb_av] MEDEN T ([facility]) Body weight 75.298 kg 75.298 [facility] Body surface area Derived from formula 1.97 m2 1.97 m2 MEDENT ([facility]) Body weight 185 [lb_av] 185 [lb_av] eCW1 ([facility]) Body height 72 [in_i] 72 [in_i] eCW1 ([facility]) Body mass index (BMI) [Ratio] 25.09 kg/m2 25.09 kg/m2 eCW1 ([facility]) Heart rate 106 /min 106 /min eCW1 ([facility]) Respiratory rate 18 /min 18 /min eCW1 ([facility]) Body temperature 97.4 [degF] 97.4 [degF] eCW1 ( [facility]) Systolic blood pressure 128 mm[Hg] 128 mm[Hg] e CW1 ([facility]) Diastolic blood pressure 82 mm[Hg] 82 mm[Hg] eCW1 ([facility]) Body weight 185 [lb_av] 185 [lb_av] eCW1 ([facility]) Body height 72 [in_i] 72 [in_i] eCW1 ([facility]) Body mass index (BMI) [Ratio] 25.09 kg/m2 25.09 kg/m2 eCW1 ([facility]) Heart rate 106 /min 106 /min eCW1 ([facility]) Respiratory rate 18 /min 18 /min eCW1 ([facility]) Body temperature 97.4 [degF] 97.4 [degF] eCW1 ( [facility]) Systolic blood pressure 128 mm[Hg] 128 mm[Hg] e CW1 ([facility]) Diastolic blood pressure 82 mm[Hg] 82 mm[Hg] eCW1 ([facility]) Systolic blood pressure 170 mm[Hg] 170 mm[Hg] Ngozi DUBON ([facility], [facility]) Diastolic blood pressure 118 mm[Hg] 118 mm[Hg] [facility], [facility]) Heart rate 106 /min 106 /min [facility] ([facility], [facility]) Respiratory rate 18 /min 18 /min [facility] ( [facility]) Oxygen saturation in Arterial blood by Pulse oximetry 96 % 96 % [facility] Body temperature 97.7 [degF] 97.7 [degF] [facility] Body weight 180.00 [lb_av] 180.00 [lb_av] MEDEN T ([facility]) Body height 72 [in_i] 72 [in_i] [facility] ([facility]) 6'0" Body mass index (BMI) [Ratio] 24.4 kg/m2 24.4 k g/m2 [facility] ([facility]) Patient Treatment Plan of Care Planned Activity Planned Date Details Description Data Source (s) Acamprosate calcium 333 MG Delayed Release Oral Tablet 04/28/2021 12:00:00 AM EDT eCW1 ([facility]) gabapentin 800 MG Oral Tablet 04/28/2021 12:00:00 AM EDT eCW1 ([facility]) Acamprosate calcium 333 MG Delayed Release Oral Tablet 04/28/2021 12:00:00 AM EDT eCW1 ([facility]) gabapentin 800 MG Oral Tablet 04/28/2021 12:00:00 AM EDT eCW1 ([facility]) Acamprosate calcium 333 MG Delayed Release Oral Tablet 04/28/2021 12:00:00 AM EDT eCW1 ([facility]) gabapentin 800 MG Oral Tablet 04/28/2021 12:00:00 AM EDT eCW1 ([facility]) gabapentin 100 MG Oral Capsule 04/19/2021 12:00:00 AM EDT eCW1 ([facility]) gabapentin 100 MG Oral Capsule 04/19/2021 12:00:00 AM EDT eCW1 ([facility]) gabapentin 100 MG Oral Capsule 04/19/2021 12:00:00 AM EDT eCW1 ([facility]) gabapentin 100 MG Oral Capsule 04/19/2021 12:00:00 AM EDT eCW1 ([facility]) gabapentin 100 MG Oral Capsule 04/19/2021 12:00:00 AM EDT eCW1 ([facility]) meloxicam 15 MG Oral Tablet 04/08/2021 12:00:00 AM EDT eCW1 ([facility]) meloxicam 15 MG Oral Tablet 04/08/2021 12:00:00 AM EDT eCW1 ([facility]) meloxicam 15 MG Oral Tablet 04/08/2021 12:00:00 AM EDT eCW1 ([facility]) meloxicam 15 MG Oral Tablet 04/08/2021 12:00:00 AM EDT eCW1 ([facility]) meloxicam 15 MG Oral Tablet 04/08/2021 12:00:00 AM EDT eCW1 ([facility]) meloxicam 15 MG Oral Tablet 04/08/2021 12:00:00 AM EDT eCW1 ([facility]) meloxicam 15 MG Oral Tablet 04/08/2021 12:00:00 AM EDT eCW1 ([facility]) Furosemide 20 MG Oral Tablet [Lasix] 03/19/2021 12:00:00 AM EDT eCW1 ([facility]) Furosemide 20 MG Oral Tablet [Lasix] 03/19/2021 12:00:00 AM EDT eCW1 ([facility]) Furosemide 20 MG Oral Tablet [Lasix] 03/19/2021 12:00:00 AM EDT eCW1 ([facility]) Diazepam 5 MG Oral Tablet 02/04/2021 12:00:00 AM EDT eCW1 ([facility]) Diazepam 5 MG Oral Tablet 02/04/2021 12:00:00 AM EDT eCW1 ([facility]) Diazepam 5 MG Oral Tablet 02/04/2021 12:00:00 AM EDT eCW1 ([facility]) Chlordiazepoxide Hydrochloride 25 MG Oral Capsule 01/23/2021 12: 00:00 AM EDT eCW1 ([facility]) Chlordiazepoxide Hydrochloride 25 MG Oral Capsule 01/23/2021 12: 00:00 AM EDT eCW1 ([facility]) 24 HR Nicotine 0.292 MG/HR Transdermal Patch [Nicoderm C-Q] 10/14/2020 12:00:00 AM EDT eCW1 ([facility]) 24 HR Nicotine 0.292 MG/HR Transdermal Patch [Nicoderm C-Q] 10/14/2020 12:00:00 AM EDT eCW1 ([facility]) 24 HR Nicotine 0.875 MG/HR Transdermal Patch [Nicoderm C-Q] 10/07/2020 12:00:00 AM EDT eCW1 ([facility]) 24 HR Nicotine 0.875 MG/HR Transdermal Patch [Nicoderm C-Q] 10/07/2020 12:00:00 AM EDT eCW1 ([facility]) Chlordiazepoxide Hydrochloride 25 MG Oral Capsule 09/18/2020 12: 00:00 AM EDT eCW1 ([facility]) Chlordiazepoxide Hydrochloride 25 MG Oral Capsule 09/18/2020 12: 00:00 AM EDT eCW1 ([facility]) Chlordiazepoxide Hydrochloride 25 MG Oral Capsule 09/18/2020 12: 00:00 AM EDT eCW1 ([facility])
== END 2021-05-06 15:45 | disposition left against medical advice (07) ==
LOC: M ED 14:08
DX: Z53.21 Procedure and treatment not carried out due to patient leaving prior to being seen by health care provider (principal)

== ENCOUNTER → 2021-07-02 | Outpatient (CLI) | payer OTHER ==
--- NOTE | 2021-07-02 09:38 | REP ---
INDICATION: LUMBAR BACK PAIN-MRI AFTER COMPARISON: None. TECHNIQUE: AP and frog-lateral views of the left hip FINDINGS: Generalized age-related changes include subtle increased sclerosis to the acetabulum with mild joint space narrowing and marginal spurring. No further overt osteoarthritic or significant degenerative changes are appreciated. No evidence for acute or healed injury. Surrounding soft tissues are normal. IMPRESSION: Mild generalized age-related changes. <Electronically signed by Kun Sawyer > 07/02/21 [id number]
--- NOTE | 2021-07-02 09:42 | REP ---
INDICATION: LUMBAR BACK PAIN-MRI AFTER COMPARISON: None. TECHNIQUE: AP and lateral left tibia/fibula FINDINGS: The osseous structures and joint spaces are intact and normal. There is no evidence for acute fracture or dislocation. Surrounding soft tissues are unremarkable. No subcutaneous emphysema or radiodense foreign body. IMPRESSION: No acute fracture or dislocation. <Electronically signed by Kun Sawyer > 07/02/21 0936
--- NOTE | 2021-07-02 09:42 | REP ---
INDICATION: LUMBAR BACK PAIN-MRI AFTER COMPARISON: None. TECHNIQUE: AP, lateral, bilateral oblique, and coned-down views of the lumbar spine. FINDINGS: Alignment and lordosis maintained. No acute fracture/compression injury or subluxation. Oblique views cannot exclude chronic L5 spondylolysis without spondylolisthesis. Disc spaces are relatively normal/age-appropriate and maintained throughout. Minimal age-related degenerative changes also include small anterior osteophytes. IMPRESSION: Mild degenerative changes as described above. Alignment and lordosis maintained. Disc spaces are relatively symmetric and maintained. <Electronically signed by Kun Sawyer > 07/02/21 [id number]
--- NOTE | 2021-07-03 10:47 | REPVR ---
PROCEDURE INFORMATION: Exam: MR Lumbar Spine Without Contrast Exam date and time: 07/02/2021 10:47 AM Age: 60 years old Clinical indication: Low back pain; Additional info: Lumbar back pain TECHNIQUE: Imaging protocol: Multiplanar magnetic resonance images of the lumbar spine without intravenous contrast. COMPARISON: CR Spine. Lumbosacral, complete 07/02/2021 9:34 AM FINDINGS: Vertebrae: There is no fracture or listhesis. Heterogeneity of marrow likely reflects marrow conversion. Spinal cord: The conus medullaris terminates at T12/L1. The patient has a congenitally narrowed spinal canal. L1-L2: No significant disc disease. There is mild facet hypertrophy. No significant spinal canal stenosis. No neural foraminal stenosis. L2-L3: There is shallow disc bulging. There is moderate facet hypertrophy. The spinal canal and neural foramina are patent. L3-L4: There is shallow disc bulging with a central annular tear. There is moderate facet and ligamentous hypertrophy. There is mild canal stenosis. There is mild left neural foraminal narrowing. L4-L5: There is diffuse disc bulging with superimposed central and left foraminal protrusions. There is severe canal stenosis, with clumping of nerve roots. There is moderate facet hypertrophy. There is severe left neural foraminal narrowing. L5-S1: There is diffuse disc bulging asymmetric to the left. There is mild facet hypertrophy. The spinal canal and neural foramina are patent. Soft tissues: Unremarkable. IMPRESSION: Degenerative disc disease and spondylosis. At L4/5, diffuse disc bulge with central and left foraminal protrusions contributes to severe canal stenosis and severe left neural foraminal narrowing. There is potential compromise of the exiting left L4 nerve root. Electronically signed by: Claudia Perez On 07/03/2021 10:47:29 AM
== END ==
LOC: M PLAIMG 08:39
PROVIDERS: ATTEND Student in an Organized Health Care Education/Training Program
DX: M25.78 Osteophyte, vertebrae (principal); M47.816 Spondylosis without myelopathy or radiculopathy, lumbar region; M51.26 Other intervertebral disc displacement, lumbar region; M48.061 Spinal stenosis, lumbar region without neurogenic claudication; M79.662 Pain in left lower leg; M54.32 Sciatica, left side; M24.152 Other articular cartilage disorders, left hip

== ENCOUNTER → 2021-09-09 | Outpatient (CLI) | payer OTHER ==
[~2021-09-09] MED LIST changes: +DULO20CA27 PO; +GABA800T4 PO; +LOSA50TA28 PO; -LOSA50TA88 PO; +TIZA10TA PO; -TIZA4TAB4 PO; +VITA100T89 PO
== END ==
LOC: M PAIN 09:00
PROVIDERS: ATTEND Nurse Practitioner Family
DX: M51.16 Intervertebral disc disorders with radiculopathy, lumbar region (principal); G89.29 Other chronic pain; F17.210 Nicotine dependence, cigarettes, uncomplicated; Z79.51 Long term (current) use of inhaled steroids; Z79.899 Other long term (current) drug therapy

== ENCOUNTER 2021-09-15 17:58 | Inpatient (IN) | payer OTHER ==
[~2021-09-15] VITALS: Ht 182.9 cm; Wt 83.7 kg
[~2021-09-15 17:58] MED LIST changes: -DULO20CA27 PO; -GABA800T4 PO; -VITA100T89 PO
[2021-09-15] MEDS ORDERED: MULTIVITAMIN -ADULT INJECTION 10 ML, THIAMINE INJection 100 MG, FOLIC ACID 1 MG in NS 1... IV ONE (18:35)
[2021-09-15 19:19] LABS: BASO % 0.5 % (0.0-1.0); EOS % 0.2 % (0.0-3.0); HEMATOCRIT 41.4 % (42.0-52.0); HEMOGLOBIN 14.6 g/dl (13.5-17.5); LYMPH # 1.4 10^3/uL (1.5-5.0); LYMPH % 20.7 % (24.0-44.0); MEAN CORPUSCULAR HEMOGLOBIN 32.8 pg (27.0-33.0); MEAN CORPUSCULAR HGB CONC 35.3 g/dl (32.0-36.5); MONO # 0.9 10^3/uL (0.0-0.8); MONO % 13.1 % (2.0-8.0); NEUTROPHILS # 4.3 10^3/uL (1.5-8.5); NEUTROPHILS % 65.2 % (36.0-66.0); PLATELET COUNT, AUTOMATED 208 10^3/uL (150-450); RED BLOOD COUNT 4.45 10^6/uL (4.30-6.10); WHITE BLOOD COUNT 6.6 10^3/uL (4.0-10.0)
[2021-09-15 19:31] LABS: AMPHETAMINES LEVEL URINE NEGATIVE (NEGATIVE); BARBITURATES URINE NEGATIVE (NEGATIVE); BENZODIAZEPINES URINE NEGATIVE (NEGATIVE); CANNABINOIDS URINE NEGATIVE (NEGATIVE); COCAINE METABOLITE URINE NEGATIVE (NEGATIVE); METHADONE URINE NEGATIVE (NEGATIVE); OPIATES URINE NEGATIVE (NEGATIVE); PHENCYCLIDINE URINE NEGATIVE (NEGATIVE)
[2021-09-15 19:43] LABS: MB/CK RELATIVE INDEX 0.92 (< OR =4)
[2021-09-15 19:46] LABS: ACETAMINOPHEN LEVEL < 2.0 UG/ML (10.0-30.0); ALBUMIN 3.3 GM/DL (3.2-5.2); ALT/SGPT 51 U/L (12-78); BILIRUBIN,DIRECT 0.2 MG/DL (0.0-0.2); BILIRUBIN,TOTAL 0.6 MG/DL (0.2-1.0); BLOOD UREA NITROGEN 6 MG/DL (7-18); CALCIUM LEVEL 8.1 MG/DL (8.5-10.1); CARBON DIOXIDE LEVEL 29 MEQ/L (21-32); CHLORIDE LEVEL 97 MEQ/L (98-107); CREATININE FOR GFR 0.78 MG/DL (0.70-1.30); ETHYL ALCOHOL (ETHANOL) 0.259 % (0.000-0.010); GLOMERULAR FILTRATION RATE > 60.0 (>56); GLUCOSE, FASTING 71 MG/DL (70-100); POTASSIUM SERUM 4.1 MEQ/L (3.5-5.1); SALICYLATE LEVEL 6.7 MG/DL (5.0-30.0); SODIUM LEVEL 135 MEQ/L (136-145); TOTAL PROTEIN 7.1 GM/DL (6.4-8.2)
[2021-09-15] MEDS ORDERED: OXAZEPAM 15MG CAP PO ONE (21:40)
[2021-09-15 21:52] LABS: RSV AMPLIFICATION NEGATIVE (NEGATIVE)
[2021-09-15] MEDS ORDERED: MORPHINE 4 MG/ML 1ML VIAL/SYRINGE (J2270) IV PRN (22:40)
[2021-09-15] MEDS ORDERED: ONDANSETRON 4MG/2ML VIAL IV ONE (22:40)
[2021-09-15] MEDS ORDERED: MAALOX 30 ML SUSP *UDC PO PRN (23:35)
[2021-09-15] MEDS ORDERED: LORazepam 2 MG TAB PO PRN (23:35)
[2021-09-15] MEDS ORDERED: NICOTINE 14 MG/24 HR TRANSDERMAL TD ONE (23:35)
[2021-09-15] MEDS ORDERED: MOM 30ML SUSPENSION UDC PO PRN (23:35)
[2021-09-15] MEDS ORDERED: AIRD1INH3 INH (23:45)
[2021-09-15] MEDS ORDERED: GABA800T4 PO (23:45)
[2021-09-15] MEDS ORDERED: VITA100T89 PO (23:45)
[2021-09-15] MEDS ORDERED: TIZA10TA PO (23:45)
[2021-09-15] MEDS ORDERED: INCR1INH INH (23:45)
[2021-09-15] MEDS ORDERED: FOLI1TAB11 PO (23:45)
[2021-09-15] MEDS ORDERED: DULO20CA27 PO (23:45)
[2021-09-15] MEDS ORDERED: HOME MED LIST COMPLETE! XX SCH (23:50)
[2021-09-16] VITALS (10 sets, daily range): BP systolic 91–144; BP diastolic 64–94; O2SAT 94–98
[2021-09-16 00:42] LABS: PHOSPHORUS LEVEL 4.3 MG/DL (2.5-4.9)
[2021-09-16] MEDS ORDERED: tiZANidine 4 MG TAB PO PRN (03:10)
[2021-09-16] MEDS ORDERED: POLYVINYL ALCOHOL OPHTH SOLN 15 ML(LIQUITEARS) OU PRN (03:10)
[2021-09-16] MEDS ORDERED: ALBUTEROL 90 MCG/ACT 8GM HFA INHALER INH PRN (03:10)
[2021-09-16] MEDS ORDERED: OXAZEPAM 15MG CAP PO SCH (06:00)
[2021-09-16 06:44] LABS: BASO % 0.6 % (0.0-1.0); EOS % 0.1 % (0.0-3.0); HEMATOCRIT 39.7 % (42.0-52.0); HEMOGLOBIN 13.9 g/dl (13.5-17.5); LYMPH # 1.1 10^3/uL (1.5-5.0); LYMPH % 16.3 % (24.0-44.0); MEAN CORPUSCULAR HEMOGLOBIN 32.9 pg (27.0-33.0); MEAN CORPUSCULAR VOLUME 94.1 fl (80.0-96.0); MONO # 1.1 10^3/uL (0.0-0.8); MONO % 15.3 % (2.0-8.0); NEUTROPHILS # 4.7 10^3/uL (1.5-8.5); NEUTROPHILS % 67.3 % (36.0-66.0); PLATELET COUNT, AUTOMATED 218 10^3/uL (150-450); RED BLOOD COUNT 4.22 10^6/uL (4.30-6.10); WHITE BLOOD COUNT 6.9 10^3/uL (4.0-10.0)
[2021-09-16 07:07] LABS: ALBUMIN 3.3 GM/DL (3.2-5.2); ALT/SGPT 54 U/L (12-78); BILIRUBIN,TOTAL 0.9 MG/DL (0.2-1.0); BLOOD UREA NITROGEN 7 MG/DL (7-18); CALCIUM LEVEL 8.2 MG/DL (8.5-10.1); CARBON DIOXIDE LEVEL 24 MEQ/L (21-32); CHLORIDE LEVEL 99 MEQ/L (98-107); CREATININE FOR GFR 0.72 MG/DL (0.70-1.30); GLOMERULAR FILTRATION RATE > 60.0 (>56); GLUCOSE, FASTING 58 MG/DL (70-100); MAGNESIUM LEVEL 2.3 MG/DL (1.8-2.4); POTASSIUM SERUM 3.9 MEQ/L (3.5-5.1); SODIUM LEVEL 136 MEQ/L (136-145); TOTAL PROTEIN 7.3 GM/DL (6.4-8.2)
[2021-09-16] MEDS: TIOTROPIUM INHALER/CAPSULE (SPIRIVA) INH SCH (07:29)
[2021-09-16] MEDS: ADVAIR HFA 230/21MCG INHALER INH SCH ×2 (07:30→19:44)
[2021-09-16 08:31] LABS: VITAMIN B12 LEVEL 928 PG/ML (247-911)
[2021-09-16 08:42] LABS: FOLATE > 24.0 NG/ML (>5.4)
[2021-09-16] MEDS ORDERED: FLUBLOK(EGG FREE)(QUAD)INFLUENZA VACC 0.5ML SYRINGE 18YRS & OLDER IM ONE (09:00)
[2021-09-16] MEDS: FOLIC ACID 1 MG TAB PO SCH (09:41)
[2021-09-16] MEDS: MULTIVITAMINS/MINERALS THERAP 1 TAB PO SCH (09:41)
[2021-09-16] MEDS: THIAMINE 100 MG TAB PO SCH ×2 (09:41→21:11)
[2021-09-16] MEDS: GABAPENTIN 400MG CAP PO SCH ×3 (09:42→21:11)
[2021-09-16] MEDS: ENOXAPARIN 40MG/0.4ML SYRINGE (J1650 PER 10MG) SC SCH (10:03)
[2021-09-16] MEDS: DULoxetine 20 MG CAP (CYMBALTA) PO SCH ×2 (10:04→21:11)
[2021-09-16] MEDS: OXAZEPAM 15MG CAP PO SCH ×4 (10:07→21:16)
[2021-09-16] MEDS: PERCOCET 5MG/325MG TAB PO PRN (10:36)
[2021-09-17] VITALS (9 sets, daily range): BP systolic 102–125; BP diastolic 74–89; O2SAT 95
[2021-09-17] MEDS: PERCOCET 5MG/325MG TAB PO PRN ×3 (04:13→16:56)
[2021-09-17] MEDS: ADVAIR HFA 230/21MCG INHALER INH SCH ×2 (07:56→20:12)
[2021-09-17] MEDS: TIOTROPIUM INHALER/CAPSULE (SPIRIVA) INH SCH (07:56)
[2021-09-17] MEDS: MULTIVITAMINS/MINERALS THERAP 1 TAB PO SCH (08:39)
[2021-09-17] MEDS: DULoxetine 20 MG CAP (CYMBALTA) PO SCH ×2 (08:39→21:53)
[2021-09-17] MEDS: FOLIC ACID 1 MG TAB PO SCH (08:39)
[2021-09-17] MEDS: THIAMINE 100 MG TAB PO SCH ×2 (08:39→21:53)
[2021-09-17] MEDS: OXAZEPAM 15MG CAP PO SCH ×4 (08:39→21:53)
[2021-09-17] MEDS: ENOXAPARIN 40MG/0.4ML SYRINGE (J1650 PER 10MG) SC SCH (08:40)
[2021-09-17] MEDS: GABAPENTIN 400MG CAP PO SCH ×3 (08:40→21:53)
[2021-09-17 09:32] LABS: HEMATOCRIT 37.8 % (42.0-52.0); HEMOGLOBIN 13.1 g/dl (13.5-17.5); MEAN CORPUSCULAR HEMOGLOBIN 33.3 pg (27.0-33.0); MEAN CORPUSCULAR HGB CONC 34.7 g/dl (32.0-36.5); MEAN CORPUSCULAR VOLUME 96.2 fl (80.0-96.0); PLATELET COUNT, AUTOMATED 201 10^3/uL (150-450); RED BLOOD COUNT 3.93 10^6/uL (4.30-6.10); WHITE BLOOD COUNT 6.4 10^3/uL (4.0-10.0)
[2021-09-17 10:07] LABS: ALBUMIN 2.9 GM/DL (3.2-5.2); ALT/SGPT 34 U/L (12-78); BILIRUBIN,TOTAL 0.9 MG/DL (0.2-1.0); BLOOD UREA NITROGEN 12 MG/DL (7-18); CALCIUM LEVEL 8.5 MG/DL (8.5-10.1); CARBON DIOXIDE LEVEL 30 MEQ/L (21-32); CHLORIDE LEVEL 99 MEQ/L (98-107); CREATININE FOR GFR 0.84 MG/DL (0.70-1.30); GLOMERULAR FILTRATION RATE > 60.0 (>56); GLUCOSE, FASTING 149 MG/DL (70-100); MAGNESIUM LEVEL 2.1 MG/DL (1.8-2.4); POTASSIUM SERUM 3.7 MEQ/L (3.5-5.1); SODIUM LEVEL 135 MEQ/L (136-145); TOTAL PROTEIN 6.2 GM/DL (6.4-8.2)
[2021-09-17 11:49] LABS: SODIUM,RANDOM URINE 62 MEQ/L
[2021-09-17 15:23] LABS: OSMOLALITY URINE 672 MOSM/KG (50-1400)
[2021-09-18] VITALS (8 sets, daily range): BP systolic 96–141; BP diastolic 60–91; O2SAT 93–95
[2021-09-18] MEDS: PERCOCET 5MG/325MG TAB PO PRN ×4 (02:45→22:20)
[2021-09-18 06:21] LABS: HEMATOCRIT 38.2 % (42.0-52.0); HEMOGLOBIN 13.1 g/dl (13.5-17.5); MEAN CORPUSCULAR HEMOGLOBIN 33.2 pg (27.0-33.0); MEAN CORPUSCULAR HGB CONC 34.3 g/dl (32.0-36.5); MEAN CORPUSCULAR VOLUME 96.7 fl (80.0-96.0); PLATELET COUNT, AUTOMATED 216 10^3/uL (150-450); RED BLOOD COUNT 3.95 10^6/uL (4.30-6.10); WHITE BLOOD COUNT 5.6 10^3/uL (4.0-10.0)
[2021-09-18 06:54] LABS: ALBUMIN 2.9 GM/DL (3.2-5.2); ALT/SGPT 34 U/L (12-78); BILIRUBIN,TOTAL 0.7 MG/DL (0.2-1.0); BLOOD UREA NITROGEN 8 MG/DL (7-18); CALCIUM LEVEL 8.4 MG/DL (8.5-10.1); CARBON DIOXIDE LEVEL 29 MEQ/L (21-32); CHLORIDE LEVEL 101 MEQ/L (98-107); CREATININE FOR GFR 0.71 MG/DL (0.70-1.30); GLOMERULAR FILTRATION RATE > 60.0 (>56); GLUCOSE, FASTING 87 MG/DL (70-100); MAGNESIUM LEVEL 2.1 MG/DL (1.8-2.4); POTASSIUM SERUM 4.4 MEQ/L (3.5-5.1); SODIUM LEVEL 135 MEQ/L (136-145); TOTAL PROTEIN 6.4 GM/DL (6.4-8.2)
[2021-09-18] MEDS: TIOTROPIUM INHALER/CAPSULE (SPIRIVA) INH SCH (07:37)
[2021-09-18] MEDS: ADVAIR HFA 230/21MCG INHALER INH SCH ×2 (07:37→18:06)
[2021-09-18] MEDS: MULTIVITAMINS/MINERALS THERAP 1 TAB PO SCH (08:40)
[2021-09-18] MEDS: OXAZEPAM 15MG CAP PO SCH ×4 (08:40→21:38)
[2021-09-18] MEDS: ENOXAPARIN 40MG/0.4ML SYRINGE (J1650 PER 10MG) SC SCH (08:40)
[2021-09-18] MEDS: FOLIC ACID 1 MG TAB PO SCH (08:41)
[2021-09-18] MEDS: THIAMINE 100 MG TAB PO SCH ×2 (08:41→21:39)
[2021-09-18] MEDS: DULoxetine 20 MG CAP (CYMBALTA) PO SCH ×2 (08:41→21:39)
[2021-09-18] MEDS: GABAPENTIN 400MG CAP PO SCH ×3 (08:41→21:39)
[2021-09-18] MEDS ORDERED: ACETAMINOPHEN TAB 650MG DOSE (2X325MG) PO PRN (13:00)
[2021-09-18] MEDS ORDERED: ACETAMINOPHEN 325 MG TAB PO PRN (17:00)
[2021-09-19] VITALS (8 sets, daily range): BP systolic 125–138; BP diastolic 86–96; O2SAT 93
[2021-09-19] MEDS: PERCOCET 5MG/325MG TAB PO PRN ×3 (04:38→19:58)
[2021-09-19] MEDS ORDERED: OXAZEPAM 15MG CAP PO SCH (06:00)
[2021-09-19 06:53] LABS: HEMATOCRIT 38.2 % (42.0-52.0); HEMOGLOBIN 12.9 g/dl (13.5-17.5); MEAN CORPUSCULAR HEMOGLOBIN 32.7 pg (27.0-33.0); MEAN CORPUSCULAR HGB CONC 33.8 g/dl (32.0-36.5); PLATELET COUNT, AUTOMATED 253 10^3/uL (150-450); RED BLOOD COUNT 3.94 10^6/uL (4.30-6.10); WHITE BLOOD COUNT 5.8 10^3/uL (4.0-10.0)
[2021-09-19 07:22] LABS: ALBUMIN 3.1 GM/DL (3.2-5.2); ALT/SGPT 40 U/L (12-78); BILIRUBIN,TOTAL 0.6 MG/DL (0.2-1.0); BLOOD UREA NITROGEN 7 MG/DL (7-18); CALCIUM LEVEL 8.7 MG/DL (8.5-10.1); CARBON DIOXIDE LEVEL 27 MEQ/L (21-32); CHLORIDE LEVEL 102 MEQ/L (98-107); CREATININE FOR GFR 0.73 MG/DL (0.70-1.30); GLOMERULAR FILTRATION RATE > 60.0 (>56); GLUCOSE, FASTING 86 MG/DL (70-100); POTASSIUM SERUM 4.1 MEQ/L (3.5-5.1); SODIUM LEVEL 135 MEQ/L (136-145); TOTAL PROTEIN 6.6 GM/DL (6.4-8.2)
[2021-09-19] MEDS: MULTIVITAMINS/MINERALS THERAP 1 TAB PO SCH (08:01)
[2021-09-19] MEDS: GABAPENTIN 400MG CAP PO SCH ×3 (08:01→19:58)
[2021-09-19] MEDS: ENOXAPARIN 40MG/0.4ML SYRINGE (J1650 PER 10MG) SC SCH (08:01)
[2021-09-19] MEDS: DULoxetine 20 MG CAP (CYMBALTA) PO SCH ×2 (08:01→19:58)
[2021-09-19] MEDS: FOLIC ACID 1 MG TAB PO SCH (08:02)
[2021-09-19] MEDS: ADVAIR HFA 230/21MCG INHALER INH SCH ×2 (08:09→19:32)
[2021-09-19] MEDS: TIOTROPIUM INHALER/CAPSULE (SPIRIVA) INH SCH (08:09)
[2021-09-19] MEDS: OXAZEPAM 15MG CAP PO SCH ×2 (13:26→21:07)
[2021-09-20] VITALS (7 sets, daily range): BP systolic 125–132; BP diastolic 75–90; O2SAT 92
[2021-09-20] MEDS: PERCOCET 5MG/325MG TAB PO PRN ×3 (03:56→19:59)
[2021-09-20] MEDS: OXAZEPAM 15MG CAP PO SCH ×3 (05:47→21:16)
[2021-09-20 06:17] LABS: HEMATOCRIT 38.7 % (42.0-52.0); HEMOGLOBIN 12.8 g/dl (13.5-17.5); MEAN CORPUSCULAR HGB CONC 33.1 g/dl (32.0-36.5); MEAN CORPUSCULAR VOLUME 99.7 fl (80.0-96.0); PLATELET COUNT, AUTOMATED 291 10^3/uL (150-450); RED BLOOD COUNT 3.88 10^6/uL (4.30-6.10)
[2021-09-20 06:45] LABS: ALBUMIN 3.1 GM/DL (3.2-5.2); ALT/SGPT 49 U/L (12-78); BILIRUBIN,TOTAL 0.4 MG/DL (0.2-1.0); BLOOD UREA NITROGEN 8 MG/DL (7-18); CALCIUM LEVEL 8.7 MG/DL (8.5-10.1); CARBON DIOXIDE LEVEL 28 MEQ/L (21-32); CHLORIDE LEVEL 106 MEQ/L (98-107); CREATININE FOR GFR 0.75 MG/DL (0.70-1.30); GLOMERULAR FILTRATION RATE > 60.0 (>56); GLUCOSE, FASTING 84 MG/DL (70-100); POTASSIUM SERUM 4.3 MEQ/L (3.5-5.1); SODIUM LEVEL 139 MEQ/L (136-145); TOTAL PROTEIN 6.7 GM/DL (6.4-8.2)
[2021-09-20] MEDS: TIOTROPIUM INHALER/CAPSULE (SPIRIVA) INH SCH (08:09)
[2021-09-20] MEDS: ADVAIR HFA 230/21MCG INHALER INH SCH ×2 (08:09→19:29)
[2021-09-20] MEDS: FOLIC ACID 1 MG TAB PO SCH (09:20)
[2021-09-20] MEDS: MULTIVITAMINS/MINERALS THERAP 1 TAB PO SCH (09:20)
[2021-09-20] MEDS: GABAPENTIN 400MG CAP PO SCH ×3 (09:21→19:59)
[2021-09-20] MEDS: DULoxetine 20 MG CAP (CYMBALTA) PO SCH ×2 (09:21→19:58)
[2021-09-20] MEDS: ENOXAPARIN 40MG/0.4ML SYRINGE (J1650 PER 10MG) SC SCH (09:21)
[2021-09-21 05:00] VITALS: BP 135/87
[2021-09-21] MEDS: PERCOCET 5MG/325MG TAB PO PRN ×3 (05:07→18:06)
[2021-09-21] MEDS: OXAZEPAM 15MG CAP PO SCH ×2 (05:40→18:35)
[2021-09-21 06:00] VITALS: BP 135/87
[2021-09-21 06:49] LABS: HEMATOCRIT 38.8 % (42.0-52.0); MEAN CORPUSCULAR HEMOGLOBIN 33.1 pg (27.0-33.0); MEAN CORPUSCULAR HGB CONC 33.5 g/dl (32.0-36.5); MEAN CORPUSCULAR VOLUME 98.7 fl (80.0-96.0); PLATELET COUNT, AUTOMATED 311 10^3/uL (150-450); RED BLOOD COUNT 3.93 10^6/uL (4.30-6.10); WHITE BLOOD COUNT 5.8 10^3/uL (4.0-10.0)
[2021-09-21] MEDS: TIOTROPIUM INHALER/CAPSULE (SPIRIVA) INH SCH (07:19)
[2021-09-21] MEDS: ADVAIR HFA 230/21MCG INHALER INH SCH ×2 (07:19→19:38)
[2021-09-21 07:22] LABS: ALBUMIN 3.3 GM/DL (3.2-5.2); ALT/SGPT 56 U/L (12-78); BILIRUBIN,TOTAL 0.3 MG/DL (0.2-1.0); BLOOD UREA NITROGEN 11 MG/DL (7-18); CARBON DIOXIDE LEVEL 27 MEQ/L (21-32); CHLORIDE LEVEL 105 MEQ/L (98-107); CREATININE FOR GFR 0.81 MG/DL (0.70-1.30); GLOMERULAR FILTRATION RATE > 60.0 (>56); GLUCOSE, FASTING 87 MG/DL (70-100); MAGNESIUM LEVEL 2.2 MG/DL (1.8-2.4); POTASSIUM SERUM 4.6 MEQ/L (3.5-5.1); SODIUM LEVEL 138 MEQ/L (136-145); TOTAL PROTEIN 6.9 GM/DL (6.4-8.2)
[2021-09-21 09:00] VITALS: O2SAT 94
[2021-09-21] MEDS: FOLIC ACID 1 MG TAB PO SCH (09:36)
[2021-09-21] MEDS: DULoxetine 20 MG CAP (CYMBALTA) PO SCH ×2 (09:36→22:00)
[2021-09-21] MEDS: GABAPENTIN 400MG CAP PO SCH ×3 (09:36→22:00)
[2021-09-21] MEDS: MULTIVITAMINS/MINERALS THERAP 1 TAB PO SCH (09:36)
[2021-09-21] MEDS: ENOXAPARIN 40MG/0.4ML SYRINGE (J1650 PER 10MG) SC SCH (09:37)
[2021-09-21 13:05] VITALS: BP 126/90
[2021-09-21] MEDS ORDERED: OXAZEPAM 15MG CAP PO SCH (18:00)
[2021-09-21 22:00] VITALS: BP 124/89
[2021-09-22] MEDS: PERCOCET 5MG/325MG TAB PO PRN ×3 (01:20→14:08)
[2021-09-22] MEDS: OXAZEPAM 15MG CAP PO SCH (05:02)
[2021-09-22 06:00] VITALS: BP 122/90
[2021-09-22 06:06] LABS: HEMATOCRIT 39.8 % (42.0-52.0); HEMOGLOBIN 13.2 g/dl (13.5-17.5); MEAN CORPUSCULAR HEMOGLOBIN 32.8 pg (27.0-33.0); MEAN CORPUSCULAR HGB CONC 33.2 g/dl (32.0-36.5); PLATELET COUNT, AUTOMATED 359 10^3/uL (150-450); RED BLOOD COUNT 4.02 10^6/uL (4.30-6.10)
[2021-09-22 06:43] LABS: ALBUMIN 3.2 GM/DL (3.2-5.2); ALT/SGPT 65 U/L (12-78); BILIRUBIN,TOTAL 0.7 MG/DL (0.2-1.0); BLOOD UREA NITROGEN 10 MG/DL (7-18); CALCIUM LEVEL 8.7 MG/DL (8.5-10.1); CARBON DIOXIDE LEVEL 27 MEQ/L (21-32); CHLORIDE LEVEL 104 MEQ/L (98-107); CREATININE FOR GFR 0.77 MG/DL (0.70-1.30); GLOMERULAR FILTRATION RATE > 60.0 (>56); GLUCOSE, FASTING 76 MG/DL (70-100); MAGNESIUM LEVEL 2.3 MG/DL (1.8-2.4); POTASSIUM SERUM 4.5 MEQ/L (3.5-5.1); SODIUM LEVEL 136 MEQ/L (136-145); TOTAL PROTEIN 6.8 GM/DL (6.4-8.2)
[2021-09-22] MEDS: ADVAIR HFA 230/21MCG INHALER INH SCH (07:28)
[2021-09-22] MEDS: TIOTROPIUM INHALER/CAPSULE (SPIRIVA) INH SCH (07:28)
[2021-09-22] MEDS: ENOXAPARIN 40MG/0.4ML SYRINGE (J1650 PER 10MG) SC SCH (07:58)
[2021-09-22] MEDS: DULoxetine 20 MG CAP (CYMBALTA) PO SCH (07:58)
[2021-09-22] MEDS: MULTIVITAMINS/MINERALS THERAP 1 TAB PO SCH (07:58)
[2021-09-22] MEDS: GABAPENTIN 400MG CAP PO SCH (07:58)
[2021-09-22] MEDS: FOLIC ACID 1 MG TAB PO SCH (07:58)
[2021-09-22 08:00] VITALS: BP 127/92
[2021-09-22] MEDS ORDERED: PERCOCET PO (10:30)
[2021-09-22] MEDS ORDERED: ACAM0.05 PO (10:30)
[2021-09-22] MEDS ORDERED: OXAZ15CA4 PO (10:30)
[2021-09-22 11:38] VITALS: O2SAT 94
== END 2021-09-22 15:43 | disposition home health service (06) | DRG 844 ==
LOC: M ED 17:58 → EDBD 17:58 → M ED INP 22:45 → M MSPAV 09-16 00:32
PROVIDERS: ADMIT Family Medicine; ATTEND Family Medicine
DX: T21.35XA Burn of third degree of buttock, initial encounter (principal); E87.2 Acidosis; E87.1 Hypo-osmolality and hyponatremia; G62.9 Polyneuropathy, unspecified; I10 Essential (primary) hypertension; F17.210 Nicotine dependence, cigarettes, uncomplicated; X16.XXXA Contact with hot heating appliances, radiators and pipes, initial encounter; Y92.009 Unspecified place in unspecified non-institutional (private) residence as the place of occurrence of the external cause; F32.A Depression, unspecified; Z79.899 Other long term (current) drug therapy; F10.139 Alcohol abuse with withdrawal, unspecified

== ENCOUNTER → 2021-10-14 | Outpatient (REF) | payer MEDICARE, OTHER ==
[~2021-10-14] MED LIST changes: +ACAM0.05 PO; +DULO20CA27 PO; +GABA800T4 PO; +OXAZ15CA4 PO; +PERCOCET PO; +VITA100T89 PO
[2021-10-14 12:20] LABS: INR 0.87; PROTHROMBIN TIME 12.2 SECONDS (12.7-14.5)
== END ==
LOC: M SHH 11:44
PROVIDERS: ATTEND Student in an Organized Health Care Education/Training Program
DX: G47.00 Insomnia, unspecified (principal)

== ENCOUNTER → 2021-10-27 | Outpatient (CLI) | payer MEDICARE, OTHER | LOC: M PAIN 14:45 | PROVIDERS: ATTEND Anesthesiology | DX: M48.062 Spinal stenosis, lumbar region with neurogenic claudication (principal); M51.16 Intervertebral disc disorders with radiculopathy, lumbar region; G89.29 Other chronic pain; F17.210 Nicotine dependence, cigarettes, uncomplicated; Z79.51 Long term (current) use of inhaled steroids; Z79.899 Other long term (current) drug therapy ==

== ENCOUNTER 2022-05-11 15:18 | Inpatient (IN) | payer MEDICARE, OTHER ==
[~2022-05-11] VITALS: Ht 182.9 cm; Wt 94.2 kg
[2022-05-11] MEDS ORDERED: NS 2,730 ML in IV 1 EA IV ONE (15:30)
[2022-05-11] MEDS ORDERED: PIPERACILLIN/TAZOBACTAM SOD 4.5 GM in D5W MINI-BAG PLUS 50 ML IV ONE (15:30)
[2022-05-11 16:11] LABS: VENOUS BASE EXCESS -7.4 (-2.0-2.0); VENOUS HCO3 19.2 MEQ/L (23.0-27.0); VENOUS O2 SATURATION 83.5 % (60.0-80.0); VENOUS PARTIAL PRESSURE CO2 42.8 mmHg (38.0-50.0); VENOUS PARTIAL PRESSURE O2 53.9 mmHg (30.0-50.0); VENOUS PH 7.269 UNITS (7.330-7.430); VENOUS STANDARD HCO3 18.2 MEQ/L; VENOUS TOTAL CO2 20.5 MEQ/L (24.0-28.0)
[2022-05-11 16:16] LABS: BASO # 0.1 10^3/uL (0.0-0.2); BASO % 1.1 % (0.0-1.0); EOS # 0.3 10^3/uL (0.0-0.5); HEMATOCRIT 27.9 % (42.0-52.0); HEMOGLOBIN 9.6 g/dl (13.5-17.5); LYMPH # 1.1 10^3/uL (1.5-5.0); MEAN CORPUSCULAR HEMOGLOBIN 34.5 pg (27.0-33.0); MEAN CORPUSCULAR HGB CONC 34.4 g/dl (32.0-36.5); MEAN CORPUSCULAR VOLUME 100.4 fl (80.0-96.0); MONO # 0.9 10^3/uL (0.0-0.8); MONO % 13.1 % (2.0-8.0); NEUTROPHILS # 4.2 10^3/uL (1.5-8.5); NEUTROPHILS % 64.2 % (36.0-66.0); PLATELET COUNT, AUTOMATED 235 10^3/uL (150-450); RED BLOOD COUNT 2.78 10^6/uL (4.30-6.10); WHITE BLOOD COUNT 6.6 10^3/uL (4.0-10.0)
[2022-05-11] MEDS: NS 1,000 ML IV SCH ×2 (16:21→16:51)
[2022-05-11 17:00] LABS: CK-MB VALUE MASS 3.2 NG/ML (<3.6); MB/CK RELATIVE INDEX 2.76 (< OR =4)
[2022-05-11 17:11] LABS: ACETAMINOPHEN LEVEL 2.4 UG/ML (10.0-30.0); ALBUMIN 2.4 GM/DL (3.2-5.2); BILIRUBIN,DIRECT 0.2 MG/DL (0.0-0.2); BILIRUBIN,TOTAL 0.5 MG/DL (0.2-1.0); CALCIUM LEVEL 7.9 MG/DL (8.8-10.2); CREATININE FOR GFR 1.62 MG/DL (0.70-1.30); ETHYL ALCOHOL (ETHANOL) 0.109 % (0.000-0.010); GLOMERULAR FILTRATION RATE 46.5 (>49); POTASSIUM SERUM 4.6 MEQ/L (3.5-5.1); THYROID STIMULATING HORMONE 1.32 uIU/ML (0.358-3.740); TOTAL PROTEIN 5.7 GM/DL (6.4-8.2)
[2022-05-11] MEDS ORDERED: LORazepam 2 MG/ML VIAL IV STA (17:58)
[2022-05-11] MEDS ORDERED: LORazepam 2 MG TAB PO PRN (18:00)
[2022-05-11] MEDS ORDERED: THIAMINE 200MG 2ML VIAL IV ONE (18:00)
[2022-05-11 19:16] LABS: RSV AMPLIFICATION NEGATIVE (NEGATIVE)
[2022-05-11 19:23] LABS: AMPHETAMINES LEVEL URINE NEGATIVE (NEGATIVE); BARBITURATES URINE NEGATIVE (NEGATIVE); BENZODIAZEPINES URINE NEGATIVE (NEGATIVE); CANNABINOIDS URINE NEGATIVE (NEGATIVE); COCAINE METABOLITE URINE NEGATIVE (NEGATIVE); METHADONE URINE NEGATIVE (NEGATIVE); OPIATES URINE NEGATIVE (NEGATIVE); PHENCYCLIDINE URINE NEGATIVE (NEGATIVE)
[2022-05-11] MEDS ORDERED: methylPREDNISolone 125MG 2ML VIAL IV ONE (19:25)
[2022-05-11] MEDS: IPRATROPIUM 0.5MG/ALBUTEROL 2.5MG INH SOL UD 3ML (DUONEB) NEB SCH ×2 (20:00→23:43)
[2022-05-11 20:23] LABS: ABG BASE EXCESS -5.6 (-2.0-2.0); ABG O2 SATURATION 94.8 % (95.0-99.0); ABG PARTIAL PRESSURE CO2 34.4 mmHg (35.0-45.0); ABG PARTIAL PRESSURE O2 78.6 mmHg (75.0-100.0); ABG STANDARD HCO3 19.8 MEQ/L (22.0-26.0); ABG TOTAL CO2 20.1 MEQ/L (23.0-31.0); ABG pH (ARTERIAL) 7.361 UNITS (7.350-7.450)
[2022-05-11] MEDS ORDERED: patient note (20:47)
[2022-05-11] MEDS ORDERED: ALBU8.5H INH (20:47)
[2022-05-11] MEDS ORDERED: ACAM0.05 PO (20:47)
[2022-05-11] MEDS ORDERED: GABA-1171 PO (20:47)
[2022-05-11] MEDS ORDERED: HOME MED LIST COMPLETE! XX SCH (20:50)
[2022-05-11 21:00] VITALS: BP 185/99
[2022-05-11] MEDS ORDERED: THIAMINE 100 MG TAB PO SCH (21:00)
[2022-05-11 21:24] LABS: CREATININE FOR GFR 1.43 MG/DL (0.70-1.30); GLOMERULAR FILTRATION RATE 53.7 (>49); POTASSIUM SERUM 4.6 MEQ/L (3.5-5.1)
[2022-05-11] MEDS ORDERED: POLYVINYL ALCOHOL OPHTH SOLN 15 ML(LIQUITEARS) OU PRN (21:55)
[2022-05-11] MEDS ORDERED: hydrALAZINE 20MG/ML 1ML VIAL (J0360 PER 20MG) IV PRN (22:00)
[2022-05-11] MEDS: DOXYCYCLINE HYCLATE 100 MG in D5W MINI-BAG PLUS 100 ML IV SCH (22:32)
[2022-05-11] MEDS: OXAZEPAM 15MG CAP PO SCH (22:32)
[2022-05-11] MEDS: cefTRIAXone SOD 1 GM in D5W MINI-BAG PLUS 50 ML IV SCH (22:32)
[2022-05-11] MEDS: LORazepam 2 MG TAB PO PRN (22:34)
[2022-05-11] MEDS: PANTOPRAZOLE 40MG VIAL IV SCH (22:41)
[2022-05-11 23:57] LABS: CREATININE,RANDOM URINE 38.5 MG/DL
[2022-05-12] MEDS: NS 1,000 ML IV SCH (00:06)
[2022-05-12 00:15] VITALS: BP 119/81
[2022-05-12 01:21] LABS: INR 0.97; PROTHROMBIN TIME 13.1 SECONDS (12.5-14.5)
[2022-05-12 01:22] LABS: PARTIAL THROMBOPLASTIN TIME 29.7 SECONDS (24.8-34.2)
[2022-05-12 01:36] LABS: CALCIUM LEVEL 7.7 MG/DL (8.8-10.2); CREATININE FOR GFR 1.48 MG/DL (0.70-1.30); GLOMERULAR FILTRATION RATE 51.6 (>49); POTASSIUM SERUM 4.4 MEQ/L (3.5-5.1)
[2022-05-12] MEDS: IPRATROPIUM 0.5MG/ALBUTEROL 2.5MG INH SOL UD 3ML (DUONEB) NEB SCH ×6 (04:00→23:48)
[2022-05-12 04:23] VITALS: BP 121/75
[2022-05-12 04:28] LABS: HEMATOCRIT 29.1 % (42.0-52.0); MEAN CORPUSCULAR HEMOGLOBIN 34.4 pg (27.0-33.0); MEAN CORPUSCULAR HGB CONC 34.4 g/dl (32.0-36.5); PLATELET COUNT, AUTOMATED 247 10^3/uL (150-450); RED BLOOD COUNT 2.91 10^6/uL (4.30-6.10); WHITE BLOOD COUNT 3.1 10^3/uL (4.0-10.0)
[2022-05-12 04:55] LABS: CREATININE FOR GFR 1.38 MG/DL (0.70-1.30); POTASSIUM SERUM 4.7 MEQ/L (3.5-5.1)
[2022-05-12 05:28] LABS: ALBUMIN 2.5 GM/DL (3.2-5.2); BILIRUBIN,TOTAL 0.6 MG/DL (0.2-1.0); CALCIUM LEVEL 7.9 MG/DL (8.8-10.2); CREATININE FOR GFR 1.42 MG/DL (0.70-1.30); GLOMERULAR FILTRATION RATE 54.1 (>49); TOTAL PROTEIN 5.9 GM/DL (6.4-8.2)
[2022-05-12] MEDS: OXAZEPAM 15MG CAP PO SCH ×2 (06:00→06:45)
[2022-05-12] MEDS: SYMBICORT 160/4.5MCG INHALER 6GM INH SCH ×2 (07:50→19:16)
[2022-05-12 07:55] VITALS: BP 113/73
[2022-05-12] MEDS: MULTIVITAMINS/MINERALS THERAP 1 TAB PO SCH (08:40)
[2022-05-12] MEDS: PANTOPRAZOLE 40MG VIAL IV SCH ×2 (08:40→21:10)
[2022-05-12] MEDS: DOXYCYCLINE HYCLATE 100 MG in D5W MINI-BAG PLUS 100 ML IV SCH ×2 (08:40→21:10)
[2022-05-12] MEDS: LORazepam 2 MG TAB PO PRN ×2 (08:40→14:08)
[2022-05-12] MEDS: FOLIC ACID 1MG TAB PO SCH (08:40)
[2022-05-12] MEDS ORDERED: MULTIVITAMINS/MINERALS THERAP 1 TAB PO SCH (09:00)
[2022-05-12] MEDS ORDERED: FOLIC ACID 1MG TAB PO SCH (09:00)
[2022-05-12 09:13] LABS: CALCIUM LEVEL 8.3 MG/DL (8.8-10.2); CREATININE FOR GFR 1.47 MG/DL (0.70-1.30); POTASSIUM SERUM 5.3 MEQ/L (3.5-5.1)
[2022-05-12] MEDS ORDERED: LEVALBUTEROL 1.25 MG/0.5 ML CONCENTRATE NEB INH PRN (10:45)
[2022-05-12] MEDS: OXAZEPAM 10MG CAP PO SCH ×2 (11:06→17:03)
[2022-05-12 12:00] VITALS: BP 133/94
[2022-05-12 12:30] LABS: HEMATOCRIT 30.3 % (42.0-52.0); HEMOGLOBIN 10.2 g/dl (13.5-17.5)
[2022-05-12] MEDS ORDERED: tiZANidine 4 MG TAB PO PRN (13:00)
[2022-05-12] MEDS ORDERED: ALBUTEROL 90 MCG/ACT 8GM HFA INHALER INH PRN ×2 (13:00)
[2022-05-12 13:42] LABS: CALCIUM LEVEL 8.1 MG/DL (8.8-10.2); CREATININE FOR GFR 1.37 MG/DL (0.70-1.30); GLOMERULAR FILTRATION RATE 56.4 (>49)
[2022-05-12 16:00] VITALS: BP 128/76
[2022-05-12 16:59] LABS: CALCIUM LEVEL 8.7 MG/DL (8.8-10.2); CREATININE FOR GFR 1.47 MG/DL (0.70-1.30); POTASSIUM SERUM 3.8 MEQ/L (3.5-5.1)
[2022-05-12] MEDS: GABAPENTIN 100 MG CAP PO SCH ×2 (17:03→21:10)
[2022-05-12] MEDS: predniSONE 20 MG TAB PO SCH (17:03)
[2022-05-12 20:20] VITALS: BP 134/96
[2022-05-12 20:34] LABS: HEMATOCRIT 29.7 % (42.0-52.0); HEMOGLOBIN 9.8 g/dl (13.5-17.5)
[2022-05-12] MEDS: THIAMINE 100 MG TAB PO SCH (21:10)
[2022-05-12] MEDS: DULoxetine 20 MG CAP (CYMBALTA) PO SCH (21:10)
[2022-05-12] MEDS: cefTRIAXone SOD 1 GM in D5W MINI-BAG PLUS 50 ML IV SCH (21:11)
[2022-05-13] MEDS: OXAZEPAM 10MG CAP PO SCH ×2 (00:07→06:13)
[2022-05-13 00:25] VITALS: BP 133/87
[2022-05-13] MEDS ORDERED: ALBU8.5H INH (03:13)
[2022-05-13 04:00] VITALS: BP 140/92
[2022-05-13 04:15] LABS: HEMATOCRIT 27.7 % (42.0-52.0)
[2022-05-13] MEDS: IPRATROPIUM 0.5MG/ALBUTEROL 2.5MG INH SOL UD 3ML (DUONEB) NEB SCH ×2 (04:28→07:17)
[2022-05-13] MEDS: LORazepam 2 MG TAB PO PRN ×2 (04:47→08:29)
[2022-05-13 04:52] LABS: ALBUMIN 2.5 GM/DL (3.2-5.2); ALT/SGPT 58 U/L (12-78); BILIRUBIN,TOTAL 0.4 MG/DL (0.2-1.0); BLOOD UREA NITROGEN 10 MG/DL (7-18); CALCIUM LEVEL 8.4 MG/DL (8.8-10.2); CARBON DIOXIDE LEVEL 27 MEQ/L (21-32); CHLORIDE LEVEL 101 MEQ/L (98-107); CREATININE FOR GFR 1.27 MG/DL (0.70-1.30); GLOMERULAR FILTRATION RATE > 60.0 (>49); GLUCOSE, FASTING 118 MG/DL (70-100); IRON (FE) 26 UG/DL (65-175); PERCENT SATURATION 14.5 % (19.7-50.0); POTASSIUM SERUM 4.3 MEQ/L (3.5-5.1); SODIUM LEVEL 134 MEQ/L (136-145); TOTAL IRON BINDING CAPACITY 179 UG/DL (250-450); TOTAL PROTEIN 5.7 GM/DL (6.4-8.2)
[2022-05-13] MEDS ORDERED: GABA800T4 PO (05:52)
[2022-05-13] MEDS ORDERED: MULTCHW12 PO (05:52)
[2022-05-13] MEDS ORDERED: HOME MED LIST COMPLETE! XX SCH (05:55)
[2022-05-13] MEDS: SYMBICORT 160/4.5MCG INHALER 6GM INH SCH ×2 (07:17→20:21)
[2022-05-13 08:00] VITALS: BP 136/89
[2022-05-13] MEDS: PANTOPRAZOLE 40MG VIAL IV SCH ×2 (08:27→20:12)
[2022-05-13] MEDS: predniSONE 20 MG TAB PO SCH (08:28)
[2022-05-13] MEDS: MULTIVITAMINS/MINERALS THERAP 1 TAB PO SCH (08:28)
[2022-05-13] MEDS: FOLIC ACID 1MG TAB PO SCH (08:28)
[2022-05-13] MEDS: GABAPENTIN 100 MG CAP PO SCH ×3 (08:28→20:11)
[2022-05-13] MEDS: DULoxetine 20 MG CAP (CYMBALTA) PO SCH ×2 (08:28→20:11)
[2022-05-13] MEDS: THIAMINE 100 MG TAB PO SCH ×2 (08:28→20:11)
[2022-05-13] MEDS: DOXYCYCLINE HYCLATE 100 MG in D5W MINI-BAG PLUS 100 ML IV SCH ×2 (08:29→20:12)
[2022-05-13] MEDS ORDERED: OXAZEPAM 10MG CAP PO SCH (09:00)
[2022-05-13] MEDS ORDERED: methylPREDNISolone 40MG 1ML VIAL IV ONE (09:50)
[2022-05-13] MEDS: LEVALBUTEROL 1.25 MG/0.5 ML CONCENTRATE NEB INH SCH ×4 (11:01→23:53)
[2022-05-13] MEDS: IPRATROPIUM 0.02% SOLN 0.5MG 2.5ML NEB INH SCH ×4 (11:01→23:53)
[2022-05-13 12:00] VITALS: BP 135/92
[2022-05-13 12:30] LABS: HEMATOCRIT 28.5 % (42.0-52.0); HEMOGLOBIN 9.6 g/dl (13.5-17.5)
[2022-05-13] MEDS: OXAZEPAM 15MG CAP PO SCH ×3 (12:41→20:11)
[2022-05-13 16:00] VITALS: BP 136/95
[2022-05-13 20:00] VITALS: BP 122/76
[2022-05-13 20:26] LABS: HEMOGLOBIN 9.2 g/dl (13.5-17.5)
[2022-05-13] MEDS: cefTRIAXone SOD 1 GM in D5W MINI-BAG PLUS 50 ML IV SCH (22:00)
[2022-05-14] VITALS (7 sets, daily range): BP systolic 111–131; BP diastolic 74–95
[2022-05-14] MEDS: OXAZEPAM 15MG CAP PO SCH ×5 (01:19→23:17)
[2022-05-14] MEDS ORDERED: ONDANSETRON 4MG 2ML VIAL IV PRN (02:15)
[2022-05-14] MEDS: LORazepam 2 MG TAB PO PRN ×2 (02:22→20:55)
[2022-05-14] MEDS: LEVALBUTEROL 1.25 MG/0.5 ML CONCENTRATE NEB INH SCH ×6 (03:26→23:19)
[2022-05-14] MEDS: IPRATROPIUM 0.02% SOLN 0.5MG 2.5ML NEB INH SCH ×6 (03:26→23:19)
[2022-05-14 05:43] LABS: BASO % 0.3 % (0.0-1.0); EOS % 0.5 % (0.0-3.0); HEMATOCRIT 26.8 % (42.0-52.0); LYMPH # 1.4 10^3/uL (1.5-5.0); LYMPH % 21.8 % (24.0-44.0); MEAN CORPUSCULAR HEMOGLOBIN 34.2 pg (27.0-33.0); MEAN CORPUSCULAR HGB CONC 33.6 g/dl (32.0-36.5); MEAN CORPUSCULAR VOLUME 101.9 fl (80.0-96.0); MONO # 0.9 10^3/uL (0.0-0.8); MONO % 13.7 % (2.0-8.0); NEUTROPHILS # 4.1 10^3/uL (1.5-8.5); NEUTROPHILS % 63.1 % (36.0-66.0); PLATELET COUNT, AUTOMATED 230 10^3/uL (150-450); RED BLOOD COUNT 2.63 10^6/uL (4.30-6.10); WHITE BLOOD COUNT 6.5 10^3/uL (4.0-10.0)
[2022-05-14] MEDS: guaiFENesin 200 MG TAB PO SCH ×4 (06:00→23:17)
[2022-05-14 06:16] LABS: ALBUMIN 2.3 GM/DL (3.2-5.2); ALT/SGPT 50 U/L (12-78); BILIRUBIN,TOTAL 0.4 MG/DL (0.2-1.0); BLOOD UREA NITROGEN 9 MG/DL (7-18); CALCIUM LEVEL 8.2 MG/DL (8.8-10.2); CARBON DIOXIDE LEVEL 27 MEQ/L (21-32); CHLORIDE LEVEL 100 MEQ/L (98-107); GLOMERULAR FILTRATION RATE > 60.0 (>49); GLUCOSE, FASTING 93 MG/DL (70-100); MAGNESIUM LEVEL 1.4 MG/DL (1.8-2.4); SODIUM LEVEL 132 MEQ/L (136-145)
[2022-05-14] MEDS ORDERED: MAGNESIUM OXIDE 400MG TAB (MAG-OX) PO ONE (07:40)
[2022-05-14] MEDS ORDERED: ALBUTEROL 90 MCG/ACT 8GM HFA INHALER INH PRN (08:20)
[2022-05-14] MEDS: SYMBICORT 160/4.5MCG INHALER 6GM INH SCH ×2 (08:25→20:24)
[2022-05-14] MEDS: MULTIVITAMINS/MINERALS THERAP 1 TAB PO SCH (08:40)
[2022-05-14] MEDS: THIAMINE 100 MG TAB PO SCH ×2 (08:40→20:55)
[2022-05-14] MEDS: PANTOPRAZOLE 40MG VIAL IV SCH ×2 (08:40→20:56)
[2022-05-14] MEDS: GABAPENTIN 100 MG CAP PO SCH ×3 (08:40→20:56)
[2022-05-14] MEDS: methylPREDNISolone 40MG 1ML VIAL IV SCH ×2 (08:40→20:56)
[2022-05-14] MEDS: DOXYCYCLINE HYCLATE 100 MG in D5W MINI-BAG PLUS 100 ML IV SCH (08:40)
[2022-05-14] MEDS: DULoxetine 20 MG CAP (CYMBALTA) PO SCH ×2 (08:41→20:55)
[2022-05-14] MEDS: FOLIC ACID 1MG TAB PO SCH (08:41)
[2022-05-14] MEDS: HEPARIN SOD (PORCINE) 5000UNITS/ML 1ML VIAL/SYRINGE SQ SCH ×2 (14:25→20:55)
[2022-05-14] MEDS: DOXYCYCLINE HYCLATE 100MG TABLET PO SCH (20:56)
[2022-05-14] MEDS: cefTRIAXone SOD 1 GM in D5W MINI-BAG PLUS 50 ML IV SCH (20:56)
[2022-05-15] VITALS (7 sets, daily range): BP systolic 122–132; BP diastolic 76–96
[2022-05-15] MEDS: LEVALBUTEROL 1.25 MG/0.5 ML CONCENTRATE NEB INH SCH ×5 (02:58→19:15)
[2022-05-15] MEDS: IPRATROPIUM 0.02% SOLN 0.5MG 2.5ML NEB INH SCH ×5 (02:58→19:15)
[2022-05-15] MEDS: guaiFENesin 200 MG TAB PO SCH ×3 (05:14→17:21)
[2022-05-15] MEDS: HEPARIN SOD (PORCINE) 5000UNITS/ML 1ML VIAL/SYRINGE SQ SCH ×3 (05:15→22:39)
[2022-05-15] MEDS: OXAZEPAM 15MG CAP PO SCH (05:15)
[2022-05-15 05:52] LABS: BASO % 0.2 % (0.0-1.0); HEMOGLOBIN 8.9 g/dl (13.5-17.5); LYMPH # 0.9 10^3/uL (1.5-5.0); LYMPH % 18.3 % (24.0-44.0); MEAN CORPUSCULAR HEMOGLOBIN 34.1 pg (27.0-33.0); MEAN CORPUSCULAR VOLUME 103.4 fl (80.0-96.0); MONO # 0.7 10^3/uL (0.0-0.8); MONO % 13.2 % (2.0-8.0); NEUTROPHILS # 3.5 10^3/uL (1.5-8.5); NEUTROPHILS % 67.7 % (36.0-66.0); PLATELET COUNT, AUTOMATED 245 10^3/uL (150-450); RED BLOOD COUNT 2.61 10^6/uL (4.30-6.10); WHITE BLOOD COUNT 5.1 10^3/uL (4.0-10.0)
[2022-05-15 06:31] LABS: ALBUMIN 2.4 GM/DL (3.2-5.2); ALT/SGPT 47 U/L (12-78); BILIRUBIN,TOTAL 0.4 MG/DL (0.2-1.0); BLOOD UREA NITROGEN 11 MG/DL (7-18); CALCIUM LEVEL 8.3 MG/DL (8.8-10.2); CARBON DIOXIDE LEVEL 24 MEQ/L (21-32); CHLORIDE LEVEL 99 MEQ/L (98-107); CREATININE FOR GFR 0.93 MG/DL (0.70-1.30); GLOMERULAR FILTRATION RATE > 60.0 (>49); GLUCOSE, FASTING 88 MG/DL (70-100); MAGNESIUM LEVEL 1.5 MG/DL (1.8-2.4); POTASSIUM SERUM 4.2 MEQ/L (3.5-5.1); SODIUM LEVEL 133 MEQ/L (136-145); TOTAL PROTEIN 5.8 GM/DL (6.4-8.2)
[2022-05-15] MEDS: SYMBICORT 160/4.5MCG INHALER 6GM INH SCH ×2 (07:10→19:15)
[2022-05-15] MEDS: FOLIC ACID 1MG TAB PO SCH (08:36)
[2022-05-15] MEDS: DOXYCYCLINE HYCLATE 100MG TABLET PO SCH ×2 (08:36→20:52)
[2022-05-15] MEDS: GABAPENTIN 100 MG CAP PO SCH ×3 (08:36→20:53)
[2022-05-15] MEDS: DULoxetine 20 MG CAP (CYMBALTA) PO SCH ×2 (08:36→20:52)
[2022-05-15] MEDS: MULTIVITAMINS/MINERALS THERAP 1 TAB PO SCH (08:36)
[2022-05-15] MEDS: THIAMINE 100 MG TAB PO SCH (08:36)
[2022-05-15] MEDS: methylPREDNISolone 40MG 1ML VIAL IV SCH ×2 (08:36→20:52)
[2022-05-15] MEDS: PANTOPRAZOLE 40MG VIAL IV SCH ×2 (08:36→20:52)
[2022-05-15] MEDS: cefTRIAXone SOD 1 GM in D5W MINI-BAG PLUS 50 ML IV SCH (22:39)
[2022-05-16] MEDS: LEVALBUTEROL 1.25 MG/0.5 ML CONCENTRATE NEB INH SCH ×4 (03:34→11:13)
[2022-05-16] MEDS: IPRATROPIUM 0.02% SOLN 0.5MG 2.5ML NEB INH SCH ×4 (03:34→11:13)
[2022-05-16 04:13] VITALS: BP 129/89
[2022-05-16] MEDS: HEPARIN SOD (PORCINE) 5000UNITS/ML 1ML VIAL/SYRINGE SQ SCH (05:35)
[2022-05-16] MEDS: guaiFENesin 200 MG TAB PO SCH ×3 (05:35→12:03)
[2022-05-16 06:27] LABS: BASO % 0.3 % (0.0-1.0); EOS % 0.2 % (0.0-3.0); HEMOGLOBIN 10.1 g/dl (13.5-17.5); LYMPH # 1.3 10^3/uL (1.5-5.0); LYMPH % 20.6 % (24.0-44.0); MEAN CORPUSCULAR HEMOGLOBIN 34.8 pg (27.0-33.0); MEAN CORPUSCULAR HGB CONC 33.7 g/dl (32.0-36.5); MEAN CORPUSCULAR VOLUME 103.4 fl (80.0-96.0); MONO # 0.9 10^3/uL (0.0-0.8); MONO % 13.7 % (2.0-8.0); NEUTROPHILS # 4.1 10^3/uL (1.5-8.5); NEUTROPHILS % 64.9 % (36.0-66.0); PLATELET COUNT, AUTOMATED 303 10^3/uL (150-450); WHITE BLOOD COUNT 6.3 10^3/uL (4.0-10.0)
[2022-05-16 07:02] LABS: ALBUMIN 2.7 GM/DL (3.2-5.2); ALT/SGPT 51 U/L (12-78); BILIRUBIN,TOTAL 0.4 MG/DL (0.2-1.0); BLOOD UREA NITROGEN 12 MG/DL (7-18); CALCIUM LEVEL 8.9 MG/DL (8.8-10.2); CARBON DIOXIDE LEVEL 21 MEQ/L (21-32); CHLORIDE LEVEL 99 MEQ/L (98-107); CREATININE FOR GFR 1.03 MG/DL (0.70-1.30); GLOMERULAR FILTRATION RATE > 60.0 (>49); GLUCOSE, FASTING 90 MG/DL (70-100); MAGNESIUM LEVEL 1.7 MG/DL (1.8-2.4); POTASSIUM SERUM 4.3 MEQ/L (3.5-5.1); SODIUM LEVEL 132 MEQ/L (136-145); TOTAL PROTEIN 6.3 GM/DL (6.4-8.2)
[2022-05-16] MEDS ORDERED: MAGNESIUM OXIDE 400MG TAB (MAG-OX) PO ONE (07:15)
[2022-05-16] MEDS: SYMBICORT 160/4.5MCG INHALER 6GM INH SCH (07:26)
[2022-05-16 08:00] VITALS: BP 129/95
[2022-05-16] MEDS: DULoxetine 20 MG CAP (CYMBALTA) PO SCH (08:51)
[2022-05-16] MEDS: DOXYCYCLINE HYCLATE 100MG TABLET PO SCH (08:51)
[2022-05-16] MEDS: GABAPENTIN 100 MG CAP PO SCH (08:51)
[2022-05-16] MEDS: FOLIC ACID 1MG TAB PO SCH (08:52)
[2022-05-16] MEDS: PANTOPRAZOLE 40MG VIAL IV SCH (08:52)
[2022-05-16] MEDS: methylPREDNISolone 40MG 1ML VIAL IV SCH (08:52)
[2022-05-16] MEDS: MULTIVITAMINS/MINERALS THERAP 1 TAB PO SCH (08:52)
[2022-05-16] MEDS ORDERED: FERROUS SULFATE 325MG TAB PO SCH (09:00)
[2022-05-16] MEDS ORDERED: PRED20TA PO (10:13)
[2022-05-16] MEDS ORDERED: GUAI20TA PO (10:13)
[2022-05-16 12:00] VITALS: BP 134/102
== END 2022-05-16 12:45 | disposition home or self-care (01) | DRG 897 ==
LOC: M ED 15:18 → M ED INP 19:21 → M PCU 20:56
PROVIDERS: ADMIT Internal Medicine; ATTEND Family Medicine
DX: F10.239 Alcohol dependence with withdrawal, unspecified (principal); E87.1 Hypo-osmolality and hyponatremia; E46 Unspecified protein-calorie malnutrition; J44.1 Chronic obstructive pulmonary disease with (acute) exacerbation; N17.9 Acute kidney failure, unspecified; E87.20 Acidosis, unspecified; F32.A Depression, unspecified; D50.9 Iron deficiency anemia, unspecified; F17.210 Nicotine dependence, cigarettes, uncomplicated; E87.70 Fluid overload, unspecified; I10 Essential (primary) hypertension; G62.9 Polyneuropathy, unspecified; R56.9 Unspecified convulsions; K76.0 Fatty (change of) liver, not elsewhere classified; Z79.899 Other long term (current) drug therapy; M54.2 Cervicalgia; M54.50 Low back pain, unspecified; M19.90 Unspecified osteoarthritis, unspecified site

== ENCOUNTER → 2022-09-16 | Outpatient (CLI) | payer MEDICARE, OTHER ==
[~2022-09-16] MED LIST changes: +ALBU8.5H INH; +DIPH-435 PO; -DIPH25CA32 PO; +GABA-1171 PO; +GUAI20TA PO; +MULTCHW12 PO; +PRED20TA PO; +patient note
== END ==
LOC: M RAD 15:38
PROVIDERS: ATTEND Student in an Organized Health Care Education/Training Program
DX: Z12.2 Encounter for screening for malignant neoplasm of respiratory organs (principal); F17.218 Nicotine dependence, cigarettes, with other nicotine-induced disorders

== ENCOUNTER → 2023-02-24 | Outpatient (CLI) | payer MEDICARE ==
[2023-02-24 15:21] LABS: HEMOGLOBIN A1c 5.2 % (4.0-6.0)
[2023-02-24 15:40] LABS: ALBUMIN 3.8 G/DL (3.2-5.2); ALKALINE PHOSPHATASE 98 U/L (46-116); ALT/SGPT 11 U/L (7.0-40); AST/SGOT < 8 U/L (<34); BILIRUBIN,TOTAL 0.4 MG/DL (0.3-1.2); BLOOD UREA NITROGEN 13 MG/DL (9-23); CALCIUM LEVEL 9.3 MG/DL (8.3-10.6); CARBON DIOXIDE LEVEL 29 MMOL/L (20-31); CHLORIDE LEVEL 99 MMOL/L (98-107); CHOLESTEROL LEVEL 199 MG/DL (<200); CHOLESTEROL RISK RATIO 5.95 (<5); CREATININE FOR GFR 0.96 MG/DL (0.70-1.30); FOLATE 17.24 NG/ML (>5.4); GLOMERULAR FILTRATION RATE > 60.0 (>49); GLUCOSE, FASTING 73 MG/DL (74-106); HDL CHOLESTEROL 33.4 MG/DL (>40); LDL CHOLESTEROL 97.2 MG/DL (<100); NON-HDL-C 165.6 MG/DL; POTASSIUM SERUM 4.6 MMOL/L (3.5-5.1); SODIUM LEVEL 135 MMOL/L (136-145); TOTAL PROTEIN 7.4 G/DL (5.7-8.2); TRIGLYCERIDES LEVEL 342 MG/DL (<150); VITAMIN B12 LEVEL 531 PG/ML (211-911)
== END ==
LOC: M PLALAB 09:30
PROVIDERS: ATTEND Student in an Organized Health Care Education/Training Program
DX: I10 Essential (primary) hypertension (principal); F10.10 Alcohol abuse, uncomplicated; Z12.5 Encounter for screening for malignant neoplasm of prostate; Z13.220 Encounter for screening for lipoid disorders; Z13.1 Encounter for screening for diabetes mellitus; Z79.899 Other long term (current) drug therapy
CPT/HCPCS: 36415; 80053; 80061; 82607; 82746; 83036; G0103

== ENCOUNTER → 2023-04-13 | Outpatient (CLI) | payer MEDICARE, OTHER ==
[~2023-04-13] MED LIST changes: +ATOR40TA75 PO; +DULO1CAP4 PO; +VARE1TAB2 PO
[2023-04-13 18:27] LABS: BASO % 0.4 % (0.0-1.0); EOS # 0.2 10^3/uL (0.0-0.5); EOS % 2.2 % (0.0-3.0); HEMATOCRIT 46.7 % (42.0-52.0); HEMOGLOBIN 14.7 g/dl (13.5-17.5); LYMPH # 2.6 10^3/uL (1.5-5.0); MEAN CORPUSCULAR HEMOGLOBIN 29.1 pg (27.0-33.0); MEAN CORPUSCULAR HGB CONC 31.5 g/dl (32.0-36.5); MEAN CORPUSCULAR VOLUME 92.5 fl (80.0-96.0); MONO # 0.9 10^3/uL (0.0-0.8); MONO % 9.7 % (2.0-8.0); NEUTROPHILS # 5.7 10^3/uL (1.5-8.5); NEUTROPHILS % 60.3 % (36.0-66.0); PLATELET COUNT, AUTOMATED 387 10^3/uL (150-450); RED BLOOD COUNT 5.05 10^6/uL (4.30-6.10); WHITE BLOOD COUNT 9.5 10^3/uL (4.0-10.0)
[2023-04-13 18:32] LABS: ALBUMIN 3.9 G/DL (3.2-5.2); ALKALINE PHOSPHATASE 112 U/L (46-116); ALT/SGPT 14 U/L (7.0-40); AST/SGOT 12 U/L (<34); BILIRUBIN,TOTAL 0.3 MG/DL (0.3-1.2); BLOOD UREA NITROGEN 13 MG/DL (9-23); CALCIUM LEVEL 9.1 MG/DL (8.3-10.6); CARBON DIOXIDE LEVEL 29 MMOL/L (20-31); CHLORIDE LEVEL 104 MMOL/L (98-107); CREATININE FOR GFR 0.97 MG/DL (0.70-1.30); GLOMERULAR FILTRATION RATE > 60.0 (>49); GLUCOSE, FASTING 79 MG/DL (74-106); SODIUM LEVEL 137 MMOL/L (136-145); TOTAL PROTEIN 7.5 G/DL (5.7-8.2)
== END ==
LOC: M PLALAB 12:43
PROVIDERS: ATTEND Student in an Organized Health Care Education/Training Program
DX: Z01.818 Encounter for other preprocedural examination (principal); J43.9 Emphysema, unspecified; J90 Pleural effusion, not elsewhere classified; K42.9 Umbilical hernia without obstruction or gangrene

== ENCOUNTER → 2023-04-13 | Outpatient (REF) | payer MEDICARE, OTHER | LOC: M SFHCPLAZ 12:20 | PROVIDERS: ATTEND Family Medicine | DX: Z01.818 Encounter for other preprocedural examination (principal); K42.9 Umbilical hernia without obstruction or gangrene ==

== ENCOUNTER 2023-04-19 12:18 | Day surgery (SDC) | payer MEDICARE ==
[~2023-04-19] VITALS: Ht 182.9 cm; Wt 110.2 kg
[~2023-04-19 12:18] MED LIST changes: +UNRESOLVED CLARIFICATION ENTRY XX SCH; +ceFAZolin SOD 2 GM in IV 1 EA IV ONE
[2023-04-19] MEDS ORDERED: LR 1,000 ML IV SCH (13:15)
[2023-04-19] MEDS ORDERED: fentaNYL 250 MCG/5 ML INJECTION As Ordered ONE (15:12)
[2023-04-19] MEDS ORDERED: propofoL 200 MG/20 ML VIAL As Ordered ONE (15:12)
[2023-04-19] MEDS ORDERED: fentaNYL 100 MCG/2 ML INJECTION As Ordered ONE (15:12)
[2023-04-19] MEDS ORDERED: LABETALOL 100MG/20ML VIAL As Ordered ONE (15:12)
[2023-04-19] MEDS ORDERED: ONDANSETRON 4MG 2ML VIAL As Ordered ONE (15:12)
[2023-04-19] MEDS ORDERED: KETOROLAC 60MG 2ML VIAL As Ordered ONE (15:12)
[2023-04-19] MEDS ORDERED: ROCURONIUM BROMIDE 50MG/5ML VIAL As Ordered ONE (15:12)
[2023-04-19] MEDS ORDERED: LIDOCAINE 2% 100MG/5ML SDV (FOR ANES.) As Ordered ONE (15:12)
[2023-04-19] MEDS ORDERED: METOCLOPRAMIDE INJ 10MG/2ML VIAL As Ordered ONE (15:12)
[2023-04-19] MEDS ORDERED: ACETAMINOPHEN 1000MG 100ML IV BAG As Ordered ONE (15:12)
[2023-04-19] MEDS ORDERED: SUGAMMADEX SODIUM 500 MG/5 ML VIAL (BRIDION) As Ordered ONE (15:12)
[2023-04-19] MEDS ORDERED: MIDAZOLAM INJ 2MG/2ML VIAL As Ordered ONE (15:12)
[2023-04-19] MEDS ORDERED: ONDANSETRON 4MG 2ML VIAL IV PRN (15:55)
[2023-04-19] MEDS ORDERED: fentaNYL 100 MCG/2 ML INJECTION IV PRN (15:55)
[2023-04-19] MEDS ORDERED: oxyCODONE 5MG TAB PO PRN (15:55)
[2023-04-19] MEDS ORDERED: NORCO, ANEXSIA 5/325MG TABLET (HYDROcodone/ACETAMINOPHEN) PO PRN (16:00)
[2023-04-19 16:50] VITALS: BP 128/84; TEMP 98; O2SAT 96
== END 2023-04-19 17:12 | disposition home or self-care (01) ==
LOC: M SDC 12:18
PROVIDERS: ATTEND Surgery
DX: K43.2 Incisional hernia without obstruction or gangrene (principal); I10 Essential (primary) hypertension; J44.9 Chronic obstructive pulmonary disease, unspecified; F17.218 Nicotine dependence, cigarettes, with other nicotine-induced disorders; Z79.51 Long term (current) use of inhaled steroids; Z79.899 Other long term (current) drug therapy
CPT/HCPCS: 49615; C1781; J0131; J0665; J0690; J1100; J1885; J1920; J2250; J2405; J2765; J3010; S2900

== ENCOUNTER → 2023-10-01 | Outpatient (REF) | payer MEDICARE, OTHER ==
[~2023-10-01] MED LIST changes: -CHLO25CA PO; +CHLO25CA10 PO; -UNRESOLVED CLARIFICATION ENTRY XX SCH; -ceFAZolin SOD 2 GM in IV 1 EA IV ONE
== END ==
LOC: M SFHCPLAZ 10:35
PROVIDERS: ATTEND Family Medicine
DX: R42 Dizziness and giddiness (principal)

== ENCOUNTER → 2024-02-03 | Outpatient (CLI) | payer MEDICARE ==
[~2024-02-03] MED LIST changes: +ONDA-282 PO; -ONDA4TAB6 PO
== END ==
LOC: M RAD 12:24
PROVIDERS: ATTEND Internal Medicine Critical Care Medicine
DX: Z12.2 Encounter for screening for malignant neoplasm of respiratory organs (principal); F17.218 Nicotine dependence, cigarettes, with other nicotine-induced disorders

== ENCOUNTER → 2024-10-27 | Outpatient (CLI) | payer MEDICARE, MEDICAID ==
[~2024-10-27] MED LIST changes: +GABA-1172 PO; +GABA-1490 PO; +GABA-1635 PO; -GABA-282 PO; -GABA600T4 PO; -GABA800T4 PO
[2024-10-27 15:42] LABS: BASO % 0.5 % (0.0-1.0); EOS # 0.1 10^3/uL (0.0-0.5); EOS % 1.5 % (0.0-3.0); HEMATOCRIT 45.9 % (42.0-52.0); HEMOGLOBIN 14.9 g/dl (13.5-17.5); LYMPH # 2.1 10^3/uL (1.5-5.0); LYMPH % 25.7 % (24.0-44.0); MEAN CORPUSCULAR HEMOGLOBIN 31.6 pg (27.0-33.0); MEAN CORPUSCULAR HGB CONC 32.5 g/dl (32.0-36.5); MEAN CORPUSCULAR VOLUME 97.2 fl (80.0-96.0); MONO # 0.6 10^3/uL (0.0-0.8); MONO % 7.7 % (2.0-8.0); NEUTROPHILS # 5.3 10^3/uL (1.5-8.5); NEUTROPHILS % 64.2 % (36.0-66.0); PLATELET COUNT, AUTOMATED 407 10^3/uL (150-450); RED BLOOD COUNT 4.72 10^6/uL (4.30-6.10); WHITE BLOOD COUNT 8.2 10^3/uL (4.0-10.0)
[2024-10-27 15:51] LABS: ALKALINE PHOSPHATASE 85 U/L (40-129); ALT/SGPT 15 U/L (7.0-40); AST/SGOT 10 U/L (<34); BILIRUBIN,TOTAL 0.4 MG/DL (0.3-1.2); BLOOD UREA NITROGEN 18 MG/DL (9-23); CARBON DIOXIDE LEVEL 30 MMOL/L (20-31); CHLORIDE LEVEL 105 MMOL/L (98-107); CHOLESTEROL LEVEL 111 MG/DL (<200); CHOLESTEROL RISK RATIO 2.61 (<5); CREATININE FOR GFR 0.86 MG/DL (0.70-1.30); GLOMERULAR FILTRATION RATE > 90.0 (>49); GLUCOSE, FASTING 82 MG/DL (74-106); HDL CHOLESTEROL 42.5 MG/DL (>40); LDL CHOLESTEROL 52.5 MG/DL (<100); NON-HDL-C 68.5 MG/DL; POTASSIUM SERUM 4.5 MMOL/L (3.5-5.1); SODIUM LEVEL 139 MMOL/L (136-145); TOTAL PROTEIN 7.1 G/DL (5.7-8.2); TRIGLYCERIDES LEVEL 80 MG/DL (<150)
[2024-10-27 15:53] LABS: FOLATE 18.4 NG/ML (>5.4); THYROID STIMULATING HORMONE 1.757 uIU/ML (0.55-4.78); VITAMIN B12 LEVEL 653 PG/ML (211-911)
== END ==
LOC: M PLALAB 13:11
PROVIDERS: ATTEND Family Medicine
DX: G62.1 Alcoholic polyneuropathy (principal); I10 Essential (primary) hypertension; E78.00 Pure hypercholesterolemia, unspecified; F43.21 Adjustment disorder with depressed mood; F10.21 Alcohol dependence, in remission

== ENCOUNTER → 2025-04-30 | Outpatient (CLI) | payer MEDICARE, MEDICAID | LOC: M RAD 14:50 | PROVIDERS: ATTEND Internal Medicine Critical Care Medicine | DX: Z12.2 Encounter for screening for malignant neoplasm of respiratory organs (principal); F17.218 Nicotine dependence, cigarettes, with other nicotine-induced disorders ==

== ENCOUNTER → 2025-05-18 | Outpatient (CLI) | payer MEDICARE, MEDICAID ==
[2025-05-18 15:40] LABS: BASO # 0.0 10^3/uL (0.0-0.2); BASO % 0.4 % (0.0-1.0); EOS # 0.1 10^3/uL (0.0-0.5); EOS % 1.6 % (0.0-3.0); LYMPH # 2.4 10^3/uL (1.5-5.0); LYMPH % 33.0 % (24.0-44.0); MONO # 0.9 10^3/uL (0.0-0.8); MONO % 11.9 % (2.0-8.0); NEUTROPHILS # 3.9 10^3/uL (1.5-8.5); NEUTROPHILS % 53.0 % (36.0-66.0); PLATELET COUNT, AUTOMATED 432 10^3/uL (150-450)
[2025-05-18 15:44] LABS: ALT/SGPT 13.0 U/L (7.0-40); AST/SGOT 18.0 U/L (<34); CALCIUM LEVEL 8.7 MG/DL (8.3-10.6); CARBON DIOXIDE LEVEL 28.0 MMOL/L (20-31); CHLORIDE LEVEL 105.0 MMOL/L (98-107); CHOLESTEROL LEVEL 106.0 MG/DL (<200); CHOLESTEROL RISK RATIO 2.48 (<5); CREATININE FOR GFR 1.49 MG/DL (0.70-1.30); GLOMERULAR FILTRATION RATE 52.4 (>49); LDL CHOLESTEROL 47.7 MG/DL (<100); NON-HDL-C 63.3 MG/DL; POTASSIUM SERUM 4.5 MMOL/L (3.5-5.1); SODIUM LEVEL 143.0 MMOL/L (136-145); TRIGLYCERIDES LEVEL 78.0 MG/DL (<150)
[2025-05-18 15:45] LABS: FREE T4 1.18 NG/DL (0.89-1.76)
[2025-05-18 15:54] LABS: ESTIMATED AVERAGE GLUCOSE 117.0 MG/DL (60-110)
== END ==
LOC: M PLALAB 11:11
PROVIDERS: ATTEND Family Medicine
DX: I10 Essential (primary) hypertension (principal); Z13.220 Encounter for screening for lipoid disorders; Z13.1 Encounter for screening for diabetes mellitus; F41.8 Other specified anxiety disorders

== ENCOUNTER → 2025-06-14 | Outpatient (CLI) | payer MEDICARE, MEDICAID | LOC: M RAD 07:21 | PROVIDERS: ATTEND Family Medicine | DX: Z13.6 Encounter for screening for cardiovascular disorders (principal); F17.200 Nicotine dependence, unspecified, uncomplicated ==